=== PATIENT | female | born 1965 | race Hispanic/Latino ===

== ENCOUNTER 2018-08-31 12:08 | Emergency (ER) | payer SELFPAY ==
[2018-08-31] MEDS ORDERED: FAMOTIDINE 20 MG/2 ML VIAL IV ONE (15:16)
[2018-08-31] MEDS ORDERED: MORPHINE 4 MG/ML SYR ONE (15:16)
[2018-08-31] MEDS ORDERED: NA CHLORIDE 0.9% 1,000 ML ONE (15:16)
[2018-08-31] MEDS ORDERED: ONDANSETRON 4 MG/2 ML VIAL ONE (15:16)
--- NOTE | 2018-08-31 15:37 | RAD REPORT ---
EXAM DESCRIPTION: US - Abdomen Exam Limited - 08/31/2018 3:15 pm CLINICAL HISTORY: ABD PAIN COMPARISON: <Comparisons> FINDINGS: The gallbladder demonstrates no gallstones. No pericholecystic fluid or gallbladder wall t hickening. The common bile duct is normal measuring 4 mm. The liver demonstrates no findings of intrahepatic biliary dilatation. IMPRESSION: Unremarkable examination.
[2018-08-31 15:47] LABS: Protime INR 0.99
[2018-08-31 15:48] LABS: Absolute Lymphocytes (CBC) 2.6 K/uL (0.7-4.9); Basophils % 0.4 % (0-1.3); Eosinophils % 0.1 % (0-4.4); Hematocrit 48.5 % (36.0-45.0); Lymphocytes % 16.2 % (15.3-44.8); MPV 8.8 fL (7.6-11.3); Monocytes % 7.5 % (3.3-12.3); RBC Red Blood Cell Count 5.39 M/uL (3.86-4.86)
[2018-08-31 16:05] LABS: ALT/SGPT 127 U/L (12-78); AST/SGOT 31 U/L (15-37); Albumin 3.8 g/dL (3.4-5.0); Alkaline Phosphatase 134 U/L (45-117); BUN Blood Urea Nitrogen 25 mg/dL (7-18); Bicarbonate 25 mmol/L (21-32); Bilirubin Direct 0.1 mg/dL (0-0.2); Bilirubin Total 0.4 mg/dL (0.2-1.0); Glucose Level 93 mg/dL (74-106); Lipase 92 U/L (73-393); Magnesium 2.6 mg/dL (1.8-2.4); NT PRO-BNP 11 pg/mL (<125); Potassium 4.4 mmol/L (3.5-5.1); Protein, Total 7.7 g/dL (6.4-8.2); Sodium Level 136 mmol/L (136-145); Troponin (Emerg Dept Use Only) < 0.02 ng/mL (0.0-0.045)
--- NOTE | 2018-08-31 16:07 | RAD REPORT ---
EXAM DESCRIPTION: RAD - Chest Single View - 08/31/2018 4:02 pm CLINICAL HISTORY: ABDOMINAL DISTENTION Chest pain. COMPARISON: No comparisons FINDINGS: Portable technique limits examination quality. The lungs are grossly clear. The heart is normal in size. No displaced fractures. IMPRESSION: No acute intrathoracic process suspected.
--- NOTE | 2018-08-31 16:54 | RAD REPORT ---
EXAM DESCRIPTION: CTAbdomen Pelvis W Contrast - 08/31/2018 4:46 pm CLINICAL HISTORY: Abdominal pain. ABD PAIN COMPARISON: Chest Single View dated 08/31/2018; Abdomen Exam Limited dated 08/31/2018 TECHNIQUE: Biphasic CT imaging of the abdomen and pelvis was performed with 100 ml non-ionic IV cont rast. All CT scans are performed using dose optimization technique as appropriate and may include automated exposure control or mA/KV adjustment according to patient size. FINDINGS: The lung bases are clear.Small hiatal hernia. Mild fatty liver is present. The spleen, pancreas, adrenal glands are normal. Multiple parapelvic cys ts are present on the right. Mild left hydronephrosis is suspected with normal size left ureter this may be related to chronic UPJ obstruction related to a crossing vessel. No bowel obstruction, free air, free fluid or abscess. Sigmoid diverticulosis is present without dive rticulitis. The appendix is normal. No evidence of significant lymphadenopathy. No suspicious bony findings. 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 Fatty liver.
[2018-08-31 17:06] LABS: Urine Blood TRACE (NEG); Urine Glucose NEGATIVE (NEG); Urine Protein TRACE (NEG); Urine Specific Gravity 1.025 (1.005-1.030)
--- NOTE | 2018-08-31 17:42 | ER ---
Nurse's Notes [facility] Name: Mamie Carranza Age: 53 yrs Sex: Female : 1965 Arrival Date: 08/31/2018 Time: 12:12 Bed 23 Private MD: None, None Diagnosis: Abdominal tenderness;Essential (primary) hypertension;Elevated white blood cell count;Hydronephrosis with ureteral stricture, not elsewhere classified-rust Presentation: 08/31 12:18 Presenting complaint: states: she feels weak since and been hj complaining of heartburn and stomach pain; reports chest pain; reports fever and chills; reports nausea;. Transition of care: patient was not received from another setting of care. Onset of symptoms was August 31, 2018. Risk Assessment: Do you want to hurt yourself or someone else? Patient reports no desire to harm self or others. Initial Sepsis Screen: Does the patient meet any 2 criteria? No. Patient's initial sepsis screen is negative. Does the patient have a suspected source of infection? No. Patient's initial sepsis screen is negative. Care prior to arrival: None. 12:18 Method Of Arrival: Ambulatory 12:18 Acuity: FÁTIMA 3 hj Historical: - Allergies: 12:20 No Known Allergies; hj - PMHx: 12:20 Hypertension; hj - PSHx: 12:20 None; hj - Immunization history:: Adult Immunizations up to date. - Family history:: not pertinent. - Ebola Screening: : Patient denies travel to an Ebola-affected area in the 21 days before illness onset. Screenin:46 Abuse screen: Denies threats or abuse. Denies injuries from another. Nutritional aj1 screening: No deficits noted. Tuberculosis screening: No symptoms or risk factors identified. 18:24 Fall Risk None identified. aj1 Assessment: 13:46 General: Appears in no apparent distress. uncomfortable, Behavior is calm, cooperative, aj1 appropriate for age. Pain: Complains of pain in epigastric area Pain does not radiate. Quality of pain is described as burning, Pain began 2-3 days ago. Neuro: Level of Consciousness is awake, alert, obeys commands, Oriented to person, place, time, situation. Cardiovascular: Patient's skin is warm and dry. Respiratory: Airway is patent Respiratory effort is even, unlabored, Respiratory pattern is regular, symmetrical. GI: Abdomen is non-distended, Bowel sounds present X 4 quads. Abd is soft X 4 quads Abdomen is tender to palpation in epigastric area Reports nausea, Patient currently denies diarrhea, vomiting. : No signs and/or symptoms were reported regarding the genitourinary system. EENT: No signs and/or symptoms were reported regarding the EENT system. Derm: No signs and/or symptoms reported regarding the dermatologic system. Skin is pink, warm \T\ dry. normal. Musculoskeletal: No signs and/or symptoms reported regarding the musculoskeletal system. Circulation, motion, and sensation intact. 14:48 Reassessment: Patient appears in no apparent distress at this time. No changes from aj1 previously documented assessment. Patient and/or family updated on plan of care and expected duration. Pain level reassessed. Patient is alert, oriented x 3, equal unlabored respirations, skin warm/dry/pink. 15:45 Reassessment: Patient and/or family updated on plan of care and expected duration. Pain aj1 level reassessed. General: Appears in no apparent distress. comfortable, Behavior is calm, cooperative, appropriate for age. Neuro: Level of Consciousness is awake, alert, obeys commands. Cardiovascular: Patient's skin is warm and dry. Respiratory: Airway is patent Respiratory effort is even, unlabored, Respiratory pattern is regular, symmetrical. GI: Abdomen is non-distended. Derm: No signs and/or symptoms reported regarding the dermatologic system. Skin is pink, warm \T\ dry. normal. 16:45 Reassessment: Patient appears in no apparent distress at this time. No changes from aj1 previously documented assessment. Patient and/or family updated on plan of care and expected duration. Pain level reassessed. Patient is alert, oriented x 3, equal unlabored respirations, skin warm/dry/pink. 17:45 Reassessment: Patient appears in no apparent distress at this time. No changes from aj1 previously documented assessment. Patient and/or family updated on plan of care and expected duration. Pain level reassessed. Patient is alert, oriented x 3, equal unlabored respirations, skin warm/dry/pink. Vital Signs: 12:20 BP 116 / 82; Pulse 86; Resp 18; Temp 97.6(TE); Pulse Ox 98% on R/A; Weight 83.01 kg; hj Height 5 ft. 5 in. (165.10 cm); Pain 6/10; 13:30 BP 140 / 97 LA (auto/reg); Pulse 81; Temp 98.5(O); Pulse Ox 99% on R/A; Pain 8/10; jp3 14:48 BP 124 / 83; Pulse 80; Resp 18; Pulse Ox 100% on R/A; aj1 15:45 BP 120 / 91; Pulse 73; Resp 18; Pulse Ox 98% on R/A; aj1 16:45 BP 125 / 85; Pulse 79; Resp 18; Pulse Ox 99% ; aj1 17:45 BP 132 / 95; Pulse 76; Resp 18; Pulse Ox 99% on R/A; aj1 12:20 Body Mass Index 30.45 (83.01 kg, 165.10 cm) ED Course: 12:12 Patient arrived in ED. dp 12:13 None, None is Private Physician. dp 12:20 Triage completed. hj 12:20 Arm band placed on left wrist. hj 13:34 Bed in low position. Call light in reach. Side rails up X 1. Verbal reassurance given. jp3 Pulse ox on. NIBP on. 13:34 Patient maintains SpO2 saturation greater than 95% on room air. jp3 13:42 Renetta Roman, RN is Primary Nurse. aj1 13:46 No provider procedures requiring assistance completed. aj1 13:52 Dustin Cleveland MD is Attending Physician. [facility] 14:56 Radiology exam delayed due to lab results not completed at this time. (BUN/Creatinine) jg6 IV insertion attempt and/or patient not having appropriate IV at this time. 15:17 US Abdomen Limited In Process Unspecified. EDMS 15:31 Radiology exam delayed due to lab results not completed at this time. (BUN/Creatinine). jg6 15:48 Radiology exam delayed due to lab results not completed at this time. (BUN/Creatinine). jg6 15:49 Inserted saline lock: 20 gauge in right antecubital area, using aseptic technique. mg2 Blood collected. 15:56 Radiology exam delayed due to lab results not completed at this time. (BUN/Creatinine). vm2 16:03 XRAY Chest (1 view) In Process Unspecified. EDMS 16:47 CT Abd/Pelvis - IV Contrast Only In Process Unspecified. EDMS 17:41 Rajan Deluna MD is Referral Physician. [facility] 17:42 Chava Cararnza MD is Referral Physician. [facility] 18:23 IV discontinued, intact, bleeding controlled, No redness/swelling at site. Pressure aj1 dressing applied. Administered Medications: 15:33 Drug: NS 0.9% 1000 ml Route: IV; Rate: 1 bolus; Site: right antecubital; mg2 17:30 Follow up: IV Status: Completed infusion; IV Intake: 1000ml aj1 15:33 Drug: Pepcid 20 mg Route: IVP; Site: right antecubital; mg2 16:30 Follow up: Response: No adverse reaction aj1 15:33 Not Given (Patient Refused): morphine 4 mg IVP once mg2 15:33 Drug: Zofran 4 mg Route: IVP; Site: right antecubital; mg2 16:30 Follow up: Response: No adverse reaction; Nausea is decreased aj1 Intake: 17:30 IV: 1000ml; Total: 1000ml. aj1 Outcome: 17:42 Discharge ordered by . [facility] 18:24 Discharged to home ambulatory. aj1 18:24 Condition: good 18:24 Discharge instructions given to patient, Instructed on discharge instructions, follow up and referral plans. medication usage, Demonstrated understanding of instructions, follow-up care, medications, Prescriptions given X 4. 18:24 Patient left the ED. aj1 Signatures: Dispatcher [employer] EDMS Renetta Roman RN RN aj1 Dustin Cleveland MD MD cha Joaquin, Henry, RN RN hj McGuire, Victoria 2 Alin Zimmerman RN RN [facility] Ortiz jp3 Sandi Moura6 Cliff Bond Corrections: (The following items were deleted from the chart) 12:23 12:20 Pulse 86bpm; Resp 18bpm; Pulse Ox 98% RA; Temp 97.6F Temporal; 83.01 kg; Height 5 hj ft. 5 in.; BMI: 30.4; Pain 6/10; hj 12:32 12:18 Presenting complaint: states: she feels weak since and been hj complaining of of heartburn and stomach pain; reports chest pain; reports fever and chills; reports nausea; hj
--- NOTE | 2018-08-31 17:42 | EDPHYS ---
Physician Documentation [facility] Name: Mamie Carranza Age: 53 yrs Sex: Female : 1965 Arrival Date: 08/31/2018 Time: 12:12 Bed 23 Private MD: None, None ED Physician Dustin Cleveland HPI: 08/31 14:52 This 53 yrs old Female presents to ER via Ambulatory with complaints of augusto Abdominal Pain, General Weakness. 14:52 The patient presents with abdominal pain in the epigastric area, in the upper abdomen, augusto abdominal distention in the upper abdomen, in the lower abdomen. Onset: The symptoms/episode began/occurred 3 day(s) ago. The patient presents to the emergency department with nausea, abdominal pain, of the epigastric area, right upper quadrant and left upper quadrant. Onset: The symptoms/episode began/occurred 3 day(s) ago. Possible causes: unknown. The symptoms are aggravated by nothing. The symptoms are alleviated by nothing. Associated signs and symptoms: The patient has no apparent associated signs or symptoms. Historical: - Allergies: 12:20 No Known Allergies; hj - PMHx: 12:20 Hypertension; hj - PSHx: 12:20 None; hj - Immunization history:: Adult Immunizations up to date. - Family history:: not pertinent. - Ebola Screening: : Patient denies travel to an Ebola-affected area in the 21 days before illness onset. ROS: 14:52 Constitutional: Negative for fever, chills, and weight loss, Eyes: Negative for injury, augusto pain, redness, and discharge, ENT: Negative for injury, pain, and discharge, Neck: Negative for injury, pain, and swelling, Cardiovascular: Negative for chest pain, palpitations, and edema, Respiratory: Negative for shortness of breath, cough, wheezing, and pleuritic chest pain, Back: Negative for injury and pain, : Negative for injury, bleeding, discharge, and swelling, MS/Extremity: Negative for injury and deformity, Skin: Negative for injury, rash, and discoloration, Neuro: Negative for headache, weakness, numbness, tingling, and seizure. 14:52 Abdomen/GI: Positive for abdominal pain, nausea and vomiting, of the epigastric area, right upper quadrant and left upper quadrant. Exam: 14:52 Constitutional: This is a well developed, well nourished patient who is awake, alert, augusto and in no acute distress. Head/Face: Normocephalic, atraumatic. Eyes: Pupils equal round and reactive to light, extra-ocular motions intact. Lids and lashes normal. Conjunctiva and sclera are non-icteric and not injected. Cornea within normal limits. Periorbital areas with no swelling, redness, or edema. ENT: Nares patent. No nasal discharge, no septal abnormalities noted. Tympanic membranes are normal and external auditory canals are clear. Oropharynx with no redness, swelling, or masses, exudates, or evidence of obstruction, uvula midline. Mucous membranes moist. Neck: Trachea midline, no thyromegaly or masses palpated, and no cervical lymphadenopathy. Supple, full range of motion without nuchal rigidity, or vertebral point tenderness. No Meningismus. Chest/axilla: Normal chest wall appearance and motion. Nontender with no deformity. No lesions are appreciated. Cardiovascular: Regular rate and rhythm with a normal S1 and S2. No gallops, murmurs, or rubs. Normal PMI, no JVD. No pulse deficits. Respiratory: Lungs have equal breath sounds bilaterally, clear to auscultation and percussion. No rales, rhonchi or wheezes noted. No increased work of breathing, no retractions or nasal flaring. Back: No spinal tenderness. No costovertebral tenderness. Full range of motion. Skin: Warm, dry with normal turgor. Normal color with no rashes, no lesions, and no evidence of cellulitis. MS/ Extremity: Pulses equal, no cyanosis. Neurovascular intact. Full, normal range of motion. Neuro: Awake and alert, GCS 15, oriented to person, place, time, and situation. Cranial nerves II-XII grossly intact. Motor strength 5/5 in all extremities. Sensory grossly intact. Cerebellar exam normal. Normal gait. Psych: Awake, alert, with orientation to person, place and time. Behavior, mood, and affect are within normal limits. 14:52 Abdomen/GI: Inspection: distension, Bowel sounds: normal, Palpation: mild abdominal tenderness, in the epigastric area, right upper quadrant and left upper quadrant, Liver: no appreciated palpable abnormalities, Hernia: not appreciated. Vital Signs: 12:20 BP 116 / 82; Pulse 86; Resp 18; Temp 97.6(TE); Pulse Ox 98% on R/A; Weight 83.01 kg; hj Height 5 ft. 5 in. (165.10 cm); Pain 6/10; 13:30 BP 140 / 97 LA (auto/reg); Pulse 81; Temp 98.5(O); Pulse Ox 99% on R/A; Pain 8/10; jp3 14:48 BP 124 / 83; Pulse 80; Resp 18; Pulse Ox 100% on R/A; aj1 15:45 BP 120 / 91; Pulse 73; Resp 18; Pulse Ox 98% on R/A; aj1 16:45 BP 125 / 85; Pulse 79; Resp 18; Pulse Ox 99% ; aj1 17:45 BP 132 / 95; Pulse 76; Resp 18; Pulse Ox 99% on R/A; aj1 12:20 Body Mass Index 30.45 (83.01 kg, 165.10 cm) hj MDM: 13:52 Patient medically screened. [facility] 14:55 Data reviewed: vital signs, nurses notes, lab test result(s), EKG, radiologic studies, [facility] CT scan, plain films. 08/31 14:52 Order name: Basic Metabolic Panel [facility] 08/31 14:52 Order name: CBC with Diff [facility] 08/31 14:52 Order name: LFT's [facility] 08/31 14:52 Order name: Magnesium [facility] 08/31 14:52 Order name: NT PRO-BNP; Complete Time: 16:26 [facility] 08/31 14:52 Order name: PT-INR; Complete Time: 15:54 [facility] 08/31 14:52 Order name: Troponin (emerg Dept Use Only); Complete Time: 16:26 [facility] 08/31 14:52 Order name: Lipase; Complete Time: 16:26 [facility] 08/31 14:52 Order name: Urine Culture [facility] 08/31 14:53 Order name: Basic Metabolic Panel; Complete Time: 16:26 [facility] 08/31 14:53 Order name: CBC with Automated Diff; Complete Time: 15:54 [facility] 08/31 14:53 Order name: Liver (Hepatic) Function; Complete Time: 16:26 [facility] 08/31 14:53 Order name: Magnesium; Complete Time: 16:26 [facility] 08/31 15:57 Order name: Urine Dipstick--Ancillary (enter results); Complete Time: 17:28 bd 08/31 14:52 Order name: XRAY Chest (1 view); Complete Time: 16:26 [facility] 08/31 14:52 Order name: EKG; Complete Time: 14:54 [facility] 08/31 14:52 Order name: Cardiac monitoring; Complete Time: 15:44 [facility] 08/31 14:52 Order name: EKG - Nurse/Tech; Complete Time: 15:44 [facility] 08/31 14:52 Order name: IV Saline Lock; Complete Time: 15:44 [facility] 08/31 14:52 Order name: Labs collected and sent; Complete Time: 15:44 [facility] 08/31 14:52 Order name: O2 Per Protocol; Complete Time: 15:44 [facility] 08/31 14:52 Order name: O2 Sat Monitoring; Complete Time: 15:44 [facility] 08/31 14:52 Order name: US Abdomen Limited; Complete Time: 15:54 [facility] 08/31 14:52 Order name: CT Abd/Pelvis - IV Contrast Only; Complete Time: 17:28 [facility] 08/31 14:52 Order name: Urine Dipstick-Ancillary (obtain specimen); Complete Time: 16:43 [facility] Administered Medications: 15:33 Drug: NS 0.9% 1000 ml Route: IV; Rate: 1 bolus; Site: right antecubital; mg2 17:30 Follow up: IV Status: Completed infusion; IV Intake: 1000ml aj1 15:33 Drug: Pepcid 20 mg Route: IVP; Site: right antecubital; mg2 16:30 Follow up: Response: No adverse reaction aj1 15:33 Not Given (Patient Refused): morphine 4 mg IVP once mg2 15:33 Drug: Zofran 4 mg Route: IVP; Site: right antecubital; mg2 16:30 Follow up: Response: No adverse reaction; Nausea is decreased aj1 Disposition: 08/31/18 17:42 Discharged to Home. Impression: Abdominal tenderness, Essential (primary) hypertension, Elevated white blood cell count, Hydronephrosis with ureteral stricture, not elsewhere classified - upj. - Condition is Fair. - Discharge Instructions: Abdominal Pain, Adult, Hypertension, Abdominal Pain, Adult, [id number], Hydronephrosis, Hypertension, [id number], Managing Your Hypertension. - Prescriptions for Bentyl 20 mg Oral Tablet - take 1 tablet by ORAL route every 6 hours As needed; 20 tablet. Pepcid 20 mg Oral Tablet - take 1 tablet by ORAL route every 12 hours for 10 days; 20 tablet. Zofran 4 mg Oral Tablet - take 1 tablet by ORAL route every 12 hours As needed; 20 tablet. Lisinopril 10 mg Oral Tablet - take 1 tablet by ORAL route once daily; 20 tablet. - Medication Reconciliation Form, Thank You Letter, Antibiotic Education, Prescription Opioid Use form. - Follow up: Private Physician; When: 2 - 3 days; Reason: Recheck today's complaints, Continuance of care, Re-evaluation by your physician. Follow up: Rajan Deluna MD; When: 2 - 3 days; Reason: Recheck today's complaints, Continuance of care, Re-evaluation by your physician. Follow up: Chava Carranza MD; When: 2 - 3 days; Reason: Recheck today's complaints, Re-evaluation by your physician. - Problem is new. - Symptoms have improved. Signatures: Dispatcher [employer] EDRenetta Katz RN RN aj1 Dustin Cleveland MD MD cha Joaquin, Henry, RN RN Alin Zimmerman RN RN mg2 Corrections: (The following items were deleted from the chart) 18:24 17:42 08/31/2018 17:42 Discharged to Home. Impression: Abdominal tenderness; Essential aj1 (primary) hypertension; Elevated white blood cell count; Hydronephrosis with ureteral stricture, not elsewhere classified - upj. Condition is Fair. Forms are Medication Reconciliation Form, Thank You Letter, Antibiotic Education, Prescription Opioid Use. Follow up: Private Physician; When: 2 - 3 days; Reason: Recheck today's complaints, Continuance of care, Re-evaluation by your physician. Follow up: Rajan Deluna; When: 2 - 3 days; Reason: Recheck today's complaints, Continuance of care, Re-evaluation by your physician. Follow up: Chava Carranza; When: 2 - 3 days; Reason: Recheck today's complaints, Re-evaluation by your physician. Problem is new. Symptoms have improved. augusto
[2018-08-31 18:38] VITALS: TEMP 98.5
[2018-08-31 18:52] VITALS: O2SAT 99
[2018-08-31 18:53] VITALS: BP 132/95
--- NOTE | 2018-09-01 15:08 | EKG ---
Test Date: 2018-08-31 Test Time: 15:41:32 Manager Clinical: ELIU MEASUREMENT RESULTS: Intervals: Rate: 64 IN: 182 QRSD: 74 QT: 392 QTc: 404 [place]: P: 33 IN: 182 QRS: 16 T: 32 INTERPRETIVE STATEMENTS: Normal sinus rhythm Normal ECG Compared to ECG 04/25/2015 00:07:53 No significant changes Electronically Signed On 09-01-18 15:07:52 CDT by Srinivas Owens
== END 2018-08-31 18:24 | disposition home or self-care (01) ==
LOC: ER 12:08
DX: N13.1 Hydronephrosis with ureteral stricture, not elsewhere classified (principal); D72.829 Elevated white blood cell count, unspecified; I10 Essential (primary) hypertension
CPT/HCPCS: 36415; 71045; 74177; 76705; 80048; 80076; 81003; 83690; 83735; 83880; 84484; 85025; 85610; 87086; 87088; 93005; 96361; 96374; 96375; 99284; J2405; J7030; Q9967

== ENCOUNTER 2019-09-27 20:04 | Emergency (ER) | payer OTHER, SELFPAY ==
--- OUTSIDE RECORDS SUMMARY | 2019-09-27 20:06 | XMS REPORT | Continuity of Care Document ---
:1965 Author Organization [facility] t Address [address] [place] [address] Care Team Providers Name Role Phone Unavailable Unavailable Unavailable Problems This patient has no known problems. Allergies, Adverse Reactions, Alerts This patient has no known allergies or adverse reactions. Medications This patient has no known medications. Procedures This patient has no known procedures. Results This patient has no known results.
[2019-09-27 21:01] LABS: Basophils % 0.9 % (0-1.3); Hematocrit 37.1 % (36.0-45.0); Lymphocytes % 33.5 % (15.3-44.8); MPV 8.8 fL (7.6-11.3); RBC Red Blood Cell Count 4.21 M/uL (3.86-4.86)
[2019-09-27 21:04] LABS: Protime INR 0.92
[2019-09-27 21:31] LABS: ALT/SGPT 73 U/L (12-78); AST/SGOT 30 U/L (15-37); Albumin 3.5 g/dL (3.4-5.0); Alkaline Phosphatase 144 U/L (45-117); BUN Blood Urea Nitrogen 10 mg/dL (7-18); Bicarbonate 24 mmol/L (21-32); Bilirubin Direct < 0.1 mg/dL (0-0.2); Bilirubin Total 0.2 mg/dL (0.2-1.0); Ferritin 138.4 ng/mL (8-388); Glucose Level 98 mg/dL (74-106); Lipase 104 U/L (73-393); Potassium 3.8 mmol/L (3.5-5.1); Protein, Total 7.7 g/dL (6.4-8.2); Sodium Level 142 mmol/L (136-145); Troponin (Emerg Dept Use Only) < 0.02 ng/mL (0.0-0.045)
[2019-09-27 21:40] LABS: C-Reactive Protein < 2.90 mg/L (<3.00)
--- NOTE | 2019-09-27 21:42 | RAD REPORT ---
EXAM DESCRIPTION: RAD - Chest Single View - 09/27/2019 9:32 pm CLINICAL HISTORY: COUGH Chest pain. COMPARISON: Chest Single View dated 08/31/2018 FINDINGS: Portable technique limits examination quality. Mild interstitial prominence is seen bilaterally. The heart is mildly prominent in size. No displaced fractures. IMPRESSION: Mild CHF versus interstitial pneumonia pattern.
[2019-09-27 21:50] LABS: Urine Blood TRACE (NEG); Urine Glucose NEGATIVE (NEG); Urine Protein NEGATIVE (NEG); Urine Specific Gravity >1.030 (1.005-1.030); Urine pH 5.5 (5.0-7.0)
--- NOTE | 2019-09-27 21:58 | ER ---
Nurse's Notes [facility] Name: Mamie Carranza Age: 54 yrs Sex: Female : 1965 Arrival Date: 09/27/2019 Time: 20:05 Bed 8 Private MD: Diagnosis: Dyspnea, unspecified Presentation: 09/26 20:27 Chief complaint: Patient states: she was COVID positive but now is negative however she bb is SOB x 5 days and has mild chest, back and abdominal pain with a fever. Coronavirus screen: fever, shortness of breath, Client reports previous positive COVID test result. Ebola Screen: No symptoms or risks identified at this time. Initial Sepsis Screen: Does the patient meet any 2 criteria? RR > 20 per min. HR > 90 bpm. Yes Does the patient have a suspected source of infection? Yes: Productive cough/pneumonia If YES to both, name of provider notified: Cody Sheth MD. Risk Assessment: Do you want to hurt yourself or someone else? Patient reports no desire to harm self or others. Onset of symptoms was September 22, 2019. 20:27 Method Of Arrival: Ambulatory bb 20:27 Acuity: FÁTIMA 3 bb Triage Assessment: 20:30 General: Appears in no apparent distress. Behavior is calm, cooperative, appropriate rr5 for age. Respiratory: the patient has mild shortness of breath. 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 - Social history:: Smoking status: Patient denies any tobacco usage or history of. Patient/guardian denies using alcohol, street drugs. Screenin:40 Abuse screen: Denies threats or abuse. Denies injuries from another. Nutritional rr5 screening: No deficits noted. Tuberculosis screening: No symptoms or risk factors identified. Fall Risk IV access (20 points). Total Cao Fall Scale indicates No Risk (0-24 pts). Assessment: 20:35 General: Appears in no apparent distress. uncomfortable, Behavior is calm, cooperative, rr5 appropriate for age, Reports fever for. Pain: Complains of pain in chest Pain radiates to back and abdomen Pain currently is 3 out of 10 on a pain scale. Quality of pain is described as aching, Pain began gradually, Is intermittent. Neuro: Level of Consciousness is awake, alert, obeys commands, Oriented to person, place, time, situation. Cardiovascular: Reports chest pain, Capillary refill < 3 seconds Patient's skin is warm and dry. Rhythm is regular. Respiratory: Reports shortness of breath Airway is patent Respiratory effort is even, unlabored, Respiratory pattern is regular, symmetrical, GI: Reports upper abdominal pain. : No signs and/or symptoms were reported regarding the genitourinary system. EENT: No signs and/or symptoms were reported regarding the EENT system. Derm: Skin is intact, is healthy with good turgor, Skin temperature is warm. Musculoskeletal: Capillary refill < 3 seconds. 20:55 Reassessment: ED provider with verbal order to cancel covid test. rr5 21:21 Reassessment: D dimer 766 ada from laboratory called. ED provider aware. rr5 21:34 Reassessment: Patient appears in no apparent distress at this time. Patient is alert, rr5 oriented x 3, equal unlabored respirations, skin warm/dry/pink. 22:52 Reassessment: Patient appears in no apparent distress at this time. Patient is alert, rr5 oriented x 3, equal unlabored respirations, skin warm/dry/pink. discharge instruction given and explained without complaints made. Patient states symptoms have improved. Vital Signs: 20:27 BP 161 / 102; Pulse 104; Resp 22 S; Temp 99(O); Pulse Ox 97% on R/A; Weight 81.65 kg bb (R); Height 5 ft. 5 in. (165.10 cm) (R); Pain 3/10; 21:13 BP 126 / 104; Pulse 84; Resp 19; Pulse Ox 100% ; rr5 22:50 BP 141 / 89; Pulse 80; Resp 17; Temp 97.8; Pulse Ox 100% ; rr5 20:27 Body Mass Index 29.95 (81.65 kg, 165.10 cm) ED Course: 20:05 Patient arrived in ED. am2 20:08 Cody Sheth MD is Attending Physician. tw4 20:09 Loyda Bond, RN is Primary Nurse. lp1 20:30 Triage completed. bb 20:30 Patient has correct armband on for positive identification. Placed in gown. Bed in low rr5 position. Call light in reach. Side rails up X2. panel monitor on. Pulse ox on. NIBP on. 20:30 EKG done, by ED staff, reviewed by Cody Sheth MD. rr5 20:31 Arm band placed on Patient placed in an exam room, on a stretcher, on pulse oximetry. bb EKG completed in triage. Results shown to MD. 20:40 Primary Nurse role handed off by Loyda Bond RN rr5 20:40 Reuben Saunders, MARY JANE is Primary Nurse. rr5 20:40 Inserted saline lock: 20 gauge in right antecubital area, using aseptic technique. rr5 ,using aseptic technique. inserted by sachin. 20:40 First set of blood cultures drawn by ED staff. rr5 20:45 Flu and/or RSV swab sent to lab. Strep swab sent to lab. rr5 21:10 Second set of blood cultures drawn by ED staff. rr5 21:32 CXR XRAY In Process Unspecified. EDMS 22:53 No provider procedures requiring assistance completed. IV discontinued, intact, rr5 bleeding controlled, No redness/swelling at site. Pressure dressing applied. Administered Medications: 22:29 Drug: Albuterol - atroVENT (3:1) (2.5 mg - 0.5 mg) 3 ml Route: Nebulizer; rr5 22:53 Follow up: Response: No adverse reaction rr5 Outcome: 21:57 Discharge ordered by . tw4 22:53 Discharged to home ambulatory. rr5 22:53 Condition: stable 22:53 Discharge instructions given to patient, Instructed on discharge instructions, follow up and referral plans. medication usage, Demonstrated understanding of instructions, follow-up care, medications, Prescriptions given X 2. 22:54 Patient left the ED. rr5 Signatures: Dispatcher [employer] EDMS iD Jones RN RN bb Loyda Bond, RN RN lp1 Debora Limon am2 Cody Sheth MD MD tw4 Reuben Saunders RN RN rr5
--- NOTE | 2019-09-27 21:58 | EDPHYS ---
Physician Documentation [facility] Name: Mamie Carranza Age: 54 yrs Sex: Female : 1965 Arrival Date: 09/27/2019 Time: 20:05 Bed 8 Private MD: ED Physician Cody Sheth HPI: 09/26 20:24 This 54 yrs old Female presents to ER via Unassigned with complaints of tw4 Breathing Difficulty, Cough. 20:24 The patient has shortness of breath at rest. Onset: The symptoms/episode began/occurred tw4 today. Duration: The symptoms are continuous, and are unchanged since they started. The patient's shortness of breath has no apparent modifying factors. Associated signs and symptoms: The patient has no apparent associated signs or symptoms. Severity of symptoms: At their worst the symptoms were mild in the emergency department the symptoms are unchanged. The patient has not experienced similar symptoms in the past. 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 - Social history:: Smoking status: Patient denies any tobacco usage or history of. Patient/guardian denies using alcohol, street drugs. ROS: 20:24 Constitutional: Negative for fever, chills, and weight loss, Eyes: Negative for injury, tw4 pain, redness, and discharge, Cardiovascular: Negative for chest pain, palpitations, and edema, Abdomen/GI: Negative for abdominal pain, nausea, vomiting, diarrhea, and constipation, Back: Negative for injury and pain, MS/Extremity: Negative for injury and deformity, Skin: Negative for injury, rash, and discoloration, Neuro: Negative for headache, weakness, numbness, tingling, and seizure. 20:24 Respiratory: Positive for cough, dyspnea on exertion, shortness of breath. Exam: 20:24 Constitutional: This is a well developed, well nourished patient who is awake, alert, tw4 and in no acute distress. Head/Face: Normocephalic, atraumatic. Chest/axilla: Normal chest wall appearance and motion. Nontender with no deformity. No lesions are appreciated. Cardiovascular: Regular rate and rhythm with a normal S1 and S2. No gallops, murmurs, or rubs. Normal PMI, no JVD. No pulse deficits. Respiratory: Lungs have equal breath sounds bilaterally, clear to auscultation and percussion. No rales, rhonchi or wheezes noted. No increased work of breathing, no retractions or nasal flaring. Skin: Warm, dry with normal turgor. Normal color with no rashes, no lesions, and no evidence of cellulitis. MS/ Extremity: Pulses equal, no cyanosis. Neurovascular intact. Full, normal range of motion. Neuro: Awake and alert, GCS 15, oriented to person, place, time, and situation. Cranial nerves II-XII grossly intact. Motor strength 5/5 in all extremities. Sensory grossly intact. Cerebellar exam normal. Normal gait. Vital Signs: 20:27 BP 161 / 102; Pulse 104; Resp 22 S; Temp 99(O); Pulse Ox 97% on R/A; Weight 81.65 kg bb (R); Height 5 ft. 5 in. (165.10 cm) (R); Pain 3/10; 21:13 BP 126 / 104; Pulse 84; Resp 19; Pulse Ox 100% ; rr5 22:50 BP 141 / 89; Pulse 80; Resp 17; Temp 97.8; Pulse Ox 100% ; rr5 20:27 Body Mass Index 29.95 (81.65 kg, 165.10 cm) bb MDM: 21:38 Patient medically screened. tw4 23:51 Differential diagnosis: reactive airway disease, Unstable Angina. Antibiotic tw4 administration: Not indicated. Data reviewed: vital signs, nurses notes. Data interpreted: Pulse oximetry: Interpretation: normal. Counseling: I had a detailed discussion with the patient and/or guardian regarding: the historical points, exam findings, and any diagnostic results supporting the discharge/admit diagnosis. Special discussion: I discussed with the patient/guardian in detail that at this point there is no indication for admission to the hospital. It is understood, however, that if the symptoms persist or worsen the patient needs to return immediately for re-evaluation. 09/26 20:09 Order name: Blood Culture Adult (2) 09/26 20:09 Order name: BMP; Complete Time: 21:43 09/26 21:44 Interpretation: Normal except: CL 109. 09/26 20:09 Order name: C-Reactive Protein; Complete Time: 21:43 09/26 21:44 Interpretation: Within normal limits: C-REACTIVE PROT < 2.90. 09/26 20:09 Order name: CBC with Diff; Complete Time: 21:43 09/26 21:44 Interpretation: Within normal limits. 09/26 20:09 Order name: COVID-19 09/26 20:09 Order name: D-Dimer; Complete Time: 21:43 09/26 21:44 Interpretation: Abnormal: D-DIMER 766. 09/26 20:09 Order name: Ferritin; Complete Time: 21:43 09/26 21:44 Interpretation: Within normal limits: GARRISON 138.4. 09/26 20:09 Order name: Flu; Complete Time: 21:43 09/26 21:44 Interpretation: Within normal limits. 09/26 20:09 Order name: Lactate; Complete Time: 21:43 09/26 21:45 Interpretation: Within normal limits: LAC 1.8. 09/26 20:09 Order name: LFT's; Complete Time: 21:43 09/26 21:44 Interpretation: Abnormal: ALK 144; GLOB 4.2; A/G 0.8. 09/26 20:09 Order name: Lipase; Complete Time: 21:44 09/26 21:45 Interpretation: Within normal limits: LIP 104. 09/26 20:09 Order name: Procalcitonin 09/26 20:09 Order name: PT-INR; Complete Time: 21:44 09/26 21:45 Interpretation: Within normal limits: PT 10.9. 09/26 20:09 Order name: Ptt, Activated; Complete Time: 21:43 09/26 21:44 Interpretation: Abnormal: PTT 37.2. 09/26 20:09 Order name: Strep; Complete Time: 21:44 09/26 21:45 Interpretation: Within normal limits. 09/26 20:09 Order name: Troponin (emerg Dept Use Only); Complete Time: 21:44 tw4 09/26 21:45 Interpretation: Within normal limits: TROPED < 0.02. tw4 09/26 20:09 Order name: CXR XRAY; Complete Time: 21:44 tw4 09/26 21:45 Interpretation: Abnormal. tw4 09/26 20:09 Order name: EKG; Complete Time: 20:10 tw4 09/26 20:09 Order name: Cardiac monitoring; Complete Time: 20:53 tw4 09/26 20:09 Order name: Droplet/Contact Precautions; Complete Time: 20:54 4 09/26 20:09 Order name: EKG - Nurse/Tech; Complete Time: 20:54 tw4 09/26 20:09 Order name: IV Start; Complete Time: 20:58 tw4 09/26 20:09 Order name: Labs collected and sent; Complete Time: 20:58 4 09/26 20:09 Order name: O2 Per Protocol; Complete Time: 20:58 4 09/26 21:17 Order name: Urine Dipstick--Ancillary (enter results) tt3 09/26 21:28 Order name: Throat Culture EDNV 09/26 20:09 Order name: O2 Sat Monitoring; Complete Time: 20:58 tw4 09/26 20:09 Order name: Urine Dipstick-Ancillary (obtain specimen); Complete Time: 21:13 tw4 EC:43 Rate is 94 beats/min. Rhythm is regular. QRS [place] is Normal. IA interval is normal. QRS tw4 interval is normal. QT interval is normal. No Q waves. T waves are Normal. No ST changes noted. Clinical impression: Normal ECG. Interpreted by me. Reviewed by me. Administered Medications: 22:29 Drug: Albuterol - atroVENT (3:1) (2.5 mg - 0.5 mg) 3 ml Route: Nebulizer; rr5 22:53 Follow up: Response: No adverse reaction rr5 Disposition: 09/27/19 21:57 Discharged to Home. Impression: Dyspnea, unspecified. - Condition is Stable. - Discharge Instructions: Shortness of Breath. - Prescriptions for Medrol (Dada) 4 mg Oral Tablets, Dose Pack - take 1 tablet by ORAL route as directed - follow package instructions; 1 packet. Albuterol Sulfate 90 mcg/actuation - inhale 1-2 puff by INHALATION route every 4-6 hours; 1 Inhaler. - Medication Reconciliation Form, Thank You Letter, Antibiotic Education, Prescription Opioid Use form. - Follow up: Private Physician; When: Upon discharge from the Emergency Department; Reason: Recheck today's complaints, Continuance of care, Re-evaluation by your physician. - Problem is new. - Symptoms have improved. Signatures: Dispatcher [employer] Di Alvarez, RN RN Cody Potter MD MD tw4 Reuben Saunders RN RN rr5 Corrections: (The following items were deleted from the chart) 20:54 20:09 Document PUI# ordered. 4 rr5 20:58 20:09 [facility] ordered. [facility] rr5 22:54 21:57 09/27/2019 21:57 Discharged to Home. Impression: Dyspnea, unspecified. Condition rr5 is Stable. Forms are Medication Reconciliation Form, Thank You Letter, Antibiotic Education, Prescription Opioid Use. Follow up: Private Physician; When: Upon discharge from the Emergency Department; Reason: Recheck today's complaints, Continuance of care, Re-evaluation by your physician. Problem is new. Symptoms have improved. tw4
[2019-09-27] MEDS ORDERED: ALBUTEROL INHALER 60 PUFF/8 GM IH ONE (22:33)
[2019-09-27] MEDS ORDERED: ALBUTEROL 2.5 MG/3 ML NEB SOL ONE (22:34)
[2019-09-27] MEDS ORDERED: IPRATROPIUM BROM 0.5MG/2.5ML ONE (22:34)
[2019-09-27 23:14] VITALS: O2SAT 100
[2019-09-27 23:15] VITALS: BP 141/89; TEMP 97.8
--- NOTE | 2019-09-28 12:36 | EKG ---
Test Date: 2019-09-27 Test Time: 20:27:40 Key Account Coordinator: WAI MEASUREMENT RESULTS: Intervals: Rate: 94 VA: 190 QRSD: 70 QT: 338 QTc: 422 [place]: P: 27 VA: 190 QRS: 23 T: 34 INTERPRETIVE STATEMENTS: Normal sinus rhythm Normal ECG Compared to ECG 08/31/2018 15:41:32 No significant changes Electronically Signed On 09-28-19 12:35:27 CDT by Joaquín Rangel
== END 2019-09-27 22:54 | disposition home or self-care (01) ==
LOC: ER 20:04
DX: R06.00 Dyspnea, unspecified (principal); Z86.19 Personal history of other infectious and parasitic diseases; I10 Essential (primary) hypertension
CPT/HCPCS: 36415; 71045; 80048; 80076; 81003; 82728; 83605; 83690; 84145; 84484; 85025; 85379; 85610; 85730; 86140; 87040; 87070; 87081; 87804; 93005; 99285

== ENCOUNTER 2020-03-24 14:10 | Emergency (ER) | payer SELFPAY ==
--- OUTSIDE RECORDS SUMMARY | 2020-03-24 14:13 | XMS REPORT | Continuity of Care Document ---
:1965 Author Organization [facility] t Address [address] [place] [address] [address] [place] [address] Care Team Providers Name Role Phone Unavailable Unavailable Unavailable Problems This patient has no known problems. Allergies, Adverse Reactions, Alerts This patient has no known allergies or adverse reactions. Medications This patient has no known medications. Procedures This patient has no known procedures. Results This patient has no known results.
[2020-03-24 14:52] LABS: Absolute Lymphocytes (CBC) 1.6 K/uL (0.7-4.9); Basophils % 0.6 % (0-1.3); Lymphocytes % 24.6 % (15.3-44.8); MPV 9.2 fL (7.6-11.3); RBC Red Blood Cell Count 4.54 M/uL (3.86-4.86)
--- NOTE | 2020-03-24 14:57 | RAD REPORT ---
EXAM DESCRIPTION: CT - Head Brain Wo Cont - 03/24/2020 2:50 pm CLINICAL HISTORY: DIZZINESS COMPARISON: HEAD BRAIN W O CONTRAST dated 04/25/2015 TECHNIQUE: Axial 5 mm thick images of the head were obtained without IV contrast. All CT scans are performed using dose optimization technique as appropriate and may include automated exposure control or mA/KV adjustment according to patient size. FINDINGS: No intracranial hemorrhage, mass, edema or shift of mid-line structures. No acute infarcti on changes seen. No abnormal extra-axial fluid collections. Ventricles are normal. Intracranial findi ngs are similar the 2016 study. Mastoid air cells and visualized portions of the paranasal sinuses are clear. No acute bony findings. IMPRESSION: Negative non-contrast CT head examination.
[2020-03-24 15:16] LABS: Sodium Level 142 mmol/L (136-145)
[2020-03-24 15:17] LABS: ALT/SGPT 45 U/L (12-78); Albumin 3.9 g/dL (3.4-5.0); Alkaline Phosphatase 152 U/L (45-117); BUN Blood Urea Nitrogen 18 mg/dL (7-18); Bicarbonate 25 mmol/L (21-32); Bilirubin Direct < 0.1 mg/dL (0-0.2); Bilirubin Total 0.2 mg/dL (0.2-1.0); Glucose Level 110 mg/dL (74-106); Lipase 98 U/L (73-393); Protein, Total 7.2 g/dL (6.4-8.2); Troponin (Emerg Dept Use Only) < 0.02 ng/mL (0.0-0.045)
[2020-03-24 15:18] LABS: AST/SGOT 24 U/L (15-37); Potassium 4.1 mmol/L (3.5-5.1)
[2020-03-24] MEDS ORDERED: NA CHLORIDE 0.9% 500 ML ONE (15:23)
[2020-03-24] MEDS ORDERED: ONDANSETRON 4 MG/2 ML VIAL ONE (15:23)
[2020-03-24] MEDS ORDERED: MECLIZINE HCL 12.5 MG TAB ONE (15:23)
--- NOTE | 2020-03-24 15:44 | EDPHYS ---
Physician Documentation [facility] Name: Mamie Carranza Age: 55 yrs Sex: Female : 1965 Arrival Date: 03/24/2020 Time: 14:11 Bed 19 Private MD: ED Physician Madhu Hedrick HPI: 03/24 14:27 This 55 yrs old Female presents to ER via Unassigned with complaints of rn Dizziness, Nausea. 14:27 The patient presents with dizziness, lightheadedness, feeling off balance. Onset: The rn symptoms/episode began/occurred 2 day(s) ago. Context:. Modifying factors: The symptoms are alleviated by holding head still, the symptoms are aggravated by movement of head, standing up. Associated signs and symptoms: Pertinent positives: headache, nausea, vomiting, Pertinent negatives: abdominal pain, confusion, diaphoresis, focal weakness, head injury. Severity of symptoms: At their worst the symptoms were moderate in the emergency department the symptoms have improved. The patient has not experienced similar symptoms in the past. The patient has not recently seen a physician. Reports headache since COVID diagnosis in August, now reports 2 days of dizziness, feels like moving or going to fall, assoc nausea, worse with change in position or turning head, improves with holding still. Also reports babysat kid who also experienced vomiting. No chest pain or sob. . 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 - Family history:: not pertinent. - Social history:: Smoking status: unknown. - Hospitalizations: : No recent hospitalization is reported. ROS: 14:27 Constitutional: Negative for fever, chills, and weight loss, Eyes: Negative for injury, rn pain, redness, and discharge, Neck: Negative for injury, pain, and swelling, Cardiovascular: Negative for chest pain, palpitations, and edema, Respiratory: Negative for shortness of breath, cough, wheezing, and pleuritic chest pain, Abdomen/GI: Negative for abdominal pain, and constipation, Back: Negative for injury and pain, MS/Extremity: Negative for injury and deformity, Skin: Negative for injury, rash, and discoloration, Neuro: Negative for numbness, tingling, and seizure. Exam: 14:27 Constitutional: This is a well developed, well nourished patient who is awake, alert, rn and in no acute distress. Ambulatory to room without difficulty or assistance Head/Face: Normocephalic, atraumatic. Eyes: Pupils equal round and reactive to light, extra-ocular motions intact. Lids and lashes normal. Conjunctiva and sclera are non-icteric and not injected. Cornea within normal limits. Periorbital areas with no swelling, redness, or edema. ENT: MMM Cardiovascular: Regular rate and rhythm. No pulse deficits. Respiratory: No increased work of breathing, no retractions or nasal flaring. Abdomen/GI: soft, non-tender Skin: Warm, dry MS/ Extremity: Pulses equal, no cyanosis. Neurovascular intact. Full, normal range of motion. Equal circumference. Neuro: Awake and alert, GCS 15 Vital Signs: 14:46 BP 160 / 101; Pulse 97; Resp 17 S; Temp 98.7(TE); Pulse Ox 99% on R/A; Weight 83.01 kg jd3 (R); Height 5 ft. 1 in. (154.94 cm) (R); Pain 5/10; 15:15 BP 106 / 71; rn 15:17 BP 106 / 71; Pulse 80; Resp 14 S; Pulse Ox 99% on R/A; jd3 14:46 Body Mass Index 34.58 (83.01 kg, 154.94 cm) jd3 MDM: 14:16 Patient medically screened. rn 15:42 Differential diagnosis: cardiac arrhythmia, generalized weakness, hypovolemia, rn idiopathic dizziness, TIA, vertigo. Data reviewed: vital signs, nurses notes, lab test result(s), EKG, radiologic studies, CT scan, and as a result, I will discharge patient. Counseling: I had a detailed discussion with the patient and/or guardian regarding: the historical points, exam findings, and any diagnostic results supporting the discharge/admit diagnosis, lab results, radiology results, the need for outpatient follow up, to return to the emergency department if symptoms worsen or persist or if there are any questions or concerns that arise at home. Response to treatment: the patient's symptoms have markedly improved after treatment, the patient's condition has returned to base line, the patient is now symptom free, and as a result, I will discharge patient. Special discussion: I discussed with the patient/guardian in detail that at this point there is no indication for admission to the hospital. It is understood, however, that if the symptoms persist or worsen the patient needs to return immediately for re-evaluation. ED course: Pt feels much better, no acute findings on CT head, BP improved without medication, denies feeling dizzy. Will dc home with meclizine and steroids. . 03/24 14:24 Order name: Basic Metabolic Panel rn 03/24 14:24 Order name: CBC with Diff; Complete Time: 14:57 rn 03/24 14:24 Order name: Hepatic Function; Complete Time: 15:27 rn 03/24 14:24 Order name: Lipase; Complete Time: 15:27 rn 03/24 14:24 Order name: Troponin (emerg Dept Use Only); Complete Time: 15:27 rn 03/24 14:25 Order name: Basic Metabolic Panel; Complete Time: 15:27 EDMS 03/24 14:24 Order name: CT Head Brain wo Cont; Complete Time: 14:57 rn 03/24 14:24 Order name: EKG; Complete Time: 14:26 rn 03/24 14:24 Order name: Cardiac monitoring; Complete Time: 14:47 rn 03/24 14:24 Order name: EKG - Nurse/Tech; Complete Time: 14:47 rn 03/24 14:24 Order name: IV Saline Lock; Complete Time: 14:47 rn 03/24 14:24 Order name: Labs collected and sent; Complete Time: 14:47 rn 03/24 14:24 Order name: NPO; Complete Time: 14:25 rn 03/24 14:24 Order name: O2 Per Protocol; Complete Time: 14:25 rn 03/24 14:24 Order name: O2 Sat Monitoring; Complete Time: 14:25 rn Administered Medications: 15:15 Drug: NS 0.9% 500 ml Route: IV; Rate: bolus; Site: right forearm; jd3 15:57 Follow up: Response: No adverse reaction; IV Status: Completed infusion; IV Intake: jd3 500ml 15:15 Drug: Meclizine 50 mg Route: PO; jd3 15:58 Follow up: Response: No adverse reaction jd3 15:16 Drug: Zofran (Ondansetron) 4 mg Route: IVP; Site: right forearm; jd3 15:58 Follow up: Response: No adverse reaction jd3 Disposition: 03/24/20 15:43 Discharged to Home. Impression: Vertigo. - Condition is Stable. - Discharge Instructions: Vertigo. - Prescriptions for Meclizine 25 mg Oral Tablet - take 1 tablet by ORAL route every 8 hours As needed; 30 tablet. Medrol (Dada) 4 mg Oral Tablets, Dose Pack - take 1 tablet by ORAL route as directed - follow package instructions; 1 packet. - Medication Reconciliation Form, Thank You Letter, Antibiotic Education, Prescription Opioid Use form. - Follow up: Private Physician; When: As needed; Reason: Recheck today's complaints, Re-evaluation by your physician. - Problem is new. - Symptoms have improved. Signatures: Dispatcher [employer] EDMS Madhu Hedrick MD MD rn Davies, Jonathon, RN RN jd3 Corrections: (The following items were deleted from the chart) 15:58 15:43 03/24/2020 15:43 Discharged to Home. Impression: Vertigo. Condition is Stable. jd3 Forms are Medication Reconciliation Form, Thank You Letter, Antibiotic Education, Prescription Opioid Use. Follow up: Private Physician; When: As needed; Reason: Recheck today's complaints, Re-evaluation by your physician. Problem is new. Symptoms have improved. rn
--- NOTE | 2020-03-24 15:44 | ER ---
Nurse's Notes [facility] Name: Mamie Carranza Age: 55 yrs Sex: Female : 1965 Arrival Date: 03/24/2020 Time: 14:11 Bed 19 [facility] MD: Diagnosis: Vertigo Presentation: 03/24 14:45 Chief complaint: Patient states: "Nausea and vomiting since yesterday.". Coronavirus jd3 screen: At this time, the client does not indicate any symptoms associated with coronavirus-19. Ebola Screen: Patient negative for fever greater than or equal to 101.5 degrees Fahrenheit, and additional compatible Ebola Virus Disease symptoms. Initial Sepsis Screen: Does the patient meet any 2 criteria? No. Patient's initial sepsis screen is negative. Does the patient have a suspected source of infection? No. Patient's initial sepsis screen is negative. Risk Assessment: Do you want to hurt yourself or someone else? Patient reports no desire to harm self or others. 14:45 Acuity: FÁTIMA 3 jd3 14:45 Method Of Arrival: Ambulatory jd3 14:46 Onset of symptoms was March 24, 2020. 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 - Family history:: not pertinent. - Social history:: Smoking status: unknown. - Hospitalizations: : No recent hospitalization is reported. Screenin:55 Abuse screen: Denies threats or abuse. Nutritional screening: No deficits noted. jd3 Tuberculosis screening: No symptoms or risk factors identified. Fall Risk Ambulatory Aid- None/Bed Rest/Nurse Assist (0 pts). Gait- Normal/Bed Rest/Wheelchair (0 pts) Mental Status- Oriented to own ability (0 pts). Total Cao Fall Scale indicates No Risk (0-24 pts). Assessment: 14:25 General: Appears in no apparent distress. comfortable, Behavior is calm, cooperative, jd3 appropriate for age. Pain: Complains of pain in abdomen Quality of pain is described as aching. Neuro: Level of Consciousness is awake, alert, obeys commands, Oriented to person, place, time, situation, Reports dizziness. Cardiovascular: Denies chest pain, Capillary refill < 3 seconds Patient's skin is warm and dry. Rhythm is regular. Respiratory: Airway is patent Respiratory effort is even, unlabored, Respiratory pattern is regular, symmetrical, Denies cough, shortness of breath. GI: Abdomen is round non-distended, Abd is soft and non tender X 4 quads. Reports nausea. : No signs and/or symptoms were reported regarding the genitourinary system. EENT: No signs and/or symptoms were reported regarding the EENT system. Derm: Skin is intact, Skin is dry, Skin is normal, Skin temperature is warm. Musculoskeletal: Circulation, motion, and sensation intact. Range of motion: intact in all extremities. 15:20 Reassessment: Patient appears in no apparent distress at this time. No changes from [facility] previously documented assessment. Patient and/or family updated on plan of care and expected duration. Pain level reassessed. Patient is alert, oriented x 3, equal unlabored respirations, skin warm/dry/pink. 15:55 Reassessment: Patient appears in no apparent distress at this time. Patient and/or jd3 family updated on plan of care and expected duration. Pain level reassessed. Patient is alert, oriented x 3, equal unlabored respirations, skin warm/dry/pink. Patient denies pain at this time. Patient states feeling better. Vital Signs: 14:46 BP 160 / 101; Pulse 97; Resp 17 S; Temp 98.7(TE); Pulse Ox 99% on R/A; Weight 83.01 kg jd3 (R); Height 5 ft. 1 in. (154.94 cm) (R); Pain 5/10; 15:15 BP 106 / 71; rn 15:17 BP 106 / 71; Pulse 80; Resp 14 S; Pulse Ox 99% on R/A; jd3 14:46 Body Mass Index 34.58 (83.01 kg, 154.94 cm) jd3 ED Course: 14:11 Patient arrived in ED. as 14:16 Madhu Hedrick MD is Attending Physician. rn 14:25 Tejas Waller, MARY JANE is Primary Nurse. jd3 14:46 Triage completed. jd3 14:46 Arm band placed on. jd3 14:50 CT Head Brain wo Cont In Process Unspecified. EDMS 15:00 Inserted saline lock: 20 gauge in right forearm, using aseptic technique. Blood jd3 collected. 15:18 Patient has correct armband on for positive identification. Placed in gown. Bed in low mh5 position. Call light in reach. Side rails up X 1. Warm blanket given. cafeteria monitor on. Pulse ox on. NIBP on. 15:20 EKG done, by ED staff, reviewed by Madhu Hedrick MD. 5 15:21 Initial lab(s) drawn, by ED staff, sent to lab. 5 15:56 No provider procedures requiring assistance completed. IV discontinued, intact, jd3 bleeding controlled, No redness/swelling at site. Pressure dressing applied. Administered Medications: 15:15 Drug: NS 0.9% 500 ml Route: IV; Rate: bolus; Site: right forearm; jd3 15:57 Follow up: Response: No adverse reaction; IV Status: Completed infusion; IV Intake: jd3 500ml 15:15 Drug: Meclizine 50 mg Route: PO; jd3 15:58 Follow up: Response: No adverse reaction jd3 15:16 Drug: Zofran (Ondansetron) 4 mg Route: IVP; Site: right forearm; jd3 15:58 Follow up: Response: No adverse reaction jd3 Intake: 15:57 IV: 500ml; Total: 500ml. jd3 Outcome: 15:43 Discharge ordered by . rn 15:56 Discharged to home ambulatory, with family. jd3 15:56 Condition: stable 15:56 Discharge instructions given to patient, Instructed on discharge instructions, follow up and referral plans. medication usage, Demonstrated understanding of instructions, follow-up care, medications, Prescriptions given X 2. 15:58 Patient left the ED. jd3 Signatures: Dispatcher [employer] Nelly Cross Roman, MD MD rn Martinez, Maria [facility] Tejas Waller RN RN devi
== END 2020-03-24 15:58 | disposition home or self-care (01) ==
LOC: ER 14:10
DX: R42 Dizziness and giddiness (principal); I10 Essential (primary) hypertension; Z86.16 Personal history of COVID-19
CPT/HCPCS: 36415; 70450; 80048; 80076; 83690; 84484; 85025; 93005; 96361; 96374; 99284; J2405; J7040

== ENCOUNTER 2020-09-16 10:59 | Emergency (ER) | payer SELFPAY ==
--- OUTSIDE RECORDS SUMMARY | 2020-09-16 11:02 | XMS REPORT | Continuity of Care Document ---
:1965 Author Organization [facility] t Address [address] [place] [address] [address] [place] [address] Care Team Providers Name Role Phone Unavailable Unavailable Unavailable Problems This patient has no known problems. Allergies, Adverse Reactions, Alerts This patient has no known allergies or adverse reactions. Medications This patient has no known medications. Procedures This patient has no known procedures. Results This patient has no known results.
[2020-09-16 12:26] LABS: Urine Blood Trace-intact (Negative); Urine Glucose Negative (Negative); Urine Protein Negative (Negative); Urine Specific Gravity >=1.030 (1.005-1.030); Urine pH 5.5 (5.0-7.0)
[2020-09-16 13:02] LABS: Basophils % 0.3 % (0-1.3); Hematocrit 39.7 % (36.0-45.0); Lymphocytes % 29.9 % (15.3-44.8); MPV 8.1 fL (7.6-11.3); RBC Red Blood Cell Count 4.48 M/uL (3.86-4.86)
[2020-09-16 13:05] LABS: Urine Bacteria <20 /HPF (<20); Urine RBC <5 /HPF (NONE SEEN)
[2020-09-16 13:16] LABS: ALT/SGPT 46 U/L (12-78); AST/SGOT 18 U/L (15-37); Alkaline Phosphatase 141 U/L (45-117); BUN Blood Urea Nitrogen 16 mg/dL (7-18); Bicarbonate 26 mmol/L (21-32); Bilirubin Direct 0.1 mg/dL (0-0.2); Bilirubin Total 0.4 mg/dL (0.2-1.0); Glucose Level 96 mg/dL (74-106); Lipase 64 U/L (73-393); Potassium 3.8 mmol/L (3.5-5.1); Protein, Total 7.5 g/dL (6.4-8.2); Sodium Level 143 mmol/L (136-145)
--- NOTE | 2020-09-16 13:20 | RAD REPORT ---
EXAM DESCRIPTION: CTAbdomen Pelvis W Contrast - 09/16/2020 12:53 pm CLINICAL HISTORY: Abdominal pain. ABD PAIN COMPARISON: Abdomen Pelvis W Contrast dated 08/31/2018 TECHNIQUE: Biphasic CT imaging of the abdomen and pelvis was performed with 100 ml non-ionic IV cont rast. All CT scans are performed using dose optimization technique as appropriate and may include automated exposure control or mA/KV adjustment according to patient size. FINDINGS: The lung bases are clear.Small hiatal hernia is present. The liver demonstrates diffuse fatty infiltration. Spleen, pancreas, adrenal glands and kidneys are w ithin normal limits. No bowel obstruction, free air, free fluid or abscess. Sigmoid diverticulosis coli without diverticul itis. The appendix is normal. No evidence of significant lymphadenopathy. No suspicious bony findings. Mild lower lumbar spondylosis. IMPRESSION: No acute intra-abdominal or pelvic finding. Mild sigmoid diverticulosis coli is seen.
--- NOTE | 2020-09-16 13:34 | ER ---
Nurse's Notes [facility] Name: Mamie Carranza Age: 55 yrs Sex: Female : 1965 Arrival Date: 09/16/2020 Time: 11:01 Bed 24 Private MD: Diagnosis: Low back pain;Weakness Presentation: 09/16 11:08 Chief complaint: Patient states: Bilateral flank pain for over a month. L sided CP ll1 off/on for over a month. Both legs heavy and weak. Fatigues easily. No fever or cough. Slight N/V. Slight dysuria. Coronavirus screen: Client denies travel out of the [place] in the last 14 days. nausea, vomiting. Client presents with at least one sign or symptom that may indicate coronavirus-19. Standard/surgical mask placed on the client. Ebola Screen: Patient denies travel to an Ebola-affected area in the 21 days before illness onset. Initial Sepsis Screen: Does the patient meet any 2 criteria? No. Patient's initial sepsis screen is negative. Does the patient have a suspected source of infection? Yes: Dysuria/Frequency/Urgency/UTI. Risk Assessment: Do you want to hurt yourself or someone else? Patient reports no desire to harm self or others. Onset of symptoms was August 16, 2020. 11:08 Method Of Arrival: Ambulatory 1 11:08 Acuity: FÁTIMA 3 ll1 VALIDATION ARCHITECT: 13:03 LMP N/A - control method zb Historical: - Allergies: 11:11 No Known Allergies; ll1 - PMHx: 11:11 Hypertension; Diabetes mellitus; ll1 - PSHx: 11:12 abd sx; ll1 - Immunization history:: Client reports receiving the 1st dose of the Covid vaccine, Flu vaccine is not up to date. - Social history:: Smoking status: Patient denies any tobacco usage or history of. - Family history:: not pertinent. - Hospitalizations: : No recent hospitalization is reported. Screenin:20 Abuse screen: Denies threats or abuse. Denies injuries from another. Nutritional zb screening: No deficits noted. Tuberculosis screening: No symptoms or risk factors identified. Fall Risk None identified. Assessment: 12:18 General: Appears in no apparent distress. Behavior is calm, cooperative, Reports zb feeling ill for. Pain: Complains of pain in low back area, left mid back, right mid back and pelvis, chest Pain currently is 8 out of 10 on a pain scale. Quality of pain is described as burning, sharp. Neuro: Level of Consciousness is awake, alert, obeys commands, Oriented to person, place, time, situation. Cardiovascular: Patient's skin is warm and dry. Respiratory: Airway is patent Respiratory effort is even, unlabored, Respiratory pattern is regular, symmetrical. : Urine is christiano color Reports burning with urination, urgency, urinary frequency. Derm: Skin is intact, is healthy with good turgor. Musculoskeletal: Circulation, motion, and sensation intact. Range of motion: intact in all extremities. 13:33 Reassessment: Patient appears in no apparent distress at this time. Patient and/or zb family updated on plan of care and expected duration. Pain level reassessed. Patient is alert, oriented x 3, equal unlabored respirations, skin warm/dry/pink. at bedside. Vital Signs: 11:08 BP 108 / 69; Pulse 98; Resp 17; Temp 98.2; Pulse Ox 97% ; Weight 88.45 kg; Height 5 ft. ll1 5 in. (165.10 cm); Pain 9/10; 13:03 BP 111 / 72; Pulse 83; Resp 16; Pulse Ox 100% on R/A; zb 13:33 BP 100 / 86; Pulse 81; Resp 16; Pulse Ox 99% on R/A; zb 11:08 Body Mass Index 32.45 (88.45 kg, 165.10 cm) ll1 ED Course: 11:01 Patient arrived in ED. ds1 11:08 Arm band placed on. ll1 11:11 Triage completed. ll1 12:09 Patient placed in an exam room, on a stretcher. ll1 12:10 Madhu Hedrick MD is Attending Physician. rn 12:11 Jossy Peraza RN is Primary Nurse. zb 12:20 Patient has correct armband on for positive identification. equipment monitor phototypesetting on. Pulse zb ox on. NIBP on. Door closed. Noise minimized. 12:30 Inserted saline lock: 20 gauge in right forearm, using aseptic technique. IV zb discontinued, intact, bleeding controlled, No redness/swelling at site. Pressure dressing applied. 12:53 CT Abd/Pelvis - IV Contrast Only In Process Unspecified. EDMS 13:47 No provider procedures requiring assistance completed. zb Administered Medications: No medications were administered Outcome: 13:33 Discharge ordered by . rn 13:48 Discharged to home ambulatory. zb 13:48 Condition: stable 13:48 Discharge instructions given to patient, family, Instructed on discharge instructions, follow up and referral plans. Demonstrated understanding of instructions, follow-up care. 13:48 Patient left the ED. zb Signatures: Dispatcher [employer] EDNC Shante Stringer ds1 Madhu Hedrick MD MD rn Lewis, Lynsay, RN RN [email or web address] Jossy Peraza RN RN zb Corrections: (The following items were deleted from the chart) 11:12 11:11 PSHx: None; ll1 ll1 11:12 11:12 PSHx: None; ll1 ll1
--- NOTE | 2020-09-16 13:35 | EDPHYS ---
Physician Documentation [facility] Name: Mamie Carranza Age: 55 yrs Sex: Female : 1965 Arrival Date: 09/16/2020 Time: 11: Bed 24 Private MD: ED Physician Madhu Hedrick HPI: 09/16 12:33 This 55 yrs old Female presents to ER via Ambulatory with complaints of Back rn Pain, abdominal pain. 12:33 The patient presents with pain that is acute, with no known mechanism of injury. The rn symptoms are located in the low back. Onset: The symptoms/episode began/occurred 2 week(s) ago. The pain radiates to the abdomen. Associated signs and symptoms: Pertinent positives: abdominal pain, dysuria, Pertinent negatives: fever, incontinence, nausea, numbness, tingling, urinary retention, vomiting. Modifying factors: The patient symptoms are alleviated by nothing, the patient symptoms are aggravated by nothing. Severity of symptoms: At their worst the symptoms were mild, in the emergency department the symptoms are unchanged. The patient has experienced a previous episode. The patient has not recently seen a physician. Patient reports approximately 1 month of kidney pain, low back pain, now reports for the last 2 weeks increase in pain in lower abdomen. No fever, no vomiting or diarrhea. No shortness of breath or cough. Reports generalized weakness. Also reports mild dysuria and increased urinary frequency.. 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 - Social history:: Smoking status: Patient denies any tobacco usage or history of. - Family history:: not pertinent. - Hospitalizations: : No recent hospitalization is reported. ROS: 12:33 Constitutional: Negative for fever, chills, and weight loss, Eyes: Negative for injury, rn pain, redness, and discharge, Neck: Negative for injury, pain, and swelling, Cardiovascular: Negative for palpitations, and edema, Respiratory: Negative for shortness of breath, cough, wheezing, and pleuritic chest pain, Abdomen/GI: Negative for abdominal pain, nausea, vomiting, diarrhea, and constipation, Back: Negative for injury : Positive for dysuria MS/Extremity: Negative for injury and deformity, Skin: Negative for injury, rash, and discoloration, Neuro: Negative for headache, numbness, tingling, and seizure. 12:44 All other systems are negative. rn Exam: 12:33 Constitutional: This is a well developed, well nourished patient who is awake, alert, rn and in no acute distress. Ambulatory to room without assistance or difficulty. Head/Face: Normocephalic, atraumatic. Eyes: Periorbital areas with no swelling, redness, or edema. Cardiovascular: Regular rate and rhythm. No pulse deficits. Respiratory: Speaking full sentences, unlabored. No increased work of breathing, no retractions or nasal flaring. Abdomen/GI: Soft, non-tender Back: No spinal tenderness. No costovertebral tenderness. Full range of motion. Skin: Warm, dry MS/ Extremity: Pulses equal, no cyanosis. Neurovascular intact. Full, normal range of motion. Equal circumference. Neuro: Awake and alert, GCS 15, oriented to person, place, time, and situation. Cranial nerves II-XII grossly intact. Motor strength 5/5 in all extremities. Sensory grossly intact. Cerebellar exam normal. Normal gait. Vital Signs: 11:08 BP 108 / 69; Pulse 98; Resp 17; Temp 98.2; Pulse Ox 97% ; Weight 88.45 kg; Height 5 ft. ll1 5 in. (165.10 cm); Pain 9/10; 13:03 BP 111 / 72; Pulse 83; Resp 16; Pulse Ox 100% on R/A; zb 13:33 BP 100 / 86; Pulse 81; Resp 16; Pulse Ox 99% on R/A; zb 11:08 Body Mass Index 32.45 (88.45 kg, 165.10 cm) ll1 MDM: 12:10 Patient medically screened. rn 13:32 Differential diagnosis: arthritis, chronic back pain, Fatigue Osteoarthritis sprain, rn Ureterolithiasis UTI. Data reviewed: vital signs, nurses notes, lab test result(s), radiologic studies, CT scan, and as a result, I will discharge patient. Counseling: I had a detailed discussion with the patient and/or guardian regarding: the historical points, exam findings, and any diagnostic results supporting the discharge/admit diagnosis, lab results, radiology results, the need for outpatient follow up, to return to the emergency department if symptoms worsen or persist or if there are any questions or concerns that arise at home. Special discussion: I discussed with the patient/guardian in detail that at this point there is no indication for admission to the hospital. It is understood, however, that if the symptoms persist or worsen the patient needs to return immediately for re-evaluation. ED course: No acute findings on CAT scan/blood work/urine. Nonfocal exam. Will DC home with PCP follow-up.. 09/16 12:17 Order name: Basic Metabolic Panel rn 09/16 12:17 Order name: CBC with Diff rn 09/16 12:17 Order name: Hepatic Function rn 09/16 12:17 Order name: Lipase rn 09/16 12:17 Order name: Urine Culture rn 09/16 12:17 Order name: Urine Microscopic Only; Complete Time: 13:28 rn 09/16 11:12 Order name: EKG; Complete Time: 11:13 [facility] 09/16 11:12 Order name: EKG - Nurse/Tech; Complete Time: 11:30 ll1 09/16 12:17 Order name: CT Abd/Pelvis - IV Contrast Only; Complete Time: 13:28 rn 09/16 12:17 Order name: Basic Metabolic Panel; Complete Time: 13:28 [facility] 09/16 12:17 Order name: CBC with Automated Diff; Complete Time: 13:28 [facility] 09/16 12:17 Order name: Liver (Hepatic) Function; Complete Time: 13:28 [facility] 09/16 12:17 Order name: Lipase; Complete Time: 13:28 [facility] 09/16 12:26 Order name: Urine Dipstick-Ancillary; Complete Time: 13:04 [facility] 09/16 12:17 Order name: IV Saline Lock; Complete Time: 12:35 rn 09/16 12:17 Order name: Labs collected and sent; Complete Time: 12:35 rn 09/16 12:17 Order name: Urine Dipstick-Ancillary (obtain specimen); Complete Time: 12:35 rn Administered Medications: No medications were administered Disposition Summary: 09/16/20 13:33 Discharge Ordered Location: Home rn Problem: new rn Symptoms: have improved rn Condition: Stable rn Diagnosis - Low back pain rn - Weakness rn Followup: rn - With: Private Physician - When: As needed - Reason: Recheck today's complaints, Re-evaluation by your physician Discharge Instructions: - Discharge Summary Sheet rn - Acute Back Pain, Adult rn - Weakness rn Forms: - Medication Reconciliation Form rn - Thank You Letter rn - Antibiotic internet marketing director - Prescription Opioid Use rn Signatures: Dispatcher [employer] EDMadhu Lofton MD MD rn Lewis, Lynsay, RN RN ll1 Corrections: (The following items were deleted from the chart) 11:12 11:11 PSHx: None; ll1 ll1 11:12 11:12 PSHx: None; ll1 ll1
[2020-09-16 14:06] VITALS: TEMP 98.2
[2020-09-16 14:09] VITALS: BP 100/86; O2SAT 99
--- NOTE | 2020-09-17 09:06 | EKG ---
Test Date: 2020-09-16 Test Time: 11:18:58 [employer]: LEORA MEASUREMENT RESULTS: Intervals: Rate: 94 UT: 160 QRSD: 64 QT: 354 QTc: 442 [place]: P: 23 UT: 160 QRS: 54 T: 67 INTERPRETIVE STATEMENTS: Normal sinus rhythm Normal ECG Compared to ECG 03/24/2020 14:35:14 Myocardial infarct finding no longer present Electronically Signed On 09-17-20 09:04:05 CDT by Joaquín Rangel
== END 2020-09-16 13:48 | disposition home or self-care (01) ==
LOC: ER 10:59
DX: M54.5 Low back pain (principal); R53.1 Weakness; I10 Essential (primary) hypertension; E11.9 Type 2 diabetes mellitus without complications; R10.30 Lower abdominal pain, unspecified
CPT/HCPCS: 36415; 74177; 80048; 80076; 81003; 81015; 82565; 83690; 85025; 87086; 87088; 93005; 99284; Q9967

== ENCOUNTER 2021-05-09 19:51 | Emergency (ER) | payer SELFPAY ==
--- OUTSIDE RECORDS SUMMARY | 2021-05-09 19:54 | XMS REPORT | Continuity of Care Document ---
:1965 Author Organization [facility] t Address [address] [place] [address] [address] [place] [address] Care Team Providers Name Role Phone Unavailable Unavailable Unavailable Problems This patient has no known problems. Allergies, Adverse Reactions, Alerts This patient has no known allergies or adverse reactions. Medications This patient has no known medications. Procedures This patient has no known procedures. Results This patient has no known results.
[2021-05-09 21:01] LABS: Absolute Lymphocytes (CBC) 1.5 K/uL (0.7-4.9); Hematocrit 40.6 % (36.0-45.0); Lymphocytes % 23.2 % (15.3-44.8); MPV 8.1 fL (7.6-11.3); RBC Red Blood Cell Count 4.59 M/uL (3.86-4.86)
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
[2021-05-09 21:48] LABS: ALT/SGPT 52 U/L (12-78); AST/SGOT 24 U/L (15-37); Albumin 4.1 g/dL (3.4-5.0); Alkaline Phosphatase 154 U/L (45-117); BUN Blood Urea Nitrogen 20 mg/dL (7-18); Bicarbonate 26 mmol/L (21-32); Bilirubin Total 0.3 mg/dL (0.2-1.0); Glucose Level 111 mg/dL (74-106); Lipase 87 U/L (73-393); Potassium 3.9 mmol/L (3.5-5.1); Protein, Total 7.9 g/dL (6.4-8.2); Sodium Level 139 mmol/L (136-145)
[2021-05-09 21:50] LABS: Bilirubin Direct < 0.1 mg/dL (0-0.2)
[2021-05-09 23:32] VITALS: TEMP 98.5
[2021-05-09 23:33] VITALS: BP 132/86; O2SAT 100
== END 2021-05-09 22:12 | disposition home or self-care (01) ==
LOC: ER 19:51
DX: S16.1XXA Strain of muscle, fascia and tendon at neck level, initial encounter (principal); V49.49XA Driver injured in collision with other motor vehicles in traffic accident, initial encounter; E11.9 Type 2 diabetes mellitus without complications; I10 Essential (primary) hypertension
CPT/HCPCS: 36415; 70450; 71045; 71260; 72125; 74177; 80048; 80076; 82565; 83690; 84484; 85025; 93005; 99284; Q9967

== ENCOUNTER 2021-09-16 12:11 | Observation (INO) | payer SELFPAY ==
[2021-09-16] MEDS ORDERED: NA CHLORIDE 0.9% 1,000 ML ONE (12:54)
--- NOTE | 2021-09-16 13:00 | RAD REPORT ---
EXAM DESCRIPTION: CT - Ct Stroke Brain Wo Cont - 09/16/2021 12:54 pm CLINICAL HISTORY: Neuro deficit, acute, stroke suspected CVA symptomology COMPARISON: Head angio dated 09/16/2021; Head Brain Wo Cont dated 03/24/2020 TECHNIQUE: All CT scans are performed using dose optimization technique as appropriate and may inclu de automated exposure control or mA/KV adjustment according to patient size. FINDINGS: No intracranial hemorrhage, hydrocephalus or extra-axial fluid collection.No areas of brai n edema or evidence of midline shift. The paranasal sinuses and mastoids are essentially clear. The calvarium is intact. IMPRESSION: No acute intracranial abnormality. The findings were discussed with Dr Hedrick in the ER on 09/16/2021 at 12:55 p.m. by telephone.
--- NOTE | 2021-09-16 13:03 | RAD REPORT ---
EXAM DESCRIPTION: CT - Head angio - 09/16/2021 12:55 pm CLINICAL HISTORY: stroke suspected Headache, drowsiness, CVA symptomology COMPARISON: Head Brain Wo Cont dated 03/24/2020; HEAD BRAIN W O CONTRAST dated 04/25/2015 TECHNIQUE: CT angiography of the head was performed with MIPs. All CT scans are performed using dose optimization technique as appropriate and may include automated exposure control or mA/KV adjustment according to patient size. FINDINGS: No evidence of aneurysm is detected. No flow-limiting stenosis or vascular malformation id entified. Antegrade flow is seen in the vertebral arteries. Left vertebral artery is dominant. The visualized dural venous sinuses are patent. IMPRESSION: No significant flow abnormality is detected.
[2021-09-16 13:06] LABS: Absolute Lymphocytes (CBC) 1.6 K/uL (0.7-4.9); Hematocrit 39.1 % (36.0-45.0); Lymphocytes % 23.4 % (15.3-44.8); MCV 87.3 fL (80-100); MPV 7.8 fL (7.6-11.3); RBC Red Blood Cell Count 4.48 M/uL (3.86-4.86)
--- NOTE | 2021-09-16 13:07 | RAD REPORT ---
EXAM DESCRIPTION: CT - Neck Angio - 09/16/2021 12:55 pm CLINICAL HISTORY: Neuro deficit, acute, stroke suspected CVA symptomology COMPARISON: No comparisons TECHNIQUE: CT angiography of the neck vessels was performed with MIPs. All CT scans are performed using dose optimization technique as appropriate and may include automated exposure control or mA/KV adjustment according to patient size. FINDINGS: A left aortic arch is identified with normal three vessel configuration of the great vesse ls. No significant flow abnormality is seen of the common carotid bilaterally. No significant stenosis is identified involving the cervical segments of both internal carotid arteri es. Normal flow is seen within both vertebral arteries. 2 cm left thyroid nodule is present. IMPRESSION: No significant flow abnormality of the neck vessels is identified.
[2021-09-16 13:09] LABS: Protime INR 1.03
[2021-09-16 13:20] LABS: BUN Blood Urea Nitrogen 14 mg/dL (7-18); Bicarbonate 27 mmol/L (21-32); Glomerular Filtration Rate 103 ml/min (=/>90); Glucose Level 161 mg/dL (74-106); Magnesium 2.2 mg/dL (1.8-2.4); Potassium 3.8 mmol/L (3.5-5.1); Sodium Level 138 mmol/L (136-145)
[2021-09-16 13:21] LABS: Troponin High Sensitivity < 3.0 pg/mL (<58.9)
--- NOTE | 2021-09-16 13:26 | RAD REPORT ---
EXAM DESCRIPTION: RAD - Chest Single View - 09/16/2021 1:18 pm CLINICAL HISTORY: slurred speech Chest pain. COMPARISON: Chest Single View dated 05/09/2021; Chest Single View dated 09/27/2019; Chest Single View dated 08/31/2018 FINDINGS: Portable technique limits examination quality. The lungs are grossly clear. The heart is normal in size. No displaced fractures. IMPRESSION: No acute intrathoracic process suspected.
[2021-09-16 14:50] LABS: Urine Blood Trace-intact (Negative); Urine Glucose Negative (Negative); Urine Protein Negative (Negative); Urine pH 8.5 (5.0-7.0)
[2021-09-16] MEDS ORDERED: ASPIRIN 81 MG CHEWABLE TABLET ONE (14:54)
[2021-09-16] MEDS ORDERED: FOLIC ACID 5 MG/ML VIAL ONE (14:55)
[2021-09-16 15:24] LABS: Urine Bacteria None Seen /HPF (<20); Urine RBC <5 /HPF (None Seen)
--- NOTE | 2021-09-16 15:33 | P.HP ---
Certification for Inpatient Patient admitted to: Observation With expected LOS: <2 Midnights Patient will require the following post-hospital care: None Practitioner: I am a practitioner with admitting privileges, knowledge of patient current condition, hospital course, and medical plan of care. Services: Services provided to patient in accordance with Admission requirements found in Title 42 Section 412.3 of the Code of Federal Regulations Patient History Date of Service: 09/16/21 Reason for admission: Transient Ischemic Attack History of Present Illness: Ms. Jessica Donovan is Croatian-speaking only. The following history was obtained with the assistance of a certified Croatian-Vietnamese per diem interpreter. Ms. Mamie Donovan is a pleasant 56-year-old female who has a past medical history of type 2 diabetes mellitus, hypertension, and dyslipidemia who presents to the [facility] Emergency Department for an episode of dizziness and generalized weakness. She reports that, around 10:30 AM this morning after waking up from sleep, she developed an episode where she began to feel generalized weakness with associated dizziness. She describes this episode as "feeling drunk." She states that the episode lasted for about 10 minutes and was associated with perioral numbness/tingling. She denies any obvious inciting or alleviating factors. She has not had any episodes like this in the past. She has not tried taking any medications for her symptoms. Currently, she is symptom-free. On review of systems, she denies any fevers, chills, headaches, syncope, weakness, chest pain, palpitations, shortness of breath, wheezing, cough, abdominal pain, nausea/vomiting, diarrhea, constipation, hematochezia, melena, dysuria, hem aturia, myalgia, or any other symptoms. She presented to the Emergency Department for further evaluation. Upon presentation, her vital signs were stable. Her laboratory studies were notable for a glucose of 161. EKG revealed normal sinus rhythm without STEMI criteria. Chest x-ray revealed, "no acute intrathoracic process suspected." CT head revealed, "no acute intracranial abnormality." CT head angiogram revealed, "no significant flow abnormality is detected." CT neck angiogram revealed, "no significant flow abnormality of the neck vessels is identified." Neurology was consulted in the Emergency Department, and recommendations are pending. She was admitted to the General Internal Medicine service for further evaluation. Allergies No Known Allergies Allergy (Unverified 04/24/11 05:42) Home medications list reviewed: Yes (1. Metformin 500 mg BID, 2. Lisinopril 10 mg daily, 3. Statin (unknown dos) - Past Medical/Surgical History Diabetic: Yes -: Type II Diabetes Mellitus -: Hypertension -: Dyslipidemia -: - Family History Family History: Reviewed- Non-Contributory - Social History Smoking Status: Never smoker Alcohol use: No CD- Drugs: No Caffeine use: No Review of Systems General: Unremarkable Eyes: Unremarkable ENT: Unremarkable Respiratory: Unremarkable Cardiovascular: Unremarkable Gastrointestinal: Unremarkable Genitourinary: Unremarkable Musculoskeletal: Unremarkable Integumentary: Unremarkable Neurological: Weakness, Other, As per HPI (dizziness) Physical Examination - Vital Signs Temperature: 97.7 F Blood Pressure: 108/73 Pulse: 84 Respirations: 18 Pulse Ox (%): 100 (room air) - Physical Exam General: Alert, In no apparent distress, Oriented x3 HEENT: Normocephalic, PERRLA, Mucous membr. moist/pink, EOMI, Sclerae nonicteric Neck: Supple, JVD not distended Respiratory: Clear to auscultation bilaterally, Normal air movement Cardiovascular: No edema, Regular rate/rhythm, Normal S1 S2, No gallops, No rubs, No murmurs Gastrointestinal: Normal bowel sounds, Soft and benign, Non-distended, No tenderness, No rebound, No guarding Musculoskeletal: No clubbing Integumentary: No rashes Neurological: Normal speech, Normal strength at 5/5 x4 extr, Normal tone, Sensation intact, Cranial nerves 3-12 intact, Normal affect - Studies Laboratory Data (last 24 hrs) 09/16/21 12:54: PT 11.3, INR 1.03, APTT 37.3 H 09/16/21 12:54: WBC 7.0, Hgb 13.1, Hct 39.1, Plt Count 220 09/16/21 12:54: Sodium 138, Potassium 3.8, BUN 14, Creatinine 0.65, Glucose 161 H, Magnesium 2.2 Assessment and Plan - Plan NIH Stroke Scale 1a. Level of consciousness: 0 - Alert; keenly responsive 1b. LOC questions: 0 - Both questions right 1c. LOC commands: 0 - Performs both tasks 2. Best Gaze: 0 - Normal 3. Visual: 0 - No visual loss 4. Facial Palsy: 0 - Normal symmetry 5a. Motor left arm: 0 - No drift for 10 seconds 5b. Motor right arm: 0 - No drift for 10 seconds 6a. Motor left le - No drift for 5 seconds 6b. Motor right le - No drift for 5 seconds 7. Limb ataxia: 0 - No ataxia 8. Sensory: 0 - Normal; no sensory loss 9. Best Language: 0 - Normal; no aphasia 10. Dysarthria: 0 - Normal 11. Extinction and Inattention: 0 - No abnormality 12. Distal motor function: 0 - No abnormality Total Score: 0 # Dizziness with Perioral Numbness/Tingling, concern for Possible Transient Ischemic Attack # Hypertension # Dyslipidemia - Admit under observation status - Consulted Neurology - recommendations appreciated - No neurologic deficits on my exam - NIHSS = 0 - Allow permissive hypertension for tonight - Hold home lisinopril for tonight - q4hr neurochecks - CT head revealed, "no acute intracranial abnormality." - CT head angiogram revealed, "no significant flow abnormality is detected." - CT neck angiogram revealed, "no significant flow abnormality of the neck vessels is identified." - Ordered MR brain + MRA head/neck - Ordered TTE - PT/OT evaluation requested - Ordered risk profile: Hgb A1c, lipid panel, TSH - Started aspirin, atorvastatin, folic acid # Hyperglycemia in Type II Diabetes Mellitus - Ordered Hgb A1c - Correction scale insulin ordered - Hold home metformin while hospitalized Lj Moya M.D. Discharge Plan: Home Plan to discharge in: 24 Hours - Advance Directives Does patient have a Living Will: No Does patient have a Durable POA for Healthcare: No
--- NOTE | 2021-09-16 17:17 | RAD REPORT ---
EXAM DESCRIPTION: MRI - MRA Head Wo Cont - 09/16/2021 5:06 pm CLINICAL HISTORY: TIA CVA COMPARISON: Head angio dated 09/16/2021 FINDINGS: 3D noncontrast [id number] MR angiography of the [place] was performed. No aneurysm, flow-limiting stenosis or vascular malformation is seen. Right vertebral artery appears to terminate in PICA, normal variant. The visualized dural venous sinuses appear patent. IMPRESSION: No significant flow abnormality of the [place] is identified.
--- NOTE | 2021-09-16 17:57 | RAD REPORT ---
EXAM DESCRIPTION: MRI - Brain W/Wo Cont - 09/16/2021 5:39 pm CLINICAL HISTORY: TIA Headache, drowsiness, CVA symptomology COMPARISON: MRA Head Wo Cont dated 09/16/2021 TECHNIQUE: Multi-sequence, multiplanar MR imaging of the brain was performed with contrast. FINDINGS: No intracranial hemorrhage, hydrocephalus, or extra-axial fluid collection. No edema or sh ift of midline structures. No intracranial mass. DWI is negative for acute CVA. The midline structures are normally formed. 1 cm polyp versus mucous retention cyst left maxillary an trum. The paranasal sinuses and mastoids are otherwise clear. Post-contrast images show no abnormal enhancement to suggest tumor or infection. IMPRESSION: Negative for acute CVA or other acute intracranial process. No pathologic post-contrast enhancement suspected.
--- NOTE | 2021-09-16 17:58 | RAD REPORT ---
EXAM DESCRIPTION: MRI - MRA Neck W/Wo Cont - 09/16/2021 5:39 pm CLINICAL HISTORY: TIA Headache, drowsiness, CVA symptomology COMPARISON: No comparisons FINDINGS: Contrast enhance 2D [id number] MR angiography of the neck vessels was performed. A left aortic arch is noted. Both subclavian arteries and common carotid arteries are patent. No significant carotid stenosis identified bilaterally. Antegrade flow is seen in the vertebral arter ies. IMPRESSION: No significant carotid stenosis identified.
[2021-09-16 20:16] VITALS: BMI 27.7
[2021-09-16 22:54] VITALS: O2SAT 97
[2021-09-17 05:36] LABS: Absolute Lymphocytes (CBC) 2.1 K/uL (0.7-4.9); Hematocrit 35.9 % (36.0-45.0); Lymphocytes % 33.1 % (15.3-44.8); MCV 87.5 fL (80-100); MPV 7.9 fL (7.6-11.3)
[2021-09-17 06:05] LABS: Albumin 3.2 g/dL (3.4-5.0); Bilirubin Total 0.2 mg/dL (0.2-1.0); Potassium 4.1 mmol/L (3.5-5.1); Protein, Total 6.4 g/dL (6.4-8.2); Thyroid Stimulating Hormone 1.23 uIU/mL (0.360-3.740)
--- NOTE | 2021-09-17 08:15 | P.DS ---
Admission Date: 09/16/21 Discharge Date: 09/17/21 Disposition: ROUTINE DISCHARGE Discharge Condition: GOOD Reason for Admission: Dizziness, concern for TIA Consultations: 1. Neurology Hospital Course: DIAGNOSES: # Dizziness with Perioral Numbness/Tingling, concern for Possible Transient Ischemic Attack # Hypertension # Dyslipidemia # Hyperglycemia in Type II Diabetes Mellitus # Thyroid Nodule (2 cm) HOSPITAL COURSE: Ms. Jessica Donovan is [place]-speaking only. The following communication was achieved with the assistance of a certified [place] asl interpreter. Ms. Mamie Donovan is a pleasant 56-year-old female who has a past medical history of type 2 diabetes mellitus, hypertension, and dyslipidemia who was admitted to the [facility] on 09/16/2021 for an episode of dizziness and generalized weakness. She was admitted to the Medicine service for further evaluation for a possible transient ischemic attack. Upon evaluation, her vital signs were stable. EKG revealed normal sinus rhythm without STEMI criteria. Chest x-ray revealed, "no acute intrathoracic process suspected." CT head revealed, "no acute intracranial abnormality." CT head angiogram revealed, "no significant flow abnormality is detected." CT neck angiogram revealed, "no significant flow abnormality of the neck vessels is identified." MRI brain revealed, "negative for acute CVA or other acute intracranial process." MRA head revealed, "no significant flow abnormality of the [place] is identified." MR neck revealed, "no significant carotid stenosis identified." A transthoracic echocardiogram revealed, "mild mitral regurgitation. no wall motion abnormality. normal left ventricular size and function. no vegetation." Of note, she was incidentally noted to have a 2 cm thyroid nodule. Her TSH was 1.23. She was advised to follow-up with her PCP, and she verbalized understanding. On 09/17/2021, she was seen on morning rounds and deemed medically stable for discharge. She was discharged with instructions to schedule follow-up appointments with her PCP in 3-5 days and with Neurology (Dr. Velez) in 5-7 days. She given the opportunity to ask questions and reported no further questions. Furthermore, all questions were answered to the best of my ability. Today, I personally spent 20 minutes with her, of which greater than 50% of the time was spent in patient education, counseling, and coordination of care as described above. PHYSICAL EXAMINATION: NIH Stroke Scale 1a. Level of consciousness: 0 - Alert; keenly responsive 1b. LOC questions: 0 - Both questions right 1c. LOC commands: 0 - Performs both tasks 2. Best Gaze: 0 - Normal 3. Visual: 0 - No visual loss 4. Facial Palsy: 0 - Normal symmetry 5a. Motor left arm: 0 - No drift for 10 seconds 5b. Motor right arm: 0 - No drift for 10 seconds 6a. Motor left le - No drift for 5 seconds 6b. Motor right le - No drift for 5 seconds 7. Limb ataxia: 0 - No ataxia 8. Sensory: 0 - Normal; no sensory loss 9. Best Language: 0 - Normal; no aphasia 10. Dysarthria: 0 - Normal 11. Extinction and Inattention: 0 - No abnormality 12. Distal motor function: 0 - No abnormality Total Score: 0 - Physical Exam General: Alert, In no apparent distress, Oriented x3 HEENT: Normocephalic, PERRLA, Mucous membr. moist/pink, EOMI, Sclerae nonicteric Neck: Supple, JVD not distended Respiratory: Clear to auscultation bilaterally, Normal air movement Cardiovascular: No edema, Regular rate/rhythm, Normal S1 S2, No gallops, No rubs, No murmurs Gastrointestinal: Normal bowel sounds, Soft and benign, Non-distended, No tenderness, No rebound, No guarding Musculoskeletal: No clubbing Integumentary: No rashes Neurological: Normal speech, Normal strength at 5/5 x4 extr, Normal tone, Sensation intact, Cranial nerves 3-12 intact, Normal affect Vital Signs/Physical Exam: Temp Pulse Resp BP Pulse Ox 97.7 F 74 17 107/64 99 09/17/21 04:00 09/17/21 04:00 09/17/21 04:00 09/17/21 04:00 09/17/21 04:00 Laboratory Data at Discharge: WBC 6.5 K/uL (4.3-10.9) 09/17/21 05:09 Hgb 12.4 g/dL (12.0-15.0) 09/17/21 05:09 Hct 35.9 % (36.0-45.0) L 09/17/21 05:09 Plt Count 218 K/uL (152-406) 09/17/21 05:09 PT 11.3 SECONDS (9.5-12.5) 09/16/21 12:54 INR 1.03 09/16/21 12:54 APTT 37.3 SECONDS (24.3-36.9) H 09/16/21 12:54 Sodium 142 mmol/L (136-145) 09/17/21 05:09 Potassium 4.1 mmol/L (3.5-5.1) 09/17/21 05:09 BUN 15 mg/dL (7-18) 09/17/21 05:09 Creatinine 0.57 mg/dL (0.55-1.3) 09/17/21 05:09 Glucose 107 mg/dL (74-106) H 09/17/21 05:09 Magnesium 2.2 mg/dL (1.8-2.4) 09/16/21 12:54 Total Bilirubin 0.2 mg/dL (0.2-1.0) 09/17/21 05:09 AST 12 U/L (15-37) L 09/17/21 05:09 ALT 25 U/L (12-78) 09/17/21 05:09 Alkaline Phosphatase 112 U/L (45-117) 09/17/21 05:09 Triglycerides 98 mg/dL (<150) 09/17/21 05:09 Cholesterol 135 mg/dL (<200) 09/17/21 05:09 HDL Cholesterol 66 mg/dL (40-60) H 09/17/21 05:09 Cholesterol/HDL Ratio 2.05 09/17/21 05:09 Physician Discharge Instructions: 1. Please schedule follow-up appointment with your PCP in 3-5 days 2. Please schedule follow-up appointment with Neurology (Dr. Velez) in 5-7 days Diet: AHA Activity: Ad hope Followup: [facility] [Primary Care Provider] - Greg Velez MD [ASSOCIATE-ACTIVE - CAN ADMIT] - Time spent managing pt's care (in minutes): 20
--- NOTE | 2021-09-17 08:52 | EKG ---
Test Date: 2021-09-16 Test Time: 13:00:31 Airplane Cabin Attendant: KATIA MEASUREMENT RESULTS: Intervals: Rate: 78 [place]: 202 QRSD: 74 QT: 370 QTc: 421 [place]: P: 51 [place]: 202 QRS: 61 T: 71 INTERPRETIVE STATEMENTS: Normal sinus rhythm Normal ECG No previous ECG available for comparison Electronically Signed On 09-17-21 08:47:17 CDT by Joaquín Rangel
--- NOTE | 2021-09-17 09:07 | ECHO ---
HEIGHT: 5 ft 5 in WEIGHT: 167 lb 0 oz DATE OF STUDY: 09/17/[address]: Lj Moya MD 2-DIMENSIONAL: YES M.MODE: YES DOPPLER: YES COLOR FLOW: YES TDS: PORTABLE: YES DEFINITY: BUBBLE STUDY: DIAGNOSIS: TRANSIENT ISCHEMIC ATTACK EVALUATION CARDIAC HISTORY: CATHERIZATION: NO SURGERY: NO PROSTHETIC VALVE: NO PACEMAKER: NO MEASUREMENTS (cm) DIASTOLIC (NORMALS) SYSTOLIC (NORMALS) IVSd 1.0 (0.6-1.2) LA Diam 2.6 (1.9-4.0) LVEF 50% LVIDd 3.7 (3.5-5.7) LVIDs 2.8 (2.0-3.5) %FS 25% LVPWd 1.1 (0.6-1.2) Ao Diam 2.1 (2.0-3.7) 2 DIMENSIONAL ASSESSMENT: RIGHT ATRIUM: NORMAL LEFT ATRIUM: NORMAL RIGHT VENTRICLE: NORMAL LEFT VENTRICLE: NORMAL TRICUSPID VALVE: NORMAL MITRAL VALVE: NORMAL PULMONIC VALVE: NORMAL AORTIC VALVE: NORMAL PERICARDIAL EFFUSION: NONE AORTIC ROOT: NORMAL LEFT VENTRICULAR WALL MOTION: NORMAL DOPPLER/COLOR FLOW: MILD MITRAL REGURGITATION COMMENTS: MILD MITRAL REGURGITATION. NO WALL MOTION ABNORMALITY. NORMAL LEFT VENTRICULAR SIZE AND FUNCTION. NO VEGETATION. TECHNOLOGIST: DIOR MARR
[2021-09-17 09:47] VITALS: BP 114/73; TEMP 97.5
--- NOTE | 2021-09-18 09:31 | ER ---
Nurse's Notes [facility] Name: Mamie Donovan Age: 56 yrs Sex: Female : 1965 Arrival Date: 09/16/2021 Time: 12:17 Bed 2 Private MD: Diagnosis: Transient cerebral ischemic attack, unspecified;Slurred speech Presentation: 09/16 12:33 Chief complaint: Patient states: pt presented to ed reporting numbness to face, slurred babin speech, syncopal episode around 1130. Coronavirus screen: Vaccine status: Patient reports receiving the 2nd dose of the covid vaccine. Ebola Screen: Patient denies travel to an Ebola-affected area in the 21 days before illness onset. Initial Sepsis Screen: Does the patient meet any 2 criteria? No. Patient's initial sepsis screen is negative. Does the patient have a suspected source of infection? No. Patient's initial sepsis screen is negative. Risk Assessment: Do you want to hurt yourself or someone else? Patient reports no desire to harm self or others. Onset of symptoms was September 16, 2021 at 11:30. 12:33 Method Of Arrival: Ambulatory babin 12:33 Acuity: FÁTIMA 2 babin Historical: - Allergies: 14:02 No Known Allergies; vg1 - PMHx: 13:04 diabetes mellitus; Hypertension; vg1 - Immunization history:: Client reports receiving the 2nd dose of the Covid vaccine. - Family history:: not pertinent. - Social history:: Smoking status: Patient denies any tobacco usage or history of. - Hospitalizations: : No recent hospitalization is reported. Screenin:04 Abuse screen: Denies threats or abuse. Nutritional screening: No deficits noted. vg1 Tuberculosis screening: No symptoms or risk factors identified. Fall Risk No fall in past 12 months (0 pts). No secondary diagnosis (0 pts). IV access (20 points). Ambulatory Aid- None/Bed Rest/Nurse Assist (0 pts). Gait- Normal/Bed Rest/Wheelchair (0 pts) Mental Status- Oriented to own ability (0 pts). Total Cao Fall Scale indicates No Risk (0-24 pts). 13:35 The patient has not been NPO before screening. The patient is alert, able to follow vg1 commands. The patient does not exhibit slurred or garbled speech The patient is not exhibiting difficulty speaking. The patient does not exhibit difficulty understanding words. The patient is able to swallow own secretions with no drooling or need for suction. Patient tolerated one teaspoon of water. No drooling, immediate coughing, gurgling, or clearing of the throat was noted. The patient tolerated 90mL of water. No drooling, immediate coughing, gurgling, or clearing of the throat was noted. The patient passed the bedside swallow screening. Oral medications may be given as ordered. Contact Physician for further diet orders. Assessment: 12:35 General: Appears in no apparent distress. uncomfortable, Behavior is calm, cooperative. vg1 Pain: Complains of pain in head Pain currently is 3 out of 10 on a pain scale. Pain began 2 hours ago. Neuro: Level of Consciousness is awake, alert, obeys commands, Oriented to person, place, time, situation, Hog Stomach Preparer are equal bilaterally Moves all extremities. Speech is normal, Facial symmetry appears normal, Reports dizziness, headache. Cardiovascular: Patient's skin is warm and dry. Respiratory: Airway is patent Respiratory effort is even, unlabored. GI: Patient currently denies nausea, vomiting. : No signs and/or symptoms were reported regarding the genitourinary system. EENT: No signs and/or symptoms were reported regarding the EENT system. Derm: Skin is intact, is healthy with good turgor. Musculoskeletal: Circulation, motion, and sensation intact. 13:06 Cardiovascular: Rhythm is sinus rhythm. vg1 14:00 Reassessment: Patient appears in no apparent distress at this time. No changes from vg1 previously documented assessment. Patient and/or family updated on plan of care and expected duration. Pain level reassessed. Patient is alert, oriented x 3, equal unlabored respirations, skin warm/dry/pink. 15:00 Reassessment: Patient appears in no apparent distress at this time. No changes from vg1 previously documented assessment. Patient and/or family updated on plan of care and expected duration. Pain level reassessed. Patient is alert, oriented x 3, equal unlabored respirations, skin warm/dry/pink. 16:06 Reassessment: No changes from previously documented assessment. Patient and/or family vg1 updated on plan of care and expected duration. Pain level reassessed. Patient is alert, oriented x 3, equal unlabored respirations, skin warm/dry/pink. Patient denies pain at this time. Patient states feeling better. 17:34 Reassessment: pt transported back from [facility]. vg1 17:35 Reassessment: Patient appears in no apparent distress at this time. No changes from vg1 previously documented assessment. Patient and/or family updated on plan of care and expected duration. Pain level reassessed. Patient is alert, oriented x 3, equal unlabored respirations, skin warm/dry/pink. Patient denies pain at this time. 18:49 Reassessment: No changes from previously documented assessment. Patient and/or family ap3 updated on plan of care and expected duration. Pain level reassessed. Patient is alert, oriented x 3, equal unlabored respirations, skin warm/dry/pink. 19:34 Reassessment: Patient appears in no apparent distress at this time. Patient denies pain kl at this time. Patient states feeling better. pt to be admitted pt aware and agreeable to admission. Vital Signs: 12:33 BP 91 / 73; Pulse 98; Resp 19; Temp 97.7(T); Pulse Ox 99% on R/A; Weight 75.75 kg; babin Height 5 ft. 5 in. (165.10 cm); 13:01 BP 121 / 76; Pulse 83; Resp 12; Pulse Ox 99% on R/A; vg1 14:00 BP 121 / 64; Pulse 84; Resp 17; Pulse Ox 99% ; vg1 15:00 BP 126 / 88; Pulse 68; Resp 12; Pulse Ox 100% on R/A; vg1 16:00 BP 117 / 67; Pulse 74; Resp 15; Pulse Ox 100% on R/A; vg1 17:54 BP 120 / 87; Pulse 92; Resp 15; Pulse Ox 99% on R/A; vg1 18:48 BP 113 / 87; Pulse 69; Pulse Ox 100% on R/A; ap3 19:35 BP 105 / 72; Pulse 83; Resp 16; Pulse Ox 100% on R/A; Pain 0/10; kl 12:33 Body Mass Index 27.79 (75.75 kg, 165.10 cm) Vitals: 19:35 Cardiac Rhythm Assessment Regular. NIH Stroke Scale Scores: 12:35 NIHSS Score: 0 vg1 12:40 NIHSS Score: 0 pr internship Course: 12:17 Patient arrived in ED. am2 12:21 Madhu Hedrick MD is Attending Physician. rn 12:35 Triage completed. babin 12:55 Jaci Moura RN is Primary Nurse. vg1 12:56 CT Stroke Brain w/o Contrast In Process Unspecified. EDMS 12:56 Initial lab(s) drawn, by az, sent to lab. Inserted saline lock: 20 gauge in right vg1 wrist, using aseptic technique. Blood collected. 12:57 CT Head Angio In Process Unspecified. EDMS 12:[address] In Process Unspecified. EDMS 13:04 Patient has correct armband on for positive identification. Bed in low position. Call vg1 light in reach. Side rails up X 1. Client placed on continuous cardiac and pulse oximetry monitoring. NIBP monitoring applied. 13:06 SARS-COV-2 RT PCR (Document "Date of Onset" if Symptomatic) Sent. kc6 13:06 Arm band placed on. vg1 13:20 Stroke CXR 1 View In Process Unspecified. EDMS 14:42 Lj Moya MD is Hospitalizing Provider. rn 19:16 Primary Nurse role handed off by Jaci Moura, RN mw2 19:17 role handed off by Debora Salazar RN mw2 20:14 No provider procedures requiring assistance completed. Patient admitted, IV remains in kl place. Administered Medications: 13:01 Drug: NS 0.9% 1000 ml Route: IV; Rate: 1000 ml; Site: right wrist; vg1 16:09 Follow up: IV Status: Completed infusion; IV Intake: 1000ml vg1 14:50 Drug: Aspirin Chewable Tablet 324 mg Route: PO; ap3 16:09 Follow up: Response: No adverse reaction vg1 14:50 Drug: foLIC Acid 1 mg Route: IVPB; Site: right forearm; ap3 16:09 Follow up: IV Status: Completed infusion vg1 Medication: 13:06 VIS not applicable for this client. vg1 Point of Care Testing: Blood Glucose: 13:06 Blood Glucose: 169 mg/dL; vg1 Ranges: Intake: 16:09 IV: 1000ml; Total: 1000ml. vg1 Outcome: 14:42 Decision to Hospitalize by Provider. rn 20:14 Admitted to Med/surg accompanied by nurse, via wheelchair, room 203. kl 20:14 Condition: improved 20:14 Instructed on the need for admit, Demonstrated understanding of instructions. 20:14 Patient left the ED. kl NIH Stroke Scale - NIH Stroke Score Date: 09/16/2021 Time: 12:35 Total Score = 0 1a. Level of Consciousness (LOC) - 0(Alert) 1b. Level of Consciousness (LOC) (Month \\T\\ Age) - 0(Both) 1c. LOC Commands (Open \\T\\ Closes Eyes/Soaker Hides) - 0(Both) 2. Best Gaze (Lateral Gaze Paresis) - 0(Normal) 3. Visual Field Loss - 0(No visual loss) 4. Facial Palsy - 0(Normal) 5a. Left Arm: Motor (10-second hold) - 0(No drift) 5b. Right Arm: Motor (10-second hold) - 0(No drift) 6a. Left Leg: Motor (5-second hold - always test supine) - 0(No drift) 6b. Right Leg: Motor (5-second hold - always test supine) - 0(No drift) 7. Limb Ataxia (finger/nose \\T\\ heel/bender - test with eyes open) - 0(Absent) 8. Sensory Loss (pinprick arms/legs/face) - 0(Normal) 9. Best Language: Aphasia (description/naming/reading) - 0(No aphasia) 10. Dysarthria (speech clarity - read or repeat words) - 0(Normal) 11. Extinction and Inattention (visual/tactile/auditory/spatial/personal) - 0(No abnormality) Initials: vg1 NIH Stroke Scale - NIH Stroke Score Date: 09/16/2021 Time: 12:40 Total Score = 0 1a. Level of Consciousness (LOC) - 0(Alert) 1b. Level of Consciousness (LOC) (Month \\T\\ Age) - 0(Both) 1c. LOC Commands (Open \\T\\ Closes Eyes/Soaker Hides) - 0(Both) 2. Best Gaze (Lateral Gaze Paresis) - 0(Normal) 3. Visual Field Loss - 0(No visual loss) 4. Facial Palsy - 0(Normal) 5a. Left Arm: Motor (10-second hold) - 0(No drift) 5b. Right Arm: Motor (10-second hold) - 0(No drift) 6a. Left Leg: Motor (5-second hold - always test supine) - 0(No drift) 6b. Right Leg: Motor (5-second hold - always test supine) - 0(No drift) 7. Limb Ataxia (finger/nose \\T\\ heel/bender - test with eyes open) - 0(Absent) 8. Sensory Loss (pinprick arms/legs/face) - 0(Normal) 9. Best Language: Aphasia (description/naming/reading) - 0(No aphasia) 10. Dysarthria (speech clarity - read or repeat words) - 0(Normal) 11. Extinction and Inattention (visual/tactile/auditory/spatial/personal) - 0(No abnormality) Initials: rn Signatures: Dispatcher [employer] EDKizzy Osullivan RN RN kl Nieto, Roman, MD MD rn Moreno, Amanda am2 Prokisch, Amanda, RN RN ap3 Marvel Clark2 Jaci Moura RN RN vg1 Au-StagerFatmata RN RN ha Campbell, Kaitlyn kc6 Corrections: (The following items were deleted from the chart) 19:39 19:38 PSHx: abd sx; jade hansen
--- NOTE | 2021-09-18 09:31 | EDPHYS ---
Physician Documentation [facility] Name: Mamie Donovan Age: 56 yrs Sex: Female : 1965 Arrival Date: 09/16/2021 Time: 12:17 Bed 2 Private MD: ED Physician Madhu Hedrick HPI: 09/16 12:40 This 56 yrs old Female presents to ER via Ambulatory with complaints of rn slurred speech, weakness, near syncope. 12:40 The patient presents to the emergency department with weakness of the entire body, rn generalized weakness, a speech or higher order brain function problem. Onset: The symptoms/episode began/occurred 1 hour(s) ago. Associated signs and symptoms: Pertinent positives: headache, near-syncope, Pertinent negatives: altered mental status, chills, fever, neck stiffness, seizure, syncope. Severity of symptoms: At their worst the symptoms were moderate in the emergency department the symptoms have resolved. Current symptoms: Currently, the patient is not experiencing any symptoms. The patient has not experienced similar symptoms in the past. The patient has not recently seen a physician. Pt reports 1 hour ago developed headache, slurred speech, generalized weakness. Now resolved and feels back to normal. Reports speaking to a friend like she "was drunk". + intermittent chest "tingling". Neg for head injury. Does not feel like completely passed out, states friend caught her because she was "too weak". . Historical: - Allergies: 14:02 No Known Allergies; vg1 - PMHx: 13:04 diabetes mellitus; Hypertension; vg1 - Immunization history:: Client reports receiving the 2nd dose of the Covid vaccine. - Family history:: not pertinent. - Social history:: Smoking status: Patient denies any tobacco usage or history of. - Hospitalizations: : No recent hospitalization is reported. ROS: 12:40 Constitutional: Negative for fever, chills, and weight loss, Eyes: Negative for injury, rn pain, redness, and discharge, Neck: Negative for injury, pain, and swelling, Cardiovascular: Negative for palpitations, and edema, Respiratory: Negative for shortness of breath, cough, wheezing, and pleuritic chest pain, Abdomen/GI: Negative for abdominal pain, nausea, vomiting, diarrhea, and constipation, Back: Negative for injury and pain, MS/Extremity: Negative for injury and deformity, Skin: Negative for injury, rash, and discoloration, Neuro: Negative for numbness, tingling, and seizure Exam: 12:40 Constitutional: This is a well developed, well nourished patient who is awake, alert, rn and in no acute distress. Head/Face: Normocephalic, atraumatic. Eyes: Periorbital areas with no swelling, redness, or edema. Cardiovascular: Regular rate and rhythm. No pulse deficits. Respiratory: No increased work of breathing, no retractions or nasal flaring. Abdomen/GI: Soft, non-tender Skin: Warm, dry with normal turgor. Normal color with no rashes, no lesions, and no evidence of cellulitis. MS/ Extremity: Pulses equal, no cyanosis. Neurovascular intact. Full, normal range of motion. Equal circumference. Neuro: Awake and alert, GCS 15, oriented to person, place, time, and situation. Cranial nerves II-XII grossly intact. Normal speech. Motor strength 5/5 in all extremities. Sensory grossly intact. Cerebellar exam normal. 14:43 ECG was reviewed by the Attending Physician. rn Vital Signs: 12:33 BP 91 / 73; Pulse 98; Resp 19; Temp 97.7(T); Pulse Ox 99% on R/A; Weight 75.75 kg; babin Height 5 ft. 5 in. (165.10 cm); 13:01 BP 121 / 76; Pulse 83; Resp 12; Pulse Ox 99% on R/A; vg1 14:00 BP 121 / 64; Pulse 84; Resp 17; Pulse Ox 99% ; vg1 15:00 BP 126 / 88; Pulse 68; Resp 12; Pulse Ox 100% on R/A; vg1 16:00 BP 117 / 67; Pulse 74; Resp 15; Pulse Ox 100% on R/A; vg1 17:54 BP 120 / 87; Pulse 92; Resp 15; Pulse Ox 99% on R/A; vg1 18:48 BP 113 / 87; Pulse 69; Pulse Ox 100% on R/A; ap3 19:35 BP 105 / 72; Pulse 83; Resp 16; Pulse Ox 100% on R/A; Pain 0/10; kl 12:33 Body Mass Index 27.79 (75.75 kg, 165.10 cm) babin NIH Stroke Scale Scores: 12:35 NIHSS Score: 0 vg1 12:40 NIHSS Score: 0 rn MDM: 12:21 Patient medically screened. rn 12:56 ED course: No acute findings on CT stroke per radiologist. NIH currently 0. Not rn candidate for TNK given symptoms resolved and still unclear if CVA vs near syncope. . 14:32 Data reviewed: vital signs, nurses notes, lab test result(s), EKG, radiologic studies, rn CT scan, and as a result, I will admit patient. Counseling: I had a detailed discussion with the patient and/or guardian regarding: the historical points, exam findings, and any diagnostic results supporting the discharge/admit diagnosis, lab results, radiology results, the need for further work-up and treatment in the hospital. Response to treatment: the patient's condition has returned to base line, the patient is now symptom free, and as a result, I will admit patient. Admission orders: after a detailed discussion of the patient's condition and case, the admit orders are written by me. ED course: NO acute findings on CTA. Will admit to Dr. Moya for further care. . 09/16 12:38 Order name: Basic Metabolic Panel; Complete Time: 13:32 rn 09/16 12:38 Order name: CBC with Diff; Complete Time: 13:32 rn 09/16 12:38 Order name: Magnesium; Complete Time: 13:32 rn 09/16 12:38 Order name: Protime (+inr); Complete Time: 13:32 rn 09/16 12:38 Order name: Ptt, Activated; Complete Time: 13:32 rn 09/16 12:39 Order name: SARS-COV-2 RT PCR (Document "Date of Onset" if Symptomatic); Complete Time: rn 14:29 09/16 12:38 Order name: CT Stroke Brain w/o Contrast; Complete Time: 13:32 rn 09/16 12:38 Order name: Stroke CXR 1 View; Complete Time: 13:32 rn 09/16 12:38 Order name: CT Head Angio; Complete Time: 13:32 rn 09/16 12:39 Order name: Neck Angio CT; Complete Time: 13:32 rn 09/16 12:39 Order name: Urine Microscopic Only; Complete Time: 15:30 rn 09/16 12:40 Order name: Troponin High Sensitivity; Complete Time: 13:32 rn 08/01 12:47 Order name: Glucose, Ancillary Testing; Complete Time: 13:32 EDMS 09/16 14:51 Order name: Urine Dipstick-Ancillary; Complete Time: 15:30 EDMS 09/16 12:38 Order name: EKG; Complete Time: 12:40 rn 09/16 12:38 Order name: Accucheck; Complete Time: 12:42 rn 09/16 12:38 Order name: Cardiac monitoring; Complete Time: 13:01 rn 09/16 12:38 Order name: EKG - Nurse/Tech; Complete Time: 13:01 rn 09/16 12:38 Order name: IV Saline Lock; Complete Time: 13:01 rn 09/16 12:38 Order name: Labs collected and sent; Complete Time: 13:01 rn 09/16 12:38 Order name: NPO; Complete Time: 12:43 rn 09/16 12:38 Order name: O2 Per Protocol; Complete Time: 12:43 rn 09/16 12:38 Order name: O2 Sat Monitoring; Complete Time: 12:43 rn 09/16 12:38 Order name: Stroke Swallow Screen; Complete Time: 13:34 rn 09/16 17:18 Order name: MRI; Complete Time: 17:19 EDMS 09/16 17:57 Order name: MRI; Complete Time: 18:11 EDMS 09/16 17:59 Order name: MRI; Complete Time: 18:11 EDMS 09/16 12:39 Order name: Urine Dipstick-Ancillary (obtain specimen); Complete Time: 14:50 rn EC:43 Rate is 78 beats/min. Rhythm is regular. QRS [place] is Normal. [place] interval is normal. QRS rn interval is normal. QT interval is normal. No Q waves. T waves are Normal. No ST changes noted. Clinical impression: Normal ECG. Interpreted by me. Reviewed by me. Administered Medications: 13:01 Drug: NS 0.9% 1000 ml Route: IV; Rate: 1000 ml; Site: right wrist; vg1 16:09 Follow up: IV Status: Completed infusion; IV Intake: 1000ml vg1 14:50 Drug: Aspirin Chewable Tablet 324 mg Route: PO; ap3 16:09 Follow up: Response: No adverse reaction vg1 14:50 Drug: foLIC Acid 1 mg Route: IVPB; Site: right forearm; ap3 16:09 Follow up: IV Status: Completed infusion vg1 Point of Care Testing: Blood Glucose: 13:06 Blood Glucose: 169 mg/dL; vg1 Ranges: Critical Glucose Levels:Adult <50 mg/dl or >400 mg/dl <40 mg/dl or >180 mg/dl Disposition Summary: 09/16/21 14:42 Hospitalization Ordered Hospitalization Status: Observation rn Provider: Lj Moya rn Location: Telemetry/MedSurg (observation) rn Condition: Stable rn Problem: new rn Symptoms: are resolved rn Bed/Room Type: Standard rn Room Assignment: 203(09/16/21 18:37) bd Diagnosis - Transient cerebral ischemic attack, unspecified rn - Slurred speech rn Forms: - Medication Reconciliation Form rn - SBAR form rn NIH Stroke Scale - NIH Stroke Score Date: 09/16/2021 Time: 12:35 Total Score = 0 1a. Level of Consciousness (LOC) - 0(Alert) 1b. Level of Consciousness (LOC) (Month \\T\\ Age) - 0(Both) 1c. LOC Commands (Open \\T\\ Closes Eyes/Tongue Binder) - 0(Both) 2. Best Gaze (Lateral Gaze Paresis) - 0(Normal) 3. Visual Field Loss - 0(No visual loss) 4. Facial Palsy - 0(Normal) 5a. Left Arm: Motor (10-second hold) - 0(No drift) 5b. Right Arm: Motor (10-second hold) - 0(No drift) 6a. Left Leg: Motor (5-second hold - always test supine) - 0(No drift) 6b. Right Leg: Motor (5-second hold - always test supine) - 0(No drift) 7. Limb Ataxia (finger/nose \\T\\ heel/bender - test with eyes open) - 0(Absent) 8. Sensory Loss (pinprick arms/legs/face) - 0(Normal) 9. Best Language: Aphasia (description/naming/reading) - 0(No aphasia) 10. Dysarthria (speech clarity - read or repeat words) - 0(Normal) 11. Extinction and Inattention (visual/tactile/auditory/spatial/personal) - 0(No abnormality) Initials: vg1 NIH Stroke Scale - NIH Stroke Score Date: 09/16/2021 Time: 12:40 Total Score = 0 1a. Level of Consciousness (LOC) - 0(Alert) 1b. Level of Consciousness (LOC) (Month \\T\\ Age) - 0(Both) 1c. LOC Commands (Open \\T\\ Closes Eyes/Tongue Binder) - 0(Both) 2. Best Gaze (Lateral Gaze Paresis) - 0(Normal) 3. Visual Field Loss - 0(No visual loss) 4. Facial Palsy - 0(Normal) 5a. Left Arm: Motor (10-second hold) - 0(No drift) 5b. Right Arm: Motor (10-second hold) - 0(No drift) 6a. Left Leg: Motor (5-second hold - always test supine) - 0(No drift) 6b. Right Leg: Motor (5-second hold - always test supine) - 0(No drift) 7. Limb Ataxia (finger/nose \\T\\ heel/bender - test with eyes open) - 0(Absent) 8. Sensory Loss (pinprick arms/legs/face) - 0(Normal) 9. Best Language: Aphasia (description/naming/reading) - 0(No aphasia) 10. Dysarthria (speech clarity - read or repeat words) - 0(Normal) 11. Extinction and Inattention (visual/tactile/auditory/spatial/personal) - 0(No abnormality) Initials: rn Signatures: Dispatcher [employer] Karol Rose Kimberly RN aMdhu Quintanilla MD MD rn Prokisch, Amanda RN MARY JANE [email or web address] Martell, Jaci, RN RN vg1 Corrections: (The following items were deleted from the chart) 18:37 14:42 mary jane garnett 19:39 19:38 PSHx: abd sx; jade hansen
== END 2021-09-17 11:29 | disposition home or self-care (01) ==
LOC: ER 12:11 → ERHOLD 15:33 → 2ND 19:53
PROVIDERS: ADMIT Internal Medicine; ATTEND Internal Medicine
DX: R42 Dizziness and giddiness (principal); R53.1 Weakness; R47.81 Slurred speech; R20.0 Anesthesia of skin; R20.2 Paresthesia of skin; E11.65 Type 2 diabetes mellitus with hyperglycemia; I10 Essential (primary) hypertension; E78.5 Hyperlipidemia, unspecified; E04.1 Nontoxic single thyroid nodule; I34.0 Nonrheumatic mitral (valve) insufficiency; Z79.84 Long term (current) use of oral hypoglycemic drugs; Z79.899 Other long term (current) drug therapy; Z20.822 Contact with and (suspected) exposure to COVID-19
CPT/HCPCS: 36415; 70450; 70496; 70498; 70544; 70549; 70553; 71045; 80048; 80053; 80061; 81003; 81015; 82947; 83036; 83735; 84443; 84484; 85025; 85610; 85730; 93005; 93306; 96361; 96365; 99285; A9577; G0378; J7030; Q9967; U0003

== ENCOUNTER 2021-12-01 18:49 | Emergency (ER) | payer SELFPAY ==
--- OUTSIDE RECORDS SUMMARY | 2021-12-01 18:52 | XMS REPORT | Continuity of Care Document ---
:1965 Author Organization [facility] t Address [address] [place] [address] Care Team Providers Name Role Phone PCP, PATIENT DOES NOT HAVE A Primary Care Physician Unavaila IRVING Garrett Attending Clinician Unavailable Irving Ingram Attending Clinician IRVING BOWLES Admitting Clinician Unavailable Payers Payer Name Policy Type Policy Number Effective Date Expiration Date Saima polanco MEDICAID MARLENEN PENDING 2021 PENDING 00:00:00 Problems Condition Condition Condition Status Onset Resolution Last Treating Co mments Source Name Details Category Date Date Treatment Clinician Date No known No known Disease Unive rs active active ity of problems problems [facility] Allergies, Adverse Reactions, Alerts Allergy Allergy Status Severity Reaction(s) Onset Inactive Treating Comm ents Source Name Type Date Date Clinician NO KNOWN Drug Active Univers ALLERGIE Class ity of S [facility] Social History Social Habit Start Date Stop Date Quantity Comments Source Exposure to 2021-09-09 2021-09-19 Not sure [facility] SARS-CoV-2 (event) 00:00:00 11:56:00 Medica l Branch [facility] [address] 1965 [facility] [place] [facility] Medical Branch Smoking Status Start Date Stop Date Source Tobacco smoking consumption [facility] [place] [facility] unknown Branch Medications Ordered Filled Start Stop Current Ordering Indication Dosage Frequency Signature Comments Components Source Medication Medication Date Date Medication? Clinician (SIG) Name Name NaCl 0.9% 1000mL at 999 Uni vers (NS) bolus 09-19 mL/hr, ity of infusion 20:15: 20:47 1,000 mL, Russel as 1,000 mL 00 :00 IV Medical Infusion, Branch ONCE, 1 dose, On Elizabeth 09/19/21 at 1515, STAT traMADOL Yes [id number] 50mg Take 1 Univers (ULTRAM) 50 07-18 9104 tablet by ity of mg tablet 00:00: mouth [place] 00 every 6 Medical (six) Branch hours as needed for Pain (scale 7-10). lisinopril Yes 10mg Take 10 mg U nivers (PRINIVIL,Z 10-22 by mouth ity of ESTRIL) 10 14:39: daily. [place] mg tablet 59 Medical Branch Immunizations Ordered Filled Immunization Date Status Comments [facility] Immunization Name Name SARS-COV-2 COVID-19 2020-05-12 Completed Unive rsity of LINA/J&J VACCINE 00:00:00 [facility] Td 2014-10-22 Completed University 00:00:00 [facility] Vital Signs Vital Name Observation Time Observation Value Comments Source Heart rate 2021-09-19 19:30:00 78 /min [facility] Respiratory rate 2021-09-19 19:30:00 13 /min [facility] Oxygen saturation in 2021-09-19 19:30:00 97 /min [facility] Arterial blood by [facility] Pulse oximetry Branch Systolic blood 2021-09-19 19:14:00 128 mm[Hg] Univer sity of pressure [facility] Diastolic blood 2021-09-19 19:14:00 81 mm[Hg] Unive rsity of pressure [facility] Body temperature 2021-09-19 16:36:00 36.72 Rachel [facility] Body height 2021-09-19 16:36:00 165.1 cm [facility] Body weight 2021-09-19 16:36:00 76.204 kg [facility] BMI 2021-09-19 16:36:00 27.96 kg/m2 [facility] Procedures Procedure Date / Time Performed Performing Clinician Sourc e XR CHEST 1 VW 2021-09-19 17:49:51 Irving Bowles [facility] TROPONIN I 2021-09-19 17:15:00 Irving Bowles [facility] COMP. METABOLIC PANEL 2021-09-19 17:15:00 Irving Bowles [facility] ([id number]) [facility] CBC WITH DIFF 2021-09-19 17:15:00 Irving Bwoles [facility] N-TERMINAL PRO-BNP 2021-09-19 17:15:00 Irving Bowles [facility] CONSENT/REFUSAL FOR 2021-09-19 16:29:09 Doctor Unassigned, No Un [facility] DIAGNOSIS AND Name Medical Branch TREATMENT Encounters Start End Encounter Admission Attending Care Care Encounter Source Date/Time Date/Time Type Type Clinicians Facility Department ID 2021-09-19 2021-09-19 [id number] Univers 11:38:00 15:52:00 [facility] 2021-09-19 2021-09-19 [facility] [id number] Univers 11:38:00 15:52:00 Irving ANDERSON [id number] i [facility] [id number] [facility] [id number] [address] Results Test Description Test Time Test Comments Results Result Comments Source TROPONIN I 2021-09-19 17:48:41 Test Item Value Reference Range Interpretation Comme nts TROPONIN I (test code = 0.000 ng/mL See_Comment [Au tomated message] The [id number]) system which ge nerated this result tra nsmitted reference range : <=0.034. The reference r agnieszka was not used to int erpret this result as normal/abnormal . JARET (test code = JARET) Reference (Normal) Range (defined by the 99th percentile reference limit): <= 0.034 ng/mL Note: Cardiac troponin begins to rise 3-4 hours after the onset of ischemia. Repeat in 4-6 hours if the sample was drawn within 3-4 hours of the onset of the symptom and found normal. Diagnosis of myocardial injury is made with acute changes in cTn concentrations with at least one serial sample above the 99th percentile upper reference limit (URL), taken together with the patient's clinical presentation. Biotin has been reported to cause a negative bias, interpret results relative to patient's use of biotin. Lab Interpretation Normal (test code = 68998-5) [id number] 17:46:24 Test Item Value Reference Range Interpretation Comments NT-proBNP (test code 38 pg/mL See_Comment [Autom ated = [id number]) message] The system which generated this result transmitted reference range : <=125. The reference range was not used to interpret this result as normal/abnormal . JARET (test code = JARET) Biotin has been reported to cause a negative bias, interpret results relative to patient's use of biotin. Lab Interpretation Normal (test code = 81846-0) [facility]OLIC PAN[facility] ([id number])2021-09-19 17:37:01 Test Item Value Reference Range Interpretation Comments NA (test code = 138 mmol/L 135-145 7278575771) K (test code = 4.0 mmol/L 3.5-5 7495927009) CL (test code = 104 mmol/L 98-108 7852320600) CO2 TOTAL (test code = 24 mmol/L 23-31 3219950202) AGAP (test code = 2-16 2596779289) BUN (test code = 12 mg/dL 7-23 6805282130) GLUCOSE (test code = 113 mg/dL 70-110 H 1750802800) CREATININE (test code = 0.42 mg/dL 0.5-1.04 L 5137273895) TOTAL BILI (test code = 0.5 mg/dL 0.1-1.8 4932029099) CALCIUM (test code = 9.7 mg/dL 8.6-10.6 9365475501) T PROTEIN (test code = 6.9 g/dL 6.3-8.2 5253670471) ALBUMIN (test code = 4.4 g/dL 3.5-5 7580638361) ALK PHOS (test code = 112 U/L 34-122 5872384681) ALTv (test code = 37 U/L 5-35 H 1742-6) AST(SGOT) (test code = 34 U/L 13-40 9347863360) eGFR (test code = mL/min/1.73m2 1548157950) JARET (test code = JARET) Association of Glomerular Filtration Rate (GFR) and Staging of Kidney Disease* + --+ --+ ------+| GFR (mL/min/1.73 m2) ?| With Kidney Damage ?| ?Without Kidney Damage+ --------+ --------+ +| ?>90 ?| ?Stage one ?| ? Normal ?+ ---+ ---+ -------+| ?60-89 ?| ?Stage two ?| ? Decreased GFR ? + --+ --+ ------+| ?30-59 ?| ?Stage three ?| ? Stage three ? + --+ --+ ------+| ?15-29 ?| ?Stage four ? | ? Stage four ?+ ---+ ---+ -------+| ?<15 (or dialysis) ? ?| ?Stage five ? | ? Stage five ?+ ---+ ---+ -------+ *Each stage assumes the associated GFR level has been in effect for at least three months. ?Stages 1 to 5, with or without kidney disease, indicate chronic kidney disease. Notes: Determination of stages one and two (with eGFR >59mL/min/1.73 m2) requires estimation of kidney damage for at least three months as defined by structural or functional abnormalities of the kidney, manifested by either:Pathological abnormalities or Markers of kidney damage (including abnormalities in the composition of the blood or urine or abnormalities in imaging tests). Lab Interpretation Abnormal (test code = 63028-7) [facility] WITH [id number] 17:26:52 Test Item Value Reference Range Interpretation Comments WBC (test code = See_Comment [Automated message] 6690-2) The system [employer] generated this result transmitted ref erence range: 4.30 - 1 1.10 10*3/?L. The re ference range was not u sed to interpret this result as normal/abnor mal. RBC (test code = See_Comment [Automated message] 789-8) The system [employer] generated this result transmitted ref erence range: 3.93 - 5 .25 10*6/?L. The re ference range was not u sed to interpret this result as normal/abnor mal. HGB (test code = 12.8 g/dL 11.6-15 718-7) HCT (test code = 38.1 % 35.7-45.2 4544-3) MCV (test code = 88.0 fL 80.6-95.5 787-2) MCH (test code = 29.6 pg 25.9-32.8 785-6) MCHC (test code = 33.6 g/dL 31.6-35.1 786-4) RDW-SD (test code 41.9 fL 39-49.9 = 46218-9) RDW-CV (test code 12.9 % 12-15.5 = 788-0) PLT (test code = See_Comment [Automated message] 777-3) The system [employer] generated this result transmitted ref erence range: 166 - 35 8 10*3/?L. The re ference range was not u sed to interpret this result as normal/abnor mal. MPV (test code = 10.3 fL 9.5-12.9 43646-5) NRBC/100 WBC (test See_Comment [Automat ed message] code = 1556973011) The syste m which generated this result transmitted ref erence range: 0.0 - 10 .0 /100 WBCs. The refer ence range was not u sed to interpret this result as normal/abnor mal. NRBC x10^3 (test See_Comment [Automated message] code = 6241826486) The syste m which generated this result transmitted ref erence range: 10*3/?L. The reference range was not used to interpr et this result as normal/abnormal . GRAN MAT (NEUT) % 61.8 % (test code = 770-8) IMM GRAN % (test 0.30 % code = 9390611977) LYMPH % (test code 29.2 % = 736-9) MONO % (test code 7.4 % = 5905-5) EOS % (test code = 1.0 % 713-8) BASO % (test code 0.3 % = 706-2) GRAN MAT 3.85 10*3/uL 1.88-7.09 x10^3(ANC) (test code = 6449514206) IMM GRAN x10^3 0-0.06 (test code = 9746212745) LYMPH x10^3 (test 1.82 10*3/uL 1.32-3.29 code = 731-0) MONO x10^3 (test 0.46 10*3/uL 0.33-0.92 code = 742-7) EOS x10^3 (test 0.06 10*3/uL 0.03-0.39 code = 711-2) BASO x10^3 (test 0.01-0.07 code = 704-7) [facility] [id number] 23:41:38 Test Item Value Reference Range Interpretation Comments GLUCOSE (test code = 99 MG/DL 70-99 2216) BUN (test code = 13 MG/DL 6-20 2207) CREATININE (test 0.58 MG/DL 0.60-1.30 L code = 2214) eGFR (2020 CKD-EPI) 106 >60 (test code = 77494) ML/MIN/1.73 CALC BUN/CREAT (test 22 RATIO 6-28 code = 2235) SODIUM (test code = 143 MEQ/L 481-124 4825) POTASSIUM (test code 4.8 MEQ/L 3.5-5.4 = 2227) CHLORIDE (test code 105 MEQ/L 95-107 = 2214) CARBON DIOXIDE (test 27 MEQ/L 19-31 code = 2206) CALCIUM (test code = 9.8 MG/DL 8.5-10.5 2208) PROTEIN, TOTAL (test 7.1 G/DL 6.1-8.3 code = 2229) ALBUMIN (test code = 4.5 G/DL 3.5-5.2 2200) CALC GLOBULIN (test 2.6 G/DL 1.9-3.7 code = 2240) CALC A/G RATIO (test 1.7 RATIO 1.0-2.6 code = 2234) BILIRUBIN, TOTAL 0.4 MG/DL See_Comment [Automated message] (test code = 2207) The syste m which generated this result transmit loulou reference range : <=1.2. The refe rence range was not u sed to interpret th is result as normal/abnormal . ALKALINE PHOSPHATASE 128 U/L 40-136 (test code = 220) AST (test code = 17 U/L 9-40 2217) ALT (test code = 24 U/L -40 2218) HEMOGLOBIN [id number] 04:01:43 Test Item Value Reference Range Interpretation Comments HEMOGLOBIN A1c (test 5.8 % 4.2-5.6 H UNLESS OTHERWISE code = 44300) INDICATED, ALL TESTING PERFORMED ATCLI NICAL PATHOLOGY [employer] [address] [place], [place] [id number] [place] [address] DIRECTOR: DARSHANA PASTOR M.D. IA NUMBER [id number] CAP ACCREDITATION N O. [id number] LIPID [id number] 01:25:50 Test Item Value Reference Range Interpretation Comments CHOLESTEROL (test 149 MG/DL <200 code = 2210) TRIGLYCERIDES (test 92 MG/DL <150 code = 2232) HDL CHOLESTEROL (test 54 MG/DL >39 code = 2220) CALC LDL CHOL (test 77 MG/DL <100 NOTE: C ALCULATED LDL code = 2237) IS BASED ON CLEO-STONE METHOD WHICHINCLUDES ADJUSTABLE TRIGLYCERIDE:VL DL CHOLESTEROL RAT IO.THIS FACTOR VARIES B Y MEASURED TRIGLY CERIDE AND NON-HDLCHOL ESTEROL CONCENTRATIONS WITH INCREASED CALCU LATED LDL SEENIN HIGH ER TRIGLYCERIDE OR LOWER NON-HDL SPECIME NS. FOR MOREINFORMATION , SEE CLIENT ANNOUNCE MENT AT [email or web address] [email or web address] RATIO LDL/HDL 1.43 RATIO <3.22 (test code = 2238) COMPREHENSIVE METABOLIC [id number] 01:25:50 Test Item Value Reference Range Interpretation Comments GLUCOSE (test code = 97 MG/DL 70-99 2216) BUN (test code = 11 MG/DL -2207) CREATININE (test 0.50 MG/DL 0.60-1.30 L code = 2214) eGFR (2020 CKD-EPI) 110 >60 (test code = 99607) ML/MIN/1.73 CALC BUN/CREAT (test 22 RATIO 6-28 code = 2235) SODIUM (test code = 143 MEQ/L 718-013 2520) POTASSIUM (test code 3.9 MEQ/L 3.5-5.4 = 2228) CHLORIDE (test code 105 MEQ/L 95-107 = 2215) CARBON DIOXIDE (test 24 MEQ/L 19-31 code = 2206) CALCIUM (test code = 9.9 MG/DL 8.5-10.5 2208) PROTEIN, TOTAL (test 6.7 G/DL 6.1-8.3 code = 2229) ALBUMIN (test code = 4.5 G/DL 3.5-5.2 2200) CALC GLOBULIN (test 2.2 G/DL 1.9-3.7 code = 2240) CALC A/G RATIO (test 2.0 RATIO 1.0-2.6 code = 2234) BILIRUBIN, TOTAL 0.3 MG/DL See_Comment [Automated message] (test code = 220) The [employer] which generated this result transmitted ref erence range: <=1.2. T he reference range was not used to int erpret this result as normal/abnormal . ALKALINE PHOSPHATASE 154 U/L 40-136 H (test code = 2203) AST (test code = 39 U/L 9-40 2217) ALT (test code = 61 U/L 5-40 H UNLESS OTH ERWISE 2218) INDICATED, ALL TESTING PERFORM ED ATCLINICAL PATH [facility]LOGY LAB[facility]IES, [facility]. [address] [place] [address] [facility] DIRECTOR: DARSHANA PASTOR M.D. CLIA NUMBER [id number] CAP ACCREDITATION N O. [id number] HEMOGLOBIN [id number] 06:05:10 Test Item Value Reference Range Interpretation Comments HEMOGLOBIN A1c (test code = 92038) 5.8 % 4.2-5.6 H"
[2021-12-01 19:58] LABS: Urine Blood Trace-intact (Negative); Urine Glucose Negative (Negative); Urine Protein 2+ (Negative); Urine Specific Gravity 1.025 (1.005-1.030)
[2021-12-01 20:09] LABS: Urine Crystals Unidentified Few /HPF (None Seen); Urine Mucus 2+ /HPF (None Seen); Urine RBC 21-50 /HPF (None Seen)
[2021-12-01 20:21] LABS: Absolute Lymphocytes (CBC) 2.4 K/uL (0.7-4.9); Hematocrit 41.9 % (36.0-45.0); Lymphocytes % 31.3 % (15.3-44.8); MPV 8.1 fL (7.6-11.3); RBC Red Blood Cell Count 4.71 M/uL (3.86-4.86)
[2021-12-01] MEDS ORDERED: NA CHLORIDE 0.9% 1,000 ML ONE (20:32)
[2021-12-01 20:33] LABS: Albumin 4.1 g/dL (3.4-5.0); Bilirubin Total 0.3 mg/dL (0.2-1.0); Potassium 3.7 mmol/L (3.5-5.1); Protein, Total 8.1 g/dL (6.4-8.2)
--- NOTE | 2021-12-01 20:59 | RAD REPORT ---
EXAM DESCRIPTION: RAD - Chest Single View - 12/01/2021 8:49 pm CLINICAL HISTORY: CHEST PAIN COMPARISON: Chest Single View dated 09/16/2021; Chest Single View dated 05/09/2021; Chest Single View d ated 09/27/2019; Chest Single View dated 08/31/2018 FINDINGS: Lines: None. Lungs: No evidence of edema or pneumonia. Pleural: No significant pleural effusions or pneumothorax. Cardiac: The heart size is within normal limits. Mediastinum: Within normal limits. Bones: No acute fractures. Other: None IMPRESSION: No acute cardiopulmonary disease.
[2021-12-01] MEDS ORDERED: CEFTRIAXONE 1000 MG/VIAL ONE (22:16)
[2021-12-01] MEDS ORDERED: NA CHLORIDE 0.9% 50 ML IV ONE (22:17)
[2021-12-01] MEDS ORDERED: MORPHINE 4 MG/ML SYR ONE (22:32)
--- NOTE | 2021-12-01 22:41 | RAD REPORT ---
EXAM DESCRIPTION: CTAbdomen Pelvis Wo Contrast - 12/01/2021 10:27 pm CLINICAL HISTORY: bilateral flank pain COMPARISON: <Comparisons> TECHNIQUE: CT of the abdomen and pelvis was performed. All CT scans are performed using dose optimization technique as appropriate and may include automated exposure control or mA/KV adjustment according to patient size. FINDINGS: Lower chest: No acute abnormality. Small hiatal hernia. Liver: No acute abnormality or suspicious lesions. Biliary: No biliary ductal dilatation. Stomach: No significant focal abnormality. Duodenum: No significant focal abnormality. Pancreas: No significant abnormality. Spleen: No significant abnormality. Adrenal: No suspicious lesions. Kidney/ureter: No hydronephrosis. No renal calculi. Bilateral renal sinus cysts. Retroperitoneum: No retroperitoneal adenopathy. Vascular: No aneurysm. Bowel: No significant focal abnormality. Normal appendix. Peritoneum: No ascites or free air. Bladder: Grossly unremarkable. Reproductive: No adnexal masses. Bones: No acute fracture. Other: n/a IMPRESSION: No acute intra-abdominal or pelvic finding. Normal appendix. No renal or ureteral calcul i.
--- NOTE | 2021-12-01 22:51 | EDPHYS ---
Physician Documentation [facility] Name: Mamie Donovan Age: 56 yrs Sex: Female : 1965 Arrival Date: 12/01/2021 Time: 18:53 Bed 27 Private MD: ED Physician Romeo Becerra HPI: 12/01 22:40 This 56 yrs old Female presents to ER via Ambulatory with complaints of Low ms3 Back Pain, Headache, Chest Pain. 22:40 56-year-old female with past medical history of diabetes, hypertension, hyperlipidemia ms3 presents for bilateral flank pain, headache, chest pain that has been ongoing for 1 week. Patient describes her discomfort as a 7/10. Patient denies alleviating or inciting factors. Patient denies fevers or chills. Patient endorses nausea, dysuria, urinary frequency.. Historical: - Allergies: 19:00 No Known Allergies; tw2 - PMHx: 19:00 diabetes mellitus; Hypertension; tw2 19:00 Hypercholesterolemia; tw2 - Immunization history:: Adult Immunizations. - Social history:: Smoking status: . ROS: 22:40 Constitutional: Negative for fever, and chills. Neck: Negative for injury, pain, and ms3 swelling. 22:40 Respiratory: Negative for shortness of breath, cough, wheezing, and pleuritic chest pain, Abdomen/GI: Negative for abdominal pain, nausea, vomiting, diarrhea, and constipation. 22:40 Skin: Negative for injury, rash, and discoloration, Neuro: Negative for headache, weakness, numbness, tingling. 22:40 Cardiovascular: Positive for chest pain. 22:40 Back: Positive for flank pain, bilaterally. 22:40 All other systems are negative. Exam: 20:26 ECG was reviewed by the Attending Physician. ms3 22:40 Constitutional: This is a well developed, well nourished patient who is awake, alert, ms3 and in no acute distress. Head/Face: Normocephalic, atraumatic. ENT: Nares patent. No nasal discharge, no septal abnormalities noted. Tympanic membranes are normal and external auditory canals are clear. Oropharynx with no redness, swelling, or masses, exudates, or evidence of obstruction, uvula midline. Mucous membranes moist. Neck: Trachea midline, no cervical lymphadenopathy. Supple, full range of motion without nuchal rigidity, or vertebral point tenderness. No Meningismus. Chest/axilla: Normal chest wall appearance and motion. Nontender with no deformity. Cardiovascular: Regular rate and rhythm with a normal S1 and S2. No gallops, murmurs, or rubs. Normal PMI, no JVD. No pulse deficits. Respiratory: Lungs have equal breath sounds bilaterally, clear to auscultation and percussion. No rales, rhonchi or wheezes noted. No increased work of breathing, no retractions or nasal flaring. Abdomen/GI: Soft, non-tender, with normal bowel sounds. No distension or tympany. No guarding or rebound. No evidence of tenderness throughout. 22:40 MS/ Extremity: Pulses equal, no cyanosis. Neurovascular intact. Full, normal range of motion. Psych: Awake, alert, with orientation to person, place and time. Behavior, mood, and affect are within normal limits. 22:40 Back: pain, is absent, ROM is normal, CVA tenderness, that is moderate, is noted bilaterally. Vital Signs: 18:58 BP 123 / 80; Pulse 101; Resp 17; Temp 98.2(TE); Pulse Ox 97% on R/A; Weight 79.38 kg tw2 (R); Height 5 ft. 5 in. (165.10 cm); Pain 8/10; 20:26 BP 101 / 82; Pulse 86; Resp 17; Temp 98.6(O); Pulse Ox 100% on R/A; mm9 22:52 BP 106 / 82; Pulse 76; Resp 17 S; Pulse Ox 100% on R/A; as6 18:58 Body Mass Index 29.12 (79.38 kg, 165.10 cm) tw2 MDM: 19:17 Patient medically screened. ms3 22:40 Differential diagnosis: strain, Herniated disc UTI, abnormal EKG vs ACS. ms3 22:46 Data reviewed: vital signs, nurses notes, lab test result(s), radiologic studies. ms3 Counseling: I had a detailed discussion with the patient and/or guardian regarding: the historical points, exam findings, and any diagnostic results supporting the discharge/admit diagnosis, lab results, radiology results, the need for outpatient follow up, to return to the emergency department if symptoms worsen or persist or if there are any questions or concerns that arise at home. ED course: Discussed labs, chest x-ray, CT scan with patient and her . Patient to follow-up with her primary care physician in 2 to 3 days. Patient understands and agrees with plan. All questions were answered. Return precautions discussed include worsening symptoms, or any other concerns. On reevaluation patient is improved, in no apparent distress, nontoxic-appearing, ambulatory in emergency department, speaking full sentences. 12/01 19:18 Order name: CBC with Diff; Complete Time: 21:54 ms3 12/01 19:18 Order name: CMP; Complete Time: 21:54 ms3 12/01 19:18 Order name: Urine Microscopic Only; Complete Time: 21:54 ms3 12/01 19:31 Order name: Troponin High Sensitivity; Complete Time: 21:54 ms3 12/01 19:58 Order name: Urine Dipstick-Ancillary; Complete Time: 21:54 EDMS 12/01 20:12 Order name: Urine Culture EDMS 12/01 19:18 Order name: IV Saline Lock; Complete Time: 20:13 ms3 12/01 19:31 Order name: EKG; Complete Time: 19:35 ms3 12/01 19:31 Order name: CXR XRAY; Complete Time: 21:54 ms3 12/01 21:57 Order name: CT Abd/Pelvis - Without Contrast; Complete Time: 22:43 ms3 12/01 19:18 Order name: Labs collected and sent; Complete Time: 20:13 ms3 12/01 19:18 Order name: Urine Dipstick-Ancillary (obtain specimen); Complete Time: 20:13 ms3 12/01 19:31 Order name: EKG - Nurse/Tech; Complete Time: 20:24 ms3 EC:26 Rate is 82 beats/min. Rhythm is regular. QRS [place] is Normal. AR interval is normal. QRS ms3 interval is normal. Clinical impression: Normal ECG. Interpreted by me. Reviewed by me. Administered Medications: 20:35 Drug: NS 0.9% 1000 ml Route: IV; Rate: 1 bolus; Site: right antecubital; as6 23:09 Follow up: Response: No adverse reaction; IV Status: Completed infusion; IV Intake: as6 1000ml 21:57 CANCELLED (Physician Discretion): cefPODOXime 200 mg PO once ms3 22:19 Drug: Rocephin (cefTRIAXone) 1 grams Route: IV; Rate: calculated rate; Site: right as6 antecubital; 23:09 Follow up: Response: No adverse reaction; IV Status: Completed infusion; IV Intake: 99alyv8 22:35 Drug: morphine 4 mg Route: IVP; Infused Over: 4 mins; Site: right antecubital; as6 23:10 Follow up: Response: No adverse reaction as6 Disposition Summary: 12/01/21 22:50 Discharge Ordered Location: Home ms3 Condition: Stable ms3 Diagnosis - Flank pain ms3 - Chest pain, unspecified ms3 - Headache ms3 Followup: ms3 - With: Cesar Ruelas DO - When: 2 - 3 days - Reason: Recheck today's complaints Discharge Instructions: - Discharge Summary Sheet ms3 - Nonspecific Chest Pain, Adult ms3 - General Headache Without Cause ms3 - Nonspecific Chest Pain, Adult, Jyui-hc-Vvia ms3 Forms: - Medication Reconciliation Form ms3 - Thank You Letter ms3 - Antibiotic Education ms3 - Prescription Opioid Use ms3 Prescriptions: - cefpodoxime 200 mg Oral Tablet - take 1 tablet by ORAL route every 12 hours with food; 20 tablet; Refills: 0, ms3 Product Selection Permitted Signatures: Dispatcher [employer] EDMS Luanne Vincent RN RN tw2 Romeo Becerra DO DO ms3 Jair Jean Baptiste RN RN as6 Corrections: (The following items were deleted from the chart) 21:57 21:56 cefPODOXime 200 mg PO once ordered. ms3 ms3
--- NOTE | 2021-12-01 22:51 | ER ---
Nurse's Notes [facility] Name: Mamie Donovan Age: 56 yrs Sex: Female : 1965 Arrival Date: 12/01/2021 Time: 18:53 Bed 27 Private MD: Diagnosis: Flank pain;Chest pain, unspecified;Headache Presentation: 12/01 18:58 Chief complaint: Spouse and/or significant other states: she speaks only little spanish tw2 but she is having kidney pain and pain on the top of her head and sometimes she feels chest pain and pressure. this has been going on for 1 week and today is the worse pain she has felt. Coronavirus screen: At this time, the client does not indicate any symptoms associated with coronavirus-19. Ebola Screen: Patient denies travel to an Ebola-affected area in the 21 days before illness onset. Initial Sepsis Screen: Does the patient meet any 2 criteria? HR > 90 bpm. No. Patient's initial sepsis screen is negative. Does the patient have a suspected source of infection? No. Patient's initial sepsis screen is negative. Risk Assessment: Do you want to hurt yourself or someone else? Patient reports no desire to harm self or others. Onset of symptoms was December 01, 2021. 18:58 Method Of Arrival: Ambulatory tw 18:58 Acuity: FÁTIMA 3 tw2 Historical: - Allergies: 19:00 No Known Allergies; tw2 - PMHx: 19:00 diabetes mellitus; Hypertension; tw2 19:00 Hypercholesterolemia; tw2 - Immunization history:: Adult Immunizations. - Social history:: Smoking status: . Screenin:36 Abuse screen: Denies threats or abuse. Denies injuries from another. Nutritional as6 screening: No deficits noted. Tuberculosis screening: No symptoms or risk factors identified. Fall Risk None identified. Assessment: 20:35 General: Appears uncomfortable, Behavior is calm, cooperative. Pain: Complains of pain as6 in head. Pain: Complains of pain in left flank and right flank. Neuro: Level of Consciousness is awake, alert, Reports headache. Cardiovascular: Reports chest pain. Respiratory: Respiratory effort is even, unlabored. : Reports burning with urination, pain in right in left flank(s). Vital Signs: 18:58 BP 123 / 80; Pulse 101; Resp 17; Temp 98.2(TE); Pulse Ox 97% on R/A; Weight 79.38 kg tw2 (R); Height 5 ft. 5 in. (165.10 cm); Pain 8/10; 20:26 BP 101 / 82; Pulse 86; Resp 17; Temp 98.6(O); Pulse Ox 100% on R/A; mm9 22:52 BP 106 / 82; Pulse 76; Resp 17 S; Pulse Ox 100% on R/A; as6 18:58 Body Mass Index 29.12 (79.38 kg, 165.10 cm) tw2 ED Course: 18:53 Patient arrived in ED. ja2 19:00 Triage completed. tw2 19:00 Arm band placed on. tw2 19:04 Romeo Becerra DO is Attending Physician. ms3 19:56 Jair Jean Baptiste, MARY JANE is Primary Nurse. as6 20:13 Patient has correct armband on for positive identification. Placed in gown. Bed in low mm9 position. Call light in reach. Side rails up X 1. Adult w/ patient. Warm blanket given. monitor technician on. Pulse ox on. NIBP on. 20:13 Urine Culture Sent. mm9 20:13 Troponin High Sensitivity Sent. mm9 20:13 CBC with Diff Sent. mm9 20:13 CMP Sent. mm9 20:25 Initial lab(s) drawn, by me, sent to lab. Urine collected: clean catch specimen, mm9 cloudy, EKG done, by ED staff, reviewed by Romeo Becerra DO. Inserted saline lock: 20 gauge in right antecubital area, using aseptic technique. Blood collected. 20:51 CXR XRAY In Process Unspecified. EDMS 22:28 CT Abd/Pelvis - Without Contrast In Process Unspecified. EDMS 22:49 Cesar Ruelas DO is Referral Physician. ms3 23:10 No provider procedures requiring assistance completed. IV discontinued, intact, as6 bleeding controlled, No redness/swelling at site. Pressure dressing applied. Administered Medications: 20:35 Drug: NS 0.9% 1000 ml Route: IV; Rate: 1 bolus; Site: right antecubital; as6 23:09 Follow up: Response: No adverse reaction; IV Status: Completed infusion; IV Intake: as6 1000ml 21:57 CANCELLED (Physician Discretion): cefPODOXime 200 mg PO once ms3 22:19 Drug: Rocephin (cefTRIAXone) 1 grams Route: IV; Rate: calculated rate; Site: right as6 antecubital; 23:09 Follow up: Response: No adverse reaction; IV Status: Completed infusion; IV Intake: [id number] 22:35 Drug: morphine 4 mg Route: IVP; Infused Over: 4 mins; Site: right antecubital; as6 23:10 Follow up: Response: No adverse reaction as6 Medication: 23:10 VIS not applicable for this client. as6 Intake: 23:09 IV: 1000ml; Total: 1000ml. as6 23:09 IV: 50ml; Total: 1050ml. as6 Outcome: 22:50 Discharge ordered by . ms3 23:10 Discharged to home ambulatory, with family. as6 23:10 Condition: stable 23:10 Discharge instructions given to patient, family, Instructed on discharge instructions, follow up and referral plans. medication usage, Demonstrated understanding of instructions, follow-up care, medications, Prescriptions given X 1. 23:10 Patient left the ED. as6 Signatures: Dispatcher [employer] EDMS Luanne Vincent RN RN tw2 Romeo Becerra DO DO ms3 Sandi Fox Ashby, RN RN as6 Lety Allen mm9
[2021-12-01 23:50] VITALS: TEMP 98.6; O2SAT 100
[2021-12-01 23:51] VITALS: BP 106/82
--- NOTE | 2021-12-02 16:08 | EKG ---
Test Date: 2021-12-01 Test Time: 20:26:27 Application Development Team Lead: TAVO MEASUREMENT RESULTS: Intervals: Rate: 82 SC: 180 QRSD: 72 QT: 358 QTc: 418 [place]: P: 31 SC: 180 QRS: 41 T: 55 INTERPRETIVE STATEMENTS: Normal sinus rhythm Normal ECG Compared to ECG 09/16/2021 13:00:31 No significant changes Electronically Signed On 12-02-21 16:07:02 CDT by Tima Amaya
== END 2021-12-01 23:10 | disposition home or self-care (01) ==
LOC: ER 18:49
DX: R10.9 Unspecified abdominal pain (principal); R07.9 Chest pain, unspecified; R51.9 Headache, unspecified; I10 Essential (primary) hypertension
CPT/HCPCS: 36415; 71045; 74176; 80053; 81003; 81015; 84484; 85025; 87086; 87088; 93005; 96361; 96365; 96375; 99284; J7030

== ENCOUNTER → 2023-04-27 | Emergency (ER) | payer SELFPAY ==
[~2023-04-27] MED LIST: KETOROLAC 30 MG/ML INJ ONE; NA CHLORIDE 0.9% 1,000 ML ONE; ONDANSETRON 4 MG/2 ML VIAL ONE
--- OUTSIDE RECORDS SUMMARY | 2023-04-27 17:23 | XMS REPORT | Continuity of Care Document ---
Author Name Unknown Address [address] [facility] [address] [place] [address] [facility] Address [address] [facility] 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 Name Role Phone PCP, PATIENT DOES NOT HAVE A Primary Care Physic lily Unavailable IRVING BOWLES Attending Clinician Unavailable Irving Ingram Attending Clinician IRVING BOWLES Admitting Clinician Unavailable Payers Payer Name Policy Type Policy Number Effective Date Expirati on Date Source MEDICAID ALIEN PENDING PENDING 2021 00:00:00 Problems Condition Name Condition Details Condition Category Status Onset Date Resolution Date Last Treatment Date Treating Clinician Comments Source No known active problems No known active problems Disease [facility] Allergies, Adverse Reactions, Alerts Allergy Name Allergy Type Status Severity Reaction(s) Onset Date Inactive Date Treating Clinician Comments Source NO KNOWN ALLERGIE S Drug Class Active [facility] Social History Social Habit Start Date Stop Date Quantity Comments Source Exposure to SARS-CoV-2 (event) 2021-09-09 00:00:00 2021-09-19 11:56:00 Not sure [facility]ly [facility] Sex Assigned At 1965 00:00:00 1965 00:00:00 [facility] Smoking Status Start Date Stop Date Source Tobacco smoking consumption unknown [facility] Medications Ordered Medication Name Filled Medication Name Start Date Stop Date Current Medication? Ordering Clinician Indication Dosage Frequency Signature (SIG) Comments Components Source NaCl 0.9% (NS) bolus infusion 1,000 mL 2021-0 - 20:15: 00 09-19 20:47 :00 No 1000mL at 999 mL/hr, 1,000 mL, IV Infusion, ONCE, 1 dose, [facility] Thu09/19/21 at 1515[facility] 2-0 8- 00:00: 00 No Dose Unknown 2-0 8- 00:00: 00 No Dose Unknown 2-0 8- 00:00: 00 No Dose Unknown 2-0 8- 00:00: 00 No Dose Unknown 2-0 7-20 00:00: 00 No Dose Unknown 2022-0 720 00:00: 00 No Dose Unknown 2022-0 7-20 00:00: 00 No Dose Unknown 2-0 720 00:00: 00 No Dose Unknown 2-0 718 00:00: 00 No Dose Unknown 2022-0 718 00:00: 00 No Dose Unknown 2022-0 7-18 00:00: 00 No Dose Unknown 2022-0 7-18 00:00: 00 No Dose Unknown 2022-0 7-16 00:00: 00 No metformin 500 mg tablet 2-0 7-16 00:00: 00 No 1mg pravastatin 40 mg tablet 2-0 7-16 00:00: 00 No 1mg Dose Unknown 2022-0 7-16 00:00: 00 No Dose Unknown 2022-0 7-16 00:00: 00 No Dose Unknown 2022-0 7-16 00:00: 00 No metformin 500 mg tablet 2-0 7-16 00:00: 00 No 1mg pravastatin 40 mg tablet 2-0 7-16 00:00: 00 No 1mg Dose Unknown 2022-0 7-16 00:00: 00 No Dose Unknown 2022-0 7-16 00:00: 00 No Dose Unknown 2022-0 7-16 00:00: 00 No metformin 500 mg tablet 2-0 7-16 00:00: 00 No 1mg pravastatin 40 mg tablet 2022-0 7-16 00:00: 00 No 1mg Dose Unknown 2022-0 7-16 00:00: 00 No Dose Unknown 2022-0 7-16 00:00: 00 No lisinopril 10 mg tablet 2022-0 7-16 00:00: 00 No 1mg metformin 500 mg tablet 2022-0 7-16 00:00: 00 No 1mg pravastatin 40 mg tablet 2022-0 7-16 00:00: 00 No 1mg Dose Unknown 2022-0 7-16 00:00: 00 No metformin 500 mg tablet 2022-0 7-16 00:00: 00 No 1mg pravastatin 40 mg tablet 2022-0 7-16 00:00: 00 No 1mg Dose Unknown 2022-0 7-16 00:00: 00 No Dose Unknown 2022-0 7-16 00:00: 00 No Dose Unknown 2022-0 7-16 00:00: 00 No Dose Unknown 2022-0 7-16 00:00: 00 No Dose Unknown 2022-0 5-17 00:00: 00 No Dose Unknown 2022-0 5-17 00:00: 00 No Dose Unknown 2022-0 5-17 00:00: 00 No trazodone 50 mg tablet 2022-0 5-17 00:00: 00 No 12mg Dose Unknown 2022-0 5-17 00:00: 00 No Dose Unknown 2022-0 4-26 00:00: 00 No Dose Unknown 2022-0 4-26 00:00: 00 No Dose Unknown 2022-0 4-26 00:00: 00 No Dose Unknown 2022-0 4-26 00:00: 00 No Dose Unknown 2022-0 4-26 00:00: 00 No Dose Unknown 2022-0 4-26 00:00: 00 No Dose Unknown 2022-0 4-26 00:00: 00 No Dose Unknown 2022-0 4-26 00:00: 00 No Dose Unknown 2022-0 4-26 00:00: 00 No Dose Unknown 2022-0 4-26 00:00: 00 No Dose Unknown 2022-0 4-26 00:00: 00 No Dose Unknown 2022-0 4-26 00:00: 00 No Dose Unknown 2022-0 4-26 00:00: 00 No Dose Unknown 2022-0 06-11 00:00: 00 No Dose Unknown 0 4 00:00: 00 No Dose Unknown 0 06-11 00:00: 00 No Dose Unknown 0 06-11 00:00: 00 No Dose Unknown 0 06-11 00:00: 00 No Dose Unknown 0 06-11 00:00: 00 No Dose Unknown 0 06-11 00:00: 00 No Dose Unknown 0 06-08 00:00: 00 No metformin 500 mg tablet 0 06-08 00:00: 00 No 1mg trazodone 50 mg tablet 0 06-08 00:00: 00 No 1mg pravastatin 40 mg tablet 0 06-08 00:00: 00 No 1mg Dose Unknown 0 06-08 00:00: 00 No Dose Unknown 0 06-08 00:00: 00 No metformin 500 mg tablet 2021-0 06-08 00:00: 00 No 1mg trazodone 50 mg tablet 0 06-08 00:00: 00 No 1mg pravastatin 40 mg tablet 0 06-08 00:00: 00 No 1mg Dose Unknown 0 06-08 00:00: 00 No Dose Unknown 0 06-08 00:00: 00 No metformin 500 mg tablet 0 06-08 00:00: 00 No 1mg trazodone 50 mg tablet 2021-0 06-08 00:00: 00 No 1mg pravastatin 40 mg tablet 2021-0 06-08 00:00: 00 No 1mg Dose Unknown 0 06-08 00:00: 00 No lisinopril 10 mg tablet 0 06-08 00:00: 00 No 1mg metformin 500 mg tablet 0 06-08 00:00: 00 No 1mg trazodone 50 mg tablet 0 06-08 00:00: 00 No 1mg pravastatin 40 mg tablet 0 4 00:00: 00 No 1mg Dose Unknown 0 4 00:00: 00 No Dose Unknown 0 4 00:00: 00 No metformin 500 mg tablet 2021-0 4-23 00:00: 00 No 1mg trazodone 50 mg tablet 2021-0 4-23 00:00: 00 No 1mg pravastatin 40 mg tablet 2021-0 4- 00:00: 00 No 1mg Dose Unknown 0 4- 00:00: 00 No lisinopril 10 mg tablet 2021-0 3-31 00:00: 00 No 1mg metformin 500 mg tablet 2021-0 3-31 00:00: 00 No 1mg Dose Unknown 0 3-31 00:00: 00 No lisinopril 10 mg tablet 2021-0 3-31 00:00: 00 No 1mg metformin 500 mg tablet 2021-0 3- 00:00: 00 No 1mg Dose Unknown 0 3- 00:00: 00 No lisinopril 10 mg tablet 2021-0 3-31 00:00: 00 No 1mg metformin 500 mg tablet 2021-0 3- 00:00: 00 No 1mg Dose Unknown 0 3-31 00:00: 00 No lisinopril 10 mg tablet 2021-0 3- 00:00: 00 No 1mg metformin 500 mg tablet 2021-0 3-31 00:00: 00 No 1mg Dose Unknown 2021-0 3-31 00:00: 00 No lisinopril 10 mg tablet 2021-0 3-31 00:00: 00 No 1mg metformin 500 mg tablet 2021-0 3-31 00:00: 00 No 1mg Dose Unknown 2021-0 3-31 00:00: 00 No nitrofurant oin monohydrate /macrocryst als 100 mg capsule 2021-0 3-14 00:00: 00 No 1mg nitrofurant oin monohydrate /macrocryst als 100 mg capsule 2021-0 3-14 00:00: 00 No 1mg nitrofurant oin monohydrate /macrocryst als 100 mg capsule 2021-0 3-14 00:00: 00 No 1mg nitrofurant oin monohydrate /macrocryst als 100 mg capsule 2021-0 3-14 00:00: 00 No 1mg nitrofurant oin monohydrate /macrocryst als 100 mg capsule 2021-0 3-14 00:00: 00 No 1mg Dose Unknown 2022-0 3-09 00:00: 00 No Dose Unknown 2022-0 3-09 00:00: 00 No Dose Unknown 2022-0 3-09 00:00: 00 No Dose Unknown 2022-0 3-09 00:00: 00 No Dose Unknown 2022-0 3-09 00:00: 00 No Dose Unknown 2022-0 3-09 00:00: 00 No Dose Unknown 2022-0 3-09 00:00: 00 No Dose Unknown 2022-0 3-09 00:00: 00 No Dose Unknown 2022-0 3-09 00:00: 00 No Dose Unknown 2022-0 3-09 00:00: 00 No Dose Unknown 2022-0 3-09 00:00: 00 No Dose Unknown 2022-0 3-09 00:00: 00 No Dose Unknown 2022-0 3-09 00:00: 00 No Dose Unknown 2022-0 3-09 00:00: 00 No Dose Unknown 2022-0 3-09 00:00: 00 No Dose Unknown 2022-0 3-09 00:00: 00 No Dose Unknown 2022-0 3-09 00:00: 00 No Dose Unknown 2022-0 3-09 00:00: 00 No Dose Unknown 2022-0 3-09 00:00: 00 No Dose Unknown 2022-0 3-09 00:00: 00 No Dose Unknown 2022-0 3-09 00:00: 00 No Dose Unknown 2022-0 3-09 00:00: 00 No Dose Unknown 2022-0 3-09 00:00: 00 No Dose Unknown 2022-0 3-09 00:00: 00 No Dose Unknown 2022-0 3-09 00:00: 00 No Dose Unknown 2022-0 3-09 00:00: 00 No Dose Unknown 2022-0 3-09 00:00: 00 No Dose Unknown 2022-0 3-09 00:00: 00 No Dose Unknown 2022-0 3-09 00:00: 00 No Dose Unknown 2022-0 3-09 00:00: 00 No Dose Unknown 2022-0 3-08 00:00: 00 No Dose Unknown 2022-0 3-08 00:00: 00 No Dose Unknown 2022-0 3-08 00:00: 00 No Dose Unknown 2022-0 3-08 00:00: 00 No Dose Unknown 2022-0 3-08 00:00: 00 No Dose Unknown 2022-0 3-08 00:00: 00 No Dose Unknown 2022-0 3-08 00:00: 00 No Dose Unknown 2022-0 3-08 00:00: 00 No Dose Unknown 2022-0 3-08 00:00: 00 No Dose Unknown 2022-0 3-08 00:00: 00 No Dose Unknown 2022-0 3-08 00:00: 00 No Dose Unknown 2022-0 3-08 00:00: 00 No Dose Unknown 2022-0 3-08 00:00: 00 No Dose Unknown 2022-0 3-08 00:00: 00 No Dose Unknown 2022-0 3-08 00:00: 00 No Dose Unknown 2022-0 3-01 00:00: 00 No Dose Unknown 2022-0 3-01 00:00: 00 No Dose Unknown 2022-0 3-01 00:00: 00 No Dose Unknown 2022-0 3-01 00:00: 00 No Dose Unknown 2022-0 3-01 00:00: 00 No Dose Unknown 2022-0 3-01 00:00: 00 No Dose Unknown 2022-0 3-01 00:00: 00 No Dose Unknown 2022-0 3-01 00:00: 00 No Dose Unknown 2022-0 3-01 00:00: 00 No Dose Unknown 2022-0 3-01 00:00: 00 No Dose Unknown 2022-0 3-01 00:00: 00 No Dose Unknown 2022-0 3-01 00:00: 00 No Dose Unknown 2022-0 3-01 00:00: 00 No Dose Unknown 2022-0 3-01 00:00: 00 No Dose Unknown 2022-0 3-01 00:00: 00 No Dose Unknown 2022-0 3-01 00:00: 00 No Dose Unknown 2022-0 3-01 00:00: 00 No Dose Unknown 2022-0 3-01 00:00: 00 No Dose Unknown 2022-0 3-01 00:00: 00 No Dose Unknown 2022-0 3-01 00:00: 00 No Dose Unknown 2022-0 3-01 00:00: 00 No Dose Unknown 2022-0 3- 00:00: 00 No Dose Unknown 2022-0 3- 00:00: 00 No Dose Unknown 2022-0 3- 00:00: 00 No Dose Unknown 2022-0 3- 00:00: 00 No nitrofurant oin monohydrate /macrocryst als 100 mg capsule 2022-0 2- 00:00: 00 No 1mg Dose Unknown 2022-0 2- 00:00: 00 No Dose Unknown 2-0 2- 00:00: 00 No Dose Unknown 2-0 2- 00:00: 00 No nitrofurant oin monohydrate /macrocryst als 100 mg capsule 2021-0 2- 00:00: 00 No 1mg Dose Unknown 2-0 2- 00:00: 00 No Dose Unknown 2021-0 2- 00:00: 00 No Dose Unknown 2022-0 2- 00:00: 00 No nitrofurant oin monohydrate /macrocryst als 100 mg capsule 2021-0 2- 00:00: 00 No 1mg Dose Unknown 2021-0 2- 00:00: 00 No Dose Unknown 2-0 2- 00:00: 00 No Dose Unknown 2-0 2- 00:00: 00 No nitrofurant oin monohydrate /macrocryst als 100 mg capsule 2-0 2- 00:00: 00 No 1mg Dose Unknown 2022-0 2- 00:00: 00 No Dose Unknown 2-0 2- 00:00: 00 No Dose Unknown 2-0 2- 00:00: 00 No nitrofurant oin monohydrate /macrocryst als 100 mg capsule 2-0 2- 00:00: 00 No 1mg Dose Unknown 2-0 2- 00:00: 00 No Dose Unknown 2-0 2- 00:00: 00 No Dose Unknown 2022-0 2- 00:00: 00 No Dose Unknown 2020-1 1- 00:00: 00 No metformin 500 mg tablet 2020-1 1- 00:00: 00 No 1mg Dose Unknown 2020-1 1- 00:00: 00 No Dose Unknown 2020-1 1- 00:00: 00 No metformin 500 mg tablet 2020-02 00:00: 00 No 1mg Dose Unknown 2020-02 00:00: 00 No lisinopril 10 mg tablet 2020-02 00:00: 00 No 1mg metformin 500 mg tablet 2020-02 00:00: 00 No 1mg trazodone 50 mg tablet 2020-02 00:00: 00 No 1mg Dose Unknown 2020-02 00:00: 00 No metformin 500 mg tablet 2020-02 00:00: 00 No 1mg Dose Unknown 2020-02 00:00: 00 No Dose Unknown 2020-02 00:00: 00 No metformin 500 mg tablet 2020-02 00:00: 00 No 1mg Dose Unknown 2020-02 00:00: 00 No metformin 500 mg tablet 06-17 00:00: 00 No 1mg trazodone 50 mg tablet 06-17 00:00: 00 No 1mg metformin 500 mg tablet 06-17 00:00: 00 No 1mg trazodone 50 mg tablet 06-17 00:00: 00 No 1mg metformin 500 mg tablet 06-17 00:00: 00 No 1mg trazodone 50 mg tablet 06-17 00:00: 00 No 1mg metformin 500 mg tablet 06-17 00:00: 00 No 1mg trazodone 50 mg tablet 06-17 00:00: 00 No 1mg metformin 500 mg tablet 06-17 00:00: 00 No 1mg trazodone 50 mg tablet 06-17 00:00: 00 No 1mg Dose Unknown 06-15 00:00: 00 No metformin 500 mg tablet 06-15 00:00: 00 No 1mg trazodone 50 mg tablet 06-15 00:00: 00 No 1mg Macrobid 100 mg capsule 06-15 00:00: 00 No 1mg amoxicillin 500 mg capsule 06-15 00:00: 00 No 1mg Dose Unknown 06-15 00:00: 00 No metformin 500 mg tablet 06-15 00:00: 00 No 1mg Dose Unknown 06-15 00:00: 00 No trazodone 50 mg tablet 06-15 00:00: 00 No 1mg Macrobid 100 mg capsule 06-15 00:00: 00 No 1mg amoxicillin 500 mg capsule 06-15 00:00: 00 No 1mg metformin 500 mg tablet 06-15 00:00: 00 No 1mg trazodone 50 mg tablet 06-15 00:00: 00 No 1mg Macrobid 100 mg capsule 06-15 00:00: 00 No 1mg amoxicillin 500 mg capsule 06-15 00:00: 00 No 1mg Dose Unknown 06-15 00:00: 00 No metformin 500 mg tablet 06-15 00:00: 00 No 1mg trazodone 50 mg tablet 06-15 00:00: 00 No 1mg Macrobid 100 mg capsule 06-15 00:00: 00 No 1mg amoxicillin 500 mg capsule 06-15 00:00: 00 No 1mg Dose Unknown 06-15 00:00: 00 No metformin 500 mg tablet 06-15 00:00: 00 No 1mg trazodone 50 mg tablet 06-15 00:00: 00 No 1mg Macrobid 100 mg capsule 06-15 00:00: 00 No 1mg amoxicillin 500 mg capsule 06-15 00:00: 00 No 1mg Augmentin 875 mg-125 mg tablet 04-16 00:00: 00 No 1mg Augmentin 875 mg-125 mg tablet 04-16 00:00: 00 No 1mg Augmentin 875 mg-125 mg tablet 04-16 00:00: 00 No 1mg Augmentin 875 mg-125 mg tablet 04-16 00:00: 00 No 1mg Augmentin 875 mg-125 mg tablet 3 00:00: 00 No 1mg lisinopril 10 mg tablet 2 00:00: 00 No 1mg metformin 500 mg tablet 2 00:00: 00 No 1mg Dose Unknown 04-14 00:00: 00 No trazodone 50 mg tablet 04-14 00:00: 00 No 1mg lisinopril 10 mg tablet 04-14 00:00: 00 No 1mg metformin 500 mg tablet 04-14 00:00: 00 No 1mg Dose Unknown 04-14 00:00: 00 No trazodone 50 mg tablet 04-14 00:00: 00 No 1mg lisinopril 10 mg tablet 04-14 00:00: 00 No 1mg metformin 500 mg tablet 04-14 00:00: 00 No 1mg Dose Unknown 04-14 00:00: 00 No trazodone 50 mg tablet 04-14 00:00: 00 No 1mg lisinopril 10 mg tablet 04-14 00:00: 00 No 1mg metformin 500 mg tablet 04-14 00:00: 00 No 1mg Dose Unknown 04-14 00:00: 00 No trazodone 50 mg tablet 04-14 00:00: 00 No 1mg lisinopril 10 mg tablet 04-14 00:00: 00 No 1mg metformin 500 mg tablet 04-14 00:00: 00 No 1mg Dose Unknown 04-14 00:00: 00 No trazodone 50 mg tablet 04-14 00:00: 00 No 1mg metformin 500 mg tablet 1- 00:00: 00 No 1mg metformin 500 mg tablet 1- 00:00: 00 No 1mg metformin 500 mg tablet 1- 00:00: 00 No 1mg metformin 500 mg tablet 1- 00:00: 00 No 1mg metformin 500 mg tablet 1- 00:00: 00 No 1mg lisinopril 10 mg tablet 2019-02 2- 00:00: 00 No 1mg trazodone 50 mg tablet 2019-02 00:00: 00 No 1mg lisinopril 10 mg tablet 2019-02 00:00: 00 No 1mg trazodone 50 mg tablet 2019-02 00:00: 00 No 1mg lisinopril 10 mg tablet 2019-02 00:00: 00 No 1mg trazodone 50 mg tablet 2019-02 00:00: 00 No 1mg lisinopril 10 mg tablet 2019-02 00:00: 00 No 1mg trazodone 50 mg tablet 2019-02 00:00: 00 No 1mg lisinopril 10 mg tablet 2019-02 00:00: 00 No 1mg trazodone 50 mg tablet 2019-02 00:00: 00 No 1mg omeprazole 20 mg capsule,del ayed release 2019-02 00:00: 00 No 1mg omeprazole 20 mg capsule,del ayed release 2019-02 00:00: 00 No 1mg omeprazole 20 mg capsule,del ayed release 2019-02 00:00: 00 No 1mg omeprazole 20 mg capsule,del ayed release 2019-02 00:00: 00 No 1mg omeprazole 20 mg capsule,del ayed release 2019-02 00:00: 00 No 1mg triamcinolo ne acetonide 0.025 % topical cream 2019-02 00:00: 00 No 1% prednisone 20 mg tablet 2019-02 00:00: 00 No 2mg triamcinolo ne acetonide 0.025 % topical cream 2019-02 00:00: 00 No 1% prednisone 20 mg tablet 2019-02 00:00: 00 No 2mg triamcinolo ne acetonide 0.025 % topical cream 2019-02 00:00: 00 No 1% prednisone 20 mg tablet 2019-02 00:00: 00 No 2mg triamcinolo ne acetonide 0.025 % topical cream 2019-02 00:00: 00 No 1% prednisone 20 mg tablet 2019-02 00:00: 00 No 2mg triamcinolo ne acetonide 0.025 % topical cream 2019-02 00:00: 00 No 1% prednisone 20 mg tablet 2019-02 00:00: 00 No 2mg lisinopril 10 mg tablet 10-18 00:00: 00 No 1mg trazodone 50 mg tablet 10-18 00:00: 00 No 1mg lisinopril 10 mg tablet 10-18 00:00: 00 No 1mg trazodone 50 mg tablet 10-18 00:00: 00 No 1mg lisinopril 10 mg tablet 10-18 00:00: 00 No 1mg trazodone 50 mg tablet 10-18 00:00: 00 No 1mg lisinopril 10 mg tablet 10-18 00:00: 00 No 1mg trazodone 50 mg tablet 10-18 00:00: 00 No 1mg lisinopril 10 mg tablet 10-18 00:00: 00 No 1mg trazodone 50 mg tablet 10-18 00:00: 00 No 1mg lisinopril 10 mg tablet 10-17 00:00: 00 No 1mg trazodone 50 mg tablet 10-17 00:00: 00 No 1mg lisinopril 10 mg tablet 10-17 00:00: 00 No 1mg trazodone 50 mg tablet 10-17 00:00: 00 No 1mg lisinopril 10 mg tablet 10-17 00:00: 00 No 1mg trazodone 50 mg tablet 10-17 00:00: 00 No 1mg lisinopril 10 mg tablet 10-17 00:00: 00 No 1mg trazodone 50 mg tablet 10-17 00:00: 00 No 1mg lisinopril 10 mg tablet 10-17 00:00: 00 No 1mg trazodone 50 mg tablet 10-17 00:00: 00 No 1mg ProAir HFA 90 mcg/actuati on aerosol inhaler -12 00:00: 00 No 2mcg/ac tuation ProAir HFA 90 mcg/actuati on aerosol inhaler 0 812 00:00: 00 No 2mcg/ac tuation ProAir HFA 90 mcg/actuati on aerosol inhaler 0 8-12 00:00: 00 No 2mcg/ac tuation ProAir HFA 90 mcg/actuati on aerosol inhaler 8 00:00: 00 No 2mcg/ac tuation ProAir HFA 90 mcg/actuati on aerosol inhaler 8 00:00: 00 No 2mcg/ac tuation amoxicillin 875 mg-potassiu m clavulanate 125 mg tablet 0 8-05 00:00: 00 No 1mg omeprazole 40 mg capsule,del ayed release 0 8-05 00:00: 00 No 1mg benzonatate 200 mg capsule 8-05 00:00: 00 No 1mg amoxicillin 875 mg-potassiu m clavulanate 125 mg tablet 8-05 00:00: 00 No 1mg omeprazole 40 mg capsule,del ayed release 0 8-05 00:00: 00 No 1mg benzonatate 200 mg capsule 8-05 00:00: 00 No 1mg amoxicillin 875 mg-potassiu m clavulanate 125 mg tablet 0 8-05 00:00: 00 No 1mg omeprazole 40 mg capsule,del ayed release 0 8-05 00:00: 00 No 1mg benzonatate 200 mg capsule 0 8-05 00:00: 00 No 1mg amoxicillin 875 mg-potassiu m clavulanate 125 mg tablet 8-05 00:00: 00 No 1mg omeprazole 40 mg capsule,del ayed release 0 8-05 00:00: 00 No 1mg benzonatate 200 mg capsule 8-05 00:00: 00 No 1mg amoxicillin 875 mg-potassiu m clavulanate 125 mg tablet 8-05 00:00: 00 No 1mg omeprazole 40 mg capsule,del ayed release 0 8-05 00:00: 00 No 1mg benzonatate 200 mg capsule 0 8-05 00:00: 00 No 1mg lisinopril 10 mg tablet 0 6-08 00:00: 00 No 1mg lisinopril 10 mg tablet 0 6-08 00:00: 00 No 1mg trazodone 50 mg tablet 0 6- 00:00: 00 No 1mg diclofenac sodium 25 mg tablet,afsaneh yed release 0 6 00:00: 00 No 1mg trazodone 50 mg tablet 6- 00:00: 00 No 1mg diclofenac sodium 25 mg tablet,afsaneh yed release 0 07-24 00:00: 00 No 1mg lisinopril 10 mg tablet 6 00:00: 00 No 1mg trazodone 50 mg tablet 07-24 00:00: 00 No 1mg diclofenac sodium 25 mg tablet,afsaneh yed release 07-24 00:00: 00 No 1mg lisinopril 10 mg tablet 6 00:00: 00 No 1mg trazodone 50 mg tablet 6 00:00: 00 No 1mg diclofenac sodium 25 mg tablet,afsaneh yed release 07-24 00:00: 00 No 1mg lisinopril 10 mg tablet 6 00:00: 00 No 1mg trazodone 50 mg tablet 07-24 00:00: 00 No 1mg diclofenac sodium 25 mg tablet,afsaneh yed release 07-24 00:00: 00 No 1mg lisinopril 10 mg tablet 0 -09 00:00: 00 No 1mg naproxen 250 mg tablet 0 - 00:00: 00 No 1mg trazodone 50 mg tablet 0 - 00:00: 00 No 1mg lisinopril 10 mg tablet 0 - 00:00: 00 No 1mg naproxen 250 mg tablet 0 - 00:00: 00 No 1mg trazodone 50 mg tablet 0 - 00:00: 00 No 1mg lisinopril 10 mg tablet 0 - 00:00: 00 No 1mg naproxen 250 mg tablet 0 4-09 00:00: 00 No 1mg trazodone 50 mg tablet 0 00:00: 00 No 1mg lisinopril 10 mg tablet 0 - 00:00: 00 No 1mg naproxen 250 mg tablet 0 - 00:00: 00 No 1mg trazodone 50 mg tablet 0 - 00:00: 00 No 1mg lisinopril 10 mg tablet 0 - 00:00: 00 No 1mg naproxen 250 mg tablet 0 - 00:00: 00 No 1mg trazodone 50 mg tablet 0 - 00:00: 00 No 1mg lisinopril 10 mg tablet 0 4- 00:00: 00 No 1mg naproxen 250 mg tablet 0 - 00:00: 00 No 1mg trazodone 50 mg tablet 0 - 00:00: 00 No 1mg lisinopril 10 mg tablet 0 4- 00:00: 00 No 1mg naproxen 250 mg tablet 0 - 00:00: 00 No 1mg trazodone 50 mg tablet 0 - 00:00: 00 No 1mg lisinopril 10 mg tablet 0 4- 00:00: 00 No 1mg naproxen 250 mg tablet 0 - 00:00: 00 No 1mg trazodone 50 mg tablet 0 4- 00:00: 00 No 1mg lisinopril 10 mg tablet 0 4- 00:00: 00 No 1mg naproxen 250 mg tablet 0 4- 00:00: 00 No 1mg trazodone 50 mg tablet 0 4- 00:00: 00 No 1mg lisinopril 10 mg tablet 0 4- 00:00: 00 No 1mg naproxen 250 mg tablet 0 4- 00:00: 00 No 1mg trazodone 50 mg tablet 0 4- 00:00: 00 No 1mg lisinopril 10 mg tablet 0 3-05 00:00: 00 No 1mg lisinopril 10 mg tablet 0 3-05 00:00: 00 No 1mg lisinopril 10 mg tablet 0 3-05 00:00: 00 No 1mg lisinopril 10 mg tablet 0 305 00:00: 00 No 1mg lisinopril 10 mg tablet 0 305 00:00: 00 No 1mg trazodone 50 mg tablet 0 1 00:00: 00 No 1mg trazodone 50 mg tablet 0 02-18 00:00: 00 No 1mg trazodone 50 mg tablet 0 02-18 00:00: 00 No 1mg trazodone 50 mg tablet 0 02-18 00:00: 00 No 1mg trazodone 50 mg tablet 02-18 00:00: 00 No 1mg dexamethaso ne 4 mg tablet 10-14 00:00: 00 No mg orphenadrin e citrate ER 100 mg tablet,exte nded release 10-14 00:00: 00 No 1mg orphenadrin e citrate ER 100 mg tablet,exte nded release 10-14 00:00: 00 No 1mg diclofenac sodium 50 mg tablet,afsaneh yed release 10-14 00:00: 00 No 1mg diclofenac sodium 25 mg tablet,afsaneh yed release 10-14 00:00: 00 No 1mg dexamethaso ne 4 mg tablet 10-14 00:00: 00 No mg orphenadrin e citrate ER 100 mg tablet,exte nded release 10-14 00:00: 00 No 1mg orphenadrin e citrate ER 100 mg tablet,exte nded release 10-14 00:00: 00 No 1mg diclofenac sodium 50 mg tablet,afsaneh yed release 10-14 00:00: 00 No 1mg diclofenac sodium 25 mg tablet,afsaneh yed release 10-14 00:00: 00 No 1mg dexamethaso ne 4 mg tablet 10-14 00:00: 00 No mg orphenadrin e citrate ER 100 mg tablet,exte nded release 10-14 00:00: 00 No 1mg orphenadrin e citrate ER 100 mg tablet,exte nded release 10-14 00:00: 00 No 1mg diclofenac sodium 50 mg tablet,afsaneh yed release 10-14 00:00: 00 No 1mg diclofenac sodium 25 mg tablet,afsaneh yed release 10-14 00:00: 00 No 1mg dexamethaso ne 4 mg tablet 10-14 00:00: 00 No mg orphenadrin e citrate ER 100 mg tablet,exte nded release 10-14 00:00: 00 No 1mg orphenadrin e citrate ER 100 mg tablet,exte nded release 10-14 00:00: 00 No 1mg diclofenac sodium 50 mg tablet,afsaneh yed release 10-14 00:00: 00 No 1mg diclofenac sodium 25 mg tablet,afsaneh yed release 10-14 00:00: 00 No 1mg dexamethaso ne 4 mg tablet 10-14 00:00: 00 No mg orphenadrin e citrate ER 100 mg tablet,exte nded release 10-14 00:00: 00 No 1mg orphenadrin e citrate ER 100 mg tablet,exte nded release 10-14 00:00: 00 No 1mg diclofenac sodium 50 mg tablet,afsaneh yed release 10-14 00:00: 00 No 1mg diclofenac sodium 25 mg tablet,afsaneh yed release 10-14 00:00: 00 No 1mg trazodone 50 mg tablet 09-23 00:00: 00 No 1mg lisinopril 10 mg tablet 09-23 00:00: 00 No 1mg naproxen 250 mg tablet 09-23 00:00: 00 No 1mg trazodone 50 mg tablet 09-23 00:00: 00 No 1mg lisinopril 10 mg tablet 09-23 00:00: 00 No 1mg naproxen 250 mg tablet 09-23 00:00: 00 No 1mg trazodone 50 mg tablet 09-23 00:00: 00 No 1mg lisinopril 10 mg tablet 09-23 00:00: 00 No 1mg naproxen 250 mg tablet 09-23 00:00: 00 No 1mg trazodone 50 mg tablet 09-23 00:00: 00 No 1mg lisinopril 10 mg tablet 09-23 00:00: 00 No 1mg lisinopril 10 mg tablet 09-23 00:00: 00 No 1mg naproxen 250 mg tablet 09-23 00:00: 00 No 1mg trazodone 50 mg tablet 09-23 00:00: 00 No 1mg naproxen 250 mg tablet 09-23 00:00: 00 No 1mg trazodone 50 mg tablet 09-08 00:00: 00 No 1mg lisinopril 10 mg tablet 09-08 00:00: 00 No 1mg naproxen 250 mg tablet 09-08 00:00: 00 No 1mg Pepcid 20 mg tablet 09-08 00:00: 00 No 1mg Zofran 4 mg tablet 09-08 00:00: 00 No 1mg trazodone 50 mg tablet 09-08 00:00: 00 No 1mg lisinopril 10 mg tablet 09-08 00:00: 00 No 1mg naproxen 250 mg tablet 09-08 00:00: 00 No 1mg Pepcid 20 mg tablet 09-08 00:00: 00 No 1mg Zofran 4 mg tablet 09-08 00:00: 00 No 1mg trazodone 50 mg tablet 09-08 00:00: 00 No 1mg lisinopril 10 mg tablet 09-08 00:00: 00 No 1mg naproxen 250 mg tablet 09-08 00:00: 00 No 1mg lisinopril 10 mg tablet 09-08 00:00: 00 No 1mg naproxen 250 mg tablet 09-08 00:00: 00 No 1mg Pepcid 20 mg tablet 09-08 00:00: 00 No 1mg Zofran 4 mg tablet 09-08 00:00: 00 No 1mg trazodone 50 mg tablet 09-08 00:00: 00 No 1mg Pepcid 20 mg tablet 09-08 00:00: 00 No 1mg Zofran 4 mg tablet 09-08 00:00: 00 No 1mg lisinopril 10 mg tablet 09-08 00:00: 00 No 1mg naproxen 250 mg tablet 09-08 00:00: 00 No 1mg Pepcid 20 mg tablet 09-08 00:00: 00 No 1mg Zofran 4 mg tablet 09-08 00:00: 00 No 1mg trazodone 50 mg tablet 09-08 00:00: 00 No 1mg traMADOL (ULTRAM) 50 mg tablet 07-18 00:00: 00 Yes [id number] 50mg Take 1 tablet by mouth every 6 (six) hours as needed for Pain (scale 7-10). [facility] lisinopril (PRINIVIL,Z ESTRIL) 10 mg tablet 10-22 14:39: 59 Yes 10mg Take 10 mg by mouth daily. [facility] Vital Signs Vital Name Observation Time Observation Value Comments S ource Heart rate 2021-09-19 19:30:00 78 /min [facility] Respiratory rate 2021-09-19 19:30:00 13 /min [facility] Oxygen saturation in Arterial blood by Pulse oximetry 2021-09-19 19:30:00 97 /min [facility] Systolic blood pressure 2021-09-19 19:14:00 128 mm[Hg] [facility] Diastolic blood pressure 2021-09-19 19:14:00 81 mm[Hg] [facility] Body temperature 2021-09-19 16:36:00 36.72 Rachel [facility] Body height 2021-09-19 16:36:00 165.1 cm [facility] Body weight 2021-09-19 16:36:00 76.204 kg [facility] BMI 2021-09-19 16:36:00 27.96 kg/m2 [facility] BP Systolic 2021-12-23 15:12:00 129 mm[Hg] BP Diastolic 2021-12-23 15:12:00 87 mm[Hg] Weight Measured 2021-12-23 15:12:00 171.20 pounds Height Measured 2021-12-23 15:12:00 64.00 inches Body Temperature 2021-12-23 15:12:00 97.40 degrees Heart Rate 2021-12-23 15:12:00 88.00 /min Respiratory Rate 2021-12-23 15:12:00 16.00 /min BP Systolic 2021-09-17 15:50:00 127 mm[Hg] BP Diastolic 2021-09-17 15:50:00 73 mm[Hg] Weight Measured 2021-09-17 15:50:00 169.00 pounds Height Measured 2021-09-17 15:50:00 64.00 inches Body Temperature 2021-09-17 15:50:00 98.10 degrees Heart Rate 2021-09-17 15:50:00 104.00 /min Respiratory Rate 2021-09-17 15:50:00 16.00 /min BP Systolic 2021-08-31 08:12:00 107 mm[Hg] BP Diastolic 2021-08-31 08:12:00 73 mm[Hg] Weight Measured 2021-08-31 08:12:00 168.80 pounds Height Measured 2021-08-31 08:12:00 64.00 inches Body Temperature 2021-08-31 08:12:00 98.00 degrees Heart Rate 2021-08-31 08:12:00 87.00 /min Respiratory Rate 2021-08-31 08:12:00 BP Systolic 2021-06-08 09:29:00 124 mm[Hg] BP Diastolic 2021-06-08 09:29:00 75 mm[Hg] Weight Measured 2021-06-08 09:29:00 173.00 pounds Height Measured 2021-06-08 09:29:00 64.00 inches Body Temperature 2021-06-08 09:29:00 98.00 degrees Heart Rate 2021-06-08 09:29:00 86.00 /min Respiratory Rate 2021-06-08 09:29:00 21.00 /min BP Systolic 2021-04-13 09:20:00 120 mm[Hg] BP Diastolic 2021-04-13 09:20:00 82 mm[Hg] Weight Measured 2021-04-13 09:20:00 176.40 pounds Height Measured 2021-04-13 09:20:00 64.00 inches Body Temperature 2021-04-13 09:20:00 98.10 degrees Heart Rate 2021-04-13 09:20:00 82.00 /min Respiratory Rate 2021-04-13 09:20:00 BP Systolic 2020-10-23 08:46:00 134 mm[Hg] BP Diastolic 2020-10-23 08:46:00 94 mm[Hg] Weight Measured 2020-10-23 08:46:00 175.20 pounds Height Measured 2020-10-23 08:46:00 64.00 inches Body Temperature 2020-10-23 08:46:00 98.00 degrees Heart Rate 2020-10-23 08:46:00 90.00 /min Respiratory Rate 2020-10-23 08:46:00 16.00 /min BP Systolic 2020-06-15 11:32:00 101 mm[Hg] BP Diastolic 2020-06-15 11:32:00 65 mm[Hg] Weight Measured 2020-06-15 11:32:00 175.00 pounds Height Measured 2020-06-15 11:32:00 64.00 inches Body Temperature 2020-06-15 11:32:00 97.70 degrees Heart Rate 2020-06-15 11:32:00 86.00 /min Respiratory Rate 2020-06-15 11:32:00 20.00 /min BP Systolic 2020-04-14 10:17:00 106 mm[Hg] BP Diastolic 2020-04-14 10:17:00 68 mm[Hg] Weight Measured 2020-04-14 10:17:00 179.00 pounds Height Measured 2020-04-14 10:17:00 64.00 inches Body Temperature 2020-04-14 10:17:00 96.90 degrees Heart Rate 2020-04-14 10:17:00 96.00 /min Respiratory Rate 2020-04-14 10:17:00 17.00 /min BP Systolic 2020-01-21 09:48:00 114 mm[Hg] BP Diastolic 2020-01-21 09:48:00 77 mm[Hg] Weight Measured 2020-01-21 09:48:00 182.60 pounds Height Measured 2020-01-21 09:48:00 64.00 inches Body Temperature 2020-01-21 09:48:00 98.60 degrees Heart Rate 2020-01-21 09:48:00 82.00 /min Respiratory Rate 2020-01-21 09:48:00 BP Systolic 2019-12-15 10:10:00 109 mm[Hg] BP Diastolic 2019-12-15 10:10:00 69 mm[Hg] Weight Measured 2019-12-15 10:10:00 184.00 pounds Height Measured 2019-12-15 10:10:00 64.00 inches Body Temperature 2019-12-15 10:10:00 98.50 degrees Heart Rate 2019-12-15 10:10:00 89.00 /min Respiratory Rate 2019-12-15 10:10:00 18.00 /min BP Systolic 2019-10-18 16:00:00 134 mm[Hg] BP Diastolic 2019-10-18 16:00:00 84 mm[Hg] Weight Measured 2019-10-18 16:00:00 183.80 pounds Height Measured 2019-10-18 16:00:00 64.00 inches Body Temperature 2019-10-18 16:00:00 97.90 degrees Heart Rate 2019-10-18 16:00:00 105.00 /min Respiratory Rate 2019-10-18 16:00:00 17.00 /min BP Systolic 2019-07-25 13:07:00 125 mm[Hg] BP Diastolic 2019-07-25 13:07:00 84 mm[Hg] Weight Measured 2019-07-25 13:07:00 189.00 pounds Height Measured 2019-07-25 13:07:00 64.00 inches Body Temperature 2019-07-25 13:07:00 98.70 degrees Heart Rate 2019-07-25 13:07:00 87.00 /min Respiratory Rate 2019-07-25 13:07:00 Procedures Procedure Date / Time Performed Performing Clinicia n Source XR CHEST 1 VW 2021-09-19 17:49:51 Irving Bowles [facility] TROPONIN I 2021-09-19 17:15:00 [facility] COMP. METABOLIC PANEL (92017) 2021-09-19 17:15:00 Irving Bowles [facility] CBC WITH DIFF 2021-09-19 17:15:00 Irving Bowles [facility] N-TERMINAL PRO-BNP 2021-09-19 17:15:00 Irving Bowles [facility] CONSENT/REFUSAL FOR DIAGNOSIS AND TREATMENT 2021-09-19 16:29:09 Doctor Unassigned, [place] [facility] Plan of Care Planned Activity Planned Date Details Comments Source Goal Plan of Care Note [code = 37049-0] Goal Plan of Care Note [code = 74957-0] Goal Plan of Care Note [code = 22077-1] Goal Plan of Care Note [code = 90723-1] Goal Plan of Care Note [code = 54504-3] Goal Plan of Care Note [code = 59672-6] Goal Plan of Care Note [code = 54138-5] Goal Plan of Care Note [code = 26506-9] Goal Plan of Care Note [code = 41921-8] Goal Plan of Care Note [code = 78707-9] Goal Plan of Care Note [code = 43876-9] Goal Plan of Care Note [code = 22970-6] Goal Plan of Care Note [code = 59707-7] Goal Plan of Care Note [code = 86664-4] Goal Plan of Care Note [code = 39250-6] Goal Plan of Care Note [code = 82483-9] Goal Plan of Care Note [code = 01620-0] Goal Plan of Care Note [code = 18417-5] Goal Plan of Care Note [code = 53035-9] Goal Plan of Care Note [code = 79790-6] Goal Plan of Care Note [code = 81372-0] Goal Plan of Care Note [code = 82409-5] Goal Plan of Care Note [code = 47103-1] Goal Plan of Care Note [code = 62148-2] Goal Plan of Care Note [code = 35089-4] Goal Plan of Care Note [code = 93897-0] Goal Plan of Care Note [code = 99765-7] Goal Plan of Care Note [code = 83849-9] Goal Plan of Care Note [code = 11902-1] Goal Plan of Care Note [code = 54172-6] Goal Plan of Care Note [code = 96663-1] Goal Plan of Care Note [code = 91332-4] Goal Plan of Care Note [code = 89263-0] Goal Plan of Care Note [code = 18750-1] Goal Plan of Care Note [code = 71763-6] Goal Plan of Care Note [code = 29106-7] Goal Plan of Care Note [code = 69235-9] Goal Plan of Care Note [code = 36595-4] Goal Plan of Care Note [code = 95260-3] Goal Plan of Care Note [code = 68002-3] Goal Plan of Care Note [code = 07903-9] Goal Plan of Care Note [code = 26004-6] Goal Plan of Care Note [code = 34765-7] Goal Plan of Care Note [code = 48532-2] Goal Plan of Care Note [code = 62916-8] Goal Plan of Care Note [code = 78709-8] Goal Plan of Care Note [code = 75683-9] Goal Plan of Care Note [code = 78598-7] Goal Plan of Care Note [code = 05832-5] Goal Plan of Care Note [code = 79004-4] Goal Plan of Care Note [code = 31867-0] Goal Plan of Care Note [code = 35777-2] Goal Plan of Care Note [code = 39449-1] Goal Plan of Care Note [code = 84617-5] Goal Plan of Care Note [code = 06889-7] Goal Plan of Care Note [code = 86909-3] Goal Plan of Care Note [code = 56360-8] Goal Plan of Care Note [code = 78529-4] Goal Plan of Care Note [code = 89249-6] Goal Plan of Care Note [code = 55126-8] Goal Plan of Care Note [code = 86721-1] Goal Plan of Care Note [code = 03052-7] Goal Plan of Care Note [code = 57653-6] Goal Plan of Care Note [code = 70031-6] Goal Plan of Care Note [code = 00903-2] Goal Plan of Care Note [code = 65456-1] Goal Plan of Care Note [code = 01693-3] Goal Plan of Care Note [code = 50165-2] Goal Plan of Care Note [code = 76657-2] Goal Plan of Care Note [code = 19833-1] Goal Plan of Care Note [code = 21432-9] Goal Plan of Care Note [code = 45840-4] Goal Plan of Care Note [code = 31862-8] Goal Plan of Care Note [code = 06806-3] Goal Plan of Care Note [code = 81489-1] Goal Plan of Care Note [code = 29546-9] Goal Plan of Care Note [code = 35968-9] Goal Plan of Care Note [code = 62319-1] Goal Plan of Care Note [code = 87661-4] Goal Plan of Care Note [code = 69697-3] Goal Plan of Care Note [code = 79760-2] Goal Plan of Care Note [code = 14177-0] Goal Plan of Care Note [code = 39267-0] Goal Plan of Care Note [code = 69420-8] Goal Plan of Care Note [code = 87676-1] Goal Plan of Care Note [code = 77864-3] Goal Plan of Care Note [code = 69411-5] Goal Plan of Care Note [code = 42913-2] Goal Plan of Care Note [code = 21291-6] Goal Plan of Care Note [code = 67495-5] Goal Plan of Care Note [code = 33057-5] Goal Plan of Care Note [code = 52036-4] Goal Plan of Care Note [code = 61926-2] Goal Plan of Care Note [code = 05570-9] Goal Plan of Care Note [code = 73416-0] Goal Plan of Care Note [code = 45377-2] Goal Plan of Care Note [code = 80155-2] Goal Plan of Care Note [code = 22260-0] Goal Plan of Care Note [code = 17114-6] Goal Plan of Care Note [code = 89553-7] Goal Plan of Care Note [code = 73340-5] Goal Plan of Care Note [code = 23864-5] Goal Plan of Care Note [code = 02163-1] Goal Plan of Care Note [code = 94990-5] Goal Plan of Care Note [code = 43014-9] Goal Plan of Care Note [code = 32978-8] Goal Plan of Care Note [code = 80981-5] Goal Plan of Care Note [code = 93773-2] Goal Plan of Care Note [code = 40460-2] Goal Plan of Care Note [code = 70345-6] Goal Plan of Care Note [code = 57601-5] Goal Plan of Care Note [code = 10433-3] Goal Plan of Care Note [code = 09131-5] Goal Plan of Care Note [code = 88230-2] Goal Plan of Care Note [code = 93771-5] Goal Plan of Care Note [code = 71670-1] Goal Plan of Care Note [code = 97472-2] Goal Plan of Care Note [code = 71847-0] Goal Plan of Care Note [code = 50002-3] Goal Plan of Care Note [code = 29462-2] Goal Plan of Care Note [code = 60086-1] Goal Plan of Care Note [code = 86831-4] Goal Plan of Care Note [code = 77376-5] Goal Plan of Care Note [code = 74724-7] Goal Plan of Care Note [code = 57362-8] Goal Plan of Care Note [code = 70303-4] Goal Plan of Care Note [code = 47735-1] Goal Plan of Care Note [code = 73821-4] Goal Plan of Care Note [code = 91721-9] Goal Plan of Care Note [code = 51592-0] Goal Plan of Care Note [code = 13343-8] Goal Plan of Care Note [code = 46273-3] Goal Plan of Care Note [code = 41551-0] Goal Plan of Care Note [code = 99744-8] Goal Plan of Care Note [code = 21805-1] Goal Plan of Care Note [code = 26721-4] Goal Plan of Care Note [code = 02264-1] Goal Plan of Care Note [code = 49364-2] Goal Plan of Care Note [code = 04445-1] Goal Plan of Care Note [code = 96484-2] Goal Plan of Care Note [code = 54229-8] Goal Plan of Care Note [code = 19434-0] Goal Plan of Care Note [code = 51540-0] Goal Plan of Care Note [code = 96417-4] Goal Plan of Care Note [code = 44457-8] Goal Plan of Care Note [code = 74606-5] Goal Plan of Care Note [code = 33859-5] Goal Plan of Care Note [code = 02072-2] Goal Plan of Care Note [code = 55657-7] Goal Plan of Care Note [code = 41677-3] Goal Plan of Care Note [code = 28101-1] Goal Plan of Care Note [code = 39942-6] Encounters Start Date/Time End Date/Time Encounter Type Admission Type Attending [facility] Care Department Encounter ID Source 2023-04-17 14:21:25 2023-04-17 14:21:25 Outpatient SFA S[facility] [id number] Russell Montgomery 2023-01-20 13:11:17 2023-01-20 13:11:17 Outpatient SFA SFA [id number] Russell Caceres Ulises 2022-10-30 10:52:11 2022-10-30 10:52:11 Outpatient SFA [facility] [id number] Russell Caceres Ulises 2022-10-18 09:48:17 2022-10-18 09:48:17 Outpatient SFA SFA [id number] Russell Caceres Ulises 2022-05-16 10:28:29 2022-05-16 10:28:29 Outpatient SFA SFA [id number] Russell Caceres Ulises 2022-05-05 08:13:11 2022-05-05 08:13:11 Outpatient SFA SFA [id number] Russell Caceres Ulises 2022-05-03 12:14:32 2022-05-03 12:14:32 Outpatient SFA SFA [id number] Russell Caceres Ulises 2022-03-24 07:56:49 2022-03-24 07:56:49 Outpatient SFA SFA [id number] Russell Caceres Ulises 2022-03-10 09:28:46 2022-03-10 09:28:46 Outpatient SFA SFA [id number] Russell Caceres Ulises 2022-01-07 09:40:07 2022-01-07 09:40:07 Outpatient SFA SFA [id number] Russell Caceres Ulises 2022-01-03 16:16:27 2022-01-03 16:16:27 Outpatient SFA [facility] [id number] Russell Montgomery 2022-01-03 00:00:00 2022-01-03 00:00:00 Outpatient Visit [id number] [id number] -[id number] [id number]-2 959-2afcfd 20a30e 2021-12-27 08:24:17 2021-12-27 08:24:17 Outpatient SFA [facility] [id number] Russell Montgomery 2021-12-23 15:10:28 2021-12-23 15:10:28 Outpatient SFA [facility] [id number] Russell Montgomery 2021-12-23 00:00:00 2021-12-23 00:00:00 Outpatient Visit [id number] [id number] -[id number] cc6-4a84-9 ad1-4cd2eb a545f7 2021-10-31 00:00:00 2021-10-31 00:00:00 Outpatient Visit [id number] -e11b-[id number] cd8-4342-a [id number]-[id number] [id number] 2021-09-19 11:38:00 2021-09-19 15:52:00 Emergency X IRVING BOWLES [facility] ERT [id number] [facility] 2021-09-19 11:38:00 2021-09-19 15:52:00 Emergency Irving Bowles [facility] [id number] [facility] 2021-09-17 00:00:00 2021-09-17 00:00:00 Outpatient Visit [id number] -[id number] 9kn50vy4-y 533-4114-[id number] 737-8c52ce [id number] 2021-08-31 00:00:00 2021-08-31 00:00:00 Outpatient Visit [id number]- [id number] -bffa-4f5 [id number] 25a-4797-b ffa-[id number] Results Test Description Test Time Test Comments Results Result Co mments Source CULTURE, URINE 2022-10-20 08:30:26 SPECIMEN NUMBER: [id number] CULTURE, URINE SPECIMEN NUMBER: [id number] SPECIMEN COMMENT: URINE SOURCE: URINE REPORT STATUS: FINAL FINAL REPORT: 10/20/2022 10-50,000 CFU/ML UROGENITAL VENECIA PRESENT NO COMMON PATHOGENS UNLESS OTHERWISE INDICATED, ALL TESTING PERFORMED AT [facility] [address] [place] [address] FLIGHT STEWARD: CANYD STEWARD M.D. CLIA NUMBER [id number] [facility] [place]. [id number] LACTIC ACID, [id number] 00:00:00* Test Item Value Reference Range Interpretation Comme nts LACTIC ACID, PLASMA (test co de = 2056) 10.3 MG/DL LACTIC ACID, [id number] 00:00:00* Test Item Value Reference Range Interpretation Comme nts LACTIC ACID, PLASMA (test co de = 2056) 10.3 MG/DL LACTIC ACID, [id number] 00:00:00* Test Item Value Reference Range Interpretation Comme nts LACTIC ACID, PLASMA (test co de = 2056) 10.3 MG/DL LACTIC ACID, [id number] 00:00:00* Test Item Value Reference Range Interpretation Comme nts LACTIC ACID, PLASMA (test co de = 2056) 10.3 MG/DL LACTIC ACID, [id number] 00:00:00* Test Item Value Reference Range Interpretation Comme nts LACTIC ACID, PLASMA (test co de = 2056) 10.3 MG/DL LACTIC ACID, [id number] 00:00:00* Test Item Value Reference Range Interpretation Comme nts LACTIC ACID, PLASMA (test co de = 2056) 10.3 MG/DL CULTURE, [id number] 11:41:32SPECIMEN NUMBER: [id number] CULTURE, URINE SPECIMEN NUMBER: [id number] SPECIMEN COMMENT: URINE SOURCE: URINE REPORT STATUS: FINAL FINAL REPORT: 11/03/2021 >100,000 CFU/ML MIXED UROGENITAL FLORACULTURE, [id number] 00:00:00* Test Item Value Reference Range Interpretation Comme nts CULTURE, URINE (test code = 95632) SPECIMEN NUMBER: [id number] CULTURE, [id number] 00:00:00* Test Item Value Reference Range Interpretation Comme nts CULTURE, URINE (test code = 93717) SPECIMEN NUMBER: [id number] CULTURE, [id number] 00:00:00* Test Item Value Reference Range Interpretation Comme nts CULTURE, URINE (test code = 70997) SPECIMEN NUMBER: [id number] CULTURE, [id number] 00:00:00* Test Item Value Reference Range Interpretation Comme nts CULTURE, URINE (test code = 71961) SPECIMEN NUMBER: [id number] CULTURE, [id number] 00:00:00* Test Item Value Reference Range Interpretation Comme nts CULTURE, URINE (test code = 72532) SPECIMEN NUMBER: [id number] CULTURE, [id number] 00:00:00* Test Item Value Reference Range Interpretation Comme nts CULTURE, URINE (test code = 95764) SPECIMEN NUMBER: [id number] HEMOGLOBIN [id number] 09:05:08* Test Item Value Reference Range Interpretation Comme nts HEMOGLOBIN A1c (test code = 58325) 5.8 % 4.2-5.6 H COMPREHENSIVE METABOLIC [id number] 03:50:21* Test Item Value Reference Range Interpretation Comme nts GLUCOSE (test code = 2217) 103 MG/DL 70-99 H BUN (test code = 2208) 12 MG/DL 6-20 CREATININE (test code = 2214) 0.46 MG/DL 0.60-1.30 L eGFR (2020 CKD-EPI) (test code = 99919) 112 ML/MIN/1.73 >60 CALC BUN/CREAT (test code = 2235) 26 RATIO 6-28 SODIUM (test code = 2231) 141 MEQ/L 133-146 POTASSIUM (test code = 2228) 4.4 MEQ/L 3.5-5.4 CHLORIDE (test code = 2215) 106 MEQ/L 95-107 CARBON DIOXIDE (test code = 2206) 22 MEQ/L 19-31 CALCIUM (test code = 220) 9.7 MG/DL 8.5-10.5 PROTEIN, TOTAL (test code = 222) 7.1 G/DL 6.1-8.3 ALBUMIN (test code = 2201) 4.7 G/DL 3.5-5.2 CALC GLOBULIN (test code = 2240) 2.4 G/DL 1.9-3.7 CALC A/G RATIO (test code = 2234) 2.0 RATIO 1.0-2.6 BILIRUBIN, TOTAL (test code = 220) 0.3 MG/DL See_Comment [Automated me ssage] The system which generated this result transmitted reference range: <=1.2. The reference range was not used to interpret this result as normal/abnormal. ALKALINE PHOSPHATASE (test code = 2203) 133 U/L 40-136 AST (test code = 221) 24 U/L 9-40 ALT (test code = 221) 24 U/L 5-40 LIPID [id number] 03:50:21* Test Item Value Reference Range Interpretation Comme nts CHOLESTEROL (test code = 2210) 177 MG/DL <200 TRIGLYCERIDES (test code = 2232) 95 MG/DL <150 HDL CHOLESTEROL (test code = 222) 70 MG/DL >39 CALC LDL CHOL (test code = 2237) 88 MG/DL <100 NOTE: CALCULATED LDL IS BASED ON CLEO-STONE METHOD WHICHINCLUDES ADJUSTABLE TRIGLYCERIDE:VLDL CHOLESTEROL RATIO.THIS FACTOR VARIES BY MEASURED TRIGLYCERIDE AND NON-HDLCHOLESTEROL CONCENTRATIONS WITH INCREASED CALCULATED LDL SEENIN HIGHER TRIGLYCERIDE OR LOWER NON-HDL SPECIMENS. FOR MOREINFORMATION, SEE CLIENT ANNOUNCEMENT AT [email or web address] RATIO LDL/HDL (test code = 2238) 1.26 RATIO <3.22 URINALYSIS W/REFLEX [id number] 03:07:13* Test Item Value Reference Range Interpretation Comme nts COLOR (test code = 1501) YELLOW YELLOW-STRAW APPEARANCE (test code = 1502) CLEAR CLEAR SPECIFIC GRAVITY (test code = 1503) 1.018 1.005-1.035 LEUKOCYTE ESTERASE (test code = 1504) NEGATIVE NEGATIVE NITRITE (test code = 1505) NEGATIVE NEGATIVE pH (test code = 1506) 5.0 5.0-9.0 PROTEIN (test code = 1507) NEGATIVE NEGATIVE GLUCOSE (test code = 1508) NEGATIVE NEGATIVE KETONES (test code = 1509) NEGATIVE NEGATIVE UROBILINOGEN (test code = 1510) 0.2 MG/DL See_Comment [Automated [place] ge] The system which generated this result transmitted reference range: <=2.0. The reference range was not used to interpret this result as normal/abnormal. BILIRUBIN (test code = 1511) NEGATIVE NEGATIVE OCCULT BLOOD (test code = 1512) TRACE NEGATIVE A WHITE BLOOD CELLS (test code = 1513) 0-5 /HPF 0-5 RED BLOOD CELLS (test code = 1514) 0-2 /HPF 0-5 EPITHELIAL CELLS (test code = 15022) 0-5 /HPF 0-10 BACTERIA (test code = 1515) NONE SEEN NONE SEEN CASTS, HYALINE (test code = 1517) TRACE NONE-TRACE UNLESS OTHERWISE INDICATED, [facility] [address] [place] [address] FLIGHT STEWARD: DARSHANA PASTOR M.D. CLIA NUMBER [id number] [facility] [place]. [id number] COMPREHENSIVE METABOLIC [id number] 00:00:00* Test Item Value Reference Range Interpretation Comme nts GLUCOSE (test code = 2217) 103 MG/DL BUN (test code = 2208) 12 MG/DL CREATININE (test code = 2214) 0.46 MG/DL eGFR (2020 CKD-EPI) (test code = 78490) 112 ML/MIN/1.73 CALC BUN/CREAT (test code = 2235) 26 RATIO SODIUM (test code = 2231) 141 MEQ/L POTASSIUM (test code = 2228) 4.4 MEQ/L CHLORIDE (test code = 2215) 106 MEQ/L CARBON DIOXIDE (test code = 2206) 22 MEQ/L CALCIUM (test code = 2209) 9.7 MG/DL PROTEIN, TOTAL (test code = 2229) 7.1 G/DL ALBUMIN (test code = 2201) 4.7 G/DL CALC GLOBULIN (test code = 2240) 2.4 G/DL CALC A/G RATIO (test code = 2234) 2.0 RATIO BILIRUBIN, TOTAL (test code = 2207) 0.3 MG/DL ALKALINE PHOSPHATASE (test code = 2204) 133 U/L AST (test code = 2218) 24 U/L ALT (test code = 2219) 24 U/L COMPREHENSIVE METABOLIC [id number] 00:00:00* Test Item Value Reference Range Interpretation Comme nts GLUCOSE (test code = 2217) 103 MG/DL BUN (test code = 2208) 12 MG/DL CREATININE (test code = 2214) 0.46 MG/DL eGFR (2020 CKD-EPI) (test code = 96814) 112 ML/MIN/1.73 CALC BUN/CREAT (test code = 2235) 26 RATIO SODIUM (test code = 223) 141 MEQ/L POTASSIUM (test code = 2228) 4.4 MEQ/L CHLORIDE (test code = 2215) 106 MEQ/L CARBON DIOXIDE (test code = 2206) 22 MEQ/L CALCIUM (test code = 2209) 9.7 MG/DL PROTEIN, TOTAL (test code = 2229) 7.1 G/DL ALBUMIN (test code = 2201) 4.7 G/DL CALC GLOBULIN (test code = 2240) 2.4 G/DL CALC A/G RATIO (test code = 2234) 2.0 RATIO BILIRUBIN, TOTAL (test code = 2207) 0.3 MG/DL ALKALINE PHOSPHATASE (test code = 2204) 133 U/L AST (test code = 2218) 24 U/L ALT (test code = 2219) 24 U/L HEMOGLOBIN [id number] 00:00:00* Test Item Value Reference Range Interpretation Comme nts HEMOGLOBIN A1c (test code = 69596) 5.8 % HEMOGLOBIN [id number] 00:00:00* Test Item Value Reference Range Interpretation Comme nts HEMOGLOBIN A1c (test code = 85718) 5.8 % HEMOGLOBIN [id number] 00:00:00* Test Item Value Reference Range Interpretation Comme nts HEMOGLOBIN A1c (test code = 52000) 5.8 % LIPID [id number] 00:00:00* Test Item Value Reference Range Interpretation Comme nts CHOLESTEROL (test code = 2210) 177 MG/DL TRIGLYCERIDES (test code = 2232) 95 MG/DL HDL CHOLESTEROL (test code = 2220) 70 MG/DL CALC LDL CHOL (test code = 2237) 88 MG/DL RISK RATIO LDL/HDL (test cod e = 2238) 1.26 RATIO LIPID [id number] 00:00:00* Test Item Value Reference Range Interpretation Comme nts CHOLESTEROL (test code = 2210) 177 MG/DL TRIGLYCERIDES (test code = 2232) 95 MG/DL HDL CHOLESTEROL (test code = 2220) 70 MG/DL CALC LDL CHOL (test code = 2237) 88 MG/DL RISK RATIO LDL/HDL (test cod e = 2238) 1.26 RATIO URINALYSIS W/REFLEX [id number] 00:00:00* Test Item Value Reference Range Interpretation Comme nts COLOR (test code = 1501) YELLOW APPEARANCE (test code = 1502) CLEAR SPECIFIC GRAVITY (test code = 1503) 1.018 LEUKOCYTE ESTERASE (test cod e = 1504) NEGATIVE NITRITE (test code = 1505) NEGATIVE pH (test code = 1506) 5.0 PROTEIN (test code = 1507) NEGATIVE GLUCOSE (test code = 1508) NEGATIVE KETONES (test code = 1509) NEGATIVE UROBILINOGEN (test code = 1510) 0.2 MG/DL BILIRUBIN (test code = 1511) NEGATIVE OCCULT BLOOD (test code = 1512) TRACE WHITE BLOOD CELLS (test code = 1513) 0-5 /HPF RED BLOOD CELLS (test code = 1514) 0-2 /HPF EPITHELIAL CELLS (test code = 09884) 0-5 /HPF BACTERIA (test code = 1515) NONE SEEN CASTS, HYALINE (test code = 1517) TRACE URINALYSIS W/REFLEX [id number] 00:00:00* Test Item Value Reference Range Interpretation Comme nts COLOR (test code = 1501) YELLOW APPEARANCE (test code = 1502) CLEAR SPECIFIC GRAVITY (test code = 1503) 1.018 LEUKOCYTE ESTERASE (test cod e = 1504) NEGATIVE NITRITE (test code = 1505) NEGATIVE pH (test code = 1506) 5.0 PROTEIN (test code = 1507) NEGATIVE GLUCOSE (test code = 1508) NEGATIVE KETONES (test code = 1509) NEGATIVE UROBILINOGEN (test code = 1510) 0.2 MG/DL BILIRUBIN (test code = 1511) NEGATIVE OCCULT BLOOD (test code = 1512) TRACE WHITE BLOOD CELLS (test code = 1513) 0-5 /HPF RED BLOOD CELLS (test code = 1514) 0-2 /HPF EPITHELIAL CELLS (test code = 59879) 0-5 /HPF BACTERIA (test code = 1515) NONE SEEN CASTS, HYALINE (test code = 1517) TRACE COMPREHENSIVE METABOLIC [id number] 00:00:00* Test Item Value Reference Range Interpretation Comme nts GLUCOSE (test code = 2217) 103 MG/DL BUN (test code = 2208) 12 MG/DL CREATININE (test code = 2214) 0.46 MG/DL eGFR (2020 CKD-EPI) (test code = 60340) 112 ML/MIN/1.73 CALC BUN/CREAT (test code = 2235) 26 RATIO SODIUM (test code = 2231) 141 MEQ/L POTASSIUM (test code = 2228) 4.4 MEQ/L CHLORIDE (test code = 2215) 106 MEQ/L CARBON DIOXIDE (test code = 2206) 22 MEQ/L CALCIUM (test code = 2209) 9.7 MG/DL PROTEIN, TOTAL (test code = 2229) 7.1 G/DL ALBUMIN (test code = 2201) 4.7 G/DL CALC GLOBULIN (test code = 2240) 2.4 G/DL CALC A/G RATIO (test code = 2234) 2.0 RATIO BILIRUBIN, TOTAL (test code = 2207) 0.3 MG/DL ALKALINE PHOSPHATASE (test code = 2204) 133 U/L AST (test code = 2218) 24 U/L ALT (test code = 2219) 24 U/L COMPREHENSIVE METABOLIC [id number] 00:00:00* Test Item Value Reference Range Interpretation Comme nts GLUCOSE (test code = 2217) 103 MG/DL BUN (test code = 2208) 12 MG/DL CREATININE (test code = 2214) 0.46 MG/DL eGFR (2020 CKD-EPI) (test code = 35014) 112 ML/MIN/1.73 CALC BUN/CREAT (test code = 2235) 26 RATIO SODIUM (test code = 2231) 141 MEQ/L POTASSIUM (test code = 2228) 4.4 MEQ/L CHLORIDE (test code = 2215) 106 MEQ/L CARBON DIOXIDE (test code = 2206) 22 MEQ/L CALCIUM (test code = 2209) 9.7 MG/DL PROTEIN, TOTAL (test code = 2229) 7.1 G/DL ALBUMIN (test code = 2201) 4.7 G/DL CALC GLOBULIN (test code = 2240) 2.4 G/DL CALC A/G RATIO (test code = 2234) 2.0 RATIO BILIRUBIN, TOTAL (test code = 2207) 0.3 MG/DL ALKALINE PHOSPHATASE (test code = 2204) 133 U/L AST (test code = 2218) 24 U/L ALT (test code = 2219) 24 U/L HEMOGLOBIN [id number] 00:00:00* Test Item Value Reference Range Interpretation Comme nts HEMOGLOBIN A1c (test code = 56122) 5.8 % HEMOGLOBIN [id number] 00:00:00* Test Item Value Reference Range Interpretation Comme nts HEMOGLOBIN A1c (test code = 63711) 5.8 % HEMOGLOBIN [id number] 00:00:00* Test Item Value Reference Range Interpretation Comme nts HEMOGLOBIN A1c (test code = 66442) 5.8 % LIPID [id number] 00:00:00* Test Item Value Reference Range Interpretation Comme nts CHOLESTEROL (test code = 2210) 177 MG/DL TRIGLYCERIDES (test code = 2232) 95 MG/DL HDL CHOLESTEROL (test code = 2220) 70 MG/DL CALC LDL CHOL (test code = 2237) 88 MG/DL RISK RATIO LDL/HDL (test cod e = 2238) 1.26 RATIO LIPID [id number] 00:00:00* Test Item Value Reference Range Interpretation Comme nts CHOLESTEROL (test code = 2210) 177 MG/DL TRIGLYCERIDES (test code = 2232) 95 MG/DL HDL CHOLESTEROL (test code = 2220) 70 MG/DL CALC LDL CHOL (test code = 2237) 88 MG/DL RISK RATIO LDL/HDL (test cod e = 2238) 1.26 RATIO URINALYSIS W/REFLEX [id number] 00:00:00* Test Item Value Reference Range Interpretation Comme nts COLOR (test code = 1501) YELLOW APPEARANCE (test code = 1502) CLEAR SPECIFIC GRAVITY (test code = 1503) 1.018 LEUKOCYTE ESTERASE (test cod e = 1504) NEGATIVE NITRITE (test code = 1505) NEGATIVE pH (test code = 1506) 5.0 PROTEIN (test code = 1507) NEGATIVE GLUCOSE (test code = 1508) NEGATIVE KETONES (test code = 1509) NEGATIVE UROBILINOGEN (test code = 1510) 0.2 MG/DL BILIRUBIN (test code = 1511) NEGATIVE OCCULT BLOOD (test code = 1512) TRACE WHITE BLOOD CELLS (test code = 1513) 0-5 /HPF RED BLOOD CELLS (test code = 1514) 0-2 /HPF EPITHELIAL CELLS (test code = 26554) 0-5 /HPF BACTERIA (test code = 1515) NONE SEEN CASTS, HYALINE (test code = 1517) TRACE URINALYSIS W/REFLEX [id number] 00:00:00* Test Item Value Reference Range Interpretation Comme nts COLOR (test code = 1501) YELLOW APPEARANCE (test code = 1502) CLEAR SPECIFIC GRAVITY (test code = 1503) 1.018 LEUKOCYTE ESTERASE (test cod e = 1504) NEGATIVE NITRITE (test code = 1505) NEGATIVE pH (test code = 1506) 5.0 PROTEIN (test code = 1507) NEGATIVE GLUCOSE (test code = 1508) NEGATIVE KETONES (test code = 1509) NEGATIVE UROBILINOGEN (test code = 1510) 0.2 MG/DL BILIRUBIN (test code = 1511) NEGATIVE OCCULT BLOOD (test code = 1512) TRACE WHITE BLOOD CELLS (test code = 1513) 0-5 /HPF RED BLOOD CELLS (test code = 1514) 0-2 /HPF EPITHELIAL CELLS (test code = 82044) 0-5 /HPF BACTERIA (test code = 1515) NONE SEEN CASTS, HYALINE (test code = 1517) TRACE COMPREHENSIVE METABOLIC [id number] 00:00:00* Test Item Value Reference Range Interpretation Comme nts GLUCOSE (test code = 2217) 103 MG/DL BUN (test code = 2208) 12 MG/DL CREATININE (test code = 2214) 0.46 MG/DL eGFR (2020 CKD-EPI) (test code = 03479) 112 ML/MIN/1.73 CALC BUN/CREAT (test code = 2235) 26 RATIO SODIUM (test code = 2231) 141 MEQ/L POTASSIUM (test code = 2228) 4.4 MEQ/L CHLORIDE (test code = 2215) 106 MEQ/L CARBON DIOXIDE (test code = 2206) 22 MEQ/L CALCIUM (test code = 2209) 9.7 MG/DL PROTEIN, TOTAL (test code = 2229) 7.1 G/DL ALBUMIN (test code = 2201) 4.7 G/DL CALC GLOBULIN (test code = 2240) 2.4 G/DL CALC A/G RATIO (test code = 2234) 2.0 RATIO BILIRUBIN, TOTAL (test code = 2207) 0.3 MG/DL ALKALINE PHOSPHATASE (test code = 2204) 133 U/L AST (test code = 2218) 24 U/L ALT (test code = 2219) 24 U/L COMPREHENSIVE METABOLIC [id number] 00:00:00* Test Item Value Reference Range Interpretation Comme nts GLUCOSE (test code = 2217) 103 MG/DL BUN (test code = 2208) 12 MG/DL CREATININE (test code = 2214) 0.46 MG/DL eGFR (2020 CKD-EPI) (test code = 63625) 112 ML/MIN/1.73 CALC BUN/CREAT (test code = 2235) 26 RATIO SODIUM (test code = 2231) 141 MEQ/L POTASSIUM (test code = 2228) 4.4 MEQ/L CHLORIDE (test code = 2215) 106 MEQ/L CARBON DIOXIDE (test code = 2206) 22 MEQ/L CALCIUM (test code = 2209) 9.7 MG/DL PROTEIN, TOTAL (test code = 2229) 7.1 G/DL ALBUMIN (test code = 2201) 4.7 G/DL CALC GLOBULIN (test code = 2240) 2.4 G/DL CALC A/G RATIO (test code = 2234) 2.0 RATIO BILIRUBIN, TOTAL (test code = 2207) 0.3 MG/DL ALKALINE PHOSPHATASE (test code = 2204) 133 U/L AST (test code = 2218) 24 U/L ALT (test code = 2219) 24 U/L HEMOGLOBIN [id number] 00:00:00* Test Item Value Reference Range Interpretation Comme nts HEMOGLOBIN A1c (test code = 05338) 5.8 % HEMOGLOBIN [id number] 00:00:00* Test Item Value Reference Range Interpretation Comme nts HEMOGLOBIN A1c (test code = 08394) 5.8 % HEMOGLOBIN [id number] 00:00:00* Test Item Value Reference Range Interpretation Comme nts HEMOGLOBIN A1c (test code = 90845) 5.8 % LIPID [id number] 00:00:00* Test Item Value Reference Range Interpretation Comme nts CHOLESTEROL (test code = 2210) 177 MG/DL TRIGLYCERIDES (test code = 2232) 95 MG/DL HDL CHOLESTEROL (test code = 2220) 70 MG/DL CALC LDL CHOL (test code = 2237) 88 MG/DL RISK RATIO LDL/HDL (test cod e = 2238) 1.26 RATIO LIPID [id number] 00:00:00* Test Item Value Reference Range Interpretation Comme nts CHOLESTEROL (test code = 2210) 177 MG/DL TRIGLYCERIDES (test code = 2232) 95 MG/DL HDL CHOLESTEROL (test code = 2220) 70 MG/DL CALC LDL CHOL (test code = 2237) 88 MG/DL RISK RATIO LDL/HDL (test cod e = 2238) 1.26 RATIO URINALYSIS W/REFLEX [id number] 00:00:00* Test Item Value Reference Range Interpretation Comme nts COLOR (test code = 1501) YELLOW APPEARANCE (test code = 1502) CLEAR SPECIFIC GRAVITY (test code = 1503) 1.018 LEUKOCYTE ESTERASE (test cod e = 1504) NEGATIVE NITRITE (test code = 1505) NEGATIVE pH (test code = 1506) 5.0 PROTEIN (test code = 1507) NEGATIVE GLUCOSE (test code = 1508) NEGATIVE KETONES (test code = 1509) NEGATIVE UROBILINOGEN (test code = 1510) 0.2 MG/DL BILIRUBIN (test code = 1511) NEGATIVE OCCULT BLOOD (test code = 1512) TRACE WHITE BLOOD CELLS (test code = 1513) 0-5 /HPF RED BLOOD CELLS (test code = 1514) 0-2 /HPF EPITHELIAL CELLS (test code = 02928) 0-5 /HPF BACTERIA (test code = 1515) NONE SEEN CASTS, HYALINE (test code = 1517) TRACE URINALYSIS W/REFLEX [id number] 00:00:00* Test Item Value Reference Range Interpretation Comme nts COLOR (test code = 1501) YELLOW APPEARANCE (test code = 1502) CLEAR SPECIFIC GRAVITY (test code = 1503) 1.018 LEUKOCYTE ESTERASE (test cod e = 1504) NEGATIVE NITRITE (test code = 1505) NEGATIVE pH (test code = 1506) 5.0 PROTEIN (test code = 1507) NEGATIVE GLUCOSE (test code = 1508) NEGATIVE KETONES (test code = 1509) NEGATIVE UROBILINOGEN (test code = 1510) 0.2 MG/DL BILIRUBIN (test code = 1511) NEGATIVE OCCULT BLOOD (test code = 1512) TRACE WHITE BLOOD CELLS (test code = 1513) 0-5 /HPF RED BLOOD CELLS (test code = 1514) 0-2 /HPF EPITHELIAL CELLS (test code = 65302) 0-5 /HPF BACTERIA (test code = 1515) NONE SEEN CASTS, HYALINE (test code = 1517) TRACE TROPONIN [id number] 17:48:41* Test Item Value Reference Range Interpretation Comments TROPONIN I (test code = 0166459365) 0.000 ng/mL See_Comment [Automated message] The system which generated this result transmitted reference range: <=0.034. The reference range was not used to interpret this result as normal/abnormal. JARET (test code = JARET) Reference (Normal) [...] to patient's use of biotin. Lab Interpretation (test code = 89490-7) [id number] 17:46:24* Test Item Value Reference Range Interpretation Comme nts NT-proBNP (test code = 8712584864) 38 pg/mL See_Comment [Automated message] The system which generated this result transmitted reference range: <=125. The reference range was not used to interpret this result as normal/abnormal. JARET (test code = JARET) Biotin has been reported to cause a negative bias, interpret results relative to patient's use of biotin. Lab Interpretation (test code = 70835-3) Normal [facility] ([id number])[id number] 17:37:01* Test Item Value Reference Range Interpretation Comme nts NA (test code = 9394823405) 138 mmol/L 135-145 K (test code = 0851252995) 4.0 mmol/L 3.5-5 CL (test code = 2544247734) 104 mmol/L 98-108 CO2 TOTAL (test code = 0910214275) 24 mmol/L 23-31 AGAP (test code = 0396865599) 2-16 BUN (test code = 3703034368) 12 mg/dL 7-23 GLUCOSE (test code = 2498086101) 113 mg/dL 70-110 H CREATININE (test code = 7241340967) 0.42 mg/dL 0.5-1.04 L TOTAL BILI (test code = 4356828071) 0.5 mg/dL 0.1-1.1 CALCIUM (test code = 3666299582) 9.7 mg/dL 8.6-10.6 T PROTEIN (test code = 3352761685) 6.9 g/dL 6.3-8.2 ALBUMIN (test code = 2439097982) 4.4 g/dL 3.5-5 ALK PHOS (test code = 5294962691) 112 U/L 34-122 ALTv (test code = 1742-6) 37 U/L 5-35 H AST(SGOT) (test code = 1249174860) 34 U/L 13-40 eGFR (test code = 6945257326) mL/min/1.73m2 JARET (test code = JARET) Association of [...] or abnormalities in imaging tests). Lab Interpretation (test code = 43802-2) Abnormal [facility] WITH [id number] 17:26:52* Test Item Value Reference Range Interpretation Comme nts WBC (test code = 6690-2) See_Comment [Automated [employer]] The system which generated this result transmitted reference range: 4.30 - 11.10 10*3/?L. The reference range was not used to interpret this result as normal/abnormal. RBC (test code = 789-8) See_Comment [Automated [employer]] The system which generated this result transmitted reference range: 3.93 - 5.25 10*6/?L. The reference range was not used to interpret this result as normal/abnormal. HGB (test code = 718-7) 12.8 g/dL 11.6-15 HCT (test code = 4544-3) 38.1 % 35.7-45.2 MCV (test code = 787-2) 88.0 fL 80.6-95.5 MCH (test code = 785-6) 29.6 pg 25.9-32.8 MCHC (test code = 786-4) 33.6 g/dL 31.6-35.1 RDW-SD (test code = 05200-7) 41.9 fL 39-49.9 RDW-CV (test code = 788-0) 12.9 % 12-15.5 PLT (test code = 777-3) See_Comment [Automated [employer]] The system which generated this result transmitted reference range: 166 - 358 10*3/?L. The reference range was not used to interpret this result as normal/abnormal. MPV (test code = 02802-5) 10.3 fL 9.5-12.9 NRBC/100 WBC (test code = 9115843332) See_Comment [Automated me ssage] The system which generated this result transmitted reference range: 0.0 - 10.0 /100 WBCs. The reference range was not used to interpret this result as normal/abnormal. NRBC x10^3 (test code = 8798807644) See_Comment [Automated me ssage] The system which generated this result transmitted reference range: 10*3/?L. The reference range was not used to interpret this result as normal/abnormal. GRAN MAT (NEUT) % (test code = 770-8) 61.8 % IMM GRAN % (test code = 4797577211) 0.30 % LYMPH % (test code = 736-9) 29.2 % MONO % (test code = 5905-5) 7.4 % EOS % (test code = 713-8) 1.0 % BASO % (test code = 706-2) 0.3 % GRAN MAT x10^3(ANC) (test code = 6131806757) 3.85 10*3/uL 1.88-7.09 IMM GRAN x10^3 (test code = 3364943003) 0-0.06 LYMPH x10^3 (test code = 731-0) 1.82 10*3/uL 1.32-3.29 MONO x10^3 (test code = 742-7) 0.46 10*3/uL 0.33-0.92 EOS x10^3 (test code = 711-2) 0.06 10*3/uL 0.03-0.39 BASO x10^3 (test code = 704-7) 0.01-0.07 [facility] [id number] 23:41:38* Test Item Value Reference Range Interpretation Comme nts GLUCOSE (test code = 2217) 99 MG/DL 70-99 BUN (test code = 2208) 13 MG/DL 6-20 CREATININE (test code = 2214) 0.58 MG/DL 0.60-1.30 L eGFR (2020 CKD-EPI) (test code = 53375) 106 ML/MIN/1.73 >60 CALC BUN/CREAT (test code = 2234) 22 RATIO 6-28 SODIUM (test code = 223) 143 MEQ/L 133-146 POTASSIUM (test code = 2228) 4.8 MEQ/L 3.5-5.4 CHLORIDE (test code = 2215) 105 MEQ/L 95-107 CARBON DIOXIDE (test code = 2206) 27 MEQ/L 19-31 CALCIUM (test code = 220) 9.8 MG/DL 8.5-10.5 PROTEIN, TOTAL (test code = 2228) 7.1 G/DL 6.1-8.3 ALBUMIN (test code = 220) 4.5 G/DL 3.5-5.2 CALC GLOBULIN (test code = 2240) 2.6 G/DL 1.9-3.7 CALC A/G RATIO (test code = 2234) 1.7 RATIO 1.0-2.6 BILIRUBIN, TOTAL (test code = 2206) 0.4 MG/DL See_Comment [Automated me ssage] The system which generated this result transmitted reference range: <=1.2. The reference range was not used to interpret this result as normal/abnormal. ALKALINE PHOSPHATASE (test code = 2203) 128 U/L 40-136 AST (test code = 2218) 17 U/L 9-40 ALT (test code = 2219) 24 U/L 5-40 HEMOGLOBIN [id number] 04:01:43* Test Item Value Reference Range Interpretation Comme nts HEMOGLOBIN A1c (test code = 64038) 5.8 % 4.2-5.6 H UNLESS OTHERWISE INDICATED, ALL TESTING PERFORMED [facility] [address] [place] [id number] FLIGHT STEWARD: DARSHANA PASTOR M.D. CLIA NUMBER [id number] [facility] [place] [id number] COMPREHENSIVE METABOLIC [id number] 00:00:00* Test Item Value Reference Range Interpretation Comme nts GLUCOSE (test code = 7) 99 MG/DL BUN (test code = 2207) 13 MG/DL CREATININE (test code = 2214) 0.58 MG/DL eGFR (2020 CKD-EPI) (test code = 89151) 106 ML/MIN/1.73 CALC BUN/CREAT (test code = 2234) 22 RATIO SODIUM (test code = 2231) 143 MEQ/L POTASSIUM (test code = 2228) 4.8 MEQ/L CHLORIDE (test code = 2215) 105 MEQ/L CARBON DIOXIDE (test code = 2206) 27 MEQ/L CALCIUM (test code = 2209) 9.8 MG/DL PROTEIN, TOTAL (test code = 2229) 7.1 G/DL ALBUMIN (test code = 2201) 4.5 G/DL CALC GLOBULIN (test code = 2240) 2.6 G/DL CALC A/G RATIO (test code = 2234) 1.7 RATIO BILIRUBIN, TOTAL (test code = 2207) 0.4 MG/DL ALKALINE PHOSPHATASE (test code = 2204) 128 U/L AST (test code = 2218) 17 U/L ALT (test code = 2219) 24 U/L COMPREHENSIVE METABOLIC [id number] 00:00:00* Test Item Value Reference Range Interpretation Comme nts GLUCOSE (test code = 2217) 99 MG/DL BUN (test code = 2208) 13 MG/DL CREATININE (test code = 2214) 0.58 MG/DL eGFR (2020 CKD-EPI) (test code = 30008) 106 ML/MIN/1.73 CALC BUN/CREAT (test code = 2235) 22 RATIO SODIUM (test code = 2231) 143 MEQ/L POTASSIUM (test code = 2228) 4.8 MEQ/L CHLORIDE (test code = 2215) 105 MEQ/L CARBON DIOXIDE (test code = 2206) 27 MEQ/L CALCIUM (test code = 2209) 9.8 MG/DL PROTEIN, TOTAL (test code = 2229) 7.1 G/DL ALBUMIN (test code = 2201) 4.5 G/DL CALC GLOBULIN (test code = 2240) 2.6 G/DL CALC A/G RATIO (test code = 2234) 1.7 RATIO BILIRUBIN, TOTAL (test code = 2207) 0.4 MG/DL ALKALINE PHOSPHATASE (test code = 2204) 128 U/L AST (test code = 2218) 17 U/L ALT (test code = 2219) 24 U/L HEMOGLOBIN [id number] 00:00:00* Test Item Value Reference Range Interpretation Comme nts HEMOGLOBIN A1c (test code = 37064) 5.8 % HEMOGLOBIN [id number] 00:00:00* Test Item Value Reference Range Interpretation Comme nts HEMOGLOBIN A1c (test code = 69964) 5.8 % HEMOGLOBIN [id number] 00:00:00* Test Item Value Reference Range Interpretation Comme nts HEMOGLOBIN A1c (test code = 73723) 5.8 % COMPREHENSIVE METABOLIC [id number] 00:00:00* Test Item Value Reference Range Interpretation Comme nts GLUCOSE (test code = 2217) 99 MG/DL BUN (test code = 2208) 13 MG/DL CREATININE (test code = 2214) 0.58 MG/DL eGFR (2020 CKD-EPI) (test code = 65518) 106 ML/MIN/1.73 CALC BUN/CREAT (test code = 2235) 22 RATIO SODIUM (test code = 2231) 143 MEQ/L POTASSIUM (test code = 2228) 4.8 MEQ/L CHLORIDE (test code = 2215) 105 MEQ/L CARBON DIOXIDE (test code = 2206) 27 MEQ/L CALCIUM (test code = 2209) 9.8 MG/DL PROTEIN, TOTAL (test code = 2229) 7.1 G/DL ALBUMIN (test code = 2201) 4.5 G/DL CALC GLOBULIN (test code = 2240) 2.6 G/DL CALC A/G RATIO (test code = 2234) 1.7 RATIO BILIRUBIN, TOTAL (test code = 2207) 0.4 MG/DL ALKALINE PHOSPHATASE (test code = 2204) 128 U/L AST (test code = 2218) 17 U/L ALT (test code = 2219) 24 U/L COMPREHENSIVE METABOLIC [id number] 00:00:00* Test Item Value Reference Range Interpretation Comme nts GLUCOSE (test code = 2217) 99 MG/DL BUN (test code = 2208) 13 MG/DL CREATININE (test code = 2214) 0.58 MG/DL eGFR (2020 CKD-EPI) (test code = 22452) 106 ML/MIN/1.73 CALC BUN/CREAT (test code = 2235) 22 RATIO SODIUM (test code = 2231) 143 MEQ/L POTASSIUM (test code = 2228) 4.8 MEQ/L CHLORIDE (test code = 2215) 105 MEQ/L CARBON DIOXIDE (test code = 2206) 27 MEQ/L CALCIUM (test code = 2209) 9.8 MG/DL PROTEIN, TOTAL (test code = 2229) 7.1 G/DL ALBUMIN (test code = 2201) 4.5 G/DL CALC GLOBULIN (test code = 2240) 2.6 G/DL CALC A/G RATIO (test code = 2234) 1.7 RATIO BILIRUBIN, TOTAL (test code = 2207) 0.4 MG/DL ALKALINE PHOSPHATASE (test code = 2204) 128 U/L AST (test code = 2218) 17 U/L ALT (test code = 2219) 24 U/L HEMOGLOBIN [id number] 00:00:00* Test Item Value Reference Range Interpretation Comme nts HEMOGLOBIN A1c (test code = 29969) 5.8 % HEMOGLOBIN [id number] 00:00:00* Test Item Value Reference Range Interpretation Comme nts HEMOGLOBIN A1c (test code = 26574) 5.8 % HEMOGLOBIN [id number] 00:00:00* Test Item Value Reference Range Interpretation Comme nts HEMOGLOBIN A1c (test code = 42105) 5.8 % COMPREHENSIVE METABOLIC [id number] 00:00:00* Test Item Value Reference Range Interpretation Comme nts GLUCOSE (test code = 2217) 99 MG/DL BUN (test code = 2208) 13 MG/DL CREATININE (test code = 2214) 0.58 MG/DL eGFR (2020 CKD-EPI) (test code = 12435) 106 ML/MIN/1.73 CALC BUN/CREAT (test code = 2235) 22 RATIO SODIUM (test code = 2231) 143 MEQ/L POTASSIUM (test code = 2228) 4.8 MEQ/L CHLORIDE (test code = 2215) 105 MEQ/L CARBON DIOXIDE (test code = 2206) 27 MEQ/L CALCIUM (test code = 2209) 9.8 MG/DL PROTEIN, TOTAL (test code = 2229) 7.1 G/DL ALBUMIN (test code = 2201) 4.5 G/DL CALC GLOBULIN (test code = 2240) 2.6 G/DL CALC A/G RATIO (test code = 2234) 1.7 RATIO BILIRUBIN, TOTAL (test code = 2207) 0.4 MG/DL ALKALINE PHOSPHATASE (test code = 2204) 128 U/L AST (test code = 2218) 17 U/L ALT (test code = 2219) 24 U/L COMPREHENSIVE METABOLIC [id number] 00:00:00* Test Item Value Reference Range Interpretation Comme nts GLUCOSE (test code = 2217) 99 MG/DL BUN (test code = 2208) 13 MG/DL CREATININE (test code = 2214) 0.58 MG/DL eGFR (2020 CKD-EPI) (test code = 76894) 106 ML/MIN/1.73 CALC BUN/CREAT (test code = 2235) 22 RATIO SODIUM (test code = 2231) 143 MEQ/L POTASSIUM (test code = 2228) 4.8 MEQ/L CHLORIDE (test code = 2215) 105 MEQ/L CARBON DIOXIDE (test code = 2206) 27 MEQ/L CALCIUM (test code = 2209) 9.8 MG/DL PROTEIN, TOTAL (test code = 2229) 7.1 G/DL ALBUMIN (test code = 2201) 4.5 G/DL CALC GLOBULIN (test code = 2240) 2.6 G/DL CALC A/G RATIO (test code = 2234) 1.7 RATIO BILIRUBIN, TOTAL (test code = 2207) 0.4 MG/DL ALKALINE PHOSPHATASE (test code = 2204) 128 U/L AST (test code = 2218) 17 U/L ALT (test code = 2219) 24 U/L HEMOGLOBIN [id number] 00:00:00* Test Item Value Reference Range Interpretation Comme nts HEMOGLOBIN A1c (test code = 76505) 5.8 % HEMOGLOBIN [id number] 00:00:00* Test Item Value Reference Range Interpretation Comme nts HEMOGLOBIN A1c (test code = 24051) 5.8 % HEMOGLOBIN [id number] 00:00:00* Test Item Value Reference Range Interpretation Comme nts HEMOGLOBIN A1c (test code = 30290) 5.8 % COMPREHENSIVE METABOLIC [id number] 00:00:00* Test Item Value Reference Range Interpretation Comme nts GLUCOSE (test code = 2217) 99 MG/DL BUN (test code = 2208) 13 MG/DL CREATININE (test code = 2214) 0.58 MG/DL eGFR (2020 CKD-EPI) (test code = 74297) 106 ML/MIN/1.73 CALC BUN/CREAT (test code = 2235) 22 RATIO SODIUM (test code = 2231) 143 MEQ/L POTASSIUM (test code = 2228) 4.8 MEQ/L CHLORIDE (test code = 2215) 105 MEQ/L CARBON DIOXIDE (test code = 2206) 27 MEQ/L CALCIUM (test code = 2209) 9.8 MG/DL PROTEIN, TOTAL (test code = 2229) 7.1 G/DL ALBUMIN (test code = 2201) 4.5 G/DL CALC GLOBULIN (test code = 2240) 2.6 G/DL CALC A/G RATIO (test code = 2234) 1.7 RATIO BILIRUBIN, TOTAL (test code = 2207) 0.4 MG/DL ALKALINE PHOSPHATASE (test code = 2204) 128 U/L AST (test code = 2218) 17 U/L ALT (test code = 2219) 24 U/L COMPREHENSIVE METABOLIC [id number] 00:00:00* Test Item Value Reference Range Interpretation Comme nts GLUCOSE (test code = 2217) 99 MG/DL BUN (test code = 2208) 13 MG/DL CREATININE (test code = 2214) 0.58 MG/DL eGFR (2020 CKD-EPI) (test code = 88120) 106 ML/MIN/1.73 CALC BUN/CREAT (test code = 2235) 22 RATIO SODIUM (test code = 2231) 143 MEQ/L POTASSIUM (test code = 2228) 4.8 MEQ/L CHLORIDE (test code = 2215) 105 MEQ/L CARBON DIOXIDE (test code = 2206) 27 MEQ/L CALCIUM (test code = 2209) 9.8 MG/DL PROTEIN, TOTAL (test code = 2229) 7.1 G/DL ALBUMIN (test code = 2201) 4.5 G/DL CALC GLOBULIN (test code = 2240) 2.6 G/DL CALC A/G RATIO (test code = 2234) 1.7 RATIO BILIRUBIN, TOTAL (test code = 2207) 0.4 MG/DL ALKALINE PHOSPHATASE (test code = 2204) 128 U/L AST (test code = 2218) 17 U/L ALT (test code = 2219) 24 U/L HEMOGLOBIN [id number] 00:00:00* Test Item Value Reference Range Interpretation Comme [facility] HEMOGLOBIN A1c (test code = 34595) 5.8 % HEMOGLOBIN [id number] 00:00:00* Test Item Value Reference Range Interpretation Comme [facility] HEMOGLOBIN A1c (test code = 52395) 5.8 % HEMOGLOBIN [id number] 00:00:00* Test Item Value Reference Range Interpretation Comme nts HEMOGLOBIN A1c (test code = 52428) 5.8 % LIPID [id number] 01:25:50* Test Item Value Reference Range Interpretation Comme nts CHOLESTEROL (test code = 2210) 149 MG/DL <200 TRIGLYCERIDES (test code = 2232) 92 MG/DL <150 HDL CHOLESTEROL (test code = 2220) 54 MG/DL >39 CALC LDL CHOL (test code = 7) 77 MG/DL <100 NOTE: CALCULATED LDL IS BASED ON CLEO-STONE METHOD WHICHINCLUDES ADJUSTABLE TRIGLYCERIDE:VLDL CHOLESTEROL RATIO.THIS FACTOR VARIES BY MEASURED TRIGLYCERIDE AND NON-HDLCHOLESTEROL CONCENTRATIONS WITH INCREASED CALCULATED LDL SEENIN HIGHER TRIGLYCERIDE OR LOWER NON-HDL SPECIMENS. FOR MOREINFORMATION, SEE CLIENT ANNOUNCEMENT AT [email or web address] /[email or web address] RISK RATIO LDL/HDL (test code = 223) 1.43 RATIO <3.22 COMPREHENSIVE METABOLIC [id number] 01:25:50* Test Item Value Reference Range Interpretation Comme nts GLUCOSE (test code = 2217) 97 MG/DL 70-99 BUN (test code = 2207) 11 MG/DL 6-20 CREATININE (test code = 2214) 0.50 MG/DL 0.60-1.30 L eGFR (2020 CKD-EPI) (test code = 36569) 110 ML/MIN/1.73 >60 CALC BUN/CREAT (test code = 2235) 22 RATIO 6-28 SODIUM (test code = 223) 143 MEQ/L 133-146 POTASSIUM (test code = 2228) 3.9 MEQ/L 3.5-5.4 CHLORIDE (test code = 2215) 105 MEQ/L 95-107 CARBON DIOXIDE (test code = 2206) 24 MEQ/L 19-31 CALCIUM (test code = 2209) 9.9 MG/DL 8.5-10.5 PROTEIN, TOTAL (test code = 2228) 6.7 G/DL 6.1-8.3 ALBUMIN (test code = 2200) 4.5 G/DL 3.5-5.2 CALC GLOBULIN (test code = 224) 2.2 G/DL 1.9-3.7 CALC A/G RATIO (test code = 2234) 2.0 RATIO 1.0-2.6 BILIRUBIN, TOTAL (test code = 2207) 0.3 MG/DL See_Comment [Automated me ssage] The system which generated this result transmitted reference range: <=1.2. The reference range was not used to interpret this result as normal/abnormal. ALKALINE PHOSPHATASE (test code = 2204) 154 U/L 40-136 H AST (test code = 2218) 39 U/L 9-40 ALT (test code = 2219) 61 U/L 5-40 H UNLESS OTHERWISE INDICATED, ALL TEST[facility] [employer] [address] [place] [id number] FLIGHT STEWARD: DARSHANA PASTOR M.D. CLIA NUMBER [id number] [facility] [place]. [id number] LIPID [id number] 00:00:00* Test Item Value Reference Range Interpretation Comme nts CHOLESTEROL (test code = 2210) 149 MG/DL TRIGLYCERIDES (test code = 2232) 92 MG/DL HDL CHOLESTEROL (test code = 2220) 54 MG/DL CALC LDL CHOL (test code = 2237) 77 MG/DL RISK RATIO LDL/HDL (test cod e = 2238) 1.43 RATIO COMPREHENSIVE METABOLIC [id number] 00:00:00* Test Item Value Reference Range Interpretation Comme nts GLUCOSE (test code = 2217) 97 MG/DL BUN (test code = 2208) 11 MG/DL CREATININE (test code = 2214) 0.50 MG/DL eGFR (2020 CKD-EPI) (test code = 13871) 110 ML/MIN/1.73 CALC BUN/CREAT (test code = 2235) 22 RATIO SODIUM (test code = 2231) 143 MEQ/L POTASSIUM (test code = 2228) 3.9 MEQ/L CHLORIDE (test code = 2215) 105 MEQ/L CARBON DIOXIDE (test code = 2206) 24 MEQ/L CALCIUM (test code = 2209) 9.9 MG/DL PROTEIN, TOTAL (test code = 2229) 6.7 G/DL ALBUMIN (test code = 2201) 4.5 G/DL CALC GLOBULIN (test code = 2240) 2.2 G/DL CALC A/G RATIO (test code = 2234) 2.0 RATIO BILIRUBIN, TOTAL (test code = 2207) 0.3 MG/DL ALKALINE PHOSPHATASE (test code = 2204) 154 U/L AST (test code = 2218) 39 U/L ALT (test code = 2219) 61 U/L LIPID [id number] 00:00:00* Test Item Value Reference Range Interpretation Comme nts CHOLESTEROL (test code = 2210) 149 MG/DL TRIGLYCERIDES (test code = 2232) 92 MG/DL HDL CHOLESTEROL (test code = 2220) 54 MG/DL CALC LDL CHOL (test code = 2237) 77 MG/DL RISK RATIO LDL/HDL (test cod e = 2238) 1.43 RATIO LIPID [id number] 00:00:00* Test Item Value Reference Range Interpretation Comme nts CHOLESTEROL (test code = 2210) 149 MG/DL TRIGLYCERIDES (test code = 2232) 92 MG/DL HDL CHOLESTEROL (test code = 2220) 54 MG/DL CALC LDL CHOL (test code = 2237) 77 MG/DL RISK RATIO LDL/HDL (test cod e = 2238) 1.43 RATIO COMPREHENSIVE METABOLIC [id number] 00:00:00* Test Item Value Reference Range Interpretation Comme nts GLUCOSE (test code = 2217) 97 MG/DL BUN (test code = 2208) 11 MG/DL CREATININE (test code = 2214) 0.50 MG/DL eGFR (2020 CKD-EPI) (test code = 52733) 110 ML/MIN/1.73 CALC BUN/CREAT (test code = 2235) 22 RATIO SODIUM (test code = 2231) 143 MEQ/L POTASSIUM (test code = 2228) 3.9 MEQ/L CHLORIDE (test code = 2215) 105 MEQ/L CARBON DIOXIDE (test code = 2206) 24 MEQ/L CALCIUM (test code = 2209) 9.9 MG/DL PROTEIN, TOTAL (test code = 2229) 6.7 G/DL ALBUMIN (test code = 2201) 4.5 G/DL CALC GLOBULIN (test code = 2240) 2.2 G/DL CALC A/G RATIO (test code = 2234) 2.0 RATIO BILIRUBIN, TOTAL (test code = 2207) 0.3 MG/DL ALKALINE PHOSPHATASE (test code = 2204) 154 U/L AST (test code = 2218) 39 U/L ALT (test code = 2219) 61 U/L COMPREHENSIVE METABOLIC [id number] 00:00:00* Test Item Value Reference Range Interpretation Comme nts GLUCOSE (test code = 2217) 97 MG/DL BUN (test code = 2208) 11 MG/DL CREATININE (test code = 2214) 0.50 MG/DL eGFR (2020 CKD-EPI) (test code = 17184) 110 ML/MIN/1.73 CALC BUN/CREAT (test code = 2235) 22 RATIO SODIUM (test code = 2231) 143 MEQ/L POTASSIUM (test code = 2228) 3.9 MEQ/L CHLORIDE (test code = 2215) 105 MEQ/L CARBON DIOXIDE (test code = 2206) 24 MEQ/L CALCIUM (test code = 2209) 9.9 MG/DL PROTEIN, TOTAL (test code = 2229) 6.7 G/DL ALBUMIN (test code = 2201) 4.5 G/DL CALC GLOBULIN (test code = 2240) 2.2 G/DL CALC A/G RATIO (test code = 2234) 2.0 RATIO BILIRUBIN, TOTAL (test code = 2207) 0.3 MG/DL ALKALINE PHOSPHATASE (test code = 2204) 154 U/L AST (test code = 2218) 39 U/L ALT (test code = 2219) 61 U/L LIPID [id number] 00:00:00* Test Item Value Reference Range Interpretation Comme nts CHOLESTEROL (test code = 2210) 149 MG/DL TRIGLYCERIDES (test code = 2232) 92 MG/DL HDL CHOLESTEROL (test code = 2220) 54 MG/DL CALC LDL CHOL (test code = 2237) 77 MG/DL RISK RATIO LDL/HDL (test cod e = 2238) 1.43 RATIO LIPID [id number] 00:00:00* Test Item Value Reference Range Interpretation Comme nts CHOLESTEROL (test code = 2210) 149 MG/DL TRIGLYCERIDES (test code = 2232) 92 MG/DL HDL CHOLESTEROL (test code = 2220) 54 MG/DL CALC LDL CHOL (test code = 2237) 77 MG/DL RISK RATIO LDL/HDL (test cod e = 2238) 1.43 RATIO COMPREHENSIVE METABOLIC [id number] 00:00:00* Test Item Value Reference Range Interpretation Comme nts GLUCOSE (test code = 2217) 97 MG/DL BUN (test code = 2208) 11 MG/DL CREATININE (test code = 2214) 0.50 MG/DL eGFR (2020 CKD-EPI) (test code = 67458) 110 ML/MIN/1.73 CALC BUN/CREAT (test code = 2235) 22 RATIO SODIUM (test code = 2231) 143 MEQ/L POTASSIUM (test code = 2228) 3.9 MEQ/L CHLORIDE (test code = 2215) 105 MEQ/L CARBON DIOXIDE (test code = 2206) 24 MEQ/L CALCIUM (test code = 2209) 9.9 MG/DL PROTEIN, TOTAL (test code = 2229) 6.7 G/DL ALBUMIN (test code = 2201) 4.5 G/DL CALC GLOBULIN (test code = 2240) 2.2 G/DL CALC A/G RATIO (test code = 2234) 2.0 RATIO BILIRUBIN, TOTAL (test code = 2207) 0.3 MG/DL ALKALINE PHOSPHATASE (test code = 2204) 154 U/L AST (test code = 2218) 39 U/L ALT (test code = 2219) 61 U/L COMPREHENSIVE METABOLIC [id number] 00:00:00* Test Item Value Reference Range Interpretation Comme nts GLUCOSE (test code = 2217) 97 MG/DL BUN (test code = 2208) 11 MG/DL CREATININE (test code = 2214) 0.50 MG/DL eGFR (2020 CKD-EPI) (test code = 86710) 110 ML/MIN/1.73 CALC BUN/CREAT (test code = 2235) 22 RATIO SODIUM (test code = 2231) 143 MEQ/L POTASSIUM (test code = 2228) 3.9 MEQ/L CHLORIDE (test code = 2215) 105 MEQ/L CARBON DIOXIDE (test code = 2206) 24 MEQ/L CALCIUM (test code = 2209) 9.9 MG/DL PROTEIN, TOTAL (test code = 2229) 6.7 G/DL ALBUMIN (test code = 2201) 4.5 G/DL CALC GLOBULIN (test code = 2240) 2.2 G/DL CALC A/G RATIO (test code = 2234) 2.0 RATIO BILIRUBIN, TOTAL (test code = 2207) 0.3 MG/DL ALKALINE PHOSPHATASE (test code = 2204) 154 U/L AST (test code = 2218) 39 U/L ALT (test code = 2219) 61 U/L LIPID [id number] 00:00:00* Test Item Value Reference Range Interpretation Comme nts CHOLESTEROL (test code = 2210) 149 MG/DL TRIGLYCERIDES (test code = 2232) 92 MG/DL HDL CHOLESTEROL (test code = 2220) 54 MG/DL CALC LDL CHOL (test code = 2237) 77 MG/DL RISK RATIO LDL/HDL (test cod e = 2238) 1.43 RATIO LIPID [id number] 00:00:00* Test Item Value Reference Range Interpretation Comme nts CHOLESTEROL (test code = 2210) 149 MG/DL TRIGLYCERIDES (test code = 2232) 92 MG/DL HDL CHOLESTEROL (test code = 2220) 54 MG/DL CALC LDL CHOL (test code = 2237) 77 MG/DL RISK RATIO LDL/HDL (test cod e = 2238) 1.43 RATIO COMPREHENSIVE METABOLIC [id number] 00:00:00* Test Item Value Reference Range Interpretation Comme nts GLUCOSE (test code = 2217) 97 MG/DL BUN (test code = 2208) 11 MG/DL CREATININE (test code = 2214) 0.50 MG/DL eGFR (2020 CKD-EPI) (test code = 37870) 110 ML/MIN/1.73 CALC BUN/CREAT (test code = 2235) 22 RATIO SODIUM (test code = 2231) 143 MEQ/L POTASSIUM (test code = 2228) 3.9 MEQ/L CHLORIDE (test code = 2215) 105 MEQ/L CARBON DIOXIDE (test code = 2206) 24 MEQ/L CALCIUM (test code = 2209) 9.9 MG/DL PROTEIN, TOTAL (test code = 2229) 6.7 G/DL ALBUMIN (test code = 2201) 4.5 G/DL CALC GLOBULIN (test code = 2240) 2.2 G/DL CALC A/G RATIO (test code = 2234) 2.0 RATIO BILIRUBIN, TOTAL (test code = 2207) 0.3 MG/DL ALKALINE PHOSPHATASE (test code = 2204) 154 U/L AST (test code = 2218) 39 U/L ALT (test code = 2219) 61 U/L COMPREHENSIVE METABOLIC [id number] 00:00:00* Test Item Value Reference Range Interpretation Comme nts GLUCOSE (test code = 2217) 97 MG/DL BUN (test code = 2208) 11 MG/DL CREATININE (test code = 2214) 0.50 MG/DL eGFR (2020 CKD-EPI) (test code = 38684) 110 ML/MIN/1.73 CALC BUN/CREAT (test code = 2235) 22 RATIO SODIUM (test code = 2231) 143 MEQ/L POTASSIUM (test code = 2228) 3.9 MEQ/L CHLORIDE (test code = 2215) 105 MEQ/L CARBON DIOXIDE (test code = 2206) 24 MEQ/L CALCIUM (test code = 2209) 9.9 MG/DL PROTEIN, TOTAL (test code = 2229) 6.7 G/DL ALBUMIN (test code = 2201) 4.5 G/DL CALC GLOBULIN (test code = 2240) 2.2 G/DL CALC A/G RATIO (test code = 2234) 2.0 RATIO BILIRUBIN, TOTAL (test code = 2207) 0.3 MG/DL ALKALINE PHOSPHATASE (test code = 2204) 154 U/L AST (test code = 2218) 39 U/L ALT (test code = 2219) 61 U/L LIPID [id number] 00:00:00* Test Item Value Reference Range Interpretation Comme nts CHOLESTEROL (test code = 2210) 149 MG/DL TRIGLYCERIDES (test code = 2232) 92 MG/DL HDL CHOLESTEROL (test code = 2220) 54 MG/DL CALC LDL CHOL (test code = 2237) 77 MG/DL RISK RATIO LDL/HDL (test cod e = 2238) 1.43 RATIO LIPID [id number] 00:00:00* Test Item Value Reference Range Interpretation Comme nts CHOLESTEROL (test code = 2210) 149 MG/DL TRIGLYCERIDES (test code = 2232) 92 MG/DL HDL CHOLESTEROL (test code = 2220) 54 MG/DL CALC LDL CHOL (test code = 2237) 77 MG/DL RISK RATIO LDL/HDL (test cod e = 2238) 1.43 RATIO COMPREHENSIVE METABOLIC [id number] 00:00:00* Test Item Value Reference Range Interpretation Comme nts GLUCOSE (test code = 2217) 97 MG/DL BUN (test code = 2208) 11 MG/DL CREATININE (test code = 2214) 0.50 MG/DL eGFR (2020 CKD-EPI) (test code = 59935) 110 ML/MIN/1.73 CALC BUN/CREAT (test code = 2235) 22 RATIO SODIUM (test code = 2231) 143 MEQ/L POTASSIUM (test code = 2228) 3.9 MEQ/L CHLORIDE (test code = 2215) 105 MEQ/L CARBON DIOXIDE (test code = 2206) 24 MEQ/L CALCIUM (test code = 2209) 9.9 MG/DL PROTEIN, TOTAL (test code = 2229) 6.7 G/DL ALBUMIN (test code = 2201) 4.5 G/DL CALC GLOBULIN (test code = 2240) 2.2 G/DL CALC A/G RATIO (test code = 2234) 2.0 RATIO BILIRUBIN, TOTAL (test code = 2207) 0.3 MG/DL ALKALINE PHOSPHATASE (test code = 2204) 154 U/L AST (test code = 2218) 39 U/L ALT (test code = 2219) 61 U/L COMPREHENSIVE METABOLIC [id number] 00:00:00* Test Item Value Reference Range Interpretation Comme nts GLUCOSE (test code = 2217) 97 MG/DL BUN (test code = 2208) 11 MG/DL CREATININE (test code = 2214) 0.50 MG/DL eGFR (2020 CKD-EPI) (test code = 71215) 110 ML/MIN/1.73 CALC BUN/CREAT (test code = 2235) 22 RATIO SODIUM (test code = 2231) 143 MEQ/L POTASSIUM (test code = 2228) 3.9 MEQ/L CHLORIDE (test code = 2215) 105 MEQ/L CARBON DIOXIDE (test code = 2206) 24 MEQ/L CALCIUM (test code = 2209) 9.9 MG/DL PROTEIN, TOTAL (test code = 2229) 6.7 G/DL ALBUMIN (test code = 2201) 4.5 G/DL CALC GLOBULIN (test code = 2240) 2.2 G/DL CALC A/G RATIO (test code = 2234) 2.0 RATIO BILIRUBIN, TOTAL (test code = 2207) 0.3 MG/DL ALKALINE PHOSPHATASE (test code = 2204) 154 U/L AST (test code = 2218) 39 U/L ALT (test code = 2219) 61 U/L HEMOGLOBIN [id number] 06:05:10* Test Item Value Reference Range Interpretation Comme nts HEMOGLOBIN A1c (test code = 84323) 5.8 % 4.2-5.6 H HEMOGLOBIN [id number] 00:00:00* Test Item Value Reference Range Interpretation Comme nts HEMOGLOBIN A1c (test code = 25665) 5.8 % HEMOGLOBIN [id number] 00:00:00* Test Item Value Reference Range Interpretation Comme nts HEMOGLOBIN A1c (test code = 33377) 5.8 % HEMOGLOBIN [id number] 00:00:00* Test Item Value Reference Range Interpretation Comme nts HEMOGLOBIN A1c (test code = 50912) 5.8 % HEMOGLOBIN [id number] 00:00:00* Test Item Value Reference Range Interpretation Comme nts HEMOGLOBIN A1c (test code = 43450) 5.8 % HEMOGLOBIN [id number] 00:00:00* Test Item Value Reference Range Interpretation Comme nts HEMOGLOBIN A1c (test code = 63820) 5.8 % HEMOGLOBIN [id number] 00:00:00* Test Item Value Reference Range Interpretation Comme nts HEMOGLOBIN A1c (test code = 01824) 5.8 % HEMOGLOBIN [id number] 00:00:00* Test Item Value Reference Range Interpretation Comme nts HEMOGLOBIN A1c (test code = 42151) 5.8 % HEMOGLOBIN [id number] 00:00:00* Test Item Value Reference Range Interpretation Comme nts HEMOGLOBIN A1c (test code = 64458) 5.8 % HEMOGLOBIN [id number] 00:00:00* Test Item Value Reference Range Interpretation Comme nts HEMOGLOBIN A1c (test code = 44749) 5.8 % HEMOGLOBIN [id number] 00:00:00* Test Item Value Reference Range Interpretation Comme nts HEMOGLOBIN A1c (test code = 68846) 5.8 % HEMOGLOBIN [id number] 00:00:00* Test Item Value Reference Range Interpretation Comme nts HEMOGLOBIN A1c (test code = 71788) 5.8 % HEMOGLOBIN [id number] 00:00:00* Test Item Value Reference Range Interpretation Comme nts HEMOGLOBIN A1c (test code = 33461) 5.8 % HEMOGLOBIN [id number] 00:00:00* Test Item Value Reference Range Interpretation Comme nts HEMOGLOBIN A1c (test code = 23285) 5.8 % HEMOGLOBIN [id number] 00:00:00* Test Item Value Reference Range Interpretation Comme nts HEMOGLOBIN A1c (test code = 09446) 5.8 % COMPREHENSIVE METABOLIC [id number] 00:00:00* Test Item Value Reference Range Interpretation Comme nts GLUCOSE (test code = 2217) 101 MG/DL BUN (test code = 2208) 13 MG/DL CREATININE (test code = 2214) 0.50 MG/DL eGFR AMER. (test cod e = 94587) 126 ML/MIN/1.73 eGFR NON- AMER. (test code = 25770) 109 ML/MIN/1.73 CALC BUN/CREAT (test code = 2235) 26 RATIO SODIUM (test code = 2231) 141 MEQ/L POTASSIUM (test code = 2228) 4.1 MEQ/L CHLORIDE (test code = 2215) 102 MEQ/L CARBON DIOXIDE (test code = 2206) 24 MEQ/L CALCIUM (test code = 2209) 9.9 MG/DL PROTEIN, TOTAL (test code = 2229) 7.2 G/DL ALBUMIN (test code = 2201) 4.9 G/DL CALC GLOBULIN (test code = 2240) 2.3 G/DL CALC A/G RATIO (test code = 2234) 2.1 RATIO BILIRUBIN, TOTAL (test code = 2207) 0.4 MG/DL ALKALINE PHOSPHATASE (test code = 2204) 139 U/L AST (test code = 2218) 23 U/L ALT (test code = 2219) 33 U/L LIPID [id number] 00:00:00* Test Item Value Reference Range Interpretation Comme nts CHOLESTEROL (test code = 2210) 194 MG/DL TRIGLYCERIDES (test code = 2232) 229 MG/DL HDL CHOLESTEROL (test code = 2220) 64 MG/DL CALC LDL CHOL (test code = 2237) 95 MG/DL RISK RATIO LDL/HDL (test cod e = 2238) 1.48 RATIO HEMOGLOBIN [id number] 00:00:00* Test Item Value Reference Range Interpretation Comme nts HEMOGLOBIN A1c (test code = 91635) 5.8 % HEMOGLOBIN [id number] 00:00:00* Test Item Value Reference Range Interpretation Comme nts HEMOGLOBIN A1c (test code = 18791) 5.8 % HEMOGLOBIN [id number] 00:00:00* Test Item Value Reference Range Interpretation Comme nts HEMOGLOBIN A1c (test code = 70010) 5.8 % COMPREHENSIVE METABOLIC [id number] 00:00:00* Test Item Value Reference Range Interpretation Comme nts GLUCOSE (test code = 2217) 101 MG/DL BUN (test code = 2208) 13 MG/DL CREATININE (test code = 2214) 0.50 MG/DL eGFR AMER. (test cod e = 22469) 126 ML/MIN/1.73 eGFR NON- AMER. (test code = 28493) 109 ML/MIN/1.73 CALC BUN/CREAT (test code = 2235) 26 RATIO SODIUM (test code = 2231) 141 MEQ/L POTASSIUM (test code = 2228) 4.1 MEQ/L CHLORIDE (test code = 2215) 102 MEQ/L CARBON DIOXIDE (test code = 2206) 24 MEQ/L CALCIUM (test code = 2209) 9.9 MG/DL PROTEIN, TOTAL (test code = 2229) 7.2 G/DL ALBUMIN (test code = 2201) 4.9 G/DL CALC GLOBULIN (test code = 2240) 2.3 G/DL CALC A/G RATIO (test code = 2234) 2.1 RATIO BILIRUBIN, TOTAL (test code = 2207) 0.4 MG/DL ALKALINE PHOSPHATASE (test code = 2204) 139 U/L AST (test code = 2218) 23 U/L ALT (test code = 2219) 33 U/L COMPREHENSIVE METABOLIC [id number] 00:00:00* Test Item Value Reference Range Interpretation Comme nts GLUCOSE (test code = 2217) 101 MG/DL BUN (test code = 2208) 13 MG/DL CREATININE (test code = 2214) 0.50 MG/DL eGFR AMER. (test cod e = 02548) 126 ML/MIN/1.73 eGFR NON- AMER. (test code = 59727) 109 ML/MIN/1.73 CALC BUN/CREAT (test code = 2235) 26 RATIO SODIUM (test code = 2231) 141 MEQ/L POTASSIUM (test code = 2228) 4.1 MEQ/L CHLORIDE (test code = 2215) 102 MEQ/L CARBON DIOXIDE (test code = 2206) 24 MEQ/L CALCIUM (test code = 2209) 9.9 MG/DL PROTEIN, TOTAL (test code = 2229) 7.2 G/DL ALBUMIN (test code = 2201) 4.9 G/DL CALC GLOBULIN (test code = 2240) 2.3 G/DL CALC A/G RATIO (test code = 2234) 2.1 RATIO BILIRUBIN, TOTAL (test code = 2207) 0.4 MG/DL ALKALINE PHOSPHATASE (test code = 2204) 139 U/L AST (test code = 2218) 23 U/L ALT (test code = 2219) 33 U/L LIPID [id number] 00:00:00* Test Item Value Reference Range Interpretation Comme nts CHOLESTEROL (test code = 2210) 194 MG/DL TRIGLYCERIDES (test code = 2232) 229 MG/DL HDL CHOLESTEROL (test code = 2220) 64 MG/DL CALC LDL CHOL (test code = 2237) 95 MG/DL RISK RATIO LDL/HDL (test cod e = 2238) 1.48 RATIO LIPID [id number] 00:00:00* Test Item Value Reference Range Interpretation Comme nts CHOLESTEROL (test code = 2210) 194 MG/DL TRIGLYCERIDES (test code = 2232) 229 MG/DL HDL CHOLESTEROL (test code = 2220) 64 MG/DL CALC LDL CHOL (test code = 2237) 95 MG/DL RISK RATIO LDL/HDL (test cod e = 2238) 1.48 RATIO HEMOGLOBIN [id number] 00:00:00* Test Item Value Reference Range Interpretation Comme nts HEMOGLOBIN A1c (test code = 57567) 5.8 % HEMOGLOBIN [id number] 00:00:00* Test Item Value Reference Range Interpretation Comme nts HEMOGLOBIN A1c (test code = 49366) 5.8 % HEMOGLOBIN [id number] 00:00:00* Test Item Value Reference Range Interpretation Comme nts HEMOGLOBIN A1c (test code = 94570) 5.8 % COMPREHENSIVE METABOLIC [id number] 00:00:00* Test Item Value Reference Range Interpretation Comme nts GLUCOSE (test code = 2217) 101 MG/DL BUN (test code = 2208) 13 MG/DL CREATININE (test code = 2214) 0.50 MG/DL eGFR AMER. (test cod e = 94035) 126 ML/MIN/1.73 eGFR NON- AMER. (test code = 09125) 109 ML/MIN/1.73 CALC BUN/CREAT (test code = 2235) 26 RATIO SODIUM (test code = 2231) 141 MEQ/L POTASSIUM (test code = 2228) 4.1 MEQ/L CHLORIDE (test code = 2215) 102 MEQ/L CARBON DIOXIDE (test code = 2206) 24 MEQ/L CALCIUM (test code = 2209) 9.9 MG/DL PROTEIN, TOTAL (test code = 2229) 7.2 G/DL ALBUMIN (test code = 2201) 4.9 G/DL CALC GLOBULIN (test code = 2240) 2.3 G/DL CALC A/G RATIO (test code = 2234) 2.1 RATIO BILIRUBIN, TOTAL (test code = 2207) 0.4 MG/DL ALKALINE PHOSPHATASE (test code = 2204) 139 U/L AST (test code = 2218) 23 U/L ALT (test code = 2219) 33 U/L COMPREHENSIVE METABOLIC [id number] 00:00:00* Test Item Value Reference Range Interpretation Comme nts GLUCOSE (test code = 2217) 101 MG/DL BUN (test code = 2208) 13 MG/DL CREATININE (test code = 2214) 0.50 MG/DL eGFR AMER. (test cod e = 47686) 126 ML/MIN/1.73 eGFR NON- AMER. (test code = 85468) 109 ML/MIN/1.73 CALC BUN/CREAT (test code = 2235) 26 RATIO SODIUM (test code = 2231) 141 MEQ/L POTASSIUM (test code = 2228) 4.1 MEQ/L CHLORIDE (test code = 2215) 102 MEQ/L CARBON DIOXIDE (test code = 2206) 24 MEQ/L CALCIUM (test code = 2209) 9.9 MG/DL PROTEIN, TOTAL (test code = 2229) 7.2 G/DL ALBUMIN (test code = 2201) 4.9 G/DL CALC GLOBULIN (test code = 2240) 2.3 G/DL CALC A/G RATIO (test code = 2234) 2.1 RATIO BILIRUBIN, TOTAL (test code = 2207) 0.4 MG/DL ALKALINE PHOSPHATASE (test code = 2204) 139 U/L AST (test code = 2218) 23 U/L ALT (test code = 2219) 33 U/L LIPID [id number] 00:00:00* Test Item Value Reference Range Interpretation Comme nts CHOLESTEROL (test code = 2210) 194 MG/DL TRIGLYCERIDES (test code = 2232) 229 MG/DL HDL CHOLESTEROL (test code = 2220) 64 MG/DL CALC LDL CHOL (test code = 2237) 95 MG/DL RISK RATIO LDL/HDL (test cod e = 2238) 1.48 RATIO LIPID [id number] 00:00:00* Test Item Value Reference Range Interpretation Comme nts CHOLESTEROL (test code = 2210) 194 MG/DL TRIGLYCERIDES (test code = 2232) 229 MG/DL HDL CHOLESTEROL (test code = 2220) 64 MG/DL CALC LDL CHOL (test code = 2237) 95 MG/DL RISK RATIO LDL/HDL (test cod e = 2238) 1.48 RATIO HEMOGLOBIN [id number] 00:00:00* Test Item Value Reference Range Interpretation Comme nts HEMOGLOBIN A1c (test code = 82265) 5.8 % HEMOGLOBIN [id number] 00:00:00* Test Item Value Reference Range Interpretation Comme nts HEMOGLOBIN A1c (test code = 58670) 5.8 % HEMOGLOBIN [id number] 00:00:00* Test Item Value Reference Range Interpretation Comme nts HEMOGLOBIN A1c (test code = 19954) 5.8 % COMPREHENSIVE METABOLIC [id number] 00:00:00* Test Item Value Reference Range Interpretation Comme nts GLUCOSE (test code = 2217) 101 MG/DL BUN (test code = 2208) 13 MG/DL CREATININE (test code = 2214) 0.50 MG/DL eGFR AMER. (test cod e = 11744) 126 ML/MIN/1.73 eGFR NON- AMER. (test code = 00624) 109 ML/MIN/1.73 CALC BUN/CREAT (test code = 2235) 26 RATIO SODIUM (test code = 2231) 141 MEQ/L POTASSIUM (test code = 2228) 4.1 MEQ/L CHLORIDE (test code = 2215) 102 MEQ/L CARBON DIOXIDE (test code = 2206) 24 MEQ/L CALCIUM (test code = 2209) 9.9 MG/DL PROTEIN, TOTAL (test code = 2229) 7.2 G/DL ALBUMIN (test code = 2201) 4.9 G/DL CALC GLOBULIN (test code = 2240) 2.3 G/DL CALC A/G RATIO (test code = 2234) 2.1 RATIO BILIRUBIN, TOTAL (test code = 2207) 0.4 MG/DL ALKALINE PHOSPHATASE (test code = 2204) 139 U/L AST (test code = 2218) 23 U/L ALT (test code = 2219) 33 U/L COMPREHENSIVE METABOLIC [id number] 00:00:00* Test Item Value Reference Range Interpretation Comme nts GLUCOSE (test code = 2217) 101 MG/DL BUN (test code = 2208) 13 MG/DL CREATININE (test code = 2214) 0.50 MG/DL eGFR AMER. (test cod e = 84640) 126 ML/MIN/1.73 eGFR NON- AMER. (test code = 74968) 109 ML/MIN/1.73 CALC BUN/CREAT (test code = 2235) 26 RATIO SODIUM (test code = 2231) 141 MEQ/L POTASSIUM (test code = 2228) 4.1 MEQ/L CHLORIDE (test code = 2215) 102 MEQ/L CARBON DIOXIDE (test code = 2206) 24 MEQ/L CALCIUM (test code = 2209) 9.9 MG/DL PROTEIN, TOTAL (test code = 2229) 7.2 G/DL ALBUMIN (test code = 2201) 4.9 G/DL CALC GLOBULIN (test code = 2240) 2.3 G/DL CALC A/G RATIO (test code = 2234) 2.1 RATIO BILIRUBIN, TOTAL (test code = 2207) 0.4 MG/DL ALKALINE PHOSPHATASE (test code = 2204) 139 U/L AST (test code = 2218) 23 U/L ALT (test code = 2219) 33 U/L LIPID [id number] 00:00:00* Test Item Value Reference Range Interpretation Comme nts CHOLESTEROL (test code = 2210) 194 MG/DL TRIGLYCERIDES (test code = 2232) 229 MG/DL HDL CHOLESTEROL (test code = 2220) 64 MG/DL CALC LDL CHOL (test code = 2237) 95 MG/DL RISK RATIO LDL/HDL (test cod e = 2238) 1.48 RATIO LIPID [id number] 00:00:00* Test Item Value Reference Range Interpretation Comme nts CHOLESTEROL (test code = 2210) 194 MG/DL TRIGLYCERIDES (test code = 2232) 229 MG/DL HDL CHOLESTEROL (test code = 2220) 64 MG/DL CALC LDL CHOL (test code = 2237) 95 MG/DL RISK RATIO LDL/HDL (test cod e = 2238) 1.48 RATIO HEMOGLOBIN [id number] 00:00:00* Test Item Value Reference Range Interpretation Comme nts HEMOGLOBIN A1c (test code = 33354) 5.8 % HEMOGLOBIN [id number] 00:00:00* Test Item Value Reference Range Interpretation Comme nts HEMOGLOBIN A1c (test code = 31021) 5.8 % HEMOGLOBIN [id number] 00:00:00* Test Item Value Reference Range Interpretation Comme nts HEMOGLOBIN A1c (test code = 96569) 5.8 % COMPREHENSIVE METABOLIC [id number] 00:00:00* Test Item Value Reference Range Interpretation Comme nts GLUCOSE (test code = 7) 101 MG/DL BUN (test code = 8) 13 MG/DL CREATININE (test code = 2214) 0.50 MG/DL eGFR AMER. (test cod e = 77090) 126 ML/MIN/1.73 eGFR NON- AMER. (test code = 65549) 109 ML/MIN/1.73 CALC BUN/CREAT (test code = 2235) 26 RATIO SODIUM (test code = 2231) 141 MEQ/L POTASSIUM (test code = 2228) 4.1 MEQ/L CHLORIDE (test code = 2215) 102 MEQ/L CARBON DIOXIDE (test code = 2206) 24 MEQ/L CALCIUM (test code = 2209) 9.9 MG/DL PROTEIN, TOTAL (test code = 2229) 7.2 G/DL ALBUMIN (test code = 2201) 4.9 G/DL CALC GLOBULIN (test code = 2240) 2.3 G/DL CALC A/G RATIO (test code = 2234) 2.1 RATIO BILIRUBIN, TOTAL (test code = 2207) 0.4 MG/DL ALKALINE PHOSPHATASE (test code = 2204) 139 U/L AST (test code = 2218) 23 U/L ALT (test code = 2219) 33 U/L HEMOGLOBIN [id number] 00:00:00* Test Item Value Reference Range Interpretation Comme nts HEMOGLOBIN A1c (test code = 31046) 5.8 % COMPREHENSIVE METABOLIC [id number] 00:00:00* Test Item Value Reference Range Interpretation Comme nts GLUCOSE (test code = 2217) 101 MG/DL BUN (test code = 2208) 13 MG/DL CREATININE (test code = 2214) 0.50 MG/DL eGFR AMER. (test cod e = 16776) 126 ML/MIN/1.73 eGFR NON- AMER. (test code = 60419) 109 ML/MIN/1.73 CALC BUN/CREAT (test code = 2235) 26 RATIO SODIUM (test code = 2231) 141 MEQ/L POTASSIUM (test code = 2228) 4.1 MEQ/L CHLORIDE (test code = 2215) 102 MEQ/L CARBON DIOXIDE (test code = 2206) 24 MEQ/L CALCIUM (test code = 2209) 9.9 MG/DL PROTEIN, TOTAL (test code = 2229) 7.2 G/DL ALBUMIN (test code = 2201) 4.9 G/DL CALC GLOBULIN (test code = 2240) 2.3 G/DL CALC A/G RATIO (test code = 2234) 2.1 RATIO BILIRUBIN, TOTAL (test code = 2207) 0.4 MG/DL ALKALINE PHOSPHATASE (test code = 2204) 139 U/L AST (test code = 2218) 23 U/L ALT (test code = 2219) 33 U/L LIPID [id number] 00:00:00* Test Item Value Reference Range Interpretation Comme nts CHOLESTEROL (test code = 2210) 194 MG/DL TRIGLYCERIDES (test code = 2232) 229 MG/DL HDL CHOLESTEROL (test code = 2220) 64 MG/DL CALC LDL CHOL (test code = 2237) 95 MG/DL RISK RATIO LDL/HDL (test cod e = 2238) 1.48 RATIO LIPID [id number] 00:00:00* Test Item Value Reference Range Interpretation Comme nts CHOLESTEROL (test code = 2210) 194 MG/DL TRIGLYCERIDES (test code = 2232) 229 MG/DL HDL CHOLESTEROL (test code = 2220) 64 MG/DL CALC LDL CHOL (test code = 2237) 95 MG/DL RISK RATIO LDL/HDL (test cod e = 2238) 1.48 RATIO HEMOGLOBIN [id number] 00:00:00* Test Item Value Reference Range Interpretation Comme nts HEMOGLOBIN A1c (test code = 76835) 5.8 % CULTURE, [id number] 00:00:00* Test Item Value Reference Range Interpretation Comme nts CULTURE, URINE (test code = 65449) SPECIMEN NUMBER: [id number] CULTURE, [id number] 00:00:00* Test Item Value Reference Range Interpretation Comme nts CULTURE, URINE (test code = 67259) SPECIMEN NUMBER: [id number] CULTURE, [id number] 00:00:00* Test Item Value Reference Range Interpretation Comme nts CULTURE, URINE (test code = 45293) SPECIMEN NUMBER: [id number] CULTURE, [id number] 00:00:00* Test Item Value Reference Range Interpretation Comme nts CULTURE, URINE (test code = 81059) SPECIMEN NUMBER: [id number] CULTURE, [id number] 00:00:00* Test Item Value Reference Range Interpretation Comme nts CULTURE, URINE (test code = 60296) SPECIMEN NUMBER: [id number] CULTURE, [id number] 00:00:00* Test Item Value Reference Range Interpretation Comme nts CULTURE, URINE (test code = 69178) SPECIMEN NUMBER: [id number] CULTURE, [id number] 00:00:00* Test Item Value Reference Range Interpretation Comme nts CULTURE, URINE (test code = 12058) SPECIMEN NUMBER: [id number] CULTURE, [id number] 00:00:00* Test Item Value Reference Range Interpretation Comme nts CULTURE, URINE (test code = 18795) SPECIMEN NUMBER: [id number] CULTURE, [id number] 00:00:00* Test Item Value Reference Range Interpretation Comme nts CULTURE, URINE (test code = 95437) SPECIMEN NUMBER: [id number] COMPREHENSIVE METABOLIC [id number] 00:00:00* Test Item Value Reference Range Interpretation Comme nts GLUCOSE (test code = 2217) 91 MG/DL BUN (test code = 2208) 14 MG/DL CREATININE (test code = 2214) 0.50 MG/DL eGFR AMER. (test cod e = 48645) 126 ML/MIN/1.73 eGFR NON- AMER. (test code = 91087) 109 ML/MIN/1.73 CALC BUN/CREAT (test code = 2235) 28 RATIO SODIUM (test code = 2231) 139 MEQ/L POTASSIUM (test code = 2228) 4.5 MEQ/L CHLORIDE (test code = 2215) 102 MEQ/L CARBON DIOXIDE (test code = 2206) 26 MEQ/L CALCIUM (test code = 2209) 10.3 MG/DL PROTEIN, TOTAL (test code = 2229) 7.1 G/DL ALBUMIN (test code = 2201) 4.8 G/DL CALC GLOBULIN (test code = 2240) 2.3 G/DL CALC A/G RATIO (test code = 2234) 2.1 RATIO BILIRUBIN, TOTAL (test code = 2207) 0.3 MG/DL ALKALINE PHOSPHATASE (test code = 2204) 141 U/L AST (test code = 2218) 19 U/L ALT (test code = 2219) 28 U/L HEMOGLOBIN [id number] 00:00:00* Test Item Value Reference Range Interpretation Comme nts HEMOGLOBIN A1c (test code = 81488) 5.7 % HEMOGLOBIN [id number] 00:00:00* Test Item Value Reference Range Interpretation Comme nts HEMOGLOBIN A1c (test code = 48186) 5.7 % COMPREHENSIVE METABOLIC [id number] 00:00:00* Test Item Value Reference Range Interpretation Comme nts GLUCOSE (test code = 2217) 91 MG/DL BUN (test code = 2208) 14 MG/DL CREATININE (test code = 2214) 0.50 MG/DL eGFR AMER. (test cod e = 67599) 126 ML/MIN/1.73 eGFR NON- AMER. (test code = 04240) 109 ML/MIN/1.73 CALC BUN/CREAT (test code = 2235) 28 RATIO SODIUM (test code = 2231) 139 MEQ/L POTASSIUM (test code = 2228) 4.5 MEQ/L CHLORIDE (test code = 2215) 102 MEQ/L CARBON DIOXIDE (test code = 2206) 26 MEQ/L CALCIUM (test code = 2209) 10.3 MG/DL PROTEIN, TOTAL (test code = 2229) 7.1 G/DL ALBUMIN (test code = 2201) 4.8 G/DL CALC GLOBULIN (test code = 2240) 2.3 G/DL CALC A/G RATIO (test code = 2234) 2.1 RATIO BILIRUBIN, TOTAL (test code = 2207) 0.3 MG/DL ALKALINE PHOSPHATASE (test code = 2204) 141 U/L AST (test code = 2218) 19 U/L ALT (test code = 2219) 28 U/L COMPREHENSIVE METABOLIC [id number] 00:00:00* Test Item Value Reference Range Interpretation Comme nts GLUCOSE (test code = 2217) 91 MG/DL BUN (test code = 2208) 14 MG/DL CREATININE (test code = 2214) 0.50 MG/DL eGFR AMER. (test cod e = 19470) 126 ML/MIN/1.73 eGFR NON- AMER. (test code = 96423) 109 ML/MIN/1.73 CALC BUN/CREAT (test code = 2235) 28 RATIO SODIUM (test code = 2231) 139 MEQ/L POTASSIUM (test code = 2228) 4.5 MEQ/L CHLORIDE (test code = 2215) 102 MEQ/L CARBON DIOXIDE (test code = 2206) 26 MEQ/L CALCIUM (test code = 2209) 10.3 MG/DL PROTEIN, TOTAL (test code = 2229) 7.1 G/DL ALBUMIN (test code = 2201) 4.8 G/DL CALC GLOBULIN (test code = 2240) 2.3 G/DL CALC A/G RATIO (test code = 2234) 2.1 RATIO BILIRUBIN, TOTAL (test code = 2207) 0.3 MG/DL ALKALINE PHOSPHATASE (test code = 2204) 141 U/L AST (test code = 2218) 19 U/L ALT (test code = 2219) 28 U/L HEMOGLOBIN [id number] 00:00:00* Test Item Value Reference Range Interpretation Comme nts HEMOGLOBIN A1c (test code = 42916) 5.7 % HEMOGLOBIN [id number] 00:00:00* Test Item Value Reference Range Interpretation Comme nts HEMOGLOBIN A1c (test code = 24526) 5.7 % HEMOGLOBIN [id number] 00:00:00* Test Item Value Reference Range Interpretation Comme nts HEMOGLOBIN A1c (test code = 67383) 5.7 % COMPREHENSIVE METABOLIC [id number] 00:00:00* Test Item Value Reference Range Interpretation Comme nts GLUCOSE (test code = 2217) 91 MG/DL BUN (test code = 2208) 14 MG/DL CREATININE (test code = 2214) 0.50 MG/DL eGFR AMER. (test cod e = 18247) 126 ML/MIN/1.73 eGFR NON- AMER. (test code = 67588) 109 ML/MIN/1.73 CALC BUN/CREAT (test code = 2235) 28 RATIO SODIUM (test code = 2231) 139 MEQ/L POTASSIUM (test code = 2228) 4.5 MEQ/L CHLORIDE (test code = 2215) 102 MEQ/L CARBON DIOXIDE (test code = 2206) 26 MEQ/L CALCIUM (test code = 2209) 10.3 MG/DL PROTEIN, TOTAL (test code = 2229) 7.1 G/DL ALBUMIN (test code = 2201) 4.8 G/DL CALC GLOBULIN (test code = 2240) 2.3 G/DL CALC A/G RATIO (test code = 2234) 2.1 RATIO BILIRUBIN, TOTAL (test code = 2207) 0.3 MG/DL ALKALINE PHOSPHATASE (test code = 2204) 141 U/L AST (test code = 2218) 19 U/L ALT (test code = 2219) 28 U/L COMPREHENSIVE METABOLIC [id number] 00:00:00* Test Item Value Reference Range Interpretation Comme nts GLUCOSE (test code = 2217) 91 MG/DL BUN (test code = 2208) 14 MG/DL CREATININE (test code = 2214) 0.50 MG/DL eGFR AMER. (test cod e = 63526) 126 ML/MIN/1.73 eGFR NON- AMER. (test code = 91280) 109 ML/MIN/1.73 CALC BUN/CREAT (test code = 2235) 28 RATIO SODIUM (test code = 2231) 139 MEQ/L POTASSIUM (test code = 2228) 4.5 MEQ/L CHLORIDE (test code = 2215) 102 MEQ/L CARBON DIOXIDE (test code = 2206) 26 MEQ/L CALCIUM (test code = 2209) 10.3 MG/DL PROTEIN, TOTAL (test code = 2229) 7.1 G/DL ALBUMIN (test code = 2201) 4.8 G/DL CALC GLOBULIN (test code = 2240) 2.3 G/DL CALC A/G RATIO (test code = 2234) 2.1 RATIO BILIRUBIN, TOTAL (test code = 2207) 0.3 MG/DL ALKALINE PHOSPHATASE (test code = 2204) 141 U/L AST (test code = 2218) 19 U/L ALT (test code = 2219) 28 U/L HEMOGLOBIN [id number] 00:00:00* Test Item Value Reference Range Interpretation Comme nts HEMOGLOBIN A1c (test code = 16533) 5.7 % HEMOGLOBIN [id number] 00:00:00* Test Item Value Reference Range Interpretation Comme nts HEMOGLOBIN A1c (test code = 51326) 5.7 % HEMOGLOBIN [id number] 00:00:00* Test Item Value Reference Range Interpretation Comme nts HEMOGLOBIN A1c (test code = 87180) 5.7 % COMPREHENSIVE METABOLIC [id number] 00:00:00* Test Item Value Reference Range Interpretation Comme nts GLUCOSE (test code = 2217) 91 MG/DL BUN (test code = 2208) 14 MG/DL CREATININE (test code = 2214) 0.50 MG/DL eGFR AMER. (test cod e = 12821) 126 ML/MIN/1.73 eGFR NON- AMER. (test code = 76083) 109 ML/MIN/1.73 CALC BUN/CREAT (test code = 2235) 28 RATIO SODIUM (test code = 2231) 139 MEQ/L POTASSIUM (test code = 2228) 4.5 MEQ/L CHLORIDE (test code = 2215) 102 MEQ/L CARBON DIOXIDE (test code = 2206) 26 MEQ/L CALCIUM (test code = 2209) 10.3 MG/DL PROTEIN, TOTAL (test code = 2229) 7.1 G/DL ALBUMIN (test code = 2201) 4.8 G/DL CALC GLOBULIN (test code = 2240) 2.3 G/DL CALC A/G RATIO (test code = 2234) 2.1 RATIO BILIRUBIN, TOTAL (test code = 2207) 0.3 MG/DL ALKALINE PHOSPHATASE (test code = 2204) 141 U/L AST (test code = 2218) 19 U/L ALT (test code = 2219) 28 U/L COMPREHENSIVE METABOLIC [id number] 00:00:00* Test Item Value Reference Range Interpretation Comme nts GLUCOSE (test code = 2217) 91 MG/DL BUN (test code = 2208) 14 MG/DL CREATININE (test code = 2214) 0.50 MG/DL eGFR AMER. (test cod e = 26278) 126 ML/MIN/1.73 eGFR NON- AMER. (test code = 35037) 109 ML/MIN/1.73 CALC BUN/CREAT (test code = 2235) 28 RATIO SODIUM (test code = 2231) 139 MEQ/L POTASSIUM (test code = 2228) 4.5 MEQ/L CHLORIDE (test code = 2215) 102 MEQ/L CARBON DIOXIDE (test code = 2206) 26 MEQ/L CALCIUM (test code = 2209) 10.3 MG/DL PROTEIN, TOTAL (test code = 2229) 7.1 G/DL ALBUMIN (test code = 2201) 4.8 G/DL CALC GLOBULIN (test code = 2240) 2.3 G/DL CALC A/G RATIO (test code = 2234) 2.1 RATIO BILIRUBIN, TOTAL (test code = 2207) 0.3 MG/DL ALKALINE PHOSPHATASE (test code = 2204) 141 U/L AST (test code = 2218) 19 U/L ALT (test code = 2219) 28 U/L HEMOGLOBIN [id number] 00:00:00* Test Item Value Reference Range Interpretation Comme nts HEMOGLOBIN A1c (test code = 15396) 5.7 % HEMOGLOBIN [id number] 00:00:00* Test Item Value Reference Range Interpretation Comme nts HEMOGLOBIN A1c (test code = 82205) 5.7 % HEMOGLOBIN [id number] 00:00:00* Test Item Value Reference Range Interpretation Comme nts HEMOGLOBIN A1c (test code = 99799) 5.7 % COMPREHENSIVE METABOLIC [id number] 00:00:00* Test Item Value Reference Range Interpretation Comme nts GLUCOSE (test code = 2217) 91 MG/DL BUN (test code = 2208) 14 MG/DL CREATININE (test code = 2214) 0.50 MG/DL eGFR AMER. (test cod e = 39271) 126 ML/MIN/1.73 eGFR NON- AMER. (test code = 56396) 109 ML/MIN/1.73 CALC BUN/CREAT (test code = 2235) 28 RATIO SODIUM (test code = 2231) 139 MEQ/L POTASSIUM (test code = 2228) 4.5 MEQ/L CHLORIDE (test code = 2215) 102 MEQ/L CARBON DIOXIDE (test code = 2206) 26 MEQ/L CALCIUM (test code = 2209) 10.3 MG/DL PROTEIN, TOTAL (test code = 2229) 7.1 G/DL ALBUMIN (test code = 2201) 4.8 G/DL CALC GLOBULIN (test code = 2240) 2.3 G/DL CALC A/G RATIO (test code = 2234) 2.1 RATIO BILIRUBIN, TOTAL (test code = 2207) 0.3 MG/DL ALKALINE PHOSPHATASE (test code = 2204) 141 U/L AST (test code = 2218) 19 U/L ALT (test code = 2219) 28 U/L COMPREHENSIVE METABOLIC [id number] 00:00:00* Test Item Value Reference Range Interpretation Comme nts GLUCOSE (test code = 2217) 91 MG/DL BUN (test code = 2208) 14 MG/DL CREATININE (test code = 2214) 0.50 MG/DL eGFR AMER. (test cod e = 01058) 126 ML/MIN/1.73 eGFR NON- AMER. (test code = 33745) 109 ML/MIN/1.73 CALC BUN/CREAT (test code = 2235) 28 RATIO SODIUM (test code = 2231) 139 MEQ/L POTASSIUM (test code = 2228) 4.5 MEQ/L CHLORIDE (test code = 2215) 102 MEQ/L CARBON DIOXIDE (test code = 2206) 26 MEQ/L CALCIUM (test code = 2209) 10.3 MG/DL PROTEIN, TOTAL (test code = 2229) 7.1 G/DL ALBUMIN (test code = 2201) 4.8 G/DL CALC GLOBULIN (test code = 2240) 2.3 G/DL CALC A/G RATIO (test code = 2234) 2.1 RATIO BILIRUBIN, TOTAL (test code = 2207) 0.3 MG/DL ALKALINE PHOSPHATASE (test code = 2204) 141 U/L AST (test code = 2218) 19 U/L ALT (test code = 2219) 28 U/L HEMOGLOBIN [id number] 00:00:00* Test Item Value Reference Range Interpretation Comme nts HEMOGLOBIN A1c (test code = 85095) 5.7 % HEMOGLOBIN [id number] 00:00:00* Test Item Value Reference Range Interpretation Comme nts HEMOGLOBIN A1c (test code = 35405) 5.7 % HEMOGLOBIN [id number] 00:00:00* Test Item Value Reference Range Interpretation Comme nts HEMOGLOBIN A1c (test code = 24920) 5.7 % CBC W/AUTO [id number] 00:00:00* Test Item Value Reference Range Interpretation Comme nts WBC (test code = 1001) 5.5 K/UL RBC (test code = 1002) 4.44 M/UL HEMOGLOBIN (test code = 1003) 13.3 G/DL HEMATOCRIT (test code = 1004) 39.3 % MCV (test code = 1005) 88.5 fL MCH (test code = 1006) 30.0 PG MCHC (test code = 1007) 33.8 G/DL RDW (test code = 1038) 13.0 % NEUTROPHILS (test code = 1008) 50.9 % LYMPHOCYTES (test code = 1010) 37.7 % MONOCYTES (test code = 1011) 7.4 % EOSINOPHILS (test code = 1012) 3.3 % BASOPHILS (test code = 1013) 0.7 % PLATELET COUNT (test code = 1015) 233 K/UL CBC W/AUTO [id number] 00:00:00* Test Item Value Reference Range Interpretation Comme nts WBC (test code = 1001) 5.5 K/UL RBC (test code = 1002) 4.44 M/UL HEMOGLOBIN (test code = 1003) 13.3 G/DL HEMATOCRIT (test code = 1004) 39.3 % MCV (test code = 1005) 88.5 fL MCH (test code = 1006) 30.0 PG MCHC (test code = 1007) 33.8 G/DL RDW (test code = 1038) 13.0 % NEUTROPHILS (test code = 1008) 50.9 % LYMPHOCYTES (test code = 1010) 37.7 % MONOCYTES (test code = 1011) 7.4 % EOSINOPHILS (test code = 1012) 3.3 % BASOPHILS (test code = 1013) 0.7 % PLATELET COUNT (test code = 1015) 233 K/UL CBC W/AUTO [id number] 00:00:00* Test Item Value Reference Range Interpretation Comme nts WBC (test code = 1001) 5.5 K/UL RBC (test code = 1002) 4.44 M/UL HEMOGLOBIN (test code = 1003) 13.3 G/DL HEMATOCRIT (test code = 1004) 39.3 % MCV (test code = 1005) 88.5 fL MCH (test code = 1006) 30.0 PG MCHC (test code = 1007) 33.8 G/DL RDW (test code = 1038) 13.0 % NEUTROPHILS (test code = 1008) 50.9 % LYMPHOCYTES (test code = 1010) 37.7 % MONOCYTES (test code = 1011) 7.4 % EOSINOPHILS (test code = 1012) 3.3 % BASOPHILS (test code = 1013) 0.7 % PLATELET COUNT (test code = 1015) 233 K/UL CBC W/AUTO [id number] 00:00:00* Test Item Value Reference Range Interpretation Comme nts WBC (test code = 1001) 5.5 K/UL RBC (test code = 1002) 4.44 M/UL HEMOGLOBIN (test code = 1003) 13.3 G/DL HEMATOCRIT (test code = 1004) 39.3 % MCV (test code = 1005) 88.5 fL MCH (test code = 1006) 30.0 PG MCHC (test code = 1007) 33.8 G/DL RDW (test code = 1038) 13.0 % NEUTROPHILS (test code = 1008) 50.9 % LYMPHOCYTES (test code = 1010) 37.7 % MONOCYTES (test code = 1011) 7.4 % EOSINOPHILS (test code = 1012) 3.3 % BASOPHILS (test code = 1013) 0.7 % PLATELET COUNT (test code = 1015) 233 K/UL CBC W/AUTO [id number] 00:00:00* Test Item Value Reference Range Interpretation Comme nts WBC (test code = 1001) 5.5 K/UL RBC (test code = 1002) 4.44 M/UL HEMOGLOBIN (test code = 1003) 13.3 G/DL HEMATOCRIT (test code = 1004) 39.3 % MCV (test code = 1005) 88.5 fL MCH (test code = 1006) 30.0 PG MCHC (test code = 1007) 33.8 G/DL RDW (test code = 1038) 13.0 % NEUTROPHILS (test code = 1008) 50.9 % LYMPHOCYTES (test code = 1010) 37.7 % MONOCYTES (test code = 1011) 7.4 % EOSINOPHILS (test code = 1012) 3.3 % BASOPHILS (test code = 1013) 0.7 % PLATELET COUNT (test code = 1015) 233 K/UL CBC W/AUTO [id number] 00:00:00* Test Item Value Reference Range Interpretation Comme nts WBC (test code = 1001) 5.5 K/UL RBC (test code = 1002) 4.44 M/UL HEMOGLOBIN (test code = 1003) 13.3 G/DL HEMATOCRIT (test code = 1004) 39.3 % MCV (test code = 1005) 88.5 fL MCH (test code = 1006) 30.0 PG MCHC (test code = 1007) 33.8 G/DL RDW (test code = 1038) 13.0 % NEUTROPHILS (test code = 1008) 50.9 % LYMPHOCYTES (test code = 1010) 37.7 % MONOCYTES (test code = 1011) 7.4 % EOSINOPHILS (test code = 1012) 3.3 % BASOPHILS (test code = 1013) 0.7 % PLATELET COUNT (test code = 1015) 233 K/UL CBC W/AUTO [id number] 00:00:00* Test Item Value Reference Range Interpretation Comme nts WBC (test code = 1001) 5.5 K/UL RBC (test code = 1002) 4.44 M/UL HEMOGLOBIN (test code = 1003) 13.3 G/DL HEMATOCRIT (test code = 1004) 39.3 % MCV (test code = 1005) 88.5 fL MCH (test code = 1006) 30.0 PG MCHC (test code = 1007) 33.8 G/DL RDW (test code = 1038) 13.0 % NEUTROPHILS (test code = 1008) 50.9 % LYMPHOCYTES (test code = 1010) 37.7 % MONOCYTES (test code = 1011) 7.4 % EOSINOPHILS (test code = 1012) 3.3 % BASOPHILS (test code = 1013) 0.7 % PLATELET COUNT (test code = 1015) 233 K/UL CBC W/AUTO [id number] 00:00:00* Test Item Value Reference Range Interpretation Comme nts WBC (test code = 1001) 5.5 K/UL RBC (test code = 1002) 4.44 M/UL HEMOGLOBIN (test code = 1003) 13.3 G/DL HEMATOCRIT (test code = 1004) 39.3 % MCV (test code = 1005) 88.5 fL MCH (test code = 1006) 30.0 PG MCHC (test code = 1007) 33.8 G/DL RDW (test code = 1038) 13.0 % NEUTROPHILS (test code = 1008) 50.9 % LYMPHOCYTES (test code = 1010) 37.7 % MONOCYTES (test code = 1011) 7.4 % EOSINOPHILS (test code = 1012) 3.3 % BASOPHILS (test code = 1013) 0.7 % PLATELET COUNT (test code = 1015) 233 K/UL CBC W/AUTO [id number] 00:00:00* Test Item Value Reference Range Interpretation Comme nts WBC (test code = 1001) 5.5 K/UL RBC (test code = 1002) 4.44 M/UL HEMOGLOBIN (test code = 1003) 13.3 G/DL HEMATOCRIT (test code = 1004) 39.3 % MCV (test code = 1005) 88.5 fL MCH (test code = 1006) 30.0 PG MCHC (test code = 1007) 33.8 G/DL RDW (test code = 1038) 13.0 % NEUTROPHILS (test code = 1008) 50.9 % LYMPHOCYTES (test code = 1010) 37.7 % MONOCYTES (test code = 1011) 7.4 % EOSINOPHILS (test code = 1012) 3.3 % BASOPHILS (test code = 1013) 0.7 % PLATELET COUNT (test code = 1015) 233 K/UL CBC W/AUTO [id number] 00:00:00* Test Item Value Reference Range Interpretation Comme nts WBC (test code = 1001) 5.5 K/UL RBC (test code = 1002) 4.44 M/UL HEMOGLOBIN (test code = 1003) 13.3 G/DL HEMATOCRIT (test code = 1004) 39.3 % MCV (test code = 1005) 88.5 fL MCH (test code = 1006) 30.0 PG MCHC (test code = 1007) 33.8 G/DL RDW (test code = 1038) 13.0 % NEUTROPHILS (test code = 1008) 50.9 % LYMPHOCYTES (test code = 1010) 37.7 % MONOCYTES (test code = 1011) 7.4 % EOSINOPHILS (test code = 1012) 3.3 % BASOPHILS (test code = 1013) 0.7 % PLATELET COUNT (test code = 1015) 233 K/UL CBC W/AUTO [id number] 00:00:00* Test Item Value Reference Range Interpretation Comme nts WBC (test code = 1001) 5.5 K/UL RBC (test code = 1002) 4.44 M/UL HEMOGLOBIN (test code = 1003) 13.3 G/DL HEMATOCRIT (test code = 1004) 39.3 % MCV (test code = 1005) 88.5 fL MCH (test code = 1006) 30.0 PG MCHC (test code = 1007) 33.8 G/DL RDW (test code = 1038) 13.0 % NEUTROPHILS (test code = 1008) 50.9 % LYMPHOCYTES (test code = 1010) 37.7 % MONOCYTES (test code = 1011) 7.4 % EOSINOPHILS (test code = 1012) 3.3 % BASOPHILS (test code = 1013) 0.7 % PLATELET COUNT (test code = 1015) 233 K/UL CBC W/AUTO [id number] 00:00:00* Test Item Value Reference Range Interpretation Comme nts WBC (test code = 1001) 5.5 K/UL RBC (test code = 1002) 4.44 M/UL HEMOGLOBIN (test code = 1003) 13.3 G/DL HEMATOCRIT (test code = 1004) 39.3 % MCV (test code = 1005) 88.5 fL MCH (test code = 1006) 30.0 PG MCHC (test code = 1007) 33.8 G/DL RDW (test code = 1038) 13.0 % NEUTROPHILS (test code = 1008) 50.9 % LYMPHOCYTES (test code = 1010) 37.7 % MONOCYTES (test code = 1011) 7.4 % EOSINOPHILS (test code = 1012) 3.3 % BASOPHILS (test code = 1013) 0.7 % PLATELET COUNT (test code = 1015) 233 K/UL CBC W/AUTO [id number] 00:00:00* Test Item Value Reference Range Interpretation Comme nts WBC (test code = 1001) 5.5 K/UL RBC (test code = 1002) 4.44 M/UL HEMOGLOBIN (test code = 1003) 13.3 G/DL HEMATOCRIT (test code = 1004) 39.3 % MCV (test code = 1005) 88.5 fL MCH (test code = 1006) 30.0 PG MCHC (test code = 1007) 33.8 G/DL RDW (test code = 1038) 13.0 % NEUTROPHILS (test code = 1008) 50.9 % LYMPHOCYTES (test code = 1010) 37.7 % MONOCYTES (test code = 1011) 7.4 % EOSINOPHILS (test code = 1012) 3.3 % BASOPHILS (test code = 1013) 0.7 % PLATELET COUNT (test code = 1015) 233 K/UL CBC W/AUTO [id number] 00:00:00* Test Item Value Reference Range Interpretation Comme nts WBC (test code = 1001) 5.5 K/UL RBC (test code = 1002) 4.44 M/UL HEMOGLOBIN (test code = 1003) 13.3 G/DL HEMATOCRIT (test code = 1004) 39.3 % MCV (test code = 1005) 88.5 fL MCH (test code = 1006) 30.0 PG MCHC (test code = 1007) 33.8 G/DL RDW (test code = 1038) 13.0 % NEUTROPHILS (test code = 1008) 50.9 % LYMPHOCYTES (test code = 1010) 37.7 % MONOCYTES (test code = 1011) 7.4 % EOSINOPHILS (test code = 1012) 3.3 % BASOPHILS (test code = 1013) 0.7 % PLATELET COUNT (test code = 1015) 233 K/UL SARS-CoV-2 (COVID-19) by RT-PCR (HIGH RISK)2020-03-22 00:00:00* Test Item Value Reference Range Interpretation Comme nts SARS-CoV-2 INTERPRETATION (t est code = 33386) NEGATIVE SOURCE (test code = 85687) NOT SPECIFIED SARS-CoV-2 (COVID-19) by RT-PCR (HIGH RISK)2020-03-22 00:00:00* Test Item Value Reference Range Interpretation Comme nts SARS-CoV-2 INTERPRETATION (t est code = 05758) NEGATIVE SOURCE (test code = 29734) NOT SPECIFIED SARS-CoV-2 (COVID-19) by RT-PCR (HIGH RISK)2020-03-22 00:00:00* Test Item Value Reference Range Interpretation Comme nts SARS-CoV-2 INTERPRETATION (t est code = 76759) NEGATIVE SOURCE (test code = 22566) NOT SPECIFIED SARS-CoV-2 (COVID-19) by RT-PCR (HIGH RISK)2020-03-22 00:00:00* Test Item Value Reference Range Interpretation Comme nts SARS-CoV-2 INTERPRETATION (t est code = 32828) NEGATIVE SOURCE (test code = 80471) NOT SPECIFIED SARS-CoV-2 (COVID-19) by RT-PCR (HIGH RISK)2020-03-22 00:00:00* Test Item Value Reference Range Interpretation Comme nts SARS-CoV-2 INTERPRETATION (t est code = 75640) NEGATIVE SOURCE (test code = 28931) NOT SPECIFIED SARS-CoV-2 (COVID-19) by RT-PCR (HIGH RISK)2020-03-22 00:00:00* Test Item Value Reference Range Interpretation Comme nts SARS-CoV-2 INTERPRETATION (t est code = 29005) NEGATIVE SOURCE (test code = 17479) NOT SPECIFIED SARS-CoV-2 (COVID-19) by RT-PCR (HIGH RISK)2020-03-22 00:00:00* Test Item Value Reference Range Interpretation Comme nts SARS-CoV-2 INTERPRETATION (t est code = 38103) NEGATIVE SOURCE (test code = 11964) NOT SPECIFIED SARS-CoV-2 (COVID-19) by RT-PCR (HIGH RISK)2020-03-22 00:00:00* Test Item Value Reference Range Interpretation Comme nts SARS-CoV-2 INTERPRETATION (t est code = 15067) NEGATIVE SOURCE (test code = 19747) NOT SPECIFIED SARS-CoV-2 (COVID-19) by RT-PCR (HIGH RISK)2020-03-22 00:00:00* Test Item Value Reference Range Interpretation Comme nts SARS-CoV-2 INTERPRETATION (t est code = 75340) NEGATIVE SOURCE (test code = 91089) NOT SPECIFIED HEMOGLOBIN [id number] 00:00:00* Test Item Value Reference Range Interpretation Comme nts HEMOGLOBIN A1c (test code = 27184) 6.0 % HEMOGLOBIN [id number] 00:00:00* Test Item Value Reference Range Interpretation Comme nts HEMOGLOBIN A1c (test code = 43990) 6.0 % H. PYLORI (BREATH)2020-02-07 00:00:00* Test Item Value Reference Range Interpretation Comme nts H. PYLORI (BREATH) (test cod e = 08775) NEGATIVE H. PYLORI (BREATH)2020-02-07 00:00:00* Test Item Value Reference Range Interpretation Comme nts H. PYLORI (BREATH) (test cod e = 02905) NEGATIVE HEMOGLOBIN [id number] 00:00:00* Test Item Value Reference Range Interpretation Comme nts HEMOGLOBIN A1c (test code = 94598) 6.0 % HEMOGLOBIN [id number] 00:00:00* Test Item Value Reference Range Interpretation Comme nts HEMOGLOBIN A1c (test code = 00024) 6.0 % HEMOGLOBIN [id number] 00:00:00* Test Item Value Reference Range Interpretation Comme nts HEMOGLOBIN A1c (test code = 58044) 6.0 % H. PYLORI (BREATH)2020-02-07 00:00:00* Test Item Value Reference Range Interpretation Comme nts H. PYLORI (BREATH) (test cod e = 88262) NEGATIVE H. PYLORI (BREATH)2020-02-07 00:00:00* Test Item Value Reference Range Interpretation Comme nts H. PYLORI (BREATH) (test cod e = 81353) NEGATIVE HEMOGLOBIN [id number] 00:00:00* Test Item Value Reference Range Interpretation Comme nts HEMOGLOBIN A1c (test code = 94379) 6.0 % HEMOGLOBIN [id number] 00:00:00* Test Item Value Reference Range Interpretation Comme nts HEMOGLOBIN A1c (test code = 31709) 6.0 % HEMOGLOBIN [id number] 00:00:00* Test Item Value Reference Range Interpretation Comme nts HEMOGLOBIN A1c (test code = 47027) 6.0 % H. PYLORI (BREATH)2020-02-07 00:00:00* Test Item Value Reference Range Interpretation Comme nts H. PYLORI (BREATH) (test cod e = 00881) NEGATIVE H. PYLORI (BREATH)2020-02-07 00:00:00* Test Item Value Reference Range Interpretation Comme nts H. PYLORI (BREATH) (test cod e = 18044) NEGATIVE HEMOGLOBIN [id number] 00:00:00* Test Item Value Reference Range Interpretation Comme nts HEMOGLOBIN A1c (test code = 05120) 6.0 % HEMOGLOBIN [id number] 00:00:00* Test Item Value Reference Range Interpretation Comme nts HEMOGLOBIN A1c (test code = 07941) 6.0 % HEMOGLOBIN [id number] 00:00:00* Test Item Value Reference Range Interpretation Comme nts HEMOGLOBIN A1c (test code = 93919) 6.0 % H. PYLORI (BREATH)2020-02-07 00:00:00* Test Item Value Reference Range Interpretation Comme nts H. PYLORI (BREATH) (test cod e = 79896) NEGATIVE H. PYLORI (BREATH)2020-02-07 00:00:00* Test Item Value Reference Range Interpretation Comme nts H. PYLORI (BREATH) (test cod e = 76487) NEGATIVE H. PYLORI (BREATH)2020-02-07 00:00:00* Test Item Value Reference Range Interpretation Comme nts H. PYLORI (BREATH) (test cod e = 90610) NEGATIVE HEMOGLOBIN [id number] 00:00:00* Test Item Value Reference Range Interpretation Comme nts HEMOGLOBIN A1c (test code = 87128) 6.0 % HEMOGLOBIN [id number] 00:00:00* Test Item Value Reference Range Interpretation Comme nts HEMOGLOBIN A1c (test code = 61560) 6.0 % HEMOGLOBIN [id number] 00:00:00* Test Item Value Reference Range Interpretation Comme nts HEMOGLOBIN A1c (test code = 99646) 6.0 % CBC W/AUTO [id number] 00:00:00* Test Item Value Reference Range Interpretation Comme nts WBC (test code = 1001) 6.3 K/UL RBC (test code = 1002) 4.71 M/UL HEMOGLOBIN (test code = 1003) 13.8 G/DL HEMATOCRIT (test code = 1004) 41.1 % MCV (test code = 1005) 87.3 fL MCH (test code = 1006) 29.3 PG MCHC (test code = 1007) 33.6 G/DL RDW (test code = 1038) 12.5 % NEUTROPHILS (test code = 1008) 58.9 % LYMPHOCYTES (test code = 1010) 32.8 % MONOCYTES (test code = 1011) 7.0 % EOSINOPHILS (test code = 1012) 0.8 % BASOPHILS (test code = 1013) 0.5 % PLATELET COUNT (test code = 1015) 242 K/UL COMPREHENSIVE METABOLIC [id number] 00:00:00* Test Item Value Reference Range Interpretation Comme nts GLUCOSE (test code = 2217) 113 MG/DL BUN (test code = 2208) 18 MG/DL CREATININE (test code = 2214) 0.50 MG/DL eGFR AMER. (test cod e = 28633) 126 ML/MIN/1.73 eGFR NON- AMER. (test code = 44792) 109 ML/MIN/1.73 CALC BUN/CREAT (test code = 2235) 36 RATIO SODIUM (test code = 2231) 143 MEQ/L POTASSIUM (test code = 2228) 4.1 MEQ/L CHLORIDE (test code = 2215) 105 MEQ/L CARBON DIOXIDE (test code = 2206) 25 MEQ/L CALCIUM (test code = 2209) 9.8 MG/DL PROTEIN, TOTAL (test code = 2229) 7.2 G/DL ALBUMIN (test code = 2201) 4.9 G/DL CALC GLOBULIN (test code = 2240) 2.3 G/DL CALC A/G RATIO (test code = 2234) 2.1 RATIO BILIRUBIN, TOTAL (test code = 2207) 0.3 MG/DL ALKALINE PHOSPHATASE (test code = 2204) 131 U/L AST (test code = 2218) 26 U/L ALT (test code = 2219) 38 U/L [id number] 00:00:00* Test Item Value Reference Range Interpretation Comme nts TSH, THIRD GENERATION (test code = 2821) 1.300 UIU/ML [id number] 00:00:00* Test Item Value Reference Range Interpretation Comme nts TSH, THIRD GENERATION (test code = 2821) 1.300 UIU/ML CBC W/AUTO [id number] 00:00:00* Test Item Value Reference Range Interpretation Comme nts WBC (test code = 1001) 6.3 K/UL RBC (test code = 1002) 4.71 M/UL HEMOGLOBIN (test code = 1003) 13.8 G/DL HEMATOCRIT (test code = 1004) 41.1 % MCV (test code = 1005) 87.3 fL MCH (test code = 1006) 29.3 PG MCHC (test code = 1007) 33.6 G/DL RDW (test code = 1038) 12.5 % NEUTROPHILS (test code = 1008) 58.9 % LYMPHOCYTES (test code = 1010) 32.8 % MONOCYTES (test code = 1011) 7.0 % EOSINOPHILS (test code = 1012) 0.8 % BASOPHILS (test code = 1013) 0.5 % PLATELET COUNT (test code = 1015) 242 K/UL CBC W/AUTO [id number] 00:00:00* Test Item Value Reference Range Interpretation Comme nts WBC (test code = 1001) 6.3 K/UL RBC (test code = 1002) 4.71 M/UL HEMOGLOBIN (test code = 1003) 13.8 G/DL HEMATOCRIT (test code = 1004) 41.1 % MCV (test code = 1005) 87.3 fL MCH (test code = 1006) 29.3 PG MCHC (test code = 1007) 33.6 G/DL RDW (test code = 1038) 12.5 % NEUTROPHILS (test code = 1008) 58.9 % LYMPHOCYTES (test code = 1010) 32.8 % MONOCYTES (test code = 1011) 7.0 % EOSINOPHILS (test code = 1012) 0.8 % BASOPHILS (test code = 1013) 0.5 % PLATELET COUNT (test code = 1015) 242 K/UL CBC W/AUTO [id number] 00:00:00* Test Item Value Reference Range Interpretation Comme nts WBC (test code = 1001) 6.3 K/UL RBC (test code = 1002) 4.71 M/UL HEMOGLOBIN (test code = 1003) 13.8 G/DL HEMATOCRIT (test code = 1004) 41.1 % MCV (test code = 1005) 87.3 fL MCH (test code = 1006) 29.3 PG MCHC (test code = 1007) 33.6 G/DL RDW (test code = 1038) 12.5 % NEUTROPHILS (test code = 1008) 58.9 % LYMPHOCYTES (test code = 1010) 32.8 % MONOCYTES (test code = 1011) 7.0 % EOSINOPHILS (test code = 1012) 0.8 % BASOPHILS (test code = 1013) 0.5 % PLATELET COUNT (test code = 1015) 242 K/UL COMPREHENSIVE METABOLIC [id number] 00:00:00* Test Item Value Reference Range Interpretation Comme nts GLUCOSE (test code = 2217) 113 MG/DL BUN (test code = 2208) 18 MG/DL CREATININE (test code = 2214) 0.50 MG/DL eGFR AMER. (test cod e = 80106) 126 ML/MIN/1.73 eGFR NON- AMER. (test code = 13127) 109 ML/MIN/1.73 CALC BUN/CREAT (test code = 2235) 36 RATIO SODIUM (test code = 2231) 143 MEQ/L POTASSIUM (test code = 2228) 4.1 MEQ/L CHLORIDE (test code = 2215) 105 MEQ/L CARBON DIOXIDE (test code = 2206) 25 MEQ/L CALCIUM (test code = 2209) 9.8 MG/DL PROTEIN, TOTAL (test code = 2229) 7.2 G/DL ALBUMIN (test code = 2201) 4.9 G/DL CALC GLOBULIN (test code = 2240) 2.3 G/DL CALC A/G RATIO (test code = 2234) 2.1 RATIO BILIRUBIN, TOTAL (test code = 2207) 0.3 MG/DL ALKALINE PHOSPHATASE (test code = 2204) 131 U/L AST (test code = 2218) 26 U/L ALT (test code = 2219) 38 U/L COMPREHENSIVE METABOLIC [id number] 00:00:00* Test Item Value Reference Range Interpretation Comme nts GLUCOSE (test code = 2217) 113 MG/DL BUN (test code = 2208) 18 MG/DL CREATININE (test code = 2214) 0.50 MG/DL eGFR AMER. (test cod e = 47866) 126 ML/MIN/1.73 eGFR NON- AMER. (test code = 90037) 109 ML/MIN/1.73 CALC BUN/CREAT (test code = 2235) 36 RATIO SODIUM (test code = 2231) 143 MEQ/L POTASSIUM (test code = 2228) 4.1 MEQ/L CHLORIDE (test code = 2215) 105 MEQ/L CARBON DIOXIDE (test code = 2206) 25 MEQ/L CALCIUM (test code = 2209) 9.8 MG/DL PROTEIN, TOTAL (test code = 2229) 7.2 G/DL ALBUMIN (test code = 2201) 4.9 G/DL CALC GLOBULIN (test code = 2240) 2.3 G/DL CALC A/G RATIO (test code = 2234) 2.1 RATIO BILIRUBIN, TOTAL (test code = 7) 0.3 MG/DL ALKALINE PHOSPHATASE (test code = 2203) 131 U/L AST (test code = 2217) 26 U/L ALT (test code = 2218) 38 U/L [id number] 00:00:00* Test Item Value Reference Range Interpretation Comme nts TSH, THIRD GENERATION (test code = 2821) 1.300 UIU/ML [id number] 00:00:00* Test Item Value Reference Range Interpretation Comme nts TSH, THIRD GENERATION (test code = 2821) 1.300 UIU/ML [id number] 00:00:00* Test Item Value Reference Range Interpretation Comme nts TSH, THIRD GENERATION (test code = 2821) 1.300 UIU/ML CBC W/AUTO [id number] 00:00:00* Test Item Value Reference Range Interpretation Comme nts WBC (test code = 1001) 6.3 K/UL RBC (test code = 1002) 4.71 M/UL HEMOGLOBIN (test code = 1003) 13.8 G/DL HEMATOCRIT (test code = 1004) 41.1 % MCV (test code = 1005) 87.3 fL MCH (test code = 1006) 29.3 PG MCHC (test code = 1007) 33.6 G/DL RDW (test code = 1038) 12.5 % NEUTROPHILS (test code = 1008) 58.9 % LYMPHOCYTES (test code = 1010) 32.8 % MONOCYTES (test code = 1011) 7.0 % EOSINOPHILS (test code = 1012) 0.8 % BASOPHILS (test code = 1013) 0.5 % PLATELET COUNT (test code = 1015) 242 K/UL CBC W/AUTO [id number] 00:00:00* Test Item Value Reference Range Interpretation Comme nts WBC (test code = 1001) 6.3 K/UL RBC (test code = 1002) 4.71 M/UL HEMOGLOBIN (test code = 1003) 13.8 G/DL HEMATOCRIT (test code = 1004) 41.1 % MCV (test code = 1005) 87.3 fL MCH (test code = 1006) 29.3 PG MCHC (test code = 1007) 33.6 G/DL RDW (test code = 1038) 12.5 % NEUTROPHILS (test code = 1008) 58.9 % LYMPHOCYTES (test code = 1010) 32.8 % MONOCYTES (test code = 1011) 7.0 % EOSINOPHILS (test code = 1012) 0.8 % BASOPHILS (test code = 1013) 0.5 % PLATELET COUNT (test code = 1015) 242 K/UL CBC W/AUTO [id number] 00:00:00* Test Item Value Reference Range Interpretation Comme nts WBC (test code = 1001) 6.3 K/UL RBC (test code = 1002) 4.71 M/UL HEMOGLOBIN (test code = 1003) 13.8 G/DL HEMATOCRIT (test code = 1004) 41.1 % MCV (test code = 1005) 87.3 fL MCH (test code = 1006) 29.3 PG MCHC (test code = 1007) 33.6 G/DL RDW (test code = 1038) 12.5 % NEUTROPHILS (test code = 1008) 58.9 % LYMPHOCYTES (test code = 1010) 32.8 % MONOCYTES (test code = 1011) 7.0 % EOSINOPHILS (test code = 1012) 0.8 % BASOPHILS (test code = 1013) 0.5 % PLATELET COUNT (test code = 1015) 242 K/UL COMPREHENSIVE METABOLIC [id number] 00:00:00* Test Item Value Reference Range Interpretation Comme nts GLUCOSE (test code = 2217) 113 MG/DL BUN (test code = 2208) 18 MG/DL CREATININE (test code = 2214) 0.50 MG/DL eGFR AMER. (test cod e = 57220) 126 ML/MIN/1.73 eGFR NON- AMER. (test code = 20818) 109 ML/MIN/1.73 CALC BUN/CREAT (test code = 2235) 36 RATIO SODIUM (test code = 2231) 143 MEQ/L POTASSIUM (test code = 2228) 4.1 MEQ/L CHLORIDE (test code = 2215) 105 MEQ/L CARBON DIOXIDE (test code = 2206) 25 MEQ/L CALCIUM (test code = 2209) 9.8 MG/DL PROTEIN, TOTAL (test code = 2229) 7.2 G/DL ALBUMIN (test code = 2201) 4.9 G/DL CALC GLOBULIN (test code = 2240) 2.3 G/DL CALC A/G RATIO (test code = 2234) 2.1 RATIO BILIRUBIN, TOTAL (test code = 2207) 0.3 MG/DL ALKALINE PHOSPHATASE (test code = 2204) 131 U/L AST (test code = 2218) 26 U/L ALT (test code = 2219) 38 U/L COMPREHENSIVE METABOLIC [id number] 00:00:00* Test Item Value Reference Range Interpretation Comme nts GLUCOSE (test code = 2217) 113 MG/DL BUN (test code = 2208) 18 MG/DL CREATININE (test code = 2214) 0.50 MG/DL eGFR AMER. (test cod e = 27406) 126 ML/MIN/1.73 eGFR NON- AMER. (test code = 43623) 109 ML/MIN/1.73 CALC BUN/CREAT (test code = 2235) 36 RATIO SODIUM (test code = 2231) 143 MEQ/L POTASSIUM (test code = 2228) 4.1 MEQ/L CHLORIDE (test code = 2215) 105 MEQ/L CARBON DIOXIDE (test code = 2206) 25 MEQ/L CALCIUM (test code = 2209) 9.8 MG/DL PROTEIN, TOTAL (test code = 2229) 7.2 G/DL ALBUMIN (test code = 2201) 4.9 G/DL CALC GLOBULIN (test code = 2240) 2.3 G/DL CALC A/G RATIO (test code = 2234) 2.1 RATIO BILIRUBIN, TOTAL (test code = 2207) 0.3 MG/DL ALKALINE PHOSPHATASE (test code = 2204) 131 U/L AST (test code = 2218) 26 U/L ALT (test code = 2219) 38 U/L [id number] 00:00:00* Test Item Value Reference Range Interpretation Comme nts TSH, THIRD GENERATION (test code = 2821) 1.300 UIU/ML [id number] 00:00:00* Test Item Value Reference Range Interpretation Comme nts TSH, THIRD GENERATION (test code = 2821) 1.300 UIU/ML [id number] 00:00:00* Test Item Value Reference Range Interpretation Comme nts TSH, THIRD GENERATION (test code = 2821) 1.300 UIU/ML CBC W/AUTO [id number] 00:00:00* Test Item Value Reference Range Interpretation Comme nts WBC (test code = 1001) 6.3 K/UL RBC (test code = 1002) 4.71 M/UL HEMOGLOBIN (test code = 1003) 13.8 G/DL HEMATOCRIT (test code = 1004) 41.1 % MCV (test code = 1005) 87.3 fL MCH (test code = 1006) 29.3 PG MCHC (test code = 1007) 33.6 G/DL RDW (test code = 1038) 12.5 % NEUTROPHILS (test code = 1008) 58.9 % LYMPHOCYTES (test code = 1010) 32.8 % MONOCYTES (test code = 1011) 7.0 % EOSINOPHILS (test code = 1012) 0.8 % BASOPHILS (test code = 1013) 0.5 % PLATELET COUNT (test code = 1015) 242 K/UL CBC W/AUTO [id number] 00:00:00* Test Item Value Reference Range Interpretation Comme nts WBC (test code = 1001) 6.3 K/UL RBC (test code = 1002) 4.71 M/UL HEMOGLOBIN (test code = 1003) 13.8 G/DL HEMATOCRIT (test code = 1004) 41.1 % MCV (test code = 1005) 87.3 fL MCH (test code = 1006) 29.3 PG MCHC (test code = 1007) 33.6 G/DL RDW (test code = 1038) 12.5 % NEUTROPHILS (test code = 1008) 58.9 % LYMPHOCYTES (test code = 1010) 32.8 % MONOCYTES (test code = 1011) 7.0 % EOSINOPHILS (test code = 1012) 0.8 % BASOPHILS (test code = 1013) 0.5 % PLATELET COUNT (test code = 1015) 242 K/UL CBC W/AUTO [id number] 00:00:00* Test Item Value Reference Range Interpretation Comme nts WBC (test code = 1001) 6.3 K/UL RBC (test code = 1002) 4.71 M/UL HEMOGLOBIN (test code = 1003) 13.8 G/DL HEMATOCRIT (test code = 1004) 41.1 % MCV (test code = 1005) 87.3 fL MCH (test code = 1006) 29.3 PG MCHC (test code = 1007) 33.6 G/DL RDW (test code = 1038) 12.5 % NEUTROPHILS (test code = 1008) 58.9 % LYMPHOCYTES (test code = 1010) 32.8 % MONOCYTES (test code = 1011) 7.0 % EOSINOPHILS (test code = 1012) 0.8 % BASOPHILS (test code = 1013) 0.5 % PLATELET COUNT (test code = 1015) 242 K/UL COMPREHENSIVE METABOLIC [id number] 00:00:00* Test Item Value Reference Range Interpretation Comme nts GLUCOSE (test code = 2217) 113 MG/DL BUN (test code = 2208) 18 MG/DL CREATININE (test code = 2214) 0.50 MG/DL eGFR AMER. (test cod e = 81374) 126 ML/MIN/1.73 eGFR NON- AMER. (test code = 25507) 109 ML/MIN/1.73 CALC BUN/CREAT (test code = 2235) 36 RATIO SODIUM (test code = 2231) 143 MEQ/L POTASSIUM (test code = 2228) 4.1 MEQ/L CHLORIDE (test code = 2215) 105 MEQ/L CARBON DIOXIDE (test code = 2206) 25 MEQ/L CALCIUM (test code = 2209) 9.8 MG/DL PROTEIN, TOTAL (test code = 2229) 7.2 G/DL ALBUMIN (test code = 2201) 4.9 G/DL CALC GLOBULIN (test code = 2240) 2.3 G/DL CALC A/G RATIO (test code = 2234) 2.1 RATIO BILIRUBIN, TOTAL (test code = 2207) 0.3 MG/DL ALKALINE PHOSPHATASE (test code = 2204) 131 U/L AST (test code = 2218) 26 U/L ALT (test code = 2219) 38 U/L COMPREHENSIVE METABOLIC [id number] 00:00:00* Test Item Value Reference Range Interpretation Comme nts GLUCOSE (test code = 2217) 113 MG/DL BUN (test code = 2208) 18 MG/DL CREATININE (test code = 2214) 0.50 MG/DL eGFR AMER. (test cod e = 81866) 126 ML/MIN/1.73 eGFR NON- AMER. (test code = 56199) 109 ML/MIN/1.73 CALC BUN/CREAT (test code = 2235) 36 RATIO SODIUM (test code = 2231) 143 MEQ/L POTASSIUM (test code = 2228) 4.1 MEQ/L CHLORIDE (test code = 2215) 105 MEQ/L CARBON DIOXIDE (test code = 2206) 25 MEQ/L CALCIUM (test code = 2209) 9.8 MG/DL PROTEIN, TOTAL (test code = 2229) 7.2 G/DL ALBUMIN (test code = 2201) 4.9 G/DL CALC GLOBULIN (test code = 2240) 2.3 G/DL CALC A/G RATIO (test code = 2234) 2.1 RATIO BILIRUBIN, TOTAL (test code = 2207) 0.3 MG/DL ALKALINE PHOSPHATASE (test code = 2204) 131 U/L AST (test code = 2218) 26 U/L ALT (test code = 2219) 38 U/L [id number] 00:00:00* Test Item Value Reference Range Interpretation Comme nts TSH, THIRD GENERATION (test code = 2821) 1.300 UIU/ML [id number] 00:00:00* Test Item Value Reference Range Interpretation Comme nts TSH, THIRD GENERATION (test code = 2821) 1.300 UIU/ML [id number] 00:00:00* Test Item Value Reference Range Interpretation Comme nts TSH, THIRD GENERATION (test code = 2821) 1.300 UIU/ML CBC W/AUTO [id number] 00:00:00* Test Item Value Reference Range Interpretation Comme nts WBC (test code = 1001) 6.3 K/UL RBC (test code = 1002) 4.71 M/UL HEMOGLOBIN (test code = 1003) 13.8 G/DL HEMATOCRIT (test code = 1004) 41.1 % MCV (test code = 1005) 87.3 fL MCH (test code = 1006) 29.3 PG MCHC (test code = 1007) 33.6 G/DL RDW (test code = 1038) 12.5 % NEUTROPHILS (test code = 1008) 58.9 % LYMPHOCYTES (test code = 1010) 32.8 % MONOCYTES (test code = 1011) 7.0 % EOSINOPHILS (test code = 1012) 0.8 % BASOPHILS (test code = 1013) 0.5 % PLATELET COUNT (test code = 1015) 242 K/UL CBC W/AUTO [id number] 00:00:00* Test Item Value Reference Range Interpretation Comme nts WBC (test code = 1001) 6.3 K/UL RBC (test code = 1002) 4.71 M/UL HEMOGLOBIN (test code = 1003) 13.8 G/DL HEMATOCRIT (test code = 1004) 41.1 % MCV (test code = 1005) 87.3 fL MCH (test code = 1006) 29.3 PG MCHC (test code = 1007) 33.6 G/DL RDW (test code = 1038) 12.5 % NEUTROPHILS (test code = 1008) 58.9 % LYMPHOCYTES (test code = 1010) 32.8 % MONOCYTES (test code = 1011) 7.0 % EOSINOPHILS (test code = 1012) 0.8 % BASOPHILS (test code = 1013) 0.5 % PLATELET COUNT (test code = 1015) 242 K/UL CBC W/AUTO [id number] 00:00:00* Test Item Value Reference Range Interpretation Comme nts WBC (test code = 1001) 6.3 K/UL RBC (test code = 1002) 4.71 M/UL HEMOGLOBIN (test code = 1003) 13.8 G/DL HEMATOCRIT (test code = 1004) 41.1 % MCV (test code = 1005) 87.3 fL MCH (test code = 1006) 29.3 PG MCHC (test code = 1007) 33.6 G/DL RDW (test code = 1038) 12.5 % NEUTROPHILS (test code = 1008) 58.9 % LYMPHOCYTES (test code = 1010) 32.8 % MONOCYTES (test code = 1011) 7.0 % EOSINOPHILS (test code = 1012) 0.8 % BASOPHILS (test code = 1013) 0.5 % PLATELET COUNT (test code = 1015) 242 K/UL COMPREHENSIVE METABOLIC [id number] 00:00:00* Test Item Value Reference Range Interpretation Comme nts GLUCOSE (test code = 2217) 113 MG/DL BUN (test code = 2208) 18 MG/DL CREATININE (test code = 2214) 0.50 MG/DL eGFR AMER. (test cod e = 58135) 126 ML/MIN/1.73 eGFR NON- AMER. (test code = 32927) 109 ML/MIN/1.73 CALC BUN/CREAT (test code = 2235) 36 RATIO SODIUM (test code = 2231) 143 MEQ/L POTASSIUM (test code = 2228) 4.1 MEQ/L CHLORIDE (test code = 2215) 105 MEQ/L CARBON DIOXIDE (test code = 2206) 25 MEQ/L CALCIUM (test code = 2209) 9.8 MG/DL PROTEIN, TOTAL (test code = 2229) 7.2 G/DL ALBUMIN (test code = 2201) 4.9 G/DL CALC GLOBULIN (test code = 2240) 2.3 G/DL CALC A/G RATIO (test code = 2234) 2.1 RATIO BILIRUBIN, TOTAL (test code = 2207) 0.3 MG/DL ALKALINE PHOSPHATASE (test code = 2204) 131 U/L AST (test code = 2218) 26 U/L ALT (test code = 2219) 38 U/L COMPREHENSIVE METABOLIC [id number] 00:00:00* Test Item Value Reference Range Interpretation Comme nts GLUCOSE (test code = 2217) 113 MG/DL BUN (test code = 2208) 18 MG/DL CREATININE (test code = 2214) 0.50 MG/DL eGFR AMER. (test cod e = 92921) 126 ML/MIN/1.73 eGFR NON- AMER. (test code = 00078) 109 ML/MIN/1.73 CALC BUN/CREAT (test code = 2235) 36 RATIO SODIUM (test code = 2231) 143 MEQ/L POTASSIUM (test code = 2228) 4.1 MEQ/L CHLORIDE (test code = 2215) 105 MEQ/L CARBON DIOXIDE (test code = 2206) 25 MEQ/L CALCIUM (test code = 2209) 9.8 MG/DL PROTEIN, TOTAL (test code = 2229) 7.2 G/DL ALBUMIN (test code = 2201) 4.9 G/DL CALC GLOBULIN (test code = 2240) 2.3 G/DL CALC A/G RATIO (test code = 2234) 2.1 RATIO BILIRUBIN, TOTAL (test code = 2207) 0.3 MG/DL ALKALINE PHOSPHATASE (test code = 2204) 131 U/L AST (test code = 2218) 26 U/L ALT (test code = 2219) 38 U/L [id number] 00:00:00* Test Item Value Reference Range Interpretation Comme nts TSH, THIRD GENERATION (test code = 2821) 1.300 UIU/ML [id number] 00:00:00* Test Item Value Reference Range Interpretation Comme nts TSH, THIRD GENERATION (test code = 2821) 1.300 UIU/ML CBC W/AUTO [id number] 00:00:00* Test Item Value Reference Range Interpretation Comme nts WBC (test code = 1001) 6.3 K/UL RBC (test code = 1002) 4.71 M/UL HEMOGLOBIN (test code = 1003) 13.8 G/DL HEMATOCRIT (test code = 1004) 41.1 % MCV (test code = 1005) 87.3 fL MCH (test code = 1006) 29.3 PG MCHC (test code = 1007) 33.6 G/DL RDW (test code = 1038) 12.5 % NEUTROPHILS (test code = 1008) 58.9 % LYMPHOCYTES (test code = 1010) 32.8 % MONOCYTES (test code = 1011) 7.0 % EOSINOPHILS (test code = 1012) 0.8 % BASOPHILS (test code = 1013) 0.5 % PLATELET COUNT (test code = 1015) 242 K/UL [id number] 00:00:00* Test Item Value Reference Range Interpretation Comme nts TSH, THIRD GENERATION (test code = 2821) 1.300 UIU/ML SARS-CoV-2 (COVID-19) by RT-PCR (HIGH RISK)2019-11-04 00:00:00* Test Item Value Reference Range Interpretation Comme nts SARS-CoV-2 INTERPRETATION (t est code = 79685) NEGATIVE SOURCE (test code = 23090) NOT SPECIFIED SARS-CoV-2 (COVID-19) by RT-PCR (HIGH RISK)2019-11-04 00:00:00* Test Item Value Reference Range Interpretation Comme nts SARS-CoV-2 INTERPRETATION (t est code = 17619) NEGATIVE SOURCE (test code = 82266) NOT SPECIFIED SARS-CoV-2 (COVID-19) by RT-PCR (HIGH RISK)2019-11-04 00:00:00* Test Item Value Reference Range Interpretation Comme nts SARS-CoV-2 INTERPRETATION (t est code = 70964) NEGATIVE SOURCE (test code = 02430) NOT SPECIFIED SARS-CoV-2 (COVID-19) by RT-PCR (HIGH RISK)2019-11-04 00:00:00* Test Item Value Reference Range Interpretation Comme nts SARS-CoV-2 INTERPRETATION (t est code = 37843) NEGATIVE SOURCE (test code = 55613) NOT SPECIFIED SARS-CoV-2 (COVID-19) by RT-PCR (HIGH RISK)2019-11-04 00:00:00* Test Item Value Reference Range Interpretation Comme nts SARS-CoV-2 INTERPRETATION (t est code = 28125) NEGATIVE SOURCE (test code = 24955) NOT SPECIFIED SARS-CoV-2 (COVID-19) by RT-PCR (HIGH RISK)2019-11-04 00:00:00* Test Item Value Reference Range Interpretation Comme nts SARS-CoV-2 INTERPRETATION (t est code = 16476) NEGATIVE SOURCE (test code = 14086) NOT SPECIFIED SARS-CoV-2 (COVID-19) by RT-PCR (HIGH RISK)2019-11-04 00:00:00* Test Item Value Reference Range Interpretation Comme nts SARS-CoV-2 INTERPRETATION (t est code = 66152) NEGATIVE SOURCE (test code = 51415) NOT SPECIFIED SARS-CoV-2 (COVID-19) by RT-PCR (HIGH RISK)2019-11-04 00:00:00* Test Item Value Reference Range Interpretation Comme nts SARS-CoV-2 INTERPRETATION (t est code = 42188) NEGATIVE SOURCE (test code = 71625) NOT SPECIFIED SARS-CoV-2 (COVID-19) by RT-PCR (HIGH RISK)2019-11-04 00:00:00* Test Item Value Reference Range Interpretation Comme nts SARS-CoV-2 INTERPRETATION (t est code = 56701) NEGATIVE SOURCE (test code = 78534) NOT SPECIFIED SARS-CoV-2 (COVID-19) by RT-PCR (HIGH RISK)2019-08-29 00:00:00* Test Item Value Reference Range Interpretation Comme nts SARS-CoV-2 INTERPRETATION (test code = 79722) POSITIVE SOURCE (test code = 79720) NASOPHARYNGEAL SARS-CoV-2 (COVID-19) by RT-PCR (HIGH RISK)2019-08-29 00:00:00* Test Item Value Reference Range Interpretation Comme nts SARS-CoV-2 INTERPRETATION (test code = 95754) POSITIVE SOURCE (test code = 86454) NASOPHARYNGEAL SARS-CoV-2 (COVID-19) by RT-PCR (HIGH RISK)2019-08-29 00:00:00* Test Item Value Reference Range Interpretation Comme nts SARS-CoV-2 INTERPRETATION (test code = 39041) POSITIVE SOURCE (test code = 73334) NASOPHARYNGEAL SARS-CoV-2 (COVID-19) by RT-PCR (HIGH RISK)2019-08-29 00:00:00* Test Item Value Reference Range Interpretation Comme nts SARS-CoV-2 INTERPRETATION (test code = 52331) POSITIVE SOURCE (test code = 91798) NASOPHARYNGEAL SARS-CoV-2 (COVID-19) by RT-PCR (HIGH RISK)2019-08-29 00:00:00* Test Item Value Reference Range Interpretation Comme nts SARS-CoV-2 INTERPRETATION (test code = 23796) POSITIVE SOURCE (test code = 40715) NASOPHARYNGEAL SARS-CoV-2 (COVID-19) by RT-PCR (HIGH RISK)2019-08-29 00:00:00* Test Item Value Reference Range Interpretation Comme nts SARS-CoV-2 INTERPRETATION (test code = 17818) POSITIVE SOURCE (test code = 15125) NASOPHARYNGEAL SARS-CoV-2 (COVID-19) by RT-PCR (HIGH RISK)2019-08-29 00:00:00* Test Item Value Reference Range Interpretation Comme nts SARS-CoV-2 INTERPRETATION (test code = 54735) POSITIVE SOURCE (test code = 22953) NASOPHARYNGEAL SARS-CoV-2 (COVID-19) by RT-PCR (HIGH RISK)2019-08-29 00:00:00* Test Item Value Reference Range Interpretation Comme nts SARS-CoV-2 INTERPRETATION (test code = 61967) POSITIVE SOURCE (test code = 53765) NASOPHARYNGEAL SARS-CoV-2 (COVID-19) by RT-PCR (HIGH RISK)2019-08-29 00:00:00* Test Item Value Reference Range Interpretation Comme nts SARS-CoV-2 INTERPRETATION (test code = 99947) POSITIVE SOURCE (test code = 21566) NASOPHARYNGEAL HEMOGLOBIN [id number] 00:00:00* Test Item Value Reference Range Interpretation Comme nts HEMOGLOBIN A1c (test code = 64984) 5.7 % CULTURE, [id number] 00:00:00* Test Item Value Reference Range Interpretation Comme nts CULTURE, URINE (test code = 55748) SPECIMEN NUMBER: [id number] HEMOGLOBIN [id number] 00:00:00* Test Item Value Reference Range Interpretation Comme nts HEMOGLOBIN A1c (test code = 06434) 5.7 % COMPREHENSIVE METABOLIC [id number] 00:00:00* Test Item Value Reference Range Interpretation Comme nts GLUCOSE (test code = 2217) 106 MG/DL BUN (test code = 2208) 14 MG/DL CREATININE (test code = 2214) 0.57 MG/DL eGFR AMER. (test cod e = 11601) 122 ML/MIN/1.73 eGFR NON- AMER. (test code = 54831) 105 ML/MIN/1.73 CALC BUN/CREAT (test code = 2235) 25 RATIO SODIUM (test code = 2231) 141 MEQ/L POTASSIUM (test code = 2228) 4.4 MEQ/L CHLORIDE (test code = 2215) 104 MEQ/L CARBON DIOXIDE (test code = 2206) 25 MEQ/L CALCIUM (test code = 2209) 9.8 MG/DL PROTEIN, TOTAL (test code = 2229) 6.9 G/DL ALBUMIN (test code = 2201) 4.7 G/DL CALC GLOBULIN (test code = 2240) 2.2 G/DL CALC A/G RATIO (test code = 2234) 2.1 RATIO BILIRUBIN, TOTAL (test code = 2207) 0.3 MG/DL ALKALINE PHOSPHATASE (test code = 2204) 130 U/L AST (test code = 2218) 18 U/L ALT (test code = 2219) 27 U/L LIPID [id number] 00:00:00* Test Item Value Reference Range Interpretation Comme nts CHOLESTEROL (test code = 2210) 201 MG/DL TRIGLYCERIDES (test code = 2232) 128 MG/DL HDL CHOLESTEROL (test code = 2220) 67 MG/DL CALC LDL CHOL (test code = 2237) 110 MG/DL RISK RATIO LDL/HDL (test cod e = 2238) 1.64 RATIO HEMOGLOBIN [id number] 00:00:00* Test Item Value Reference Range Interpretation Comme nts HEMOGLOBIN A1c (test code = 31709) 5.7 % HEMOGLOBIN [id number] 00:00:00* Test Item Value Reference Range Interpretation Comme nts HEMOGLOBIN A1c (test code = 38810) 5.7 % CULTURE, [id number] 00:00:00* Test Item Value Reference Range Interpretation Comme nts CULTURE, URINE (test code = 43697) SPECIMEN NUMBER: [id number] CULTURE, [id number] 00:00:00* Test Item Value Reference Range Interpretation Comme nts CULTURE, URINE (test code = 60768) SPECIMEN NUMBER: [id number] HEMOGLOBIN [id number] 00:00:00* Test Item Value Reference Range Interpretation Comme nts HEMOGLOBIN A1c (test code = 88470) 5.7 % COMPREHENSIVE METABOLIC [id number] 00:00:00* Test Item Value Reference Range Interpretation Comme nts GLUCOSE (test code = 2217) 106 MG/DL BUN (test code = 2208) 14 MG/DL CREATININE (test code = 2214) 0.57 MG/DL eGFR AMER. (test cod e = 38987) 122 ML/MIN/1.73 eGFR NON- AMER. (test code = 67424) 105 ML/MIN/1.73 CALC BUN/CREAT (test code = 2235) 25 RATIO SODIUM (test code = 2231) 141 MEQ/L POTASSIUM (test code = 2228) 4.4 MEQ/L CHLORIDE (test code = 2215) 104 MEQ/L CARBON DIOXIDE (test code = 2206) 25 MEQ/L CALCIUM (test code = 2209) 9.8 MG/DL PROTEIN, TOTAL (test code = 2229) 6.9 G/DL ALBUMIN (test code = 2201) 4.7 G/DL CALC GLOBULIN (test code = 2240) 2.2 G/DL CALC A/G RATIO (test code = 2234) 2.1 RATIO BILIRUBIN, TOTAL (test code = 2207) 0.3 MG/DL ALKALINE PHOSPHATASE (test code = 2204) 130 U/L AST (test code = 2218) 18 U/L ALT (test code = 2219) 27 U/L COMPREHENSIVE METABOLIC [id number] 00:00:00* Test Item Value Reference Range Interpretation Comme nts GLUCOSE (test code = 2217) 106 MG/DL BUN (test code = 2208) 14 MG/DL CREATININE (test code = 2214) 0.57 MG/DL eGFR AMER. (test cod e = 16509) 122 ML/MIN/1.73 eGFR NON- AMER. (test code = 42293) 105 ML/MIN/1.73 CALC BUN/CREAT (test code = 2235) 25 RATIO SODIUM (test code = 2231) 141 MEQ/L POTASSIUM (test code = 2228) 4.4 MEQ/L CHLORIDE (test code = 2215) 104 MEQ/L CARBON DIOXIDE (test code = 2206) 25 MEQ/L CALCIUM (test code = 2209) 9.8 MG/DL PROTEIN, TOTAL (test code = 2229) 6.9 G/DL ALBUMIN (test code = 2201) 4.7 G/DL CALC GLOBULIN (test code = 2240) 2.2 G/DL CALC A/G RATIO (test code = 2234) 2.1 RATIO BILIRUBIN, TOTAL (test code = 2207) 0.3 MG/DL ALKALINE PHOSPHATASE (test code = 2204) 130 U/L AST (test code = 2218) 18 U/L ALT (test code = 2219) 27 U/L LIPID [id number] 00:00:00* Test Item Value Reference Range Interpretation Comme nts CHOLESTEROL (test code = 2210) 201 MG/DL TRIGLYCERIDES (test code = 2232) 128 MG/DL HDL CHOLESTEROL (test code = 2220) 67 MG/DL CALC LDL CHOL (test code = 2237) 110 MG/DL RISK RATIO LDL/HDL (test cod e = 2238) 1.64 RATIO LIPID [id number] 00:00:00* Test Item Value Reference Range Interpretation Comme nts CHOLESTEROL (test code = 2210) 201 MG/DL TRIGLYCERIDES (test code = 2232) 128 MG/DL HDL CHOLESTEROL (test code = 2220) 67 MG/DL CALC LDL CHOL (test code = 2237) 110 MG/DL RISK RATIO LDL/HDL (test cod e = 2238) 1.64 RATIO HEMOGLOBIN [id number] 00:00:00* Test Item Value Reference Range Interpretation Comme nts HEMOGLOBIN A1c (test code = 00218) 5.7 % HEMOGLOBIN [id number] 00:00:00* Test Item Value Reference Range Interpretation Comme nts HEMOGLOBIN A1c (test code = 03819) 5.7 % CULTURE, [id number] 00:00:00* Test Item Value Reference Range Interpretation Comme nts CULTURE, URINE (test code = 13289) SPECIMEN NUMBER: [id number] HEMOGLOBIN [id number] 00:00:00* Test Item Value Reference Range Interpretation Comme nts HEMOGLOBIN A1c (test code = 72677) 5.7 % CULTURE, [id number] 00:00:00* Test Item Value Reference Range Interpretation Comme nts CULTURE, URINE (test code = 83314) SPECIMEN NUMBER: [id number] COMPREHENSIVE METABOLIC [id number] 00:00:00* Test Item Value Reference Range Interpretation Comme nts GLUCOSE (test code = 2217) 106 MG/DL BUN (test code = 2208) 14 MG/DL CREATININE (test code = 2214) 0.57 MG/DL eGFR AMER. (test cod e = 56178) 122 ML/MIN/1.73 eGFR NON- AMER. (test code = 35816) 105 ML/MIN/1.73 CALC BUN/CREAT (test code = 2235) 25 RATIO SODIUM (test code = 2231) 141 MEQ/L POTASSIUM (test code = 2228) 4.4 MEQ/L CHLORIDE (test code = 2215) 104 MEQ/L CARBON DIOXIDE (test code = 2206) 25 MEQ/L CALCIUM (test code = 2209) 9.8 MG/DL PROTEIN, TOTAL (test code = 2229) 6.9 G/DL ALBUMIN (test code = 2201) 4.7 G/DL CALC GLOBULIN (test code = 2240) 2.2 G/DL CALC A/G RATIO (test code = 2234) 2.1 RATIO BILIRUBIN, TOTAL (test code = 2207) 0.3 MG/DL ALKALINE PHOSPHATASE (test code = 2204) 130 U/L AST (test code = 2218) 18 U/L ALT (test code = 2219) 27 U/L COMPREHENSIVE METABOLIC [id number] 00:00:00* Test Item Value Reference Range Interpretation Comme nts GLUCOSE (test code = 2217) 106 MG/DL BUN (test code = 2208) 14 MG/DL CREATININE (test code = 2214) 0.57 MG/DL eGFR AMER. (test cod e = 28413) 122 ML/MIN/1.73 eGFR NON- AMER. (test code = 25741) 105 ML/MIN/1.73 CALC BUN/CREAT (test code = 2235) 25 RATIO SODIUM (test code = 2231) 141 MEQ/L POTASSIUM (test code = 2228) 4.4 MEQ/L CHLORIDE (test code = 2215) 104 MEQ/L CARBON DIOXIDE (test code = 2206) 25 MEQ/L CALCIUM (test code = 2209) 9.8 MG/DL PROTEIN, TOTAL (test code = 2229) 6.9 G/DL ALBUMIN (test code = 2201) 4.7 G/DL CALC GLOBULIN (test code = 2240) 2.2 G/DL CALC A/G RATIO (test code = 2234) 2.1 RATIO BILIRUBIN, TOTAL (test code = 2207) 0.3 MG/DL ALKALINE PHOSPHATASE (test code = 2204) 130 U/L AST (test code = 2218) 18 U/L ALT (test code = 2219) 27 U/L LIPID [id number] 00:00:00* Test Item Value Reference Range Interpretation Comme nts CHOLESTEROL (test code = 2210) 201 MG/DL TRIGLYCERIDES (test code = 2232) 128 MG/DL HDL CHOLESTEROL (test code = 2220) 67 MG/DL CALC LDL CHOL (test code = 2237) 110 MG/DL RISK RATIO LDL/HDL (test cod e = 2238) 1.64 RATIO LIPID [id number] 00:00:00* Test Item Value Reference Range Interpretation Comme nts CHOLESTEROL (test code = 2210) 201 MG/DL TRIGLYCERIDES (test code = 2232) 128 MG/DL HDL CHOLESTEROL (test code = 2220) 67 MG/DL CALC LDL CHOL (test code = 2237) 110 MG/DL RISK RATIO LDL/HDL (test cod e = 2238) 1.64 RATIO HEMOGLOBIN [id number] 00:00:00* Test Item Value Reference Range Interpretation Comme nts HEMOGLOBIN A1c (test code = 01117) 5.7 % HEMOGLOBIN [id number] 00:00:00* Test Item Value Reference Range Interpretation Comme nts HEMOGLOBIN A1c (test code = 28000) 5.7 % CULTURE, [id number] 00:00:00* Test Item Value Reference Range Interpretation Comme nts CULTURE, URINE (test code = 14770) SPECIMEN NUMBER: [id number] HEMOGLOBIN [id number] 00:00:00* Test Item Value Reference Range Interpretation Comme nts HEMOGLOBIN A1c (test code = 56566) 5.7 % CULTURE, [id number] 00:00:00* Test Item Value Reference Range Interpretation Comme nts CULTURE, URINE (test code = 53876) SPECIMEN NUMBER: [id number] COMPREHENSIVE METABOLIC [id number] 00:00:00* Test Item Value Reference Range Interpretation Comme nts GLUCOSE (test code = 2217) 106 MG/DL BUN (test code = 2208) 14 MG/DL CREATININE (test code = 2214) 0.57 MG/DL eGFR AMER. (test cod e = 71800) 122 ML/MIN/1.73 eGFR NON- AMER. (test code = 46601) 105 ML/MIN/1.73 CALC BUN/CREAT (test code = 2235) 25 RATIO SODIUM (test code = 2231) 141 MEQ/L POTASSIUM (test code = 2228) 4.4 MEQ/L CHLORIDE (test code = 2215) 104 MEQ/L CARBON DIOXIDE (test code = 2206) 25 MEQ/L CALCIUM (test code = 2209) 9.8 MG/DL PROTEIN, TOTAL (test code = 2229) 6.9 G/DL ALBUMIN (test code = 2201) 4.7 G/DL CALC GLOBULIN (test code = 2240) 2.2 G/DL CALC A/G RATIO (test code = 2234) 2.1 RATIO BILIRUBIN, TOTAL (test code = 2207) 0.3 MG/DL ALKALINE PHOSPHATASE (test code = 2204) 130 U/L AST (test code = 2218) 18 U/L ALT (test code = 2219) 27 U/L COMPREHENSIVE METABOLIC [id number] 00:00:00* Test Item Value Reference Range Interpretation Comme nts GLUCOSE (test code = 2217) 106 MG/DL BUN (test code = 2208) 14 MG/DL CREATININE (test code = 2214) 0.57 MG/DL eGFR AMER. (test cod e = 96188) 122 ML/MIN/1.73 eGFR NON- AMER. (test code = 32109) 105 ML/MIN/1.73 CALC BUN/CREAT (test code = 2235) 25 RATIO SODIUM (test code = 2231) 141 MEQ/L POTASSIUM (test code = 2228) 4.4 MEQ/L CHLORIDE (test code = 2215) 104 MEQ/L CARBON DIOXIDE (test code = 2206) 25 MEQ/L CALCIUM (test code = 2209) 9.8 MG/DL PROTEIN, TOTAL (test code = 2229) 6.9 G/DL ALBUMIN (test code = 2201) 4.7 G/DL CALC GLOBULIN (test code = 2240) 2.2 G/DL CALC A/G RATIO (test code = 2234) 2.1 RATIO BILIRUBIN, TOTAL (test code = 2207) 0.3 MG/DL ALKALINE PHOSPHATASE (test code = 2204) 130 U/L AST (test code = 2218) 18 U/L ALT (test code = 2219) 27 U/L LIPID [id number] 00:00:00* Test Item Value Reference Range Interpretation Comme nts CHOLESTEROL (test code = 2210) 201 MG/DL TRIGLYCERIDES (test code = 2232) 128 MG/DL HDL CHOLESTEROL (test code = 2220) 67 MG/DL CALC LDL CHOL (test code = 2237) 110 MG/DL RISK RATIO LDL/HDL (test cod e = 2238) 1.64 RATIO LIPID [id number] 00:00:00* Test Item Value Reference Range Interpretation Comme nts CHOLESTEROL (test code = 2210) 201 MG/DL TRIGLYCERIDES (test code = 2232) 128 MG/DL HDL CHOLESTEROL (test code = 2220) 67 MG/DL CALC LDL CHOL (test code = 2237) 110 MG/DL RISK RATIO LDL/HDL (test cod e = 223) 1.64 RATIO HEMOGLOBIN [id number] 00:00:00* Test Item Value Reference Range Interpretation Comme nts HEMOGLOBIN A1c (test code = 10136) 5.7 % CULTURE, [id number] 00:00:00* Test Item Value Reference Range Interpretation Comme nts CULTURE, URINE (test code = 07075) SPECIMEN NUMBER: [id number] HEMOGLOBIN [id number] 00:00:00* Test Item Value Reference Range Interpretation Comme nts HEMOGLOBIN A1c (test code = 75899) 5.7 % CULTURE, [id number] 00:00:00* Test Item Value Reference Range Interpretation Comme nts CULTURE, URINE (test code = 74133) SPECIMEN NUMBER: [id number] HEMOGLOBIN [id number] 00:00:00* Test Item Value Reference Range Interpretation Comme nts HEMOGLOBIN A1c (test code = 76787) 5.7 % COMPREHENSIVE METABOLIC [id number] 00:00:00* Test Item Value Reference Range Interpretation Comme nts GLUCOSE (test code = 7) 106 MG/DL BUN (test code = 2208) 14 MG/DL CREATININE (test code = 2214) 0.57 MG/DL eGFR AMER. (test cod e = 39943) 122 ML/MIN/1.73 eGFR NON- AMER. (test code = 93602) 105 ML/MIN/1.73 CALC BUN/CREAT (test code = 2235) 25 RATIO SODIUM (test code = 2231) 141 MEQ/L POTASSIUM (test code = 2228) 4.4 MEQ/L CHLORIDE (test code = 2215) 104 MEQ/L CARBON DIOXIDE (test code = 2206) 25 MEQ/L CALCIUM (test code = 2209) 9.8 MG/DL PROTEIN, TOTAL (test code = 2229) 6.9 G/DL ALBUMIN (test code = 2201) 4.7 G/DL CALC GLOBULIN (test code = 2240) 2.2 G/DL CALC A/G RATIO (test code = 2234) 2.1 RATIO BILIRUBIN, TOTAL (test code = 2207) 0.3 MG/DL ALKALINE PHOSPHATASE (test code = 2204) 130 U/L AST (test code = 2218) 18 U/L ALT (test code = 2219) 27 U/L COMPREHENSIVE METABOLIC [id number] 00:00:00* Test Item Value Reference Range Interpretation Comme nts GLUCOSE (test code = 2217) 106 MG/DL BUN (test code = 2208) 14 MG/DL CREATININE (test code = 2214) 0.57 MG/DL eGFR AMER. (test cod e = 92042) 122 ML/MIN/1.73 eGFR NON- AMER. (test code = 34967) 105 ML/MIN/1.73 CALC BUN/CREAT (test code = 2235) 25 RATIO SODIUM (test code = 2231) 141 MEQ/L POTASSIUM (test code = 2228) 4.4 MEQ/L CHLORIDE (test code = 2215) 104 MEQ/L CARBON DIOXIDE (test code = 2206) 25 MEQ/L CALCIUM (test code = 2209) 9.8 MG/DL PROTEIN, TOTAL (test code = 2229) 6.9 G/DL ALBUMIN (test code = 2201) 4.7 G/DL CALC GLOBULIN (test code = 2240) 2.2 G/DL CALC A/G RATIO (test code = 2234) 2.1 RATIO BILIRUBIN, TOTAL (test code = 2207) 0.3 MG/DL ALKALINE PHOSPHATASE (test code = 2204) 130 U/L AST (test code = 2218) 18 U/L ALT (test code = 2219) 27 U/L LIPID [id number] 00:00:00* Test Item Value Reference Range Interpretation Comme nts CHOLESTEROL (test code = 2210) 201 MG/DL TRIGLYCERIDES (test code = 2232) 128 MG/DL HDL CHOLESTEROL (test code = 2220) 67 MG/DL CALC LDL CHOL (test code = 2237) 110 MG/DL RISK RATIO LDL/HDL (test cod e = 2238) 1.64 RATIO LIPID [id number] 00:00:00* Test Item Value Reference Range Interpretation Comme nts CHOLESTEROL (test code = 2210) 201 MG/DL TRIGLYCERIDES (test code = 2232) 128 MG/DL HDL CHOLESTEROL (test code = 2220) 67 MG/DL CALC LDL CHOL (test code = 2237) 110 MG/DL RISK RATIO LDL/HDL (test cod e = 2238) 1.64 RATIO"
[2023-04-27 19:10] LABS: Specific Gravity 1.025 (1.005-1.030); Urine Bacteria None Seen /HPF (<20); Urine Bilirubin NEGATIVE (Negative); Urine Blood Negative (Negative); Urine Clarity Turbid (Clear); Urine Color Light-Yellow (Yellow); Urine Glucose NEGATIVE (Negative); Urine Mucus 1+ /HPF (None Seen); Urine Protein NEGATIVE (Negative); Urine RBC <5 /HPF (None Seen); Urine Urobilinogen Normal (Normal); Urine pH 6.5 (5.0-7.0)
[2023-04-27 19:15] LABS: Absolute Eosinophils 0.1 K/uL (0-0.5); Absolute Lymphocytes (CBC) 2.3 K/uL (0.7-4.9); Basophils % 0.5 % (0-1.3); Eosinophils % 1.3 % (0-4.4); Hematocrit 41.4 % (36.0-45.0); Hemoglobin 14.1 g/dL (12.0-15.0); Lymphocytes % 27.9 % (15.3-44.8); MCV 88.1 fL (80-100); MPV 8.1 fL (7.6-11.3); Platelets 249 thou/uL (152-406); RBC Red Blood Cell Count 4.71 M/uL (3.86-4.86)
[2023-04-27 19:33] LABS: Albumin 3.9 g/dL (3.4-5.0); Anion Gap 8.6 mEq/L (5.0-15.0); Bilirubin Total 0.4 mg/dL (0.2-1.0); Globulin 4.1 g/dL (2.3-3.5); Potassium 3.6 mEq/L (3.5-5.1)
--- NOTE | 2023-04-27 21:10 | RAD REPORT ---
EXAM DESCRIPTION: CT - Abdomen Pelvis W Contrast - 04/27/2023 8:49 pm CLINICAL HISTORY: Abdominal pain COMPARISON: 2021 TECHNIQUE: Computed axial tomography of the abdomen pelvis was obtained. 100 cc Isovue-300 was admin istered intravenously. Oral contrast was not requested which limits evaluation of bowel and appendix All CT scans are performed using dose optimization technique as appropriate and may include automated exposure control or mA/KV adjustment according to patient size. FINDINGS: Mild fatty liver. Small hepatic cysts. Subcentimeter low-density area posterior spleen. Pancreas and adrenals are unremarkable Parapelvic renal cysts bilaterally. Small left renal cortical cyst Normal appendix. No adnexal mass There is no evidence of diverticulitis. Small hiatal hernia IMPRESSION: Sub centimeter low-density splenic lesion nonspecific but most likely benign. Follow up splenic ultrasound in 3 months recommended to assess stability. Mild fatty liver
--- NOTE | 2023-04-27 21:19 | ER ---
Nurse's Notes [facility] Name: Mamie Donovan Age: 58 yrs Sex: Female : 1965 Arrival Date: 04/27/2023 Time: 17:14 Bed DX4 Private MD: Diagnosis: Abdominal pain, Generalized;Diarrhea, unspecified Presentation: 04/26 18:06 Chief complaint:. Coronavirus screen: Vaccine status: Patient reports receiving the 2nd kd3 dose of the covid vaccine. Ebola Screen: No symptoms or risks identified at this time. Initial Sepsis Screen: Does the patient meet any 2 criteria? No. Patient's initial sepsis screen is negative. Does the patient have a suspected source of infection? No. Patient's initial sepsis screen is negative. Risk Assessment: Do you want to hurt yourself or someone else? Patient reports no desire to harm self or others. 18:06 Method Of Arrival: Ambulatory kd3 18:06 Acuity: FÁTIMA 3 kd3 18:06 Chief complaint: Spouse and/or significant other states: 4 days ago she started kd3 complaining of stomach pain, especially when she eats. Sometimes she feels dizzy and has some nausea. She has been having some diarrhea as well. Onset of symptoms was April 23, 2023. Triage Assessment: 18:08 General: Appears in no apparent distress. Behavior is calm, cooperative. Pain: kd3 Complains of pain in abdomen. GI: Abdomen is non-distended. Historical: - PMHx: 18:08 diabetes mellitus; Hypercholesterolemia; Hypertension; kd3 - PSHx: 18:08 Ligation of fallopian tube; kd3 - Immunization history:: Adult Immunizations up to date. - Social history:: Smoking status: unknown. Screenin:30 [facility] ED Fall Risk Assessment (Adult) History of falling in the last 3 months, lg3 including since admission No falls in past 3 months (0 pts). Abuse screen: Denies threats or abuse. Denies injuries from another. Nutritional screening: No deficits noted. Tuberculosis screening: No symptoms or risk factors identified. Assessment: 21:30 General: Appears in no apparent distress. comfortable, Behavior is calm, cooperative. lg3 Pain: Complains of pain in umbilical area Pain currently is 2 out of 10 on a pain scale. Neuro: No deficits noted. [place] Agitation-Sedation Scale (RASS): 0 - Alert and Calm Level of Consciousness is awake, alert, obeys commands, Oriented to person, place, time, situation. Cardiovascular: No deficits noted. Denies chest pain, shortness of breath, Heart tones S1 S2 present Capillary refill < 3 seconds Clubbing of nail beds is absent JVD is absent Patient's skin is warm and dry. Respiratory: No deficits noted. Airway is patent Respiratory effort is even, unlabored, Respiratory pattern is regular, symmetrical, Breath sounds are clear bilaterally. GI: Abdomen is round non-distended, Bowel sounds present X 4 quads. Abd is soft X 4 quads Abdomen is tender to palpation in umbilical area, right upper quadrant and left upper quadrant Reports lower abdominal pain, upper abdominal pain, diarrhea, nausea. : No deficits noted. No signs and/or symptoms were reported regarding the genitourinary system. EENT: No deficits noted. No signs and/or symptoms were reported regarding the EENT system. Derm: No deficits noted. No signs and/or symptoms reported regarding the dermatologic system. Skin is intact, is healthy with good turgor, Skin is dry, Skin is normal, Skin temperature is warm. Musculoskeletal: No deficits noted. No signs and/or symptoms reported regarding the musculoskeletal system. Circulation, motion, and sensation intact. Range of motion: intact in all extremities. Vital Signs: 18:05 Pulse 88; Resp 16; Temp 98.6(O); Pulse Ox 98% ; Weight 78.02 kg; kd3 18:06 BP 116 / 83; kd3 21:30 BP 126 / 79; Pulse 81; Resp 16 S; Temp 97.9(TE); Pulse Ox 99% on R/A; lg3 ED Course: 17:16 Patient arrived in ED. rg4 17:21 [facility] sb4 17:21 Jose Guillen MD is Attending Physician. sb4 18:06 Triage completed. kd3 18:08 Arm band placed on left wrist. kd3 18:49 Urinalysis w/ reflexes Sent. as6 19:07 Inserted saline lock: 20 gauge in left antecubital area, using aseptic technique. Blood as6 collected. 20:51 CT Abd/Pelvis - IV Contrast Only In Process Unspecified. EDMS 21:18 Aubrey Powell MD is Referral Physician. sb4 21:30 Patient has correct armband on for positive identification. lg3 21:30 No provider procedures requiring assistance completed. IV discontinued, intact, lg3 bleeding controlled, No redness/swelling at site. Pressure dressing applied. Administered Medications: 19:21 Drug: NS 0.9% IV 1000 ml IV at 1 bolus Per protocol; 1000 mL bolus Route: IV; Rate: 1 as6 bolus; Site: left antecubital; 21:18 Follow up: Response: No adverse reaction; IV Status: Completed infusion; IV Intake: kd3 1000ml 19:21 Drug: TORadol - Ketorolac IVP 15 mg IVP once Route: IVP; Site: left antecubital; as6 21:18 Follow up: Response: No adverse reaction kd3 19:21 Drug: Ondansetron IVP 4 mg IVP once; over 2 minutes Route: IVP; Site: left antecubital; as6 21:18 Follow up: Response: No adverse reaction kd3 Medication: 21:30 VIS not applicable for this client. lg3 Intake: 21:18 IV: 1000ml; Total: 1000ml. kd3 Outcome: 21:19 Discharge ordered by . sb4 21:30 Discharged to home ambulatory, with significant other, lg3 21:30 Condition: stable 21:30 Discharge instructions given to patient, Instructed on discharge instructions, follow up and referral plans. Demonstrated understanding of instructions, follow-up care, 21:45 Patient left the ED. lg3 Signatures: Dispatcher [employer] Keena Kramer rg4 Yee March RN RN lg3 Jair Jean Baptiste RN RN as6 Radha Bailey RN RN [email or web address] Nadine Peraza, PA-Alexandra PA-C sb4
--- NOTE | 2023-04-27 21:19 | EDPHYS ---
Physician Documentation [facility] Name: Mamie Donovan Age: 58 yrs Sex: Female : 1965 Arrival Date: 04/27/2023 Time: 17:14 Bed DX4 Private MD: ED Physician Jose Guillen HPI: 04/26 18:11 This 58 yrs old Female presents to ER via Ambulatory with complaints of sb4 Abdominal Pain, Nausea, Diarrhea. 18:11 The patient presents with abdominal pain in the periumbilical area. Onset: The sb4 symptoms/episode began/occurred 4 day(s) ago. The symptoms do not radiate. Associated signs and symptoms:. Associated signs and symptoms: Pertinent positives: diarrhea, dysuria, nausea, Pertinent negatives: blood in stools, fever, vomiting. Modifying factors: The symptoms are alleviated by nothing, the symptoms are aggravated by food, pressure, touching the area. The patient has not experienced similar symptoms in the past. The patient has not recently seen a physician. Historical: - PMHx: 18:08 diabetes mellitus; Hypercholesterolemia; Hypertension; kd3 - PSHx: 18:08 Ligation of fallopian tube; kd3 - Immunization history:: Adult Immunizations up to date. - Social history:: Smoking status: unknown. ROS: 18:11 Constitutional: Negative for fever, chills, and weight loss, sb4 18:11 Abdomen/GI: Positive for abdominal pain, nausea, diarrhea, 18:11 All other systems are negative, Exam: 18:11 Constitutional: This is a well developed, well nourished patient who is awake, alert, sb4 and in no acute distress. Head/Face: Normocephalic, atraumatic. Eyes: Extra-ocular motions intact. Periorbital areas with no swelling, redness, or edema. ENT: Mucous membranes moist. Cardiovascular: Regular rate and rhythm with a normal S1 and S2. Respiratory: Lungs have equal breath sounds bilaterally, clear to auscultation and percussion. No rales, rhonchi or wheezes noted. No increased work of breathing, no retractions or nasal flaring. Skin: Warm, dry with normal turgor. Normal color with no rashes, no lesions, and no evidence of cellulitis. MS/ Extremity: Pulses equal, no cyanosis. Neurovascular intact. Full, normal range of motion. Neuro: Awake and alert, GCS 15, oriented to person, place, time, and situation. Motor strength 5/5 in all extremities. Sensory grossly intact. 18:11 Abdomen/GI: Inspection: abdomen appears normal, Bowel sounds: normal, Palpation: soft, moderate abdominal tenderness, in the umbilical area and suprapubic area, involuntary guarding, Vital Signs: 18:05 Pulse 88; Resp 16; Temp 98.6(O); Pulse Ox 98% ; Weight 78.02 kg; kd3 18:06 BP 116 / 83; kd3 21:30 BP 126 / 79; Pulse 81; Resp 16 S; Temp 97.9(TE); Pulse Ox 99% on R/A; lg3 MDM: 17:43 Patient medically screened. sb4 18:11 Differential diagnosis: appendicitis, bowel obstruction, non-specific abd pain, sb4 Peritonitis, urinary tract infection. 21:18 Data reviewed: vital signs, nurses notes, lab test result(s), radiologic studies, and sb4 as a result, I will discharge patient. 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 04/26 18:10 Order name: CBC with Diff; Complete Time: 19:33 sb4 04/26 18:10 Order name: CMP; Complete Time: 19:35 sb4 04/26 18:10 Order name: Lipase; Complete Time: 19:35 sb4 04/26 18:10 Order name: Urinalysis w/ reflexes; Complete Time: 19:18 sb4 04/26 21:12 Order name: Glucose, Ancillary Testing; Complete Time: 21:14 EDMS 04/26 18:10 Order name: CT Abd/Pelvis - IV Contrast Only; Complete Time: 21:14 sb4 04/26 18:10 Order name: IV Saline Lock; Complete Time: 19:07 sb4 04/26 18:10 Order name: Labs collected and sent; Complete Time: 19:07 sb4 Administered Medications: 19:21 Drug: NS 0.9% IV 1000 ml IV at 1 bolus Per protocol; 1000 mL bolus Route: IV; Rate: 1 as6 bolus; Site: left antecubital; 21:18 Follow up: Response: No adverse reaction; IV Status: Completed infusion; IV Intake: kd3 1000ml 19:21 Drug: TORadol - Ketorolac IVP 15 mg IVP once Route: IVP; Site: left antecubital; as6 21:18 Follow up: Response: No adverse reaction kd3 19:21 Drug: Ondansetron IVP 4 mg IVP once; over 2 minutes Route: IVP; Site: left antecubital; as6 21:18 Follow up: Response: No adverse reaction kd3 Disposition Summary: 04/27/23 21:19 Discharge Ordered Notes: Location: Home sb4 Problem: new sb4 Symptoms: have improved sb4 Condition: Stable sb4 Diagnosis - Abdominal pain, Generalized sb4 - Diarrhea, unspecified sb4 Followup: sb4 - With: Aubrey Powell MD - When: As needed - Reason: Further diagnostic work-up, Recheck today's complaints, Re-evaluation by your physician Discharge Instructions: - Discharge Summary Sheet sb4 - Food Choices to Help Relieve Diarrhea, Adult sb4 - Abdominal Pain, Adult, [id number] sb4 Forms: - Thank You Letter sb4 - Patient Portal Instructions sb4 - Leadership Thank You Letter sb4 Addendum: 04/29/2023 07:59 I was immediately available for consultation during this patient's visit. I did not e c2 personally see the patient or discuss the patient with the JARED. . Signatures: Dispatcher [employer] Jair Cadena RN RN as6 Radha Bailey RN RN kd3 Nadine Peraza, PAChema PA-C sb4 Jose Guillen MD MD ec2
[2023-04-27 22:23] VITALS: BP 126/79; TEMP 97.9; O2SAT 99
== END ==
LOC: ER 17:14
DX: R10.84 Generalized abdominal pain (principal); R19.7 Diarrhea, unspecified
CPT/HCPCS: 36415; 74177; 80053; 81001; 82947; 83690; 85025; 96361; 96374; 96375; 99284; J2405; J7030; Q9967

== ENCOUNTER 2024-07-10 21:14 | Emergency (ER) | payer SELFPAY ==
--- OUTSIDE RECORDS SUMMARY | 2024-07-10 21:28 | XMS REPORT | Continuity of Care Document ---
Author Name Unknown Address [address] [facility] [address] [place] [address] [facility] Address [address] [facility] 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 Role Phone PCP, PATIENT DOES NOT HAVE A Primary Care Physic lily Unavailable YANIRA SWAN Attending Clinician Unavailable Yanira Swan NP Attending Clinician IRVING BOWLES Attending Clinician Unavailable Irving Ingram Attending Clinician YANIRA SWAN Admitting Clinician Unavailable IRVING BOWLES Admitting Clinician Unavailable Payers Payer Name Policy Type Policy Number Effective Date Expirati on Date Source MEDICAID ALIEN PENDING PENDING 2021 00:00:00 Problems Condition Name Condition Details Condition Category Status Onset Date Resolution Date Last Treatment Date Treating Clinician Comments Source Urinary tract infection with hematuria, site unspecifie d Urinary tract infection with hematuria, site unspecifie d Disease Active 2023-02 0- 00:00: 00 [facility] RLQ abdominal pain RLQ abdominal pain Disease Active 2023-02 0- 00:00: 00 [facility] Epigastric pain Epigastric pain Disease Active 2023-02 0- 00:00: 00 [facility] No known active problems No known active problems Disease [facility] Allergies, Adverse Reactions, Alerts Allergy Name Allergy Type Status Severity Reaction(s) Onset Date Inactive Date Treating Clinician Comments Source none (Not Checked) Propensi ty to adverse reaction to drug Active 2023-02 00:00: 00 Russell Montgomery NO KNOWN ALLERGIE S Drug Class Active [facility] Social History Social Habit Start Date Stop Date Quantity Comments Source [facility] to SARS-CoV-2 (event) 2021-09-09 00:00:00 2021-09-19 11:56:00 Not sure [facility] Sex assigned at 1965 00:00:00 1965 00:00:00 [facility] Smoking Status Start Date Stop Date Source Tobacco smoking consumption unknown [facility] Medications Ordered Medication Name Filled Medication Name Start Date Stop Date Current Medication? Ordering Clinician Indication Dosage Frequency Signature (SIG) Comments Components Source metformin 500 mg tablet 05-21 00:00: 00 Yes mg Russell Montgomery lisinopril 10 mg tablet 05-21 00:00: 00 Yes 1mg Russell Montgomery pravastatin 40 mg tablet 05-21 00:00: 00 Yes 1mg Russell Montgomery omeprazole 20 mg capsule,del ayed release 05-21 00:00: 00 Yes 1mg Russell Montgomery Cipro HC 0.2 %-1 % ear drops,suspe nsion 04-02 00:00: 00 Yes 3% Russell Montgomery cetirizine 5 mg tablet 04-02 00:00: 00 Yes 1mg Russell Montgomery ibuprofen 800 mg tablet 02-21 00:00: 00 Yes 1mg Russell Montgomery amoxicillin 875 mg-natalie davis clavulanate 125 mg tablet 02-21 00:00: 00 Yes 1mg Russell Montgomery metformin 500 mg tablet 2023-02 00:00: 00 Yes mg Russell Montgomery lisinopril 10 mg tablet 2023-02 00:00: 00 Yes 1mg Russell Montgomery pravastatin 40 mg tablet 2023-02 00:00: 00 Yes 1mg Russell Montgomery omeprazole 20 mg capsule,del ayed release 2023-02 00:00: 00 Yes 1mg Russell Montgomery lisinopril 10 mg tablet 2023-02 00:00: 00 Yes 1mg Russell Montgomery trazodone 100 mg tablet 2023-02-14 00:00: 00 Yes 51mg Russell Montgomery lisinopril 10 mg tablet 2023-02 00:00: 00 Yes 1mg Russell Montgomery pravastatin 40 mg tablet 2023-0230 00:00: 00 Yes 1mg Russell Montgomery cefTRIAXone (ROCEPHIN) 1,000 mg in water for injection, sterile 10 mL IV Push 2023-02 00:00: 00 12-07 00:05 :00 No 1000mg 1,000 mg, Intravenou s, ONCE, 1 dose, On Thu12/07/23 at 1900, 10 mL, Reason for Anti-Infec tive: Documented Infection, Documented Infection Site: Urine, Duration of Therapy: Once (ED) [facility] iopamidol (ISOVUE 370-500 mL) injection 80 mL 2023-02 23:57: 00 12-06 23:57 :00 No [id number] 80mL 80 mL, Intravenou s, ONCE, 1 dose, On Thu12/07/23 at 1915, Routine [facility] pantoprazol e (PROTONIX) injection 40 mg 2023-02 23:15: 00 12-06 23:10 :00 No 40mg 40 mg, Slow IV Push, ONCE, 1 dose, On Thu12/07/23 at 1815 [facility] sodium chloride (NS) injection 5 mL 2023-02 22:50: 01 Yes 5mL 5 mL, Intravenou s, PRN, Starting on Thu12/07/23 at 1750, Until Discontinu ed, Routine, IV line flushing [facility] metformin 500 mg tablet 2023-02 00:00: 00 Yes mg Russell Montgomery pantoprazol e 40 mg EC tablet 2023-02 00:00: 00 01-06 05:59 :00 No [id number] 40mg Take 1 tablet by mouth daily for 30 days. [facility] cefdinir 300 mg capsule 2023-02 00:00: 00 12-17 04:59 :00 No [id number] 300mg Take 1 capsule by mouth every 12 (twelve) hours for 10 days. [facility] metformin 500 mg tablet 09-17 00:00: 00 Yes 1mg Russell Montgomery lisinopril 10 mg tablet 09-17 00:00: 00 Yes 1mg Russell Montgomery pravastatin 40 mg tablet 09-17 00:00: 00 Yes 1mg Russell Montgomery trazodone 100 mg tablet 09-17 00:00: 00 Yes 51mg Russell Montgomery trazodone 100 mg tablet 08-26 00:00: 00 Yes 51mg Russell Montgomery metformin 500 mg tablet 08-05 00:00: 00 Yes 1mg Russell Montgomery lisinopril 10 mg tablet 08-05 00:00: 00 Yes 1mg Russell Montgomery cetirizine 5 mg tablet 08-05 00:00: 00 Yes 1mg Russell Montgomery trazodone 100 mg tablet 07-22 00:00: 00 Yes 51mg Russell Montgomery Macrobid 100 mg capsule 07-22 00:00: 00 Yes 1mg Russell Montgomery TAKE 1 TABLET BY MOUTH DAILY 04-19 00:00: 00 Yes 10 Russell Montgomery TAKE 1 TABLET DAILY WITH FOOD. 04-19 00:00: 00 Yes 500 Russell Montgomery TAKE 1 TABLET DAILY IN THE EVENING. 04-19 00:00: 00 Yes 40 Russell Montgomery metformin 500 mg tablet 04-16 00:00: 00 Yes 1mg Russell Montgomery trazodone 50 mg tablet 04-16 00:00: 00 Yes 15mg Russell Montgomery TAKE 1 AND 1/2 TABLETS AT BEDTIME. 2022-02 00:00: 05-26 00:00 :00 No 50 Russell F Ulises TAKE 1 TABLET BY MOUTH DAILY 2022-02 0-04 00:00: 00 Yes 10 Russell F Ulises TAKE 1 TABLET DAILY WITH FOOD. 2022-02 0-04 00:00: 00 Yes 500 Russell F Ulises TAKE 1 TABLET DAILY IN THE EVENING. 2022-02 0-04 00:00: 00 Yes 40 Russell F Ulises TAKE 1 TABLET BY MOUTH THREE TIMES DAILY FOR PAIN 10-27 00:00: 00 Yes Russell F Ulises TAKE 1 TABLET BY MOUTH EVERY 6 HOURS NEEDED FOR NAUSEA 10-27 00:00: 00 Yes Russell F Ulises TAKE 1 CAPSULE TWICE DAILY. 10-18 00:00: 00 05-26 00:00 :00 No 100 Russell F Ulises TAKE 1 AND 1/2 TABLETS AT BEDTIME. 10-18 00:00: 00 05-26 00:00 :00 No 50 Russell F Ulises TAKE 1 AND 1/2 TABLETS AT BEDTIME. 6-15 00:00: 00 05-26 00:00 :00 No 50 Russell F Ulises TAKE 1 TABLET TWICE DAILY WITH FOOD. 2-06 00:00: 00 05-26 00:00 :00 No 500 Russell F Ulises TAKE 1 TABLET BY MOUTH DAILY 2-06 00:00: 00 05-26 00:00 :00 No 10 Russell F Ulises TAKE 1 TABLET DAILY IN THE EVENING. 2-06 00:00: 00 05-26 00:00 :00 No 40 Russell F Ulises TAKE 1 TABLET AT BEDTIME NEEDED. 2-06 00:00: 00 05-26 00:00 :00 No 50 Russell F Ulises TAKE 1 TABLET AT BEDTIME NEEDED. 1-04 00:00: 00 05-26 00:00 :00 No 50 Russell F Ulises TAKE 1 TABLET TWICE DAILY WITH FOOD. 2021-02 1-18 00:00: 00 05-26 00:00 :00 No 500 Russell F Ulises TAKE 1 TABLET DAILY IN THE EVENING. 2021-02 1-07 00:00: 00 2024- 04-10 00:00 :00 No 40 Russell F Ulises TAKE 1 TABLET BY MOUTH DAILY 2021-02 00:00: 00 05-26 00:00 :00 No 10 Russell Montgomery TAKE 1 TABLET BY MOUTH EVERY 12 HOURS WITH FOOD 1 016 00:00: 00 Yes Russell Montgomery NaCl 0.9% (NS) bolus infusion 1,000 mL 09-19 20:15: 00 09-19 20:47 :00 No 1000mL at 999 mL/hr, 1,000 mL, IV Infusion, ONCE, 1 dose, On Thu09/19/21 at 1515, STAT [facility] Dose Unknown 2021-0 8- 00:00: 00 Yes Russell Montgomery Dose Unknown 2021-0 - 00:00: 00 No Dose Unknown 2021-0 8- 00:00: 00 No Dose Unknown 2021-0 8- 00:00: 00 No Dose Unknown 2021-0 7-20 00:00: 00 Yes Russell Montgomery Dose Unknown 2021-0 7-20 00:00: 00 No Dose Unknown 2021-0 7-20 00:00: 00 No Dose Unknown 2021-0 7-20 00:00: 00 No Dose Unknown 2-0 7-18 00:00: 00 Yes Russell Montgomery Dose Unknown 2021-0 7-18 00:00: 00 No Dose Unknown 2-0 7-18 00:00: 00 No Dose Unknown 2-0 7-18 00:00: 00 No Dose Unknown 2-0 7-16 00:00: 00 Yes Russell Montgomery metformin 500 mg tablet 2021-0 7-16 00:00: 00 Yes 1mg Russell Montgomery pravastatin 40 mg tablet 2021-0 7-16 00:00: 00 Yes 1mg Russell Montgomery Dose Unknown 2021-0 7-16 00:00: 00 Yes Russell Montgomery Dose Unknown 2-0 7-16 00:00: 00 No metformin 500 mg tablet 2-0 7-16 00:00: 00 No 1mg pravastatin 40 mg tablet 2-0 7-16 00:00: 00 No 1mg Dose Unknown 2-0 7-16 00:00: 00 No Dose Unknown 2022-0 7-16 00:00: 00 No metformin 500 mg tablet 2-0 7-16 00:00: 00 No 1mg pravastatin 40 mg tablet 2-0 7-16 00:00: 00 No 1mg Dose Unknown 2-0 7-16 00:00: 00 No lisinopril 10 mg tablet 2-0 7-16 00:00: 00 No 1mg metformin 500 mg tablet 2-0 7-16 00:00: 00 No 1mg pravastatin 40 mg tablet 2-0 7-16 00:00: 00 No 1mg Dose Unknown 2-0 7-16 00:00: 00 No metformin 500 mg tablet 2-0 7-16 00:00: 00 No 1mg pravastatin 40 mg tablet 2-0 7-16 00:00: 00 No 1mg Dose Unknown 2021-0 7-16 00:00: 00 No Dose Unknown 2-0 7-16 00:00: 00 No Dose Unknown 2-0 5-17 00:00: 00 Yes Russell Montgomery Dose Unknown 2021-0 5-17 00:00: 00 No Dose Unknown 2-0 5-17 00:00: 00 No trazodone 50 mg tablet 2021-0 5-17 00:00: 00 No 12mg Dose Unknown 2-0 5-17 00:00: 00 No Dose Unknown 2-0 4-26 00:00: 00 Yes Russell Montgomery Dose Unknown 2021-0 4-26 00:00: 00 No Dose Unknown 2-0 4-26 00:00: 00 No Dose Unknown 2-0 4-26 00:00: 00 No Dose Unknown 2-0 4-26 00:00: 00 No metformin 500 mg tablet 2-0 4-23 00:00: 00 No 1mg trazodone 50 mg tablet 2-0 4-23 00:00: 00 No 1mg pravastatin 40 mg tablet 2-0 4-23 00:00: 00 No 1mg Dose Unknown 2-0 4-23 00:00: 00 No metformin 500 mg tablet 2-0 4-23 00:00: 00 No 1mg trazodone 50 mg tablet 2-0 4-23 00:00: 00 No 1mg pravastatin 40 mg tablet 2022-0 4-23 00:00: 00 No 1mg lisinopril 10 mg tablet 0 06-08 00:00: 00 No 1mg metformin 500 mg tablet 06-08 00:00: 00 No 1mg trazodone 50 mg tablet 06-08 00:00: 00 No 1mg pravastatin 40 mg tablet 06-08 00:00: 00 No 1mg Dose Unknown 06-08 00:00: 00 No metformin 500 mg tablet 06-08 00:00: 00 No 1mg trazodone 50 mg tablet 06-08 00:00: 00 No 1mg pravastatin 40 mg tablet 06-08 00:00: 00 No 1mg Dose Unknown 06-08 00:00: 00 Yes Russell Montgomery metformin 500 mg tablet 06-08 00:00: 00 Yes 1mg Russell Montgomery trazodone 50 mg tablet 06-08 00:00: 00 Yes 1mg Russell Montgomery pravastatin 40 mg tablet 06-08 00:00: 00 Yes 1mg Russell Montgomery Dose Unknown 06-08 00:00: 00 No lisinopril 10 mg tablet 0 3 00:00: 00 No 1mg metformin 500 mg tablet 0 3 00:00: 00 No 1mg Dose Unknown 0 3 00:00: 00 No lisinopril 10 mg tablet 0 3 00:00: 00 No 1mg metformin 500 mg tablet 0 3 00:00: 00 No 1mg Dose Unknown 0 3 00:00: 00 No lisinopril 10 mg tablet 0 3 00:00: 00 No 1mg metformin 500 mg tablet 0 3 00:00: 00 No 1mg Dose Unknown 0 3 00:00: 00 No lisinopril 10 mg tablet 0 3 00:00: 00 No 1mg metformin 500 mg tablet 0 3 00:00: 00 No 1mg Dose Unknown 0 3 00:00: 00 No lisinopril 10 mg tablet 0 3 00:00: 00 Yes 1mg Russell Montgomery metformin 500 mg tablet 0 3 00:00: 00 Yes 1mg Russell Montgomery Dose Unknown 0 3 00:00: 00 Yes Russell Montgomery TAKE ONE (1) TABLET(S) BY MOUTH THREE TIMES A DAY NEEDED FOR MUSCLE SPASMS. 0 24 00:00: 00 Yes Russell Montgomery TAKE ONE (1) TABLET(S) BY MOUTH EVERY SIX HOURS NEEDED FOR PAIN CONTROL. TAKE WITH FOOD. 0 24 00:00: 00 Yes Russell Montgomery nitrofurant oin monohydrate /macrocryst als 100 mg capsule 2021-0 314 00:00: 00 No 1mg nitrofurant oin monohydrate /macrocryst als 100 mg capsule 0 314 00:00: 00 No 1mg nitrofurant oin monohydrate /macrocryst als 100 mg capsule 2021-0 314 00:00: 00 No 1mg nitrofurant oin monohydrate /macrocryst als 100 mg capsule 2021-0 314 00:00: 00 No 1mg nitrofurant oin monohydrate /macrocryst als 100 mg capsule 0 314 00:00: 00 Yes 1mg Russell Montgomery Dose Unknown 2021-0 3 00:00: 00 No Dose Unknown 2021-0 3-09 00:00: 00 No Dose Unknown 2021-0 3-09 00:00: 00 No Dose Unknown 2-0 3- 00:00: 00 No Dose Unknown 2-0 3 00:00: 00 Yes Russell Montgomery Dose Unknown 2021-0 3-08 00:00: 00 No Dose Unknown 2022-0 3-08 00:00: 00 No Dose Unknown 2-0 3-08 00:00: 00 No Dose Unknown 2-0 3-08 00:00: 00 No Dose Unknown 2022-0 3-08 00:00: 00 Yes Russell Montgomery Dose Unknown 2021-0 3- 00:00: 00 No Dose Unknown 2021-0 3- 00:00: 00 No Dose Unknown 2022-0 3-01 [...] 3- 00:00: 00 No Dose Unknown 2022-0 3-01 00:00: 00 No Dose Unknown 2022-0 3- 00:00: 00 No Dose Unknown 2022-0 3- 00:00: 00 Yes Russell Montgomery Dose Unknown 2022-0 3- 00:00: 00 Yes Russell Montgomery Dose Unknown 2022-0 3- 00:00: 00 Yes Russell Montgomery Dose Unknown 2022-0 3- 00:00: 00 Yes Russell Montgomery nitrofurant oin monohydrate /macrocryst als 100 mg capsule 2-0 2- 00:00: 00 No 1mg Dose Unknown 202-0 2- 00:00: 00 No nitrofurant oin monohydrate [...] 100 mg capsule 2022-0 2- 00:00: 00 Yes 1mg Russell Montgomery Dose Unknown 2020-02 00:00: 00 No metformin [...] 00 No Dose Unknown 2020-02 00:00: 00 Yes Russell Montgomery metformin 500 mg tablet 2020-02 00:00: 00 Yes 1mg Russell Montgomery Dose Unknown 2020-02 00:00: 00 Yes Russell Montgomery metformin 500 mg tablet 06-17 00:00: 00 [...] metformin 500 mg tablet 06-17 00:00: 00 Yes 1mg Russell Montgomery trazodone 50 mg tablet 06-17 00:00: 00 Yes 1mg Russell Montgomery Dose Unknown 06-15 00:00: 00 No metformin [...] No 1mg Dose Unknown 06-15 00:00: 00 Yes Russell Montgomery metformin 500 mg tablet 06-15 00:00: 00 Yes 1mg Russell Morris Ulises trazodone 50 mg tablet 06-15 00:00: 00 Yes 1mg Russell Montgomery Macrobid 100 mg capsule 06-15 00:00: 00 Yes 1mg Russell Morris Ulises amoxicillin 500 mg capsule 06-15 00:00: 00 Yes 1mg Russell Montgomery Augmentin 875 mg-125 mg tablet 04-16 00:00: 00 No 1mg Augmentin 875 mg-125 mg tablet 0 3- 00:00: 00 No 1mg Augmentin 875 mg-125 mg tablet 0 3- 00:00: 00 No 1mg Augmentin 875 mg-125 mg tablet 0 3- 00:00: 00 No 1mg Augmentin 875 mg-125 mg tablet 0 3 00:00: 00 Yes 1mg Russell Montgomery lisinopril 10 mg tablet 2 00:00: 00 [...] lisinopril 10 mg tablet 04-14 00:00: 00 Yes 1mg Russell Montgomery metformin 500 mg tablet 04-14 00:00: 00 Yes 1mg Russell Montgomery Dose Unknown 04-14 00:00: 00 Yes Russell Montgomery trazodone 50 mg tablet 04-14 00:00: 00 Yes 1mg Russell Montgomery metformin 500 mg tablet 1- 00:00: 00 No 1mg metformin 500 mg tablet - 00:00: 00 No 1mg metformin 500 mg tablet 02-21 00:00: 00 No 1mg metformin 500 mg tablet 02-21 00:00: 00 No 1mg metformin 500 mg tablet 02-21 00:00: 00 Yes 1mg Russell Montgomery lisinopril 10 mg tablet 2019-02 00:00: 00 [...] lisinopril 10 mg tablet 2019-02 00:00: 00 Yes 1mg Russell Montgomery trazodone 50 mg tablet 2019-02 00:00: 00 Yes 1mg Russell Montgomery omeprazole 20 mg capsule,del ayed release 2019-02 2 00:00: 00 No 1mg omeprazole 20 mg capsule,del ayed release 2019-02 2 00:00: 00 No 1mg omeprazole 20 mg capsule,del ayed release 2019-02 2 00:00: 00 No 1mg omeprazole 20 mg capsule,del ayed release 2019-02 2- 00:00: 00 No 1mg omeprazole 20 mg capsule,del ayed release 2019-02 2 00:00: 00 Yes 1mg Russell Montgomery triamcinolo ne acetonide 0.025 % topical cream 2019-02 0 00:00: 00 No 1% prednisone 20 mg [...] 0.025 % topical cream 2019-02 00:00: 00 Yes 1% Russell Montgomery prednisone 20 mg tablet 2019-02 00:00: 00 Yes 2mg Russell Montgomery lisinopril 10 mg tablet 10-18 00:00: 00 [...] lisinopril 10 mg tablet 10-18 00:00: 00 Yes 1mg Russell Montgomery trazodone 50 mg tablet 10-18 00:00: 00 Yes 1mg Russell Morris Ulises lisinopril 10 mg tablet 10-17 00:00: 00 No 1mg trazodone 50 mg tablet 10-17 00:00: 00 No 1mg lisinopril 10 mg tablet 10-17 00:00: 00 No 1mg trazodone 50 mg tablet 10-17 00:00: 00 No 1mg lisinopril 10 mg tablet 10-17 00:00: 00 No 1mg trazodone 50 mg tablet 0 9- 00:00: 00 No 1mg lisinopril 10 mg tablet 0 9- 00:00: 00 No 1mg trazodone 50 mg tablet 10-17 00:00: 00 No 1mg lisinopril 10 mg tablet 10-17 00:00: 00 Yes 1mg Russell Montgomery trazodone 50 mg tablet 0 9 00:00: 00 Yes 1mg Russell Montgomery ProAir HFA 90 mcg/actuati on aerosol inhaler 0 8- 00:00: 00 No 2mcg/ac tuation ProAir HFA 90 mcg/actuati on aerosol inhaler 0 8- 00:00: 00 No 2mcg/ac tuation ProAir HFA 90 mcg/actuati on aerosol inhaler 0 8 00:00: 00 No 2mcg/ac tuation ProAir HFA 90 mcg/actuati on aerosol inhaler 0 8- 00:00: 00 No 2mcg/ac tuation ProAir HFA 90 mcg/actuati on aerosol inhaler 0 8-12 00:00: 00 Yes 2mcg/ac tujaya Montgomery amoxicillin 875 mg-potassiu m clavulanate 125 mg tablet 8-05 00:00: 00 No 1mg omeprazole 40 mg capsule,del ayed release 8-05 00:00: 00 No 1mg benzonatate 200 [...] 00 No 1mg benzonatate 200 mg capsule 09-20 00:00: 00 No 1mg amoxicillin 875 mg-potassiu m clavulanate 125 mg tablet 09-20 00:00: 00 No 1mg omeprazole 40 mg capsule,del ayed release 09-20 00:00: 00 No 1mg benzonatate 200 mg capsule 09-20 00:00: 00 No 1mg amoxicillin 875 mg-potassiu m clavulanate 125 mg tablet 09-20 00:00: 00 Yes 1mg Russell Montgomery omeprazole 40 mg capsule,del ayed release 09-20 00:00: 00 Yes 1mg Russell Montgomery benzonatate 200 mg capsule 09-20 00:00: 00 Yes 1mg Russell Montgomery lisinopril 10 mg tablet 07-24 00:00: 00 No 1mg lisinopril 10 mg tablet 07-24 00:00: 00 No 1mg trazodone 50 mg tablet 07-24 00:00: 00 No 1mg diclofenac sodium 25 mg tablet,afsaneh yed release 07-24 00:00: 00 No 1mg trazodone 50 mg tablet 07-24 00:00: 00 No 1mg diclofenac sodium 25 mg tablet,afsaneh yed release 07-24 00:00: 00 No 1mg lisinopril 10 mg tablet 07-24 00:00: 00 No 1mg trazodone 50 mg tablet 07-24 00:00: 00 No 1mg diclofenac sodium 25 mg tablet,afsaneh yed release 07-24 00:00: 00 No 1mg lisinopril 10 mg tablet 07-24 00:00: 00 No 1mg trazodone 50 mg tablet 07-24 00:00: 00 No 1mg diclofenac sodium 25 mg tablet,afsaneh yed release 07-24 00:00: 00 No 1mg lisinopril 10 mg tablet 07-24 00:00: 00 Yes 1mg Russell F Ulises trazodone 50 mg tablet 07-24 00:00: 00 Yes 1mg Russell F Ulises diclofenac sodium 25 mg tablet,afsaneh yed release 07-24 00:00: 00 Yes 1mg Russell Montgomery lisinopril 10 mg tablet 05-25 00:00: 00 No 1mg naproxen 250 mg tablet 05-25 00:00: 00 No 1mg trazodone 50 mg tablet 05-25 00:00: 00 No 1mg lisinopril 10 mg tablet 05-25 00:00: 00 No 1mg naproxen 250 mg tablet 05-25 00:00: 00 No 1mg trazodone 50 mg tablet 05-25 00:00: 00 No 1mg lisinopril 10 mg tablet 05-25 00:00: 00 No 1mg naproxen 250 mg tablet 05-25 00:00: 00 No 1mg trazodone 50 mg tablet 05-25 00:00: 00 No 1mg lisinopril 10 mg tablet 05-25 00:00: 00 No 1mg naproxen 250 mg tablet 0 05-25 00:00: 00 No 1mg trazodone 50 mg tablet 05-25 00:00: 00 No 1mg lisinopril 10 mg tablet 05-25 00:00: 00 Yes 1mg Russell Montgomery naproxen 250 mg tablet 05-25 00:00: 00 Yes 1mg Russell Montgomery trazodone 50 mg tablet 05-25 00:00: 00 Yes 1mg Russell Montgomery lisinopril 10 mg tablet 05-23 00:00: 00 No 1mg naproxen 250 mg tablet 05-23 00:00: 00 No 1mg trazodone 50 mg tablet 05-23 00:00: 00 No 1mg lisinopril 10 mg tablet 05-23 00:00: 00 No 1mg naproxen 250 mg tablet 05-23 00:00: 00 No 1mg trazodone 50 mg tablet 05-23 00:00: 00 No 1mg lisinopril 10 mg tablet 05-23 00:00: 00 No 1mg naproxen 250 mg tablet 05-23 00:00: 00 No 1mg trazodone 50 mg tablet 0 05-23 00:00: 00 No 1mg lisinopril 10 mg tablet 0 05-23 00:00: 00 No 1mg naproxen 250 mg tablet 0 05-23 00:00: 00 No 1mg trazodone 50 mg tablet 0 05-23 00:00: 00 No 1mg lisinopril 10 mg tablet 0 05-23 00:00: 00 Yes 1mg Russell Montgomery naproxen 250 mg tablet 0 05-23 00:00: 00 Yes 1mg Russell Montgomery trazodone 50 mg tablet 0 05-23 00:00: 00 Yes 1mg Russell Montgomery lisinopril 10 mg tablet 0 -05 00:00: 00 No 1mg lisinopril 10 mg tablet 0 3 00:00: 00 No 1mg lisinopril 10 mg tablet 0 3-05 00:00: 00 No 1mg lisinopril 10 mg tablet 0 3-05 00:00: 00 No 1mg lisinopril 10 mg tablet 0 3-05 00:00: 00 Yes 1mg Russell Montgomery trazodone 50 mg tablet 0 1-03 00:00: 00 No 1mg trazodone 50 mg tablet 0 1-03 00:00: 00 No 1mg trazodone 50 mg tablet 0 1-03 00:00: 00 No 1mg trazodone 50 mg tablet 0 1- 00:00: 00 No 1mg trazodone 50 mg tablet 0 1-03 00:00: 00 Yes 1mg Russell Montgomery dexamethaso ne 4 mg tablet 10-14 00:00: [...] ne 4 mg tablet 10-14 00:00: 00 Yes mg Russell F Ulises orphenadrin e citrate ER 100 mg tablet,exte nded release 10-14 00:00: 00 Yes 1mg Russell F Ulises orphenadrin e citrate ER 100 mg tablet,exte nded release 10-14 00:00: 00 Yes 1mg Russell F Ulises diclofenac sodium 50 mg tablet,afsaneh yed release 10-14 00:00: 00 Yes 1mg Russell Montgomery diclofenac sodium 25 mg tablet,afsaneh yed release 10-14 00:00: 00 Yes 1mg Russell Montgomery trazodone 50 mg tablet 09-23 00:00: 00 [...] lisinopril 10 mg tablet 09-23 00:00: 00 Yes 1mg Russell Montgomery naproxen 250 mg tablet 09-23 00:00: 00 Yes 1mg Russell Montgomery trazodone 50 mg tablet 09-23 00:00: 00 Yes 1mg Russell Montgomery lisinopril 10 mg tablet 09-08 00:00: 00 [...] lisinopril 10 mg tablet 09-08 00:00: 00 Yes 1mg Russell Montgomery naproxen 250 mg tablet 09-08 00:00: 00 Yes 1mg Russell Montgomery Pepcid 20 mg tablet 09-08 00:00: 00 Yes 1mg Russell Montgomery Zofran 4 mg tablet 09-08 00:00: 00 Yes 1mg Russell Montgomery trazodone 50 mg tablet 09-08 00:00: 00 Yes 1mg Russell Montgomery traMADOL (ULTRAM) 50 mg tablet 07-18 00:00: 00 Yes [id number] 50mg Take 1 tablet by mouth every 6 (six) hours as needed for Pain (scale 7-10). [facility] lisinopril (PRINIVIL,Z ESTRIL) 10 mg tablet 10-22 14:39: 59 Yes 10mg Take 10 mg by mouth daily. [facility] Immunizations Ordered Immunization Name Filled Immunization Name Date Status Comments Source Tdap Tdap 2024-02-22 00:00:00 Completed [facility] COVID-19 Vaccine 2021-01-11 00:00:00 Completed [facility] COVID-19 Vaccine 2021-01-11 00:00:00 Completed [facility] COVID-19 Vaccine 2021-01-11 00:00:00 Completed [facility] COVID-19 Vaccine 2021-01-11 00:00:00 Completed [facility] COVID-19 Vaccine 2021-01-11 00:00:00 Completed [facility] COVID-19 Vaccine [facility] COVID-19 Vaccine 2021-01-11 00:00:00 Completed Russell Montgomery [facility] COVID-19 Vaccine [facility] COVID-19 Vaccine 2021-01-11 00:00:00 Completed Russell Montgomery SARS-COV-2 COVID-19 LINA/J&J VACCINE 2020-05-12 00:00:00 Completed [facility] SARS-COV-2 COVID-19 LINA/J&J VACCINE 2020-05-12 00:00:00 Completed [facility] Td 2014-10-22 00:00:00 Completed [facility] TD, NOS 2014-10-22 00:00:00 Completed Vital Signs Vital Name Observation Time Observation Value Comments S ource Systolic blood pressure 2023-12-08 00:56:00 109 mm[Hg] [facility] Diastolic blood pressure 2023-12-08 00:56:00 81 mm[Hg] [facility] Heart rate 2023-12-08 00:56:00 84 /min [facility] Body temperature 2023-12-08 00:56:00 37.17 Rachel [facility] Respiratory rate 2023-12-08 00:56:00 16 /min [facility] Oxygen saturation in Arterial blood by Pulse oximetry 2023-12-08 00:56:00 97 /min [facility] Body height 2023-12-07 22:45:00 162.6 cm [facility] Body weight 2023-12-07 22:45:00 78.019 kg [facility] BMI 2023-12-07 22:45:00 29.52 kg/m2 [facility] Heart rate 2021-09-19 19:30:00 78 /min [facility] Respiratory rate 2021-09-19 19:30:00 13 /min [facility] Oxygen saturation in Arterial blood by Pulse oximetry 2021-09-19 19:30:00 97 /min [facility] Systolic blood pressure 2021-09-19 19:14:00 128 mm[Hg] [facility] Diastolic blood pressure 2021-09-19 19:14:00 81 mm[Hg] [facility] Body temperature 2021-09-19 16:36:00 36.72 Rachel [facility] Body height 2021-09-19 16:36:00 165.1 cm [facility] Body weight 2021-09-19 16:36:00 76.204 kg [facility] BMI 2021-09-19 16:36:00 27.96 kg/m2 [facility] BP Systolic 2024-05-21 10:26:00 114 mm[Hg] Step hen F Ulises BP Diastolic 2024-05-21 10:26:00 75 mm[Hg] Nabeel phen F Ulises Weight Measured 2024-05-21 10:26:00 181.00 pounds Russell F Ulises Height Measured 2024-05-21 10:26:00 64.00 inches Russell F Ulises Body Temperature 2024-05-21 10:26:00 97.50 degrees Russell F Ulises Heart Rate 2024-05-21 10:26:00 81.00 /min Ylnette en F Ulises Respiratory Rate 2024-05-21 10:26:00 Russlel F Ulises BP Systolic 2024-04-02 13:15:00 114 mm[Hg] Step hen F Ulises BP Diastolic 2024-04-02 13:15:00 75 mm[Hg] Nabeel phen F Ulises Weight Measured 2024-04-02 13:15:00 179.20 pounds Russell F Ulises Height Measured 2024-04-02 13:15:00 6.00 inches Russell F Ulises Body Temperature 2024-04-02 13:15:00 98.80 degrees Russell F Ulises Heart Rate 2024-04-02 13:15:00 98.00 /min Lynette en F Ulises Respiratory Rate 2024-04-02 13:15:00 18.00 /min Russell F Ulises BP Systolic 2024-02-22 14:01:00 120 mm[Hg] Step hen F Ulises BP Diastolic 2024-02-22 14:01:00 76 mm[Hg] Nabeel phen F Ulises Weight Measured 2024-02-22 14:01:00 176.80 pounds Russell F Ulises Height Measured 2024-02-22 14:01:00 64.00 inches Russell F Ulises Body Temperature 2024-02-22 14:01:00 98.20 degrees Russell F Ulises Heart Rate 2024-02-22 14:01:00 86.00 /min Lynette en F Ulises Respiratory Rate 2024-02-22 14:01:00 18.00 /min Russell F Ulises BP Systolic 2024-01-09 14:17:00 108 mm[Hg] Step hen F Ulises BP Diastolic 2024-01-09 14:17:00 77 mm[Hg] Nabeel phen F Ulises Weight Measured 2024-01-09 14:17:00 179.40 pounds Russell F Ulises Height Measured 2024-01-09 14:17:00 64.00 inches Russell F Ulises Body Temperature 2024-01-09 14:17:00 97.90 degrees Russell F Ulises Heart Rate 2024-01-09 14:17:00 104.00 /min Step hen F Ulises Respiratory Rate 2024-01-09 14:17:00 16.00 /min Russell F Ulises BP Systolic 2023-09-18 10:26:00 116 mm[Hg] Step hen F Ulises BP Diastolic 2023-09-18 10:26:00 75 mm[Hg] Nabeel phen F Ulises Weight Measured 2023-09-18 10:26:00 179.00 pounds Russell F Ulises Height Measured 2023-09-18 10:26:00 64.00 inches Russell F Ulises Body Temperature 2023-09-18 10:26:00 97.90 degrees Russell F Ulises Heart Rate 2023-09-18 10:26:00 86.00 /min Lynette en F Ulises Respiratory Rate 2023-09-18 10:26:00 18.00 /min Russell F Ulises BP Systolic 2023-08-06 09:13:00 117 mm[Hg] Step hen F Luises BP Diastolic 2023-08-06 09:13:00 77 mm[Hg] Nabeel phen F Ulises Weight Measured 2023-08-06 09:13:00 181.40 pounds Russell F Ulises Height Measured 2023-08-06 09:13:00 64.00 inches Russell F Ulises Body Temperature 2023-08-06 09:13:00 98.20 degrees Russell F Ulises Heart Rate 2023-08-06 09:13:00 83.00 /min Lynette en F Ulises Respiratory Rate 2023-08-06 09:13:00 18.00 /min Russell F Ulises BP Systolic 2023-07-23 09:29:00 122 mm[Hg] Step hen F Ulises BP Diastolic 2023-07-23 09:29:00 78 mm[Hg] Nabeel phen F Ulises Weight Measured 2023-07-23 09:29:00 179.00 pounds Russell F Ulises Height Measured 2023-07-23 09:29:00 64.00 inches Russell F Ulises Body Temperature 2023-07-23 09:29:00 98.20 degrees Russell F Ulises Heart Rate 2023-07-23 09:29:00 100.00 /min Step hen F Ulises Respiratory Rate 2023-07-23 09:29:00 18.00 /min Russell F Ulises BP Systolic 2022-10-30 10:57:00 122 mm[Hg] Step hen F Ulises BP Diastolic 2022-10-30 10:57:00 82 mm[Hg] Nabeel phen F Ulises Weight Measured 2022-10-30 10:57:00 173.80 pounds Russell F Ulises Height Measured 2022-10-30 10:57:00 64.00 inches Russell F Ulises Body Temperature 2022-10-30 10:57:00 98.40 degrees Russell F Ulises Heart Rate 2022-10-30 10:57:00 98.00 /min Lynette en F Ulises Respiratory Rate 2022-10-30 10:57:00 Russell F Ulises BP Systolic 2022-10-18 10:03:00 108 mm[Hg] Step hen F Ulises BP Diastolic 2022-10-18 10:03:00 75 mm[Hg] Nabeel phen F Ulises Weight Measured 2022-10-18 10:03:00 174.20 pounds Russell F Ulises Height Measured 2022-10-18 10:03:00 64.00 inches Russell F Ulises Body Temperature 2022-10-18 10:03:00 98.00 degrees Russell F Ulises Heart Rate 2022-10-18 10:03:00 74.00 /min Lynette en F Ulises Respiratory Rate 2022-10-18 10:03:00 Russell F Ulises BP Systolic 2022-05-16 10:34:00 128 mm[Hg] Step hen F Ulisse BP Diastolic 2022-05-16 10:34:00 83 mm[Hg] Nabeel phen F Ulises Weight Measured 2022-05-16 10:34:00 169.80 pounds Russell F Ulises Height Measured 2022-05-16 10:34:00 64.00 inches Russell F Ulises Body Temperature 2022-05-16 10:34:00 Russell F Ulises Heart Rate 2022-05-16 10:34:00 91.00 /min Lynette en F Ulises Respiratory Rate 2022-05-16 10:34:00 Russell F Ulises BP Systolic 2022-03-24 08:06:00 130 mm[Hg] Step hen F Ulises BP Diastolic 2022-03-24 08:06:00 91 mm[Hg] Nabeel phen F Ulises Weight Measured 2022-03-24 08:06:00 174.80 pounds Russell F Ulises Height Measured 2022-03-24 08:06:00 64.00 inches Russell F Ulises Body Temperature 2022-03-24 08:06:00 98.10 degrees Russell F Ulises Heart Rate 2022-03-24 08:06:00 83.00 /min Lynette en F Ulises Respiratory Rate 2022-03-24 08:06:00 18.00 /min Russell F Ulises BP Systolic 2021-12-23 15:12:00 129 mm[Hg] Step hen F Ulises BP Diastolic 2021-12-23 15:12:00 87 mm[Hg] Nabeel phen F Ulises Weight Measured 2021-12-23 15:12:00 171.20 pounds Russell F Ulises Height Measured 2021-12-23 15:12:00 64.00 inches Russell F Ulises Body Temperature 2021-12-23 15:12:00 97.40 degrees Russell F Ulises Heart Rate 2021-12-23 15:12:00 88.00 /min Lynette en F Ulises Respiratory Rate 2021-12-23 15:12:00 16.00 /min Russell F Ulises BP Systolic 2021-09-17 15:50:00 127 mm[Hg] Step hen F Ulises BP Diastolic 2021-09-17 15:50:00 73 mm[Hg] Nabeel phen F Ulises Weight Measured 2021-09-17 15:50:00 169.00 pounds Russell F Ulises Height Measured 2021-09-17 15:50:00 64.00 inches Russell F Ulises Body Temperature 2021-09-17 15:50:00 98.10 degrees Russell F Ulises Heart Rate 2021-09-17 15:50:00 104.00 /min Step hen F Ulises Respiratory Rate 2021-09-17 15:50:00 16.00 /min Russell F Ulises BP Systolic 2021-08-31 08:12:00 107 mm[Hg] Step hen F Ulises BP Diastolic 2021-08-31 08:12:00 73 mm[Hg] Nabeel phen F Ulises Weight Measured 2021-08-31 08:12:00 168.80 pounds Russell F Ulises Height Measured 2021-08-31 08:12:00 64.00 inches Russell F Ulises Body Temperature 2021-08-31 08:12:00 98.00 degrees Russell F Ulises Heart Rate 2021-08-31 08:12:00 87.00 /min Lynette en F Ulises Respiratory Rate 2021-08-31 08:12:00 Russell F Ulises BP Systolic 2021-06-08 09:29:00 124 mm[Hg] Step hen F Ulises BP Diastolic 2021-06-08 09:29:00 75 mm[Hg] Nabeel phen F Ulises Weight Measured 2021-06-08 09:29:00 173.00 pounds Russell F Ulises Height Measured 2021-06-08 09:29:00 64.00 inches Russell F Ulises Body Temperature 2021-06-08 09:29:00 98.00 degrees Russell F Ulises Heart Rate 2021-06-08 09:29:00 86.00 /min Lynette en F Ulises Respiratory Rate 2021-06-08 09:29:00 21.00 /min Russell Morris [place] BP Systolic 2021-04-13 09:20:00 120 mm[Hg] Step hen Morris Montgomery BP Diastolic 2021-04-13 09:20:00 82 mm[Hg] Nabeel Montgomery Weight Measured 2021-04-13 09:20:00 176.40 pounds Russell Morris Montgomery Height Measured 2021-04-13 09:20:00 64.00 inches Russell Morris Montgomery Body Temperature 2021-04-13 09:20:00 98.10 degrees Russell Morris Montgomery Heart Rate 2021-04-13 09:20:00 82.00 /min Lynette en Morris Montgomery Respiratory Rate 2021-04-13 09:20:00 Russell Morris Montgomery BP Systolic 2020-10-23 08:46:00 134 mm[Hg] BP [...] / Time Performed Performing Clinicia n Source LIPASE 2023-12-07 22:56:00 Yanira Swan [facility] COMP. METABOLIC PANEL (63841) 2023-12-07 22:56:00 Yanira Swan [facility] CBC WITH DIFF 2023-12-07 [facility]:56[facility] 2023-12-07 22:56:00 Yanira Swan [facility] XR CHEST 1 VW 2021-09-19 17:49:51 [facility]IN [facility] 2021[facility]09-19 [facility]74626[facility] 2021-09-19 17:15:00 Irving Bowles [facility] CBC WITH DIFF 2021-09-19 17:15:00 [facility] N-TERMINAL PRO-BNP 2021-09-19 17:15:00 Irving Bowles [facility] CONSENT/REFUSAL FOR DIAGNOSIS AND TREATMENT 2021-09-19 16:29:09 Doctor Unassigned, [place] [facility] Plan of Care Planned Activity Planned Date Details Comments Source Goal Plan of Care Note [code = 91738-1] Goal Plan of Care Note [code = 37340-0] Goal Plan of Care Note [code = 05014-9] Goal Plan of Care Note [code = 84067-2] Goal Plan of Care Note [code = 22217-1] Goal Plan of Care Note [code = 01521-4] Goal Plan of Care Note [code = 89277-4] Goal Plan of Care Note [code = 17227-7] Goal Plan of Care Note [code = 31078-6] Goal Plan of Care Note [code = 40398-0] Goal Plan of Care Note [code = 26224-3] Goal Plan of Care Note [code = 41637-4] Goal Plan of Care Note [code = 27432-1] Goal Plan of Care Note [code = 12433-1] Goal Plan of Care Note [code = 68651-5] Goal Plan of Care Note [code = 10238-4] Goal Plan of Care Note [code = 22675-9] Goal Plan of Care Note [code = 06825-4] Goal Plan of Care Note [code = 60773-2] Goal Plan of Care Note [code = 85061-1] Goal Plan of Care Note [code = 72451-9] Goal Plan of Care Note [code = 46354-2] Goal Plan of Care Note [code = 05887-0] Goal Plan of Care Note [code = 76064-3] Goal Plan of Care Note [code = 04407-7] Goal Plan of Care Note [code = 74873-4] Goal Plan of Care Note [code = 96417-0] Goal Plan of Care Note [code = 08197-8] Goal Plan of Care Note [code = 82732-4] Goal Plan of Care Note [code = 17535-3] Goal Plan of Care Note [code = 83766-3] Goal Plan of Care Note [code = 19012-3] Goal Plan of Care Note [code = 34935-4] Goal Plan of Care Note [code = 65356-9] Goal Plan of Care Note [code = 09353-9] Goal Plan of Care Note [code = 80497-2] Goal Plan of Care Note [code = 35722-2] Goal Plan of Care Note [code = 30213-4] Goal Plan of Care Note [code = 97858-9] Goal Plan of Care Note [code = 49464-4] Goal Plan of Care Note [code = 88096-2] Goal Plan of Care Note [code = 58617-9] Goal Plan of Care Note [code = 61110-6] Goal Plan of Care Note [code = 08041-0] Goal Plan of Care Note [code = 17284-4] Goal Plan of Care Note [code = 52558-3] Goal Plan of Care Note [code = 85108-5] Goal Plan of Care Note [code = 49638-6] Goal Plan of Care Note [code = 25237-8] Goal Plan of Care Note [code = 68583-8] Goal Plan of Care Note [code = 56508-6] Goal Plan of Care Note [code = 51823-0] Goal Plan of Care Note [code = 15470-0] Goal Plan of Care Note [code = 96495-0] Goal Plan of Care Note [code = 22768-6] Goal Plan of Care Note [code = 84143-0] Goal Plan of Care Note [code = 37302-3] Goal Plan of Care Note [code = 19021-1] Goal Plan of Care Note [code = 52527-5] Goal Plan of Care Note [code = 23244-9] Goal Plan of Care Note [code = 59729-2] Goal Plan of Care Note [code = 20463-6] Goal Plan of Care Note [code = 80142-5] Goal Plan of Care Note [code = 79486-4] Goal Plan of Care Note [code = 82346-3] Goal Plan of Care Note [code = 34015-9] Goal Plan of Care Note [code = 23058-5] Goal Plan of Care Note [code = 21993-4] Goal Plan of Care Note [code = 30094-8] Goal Plan of Care Note [code = 36987-9] Goal Plan of Care Note [code = 82563-6] Goal Plan of Care Note [code = 71920-3] Goal Plan of Care Note [code = 14241-8] Goal Plan of Care Note [code = 56783-8] Goal Plan of Care Note [code = 22691-5] Goal Plan of Care Note [code = 43130-4] Goal Plan of Care Note [code = 64564-2] Goal Plan of Care Note [code = 83872-6] Goal Plan of Care Note [code = 66932-3] Goal Plan of Care Note [code = 70401-9] Goal Plan of Care Note [code = 03149-8] Goal Plan of Care Note [code = 81478-3] Goal Plan of Care Note [code = 17954-4] Goal Plan of Care Note [code = 72268-9] Goal Plan of Care Note [code = 77867-8] Goal Plan of Care Note [code = 17262-6] Goal Plan of Care Note [code = 32406-1] Goal Plan of Care Note [code = 49359-5] Goal Plan of Care Note [code = 64918-5] Goal Plan of Care Note [code = 20923-0] Goal Plan of Care Note [code = 67586-1] Goal Plan of Care Note [code = 19564-1] Goal Plan of Care Note [code = 09994-4] Goal Plan of Care Note [code = 36025-6] Goal Plan of Care Note [code = 79897-2] Goal Plan of Care Note [code = 46366-9] Goal Plan of Care Note [code = 72048-3] Goal Plan of Care Note [code = 79433-6] Goal Plan of Care Note [code = 84864-6] Goal Plan of Care Note [code = 00752-4] Goal Plan of Care Note [code = 95637-5] Goal Plan of Care Note [code = 93194-0] Goal Plan of Care Note [code = 41205-7] Goal Plan of Care Note [code = 22606-1] Goal Plan of Care Note [code = 84972-0] Goal Plan of Care Note [code = 75149-7] Goal Plan of Care Note [code = 33749-9] Goal Plan of Care Note [code = 27493-9] Goal Plan of Care Note [code = 83528-3] Goal Plan of Care Note [code = 65475-6] Goal Plan of Care Note [code = 69695-6] Goal Plan of Care Note [code = 37155-6] Goal Plan of Care Note [code = 63051-0] Goal Plan of Care Note [code = 72302-4] Goal Plan of Care Note [code = 56818-7] Goal Plan of Care Note [code = 45837-8] Goal Plan of Care Note [code = 97995-5] Goal Plan of Care Note [code = 25364-4] Goal Plan of Care Note [code = 39876-2] Goal Plan of Care Note [code = 81778-9] Goal Plan of Care Note [code = 24724-1] Goal Plan of Care Note [code = 46010-4] Goal Plan of Care Note [code = 44992-0] Goal Plan of Care Note [code = 45072-8] Goal Plan of Care Note [code = 08005-4] Goal Plan of Care Note [code = 27370-5] Goal Plan of Care Note [code = 07547-9] Goal Plan of Care Note [code = 46725-9] Goal Plan of Care Note [code = 02134-0] Goal Plan of Care Note [code = 21096-8] Goal Plan of Care Note [code = 68817-2] Goal Plan of Care Note [code = 14084-8] Goal Plan of Care Note [code = 89525-2] Goal Plan of Care Note [code = 21622-1] Goal Plan of Care Note [code = 29694-0] Goal Plan of Care Note [code = 75615-9] Goal Plan of Care Note [code = 84935-5] Goal Plan of Care Note [code = 32968-7] Goal Plan of Care Note [code = 27922-5] Goal Plan of Care Note [code = 96379-1] Goal Plan of Care Note [code = 71438-5] Goal Plan of Care Note [code = 34267-4] Goal Plan of Care Note [code = 17411-2] Goal Plan of Care Note [code = 63561-0] Goal Plan of Care Note [code = 50831-4] Goal Plan of Care Note [code = 67102-1] Goal Plan of Care Note [code = 77725-6] Goal Plan of Care Note [code = 83276-6] Goal Plan of Care Note [code = 67437-6] Goal Plan of Care Note [code = 51892-4] Goal Plan of Care Note [code = 20480-2] Goal Plan of Care Note [code = 66056-1] Encounters Start Date/Time End Date/Time Encounter Type Admission Type Attending [facility] Care Department Encounter ID Source 2024-05-21 10:17:22 2024-05-21 10:17:22 Outpatient [facility] [id number] Russell Morris Ulises 2024-05-21 00:00:00 2024-05-21 00:00:00 Outpatient Visit [facility] [id number] Russell Morris Ulises 2024-05-20 11:10:38 2024-05-20 11:10:38 Outpatient [facility] [id number] Russell Montgomery 2024-04-02 13:03:02 2024-04-02 13:03:02 Outpatient [facility] [id number] Russell Morris Ulises 2024-04-02 00:00:00 2024-04-02 00:00:00 Outpatient Visit [facility] [id number] Russell Montgomery 2024-02-22 13:46:07 2024-02-22 13:46:07 Outpatient [facility] [id number] Russell Montgomery 2024-02-22 00:00:00 2024-02-22 00:00:00 Outpatient Visit [facility] [id number] Russell Montgomery 2024-01-09 14:16:32 2024-01-09 14:16:32 Outpatient [facility] [id number] Russell Caceres Ulises 2023-12-07 17:47:00 2023-12-07 19:59:00 Emergency X YANIRA SWAN [facility] [id number] [facility] 2023-12-07 17:47:00 2023-12-07 19:59:00 Emergency Yanira Swan [facility] [id number] [facility] 2023-09-18 10:19:37 2023-09-18 10:19:37 Outpatient [facility] [id number] Russell Caceres Ulises 2023-09-18 00:00:00 2023-09-18 00:00:00 Outpatient Visit [facility] [id number] Russell Montgomery 2023-08-06 00:00:00 2023-08-06 00:00:00 Outpatient Visit [facility] [id number] Russell Montgomery 2023-07-23 09:20:01 2023-07-23 09:20:01 Outpatient S[facility] [id number] Russell Montgomery 2023-07-23 00:00:00 2023-07-23 00:00:00 Outpatient Visit [facility] [id number] Russell Montgomery 2023-05-08 13:39:53 2023-05-08 13:39:53 Outpatient [facility] [id number] Russell Caceres Ulises 2023-04-17 14:21:25 2023-04-17 14:21:25 Outpatient [facility] [id number] Russell Caceres Ulises 2023-01-20 13:11:17 2023-01-20 13:11:17 Outpatient [facility] [id number] Russell Caceres Ulises 2022-10-30 10:52:11 2022-10-30 10:52:11 Outpatient [facility] [id number] Russell Caceres Ulises 2022-10-18 09:48:17 2022-10-18 09:48:17 Outpatient [facility] [id number] Russell Caceres Ulises 2022-05-16 10:28:29 2022-05-16 10:28:29 Outpatient [facility] [id number] Russell Caceres [place] 2022-05-05 08:13:11 2022-05-05 08:13:11 Outpatient [facility] [id number] Russell Caceres [place] 2022-05-03 12:14:32 2022-05-03 12:14:32 Outpatient [facility] [id number] Russell Caceres [place] 2022-03-24 07:56:49 2022-03-24 07:56:49 Outpatient [facility] [id number] Russell Caceres [place] 2022-03-10 09:28:46 2022-03-10 09:28:46 Outpatient [facility] [id number] Russell Caceres [place] 2022-01-07 09:40:07 2022-01-07 09:40:07 Outpatient [facility] [id number] Russell Caceres [place] 2022-01-03 16:16:27 2022-01-03 16:16:27 Outpatient [facility] [id number] Russell Caceres [place] 2022-01-03 00:00:00 2022-01-03 00:00:00 Outpatient Visit [id number] 2021-12-27 08:24:17 2021-12-27 08:24:17 Outpatient [facility] [id number] Russell Montgomery 2021-12-23 15:10:28 2021-12-23 15:10:28 Outpatient [facility] [id number] Russell Montgomery 2021-12-23 00:00:00 2021-12-23 00:00:00 Outpatient Visit [id number] 2021-10-31 00:00:00 2021-10-31 00:00:00 Outpatient Visit [id number] 2021-09-19 11:38:00 2021-09-19 15:52:00 Emergency X [facility]VING BOWLES [facility] ERT [id number] [facility] 2021-09-19 11:38:00 2021-09-19 15:52:00 Emergency Irving Bowles [facility] [id number] [id number] [facility] 2021-09-17 00:00:00 2021-09-17 00:00:00 Outpatient Visit [id number] 2021-08-31 00:00:00 2021-08-31 00:00:00 Outpatient Visit [id number] Results Test Description Test Time Test Comments Results Result Co mments Source [facility] Fezgg1951-09-[facility] 23:32:22* Test Item Value Reference Range Interpretation Comme nts LIPASE (test code = 5392450160) 38 U/L 0-220 Lab Interpretation (test cod e = 32401-3) Normal [facility] with [id number] 23:20:59* Test Item Value Reference Range Interpretation Comme nts WBC (test code = 6690-2) 4.96 4.30-11.10 RBC (test code = 789-8) 4.39 3.93-5.25 HGB (test code = 718-7) 13.2 g/dL 11.6-15.0 HCT (test code = 4544-3) 40.3 % 35.7-45.2 MCV (test code = 787-2) 91.8 fL 80.6-95.5 MCH (test code = 785-6) 30.1 pg 25.9-32.8 MCHC (test code = 786-4) 32.8 g/dL 31.6-35.1 RDW-SD (test code = 61306-0) 43.8 fL 39.0-49.9 RDW-CV (test code = 788-0) 12.9 % 12.0-15.5 PLT (test code = 777-3) 214 166-358 MPV (test code = 20231-4) 9.9 fL 9.5-12.9 NRBC/100 WBC (test code = 5349969796) 0.0 0.0-10.0 NRBC x10^3 (test code = 3709414361) See_Comment [Automated me ssage] The system which generated this result transmitted reference range: 10*3/?L. The reference range was not used to interpret this result as normal/abnormal. GRAN MAT (NEUT) % (test code = 770-8) 59.9 % IMM GRAN % (test code = 8002359594) 0.40 % LYMPH % (test code = 736-9) 27.2 % MONO % (test code = 5905-5) 10.9 % EOS % (test code = 713-8) 1.2 % BASO % (test code = 706-2) 0.4 % GRAN MAT x10^3(ANC) (test code = 8340897083) 2.97 10*3/uL 1.88-7.09 IMM GRAN x10^3 (test code = 5471214286) 0.00-0.06 LYMPH x10^3 (test code = 731-0) 1.35 10*3/uL 1.32-3.29 MONO x10^3 (test code = 742-7) 0.54 10*3/uL 0.33-0.92 EOS x10^3 (test code = 711-2) 0.06 10*3/uL 0.03-0.39 BASO x10^3 (test code = 704-7) 0.01-0.07 [facility] CenterCOMPRE[facility]ENSIVE METABOLIC [id number] 00:00:00* Test Item Value Reference Range Interpretation Comme nts GLUCOSE (test code = 2217) 98 MG/DL BUN (test code = 2208) 8 MG/DL CREATININE (test code = 2214) 0.60 MG/DL eGFR (2020 CKD-EPI) (test code = 33312) 104 ML/MIN/1.73 CALC BUN/CREAT (test code = 2235) 13 RATIO SODIUM (test code = 2231) 143 MEQ/L POTASSIUM (test code = 2228) 4.1 MEQ/L CHLORIDE (test code = 2215) 106 MEQ/L CARBON DIOXIDE (test code = 2206) 24 MEQ/L CALCIUM (test code = 2209) 9.9 MG/DL PROTEIN, TOTAL (test code = 2229) 6.7 G/DL ALBUMIN (test code = 2201) 4.6 G/DL CALC GLOBULIN (test code = 2240) 2.1 G/DL CALC A/G RATIO (test code = 2234) 2.2 RATIO BILIRUBIN, TOTAL (test code = 2207) 0.3 MG/DL ALKALINE PHOSPHATASE (test code = 2204) 142 U/L AST (test code = 2218) 21 U/L ALT (test code = 2219) 31 U/L Russell MontgomeryLIPID [id number] 00:00:00* Test Item Value Reference Range Interpretation Comme nts CHOLESTEROL (test code = 2210) 181 MG/DL TRIGLYCERIDES (test code = 2232) 139 MG/DL HDL CHOLESTEROL (test code = 2220) 59 MG/DL CALC LDL CHOL (test code = 2237) 98 MG/DL RISK RATIO LDL/HDL (test cod e = 2238) 1.66 RATIO Russell MontgomeryHEMOGLOBIN [id number] 00:00:00* Test Item Value Reference Range Interpretation Comme nts HEMOGLOBIN A1c (test code = 42347) 6.0 % Russell MontgomeryCOMPREHENSIVE METABOLIC [id number] 00:00:00* Test Item Value Reference Range Interpretation Comme nts GLUCOSE (test code = 2217) 98 MG/DL BUN (test code = 2208) 8 MG/DL CREATININE (test code = 2214) 0.60 MG/DL eGFR (2020 CKD-EPI) (test code = 62399) 104 ML/MIN/1.73 CALC BUN/CREAT (test code = 2235) 13 RATIO SODIUM (test code = 2231) 143 MEQ/L POTASSIUM (test code = 2228) 4.1 MEQ/L CHLORIDE (test code = 2215) 106 MEQ/L CARBON DIOXIDE (test code = 2206) 24 MEQ/L CALCIUM (test code = 2209) 9.9 MG/DL PROTEIN, TOTAL (test code = 2229) 6.7 G/DL ALBUMIN (test code = 2201) 4.6 G/DL CALC GLOBULIN (test code = 2240) 2.1 G/DL CALC A/G RATIO (test code = 2234) 2.2 RATIO BILIRUBIN, TOTAL (test code = 2207) 0.3 MG/DL ALKALINE PHOSPHATASE (test code = 2204) 142 U/L AST (test code = 2218) 21 U/L ALT (test code = 2219) 31 U/L Russell MontgomeryLIPID [id number] 00:00:00* Test Item Value Reference Range Interpretation Comme nts CHOLESTEROL (test code = 2210) 181 MG/DL TRIGLYCERIDES (test code = 2232) 139 MG/DL HDL CHOLESTEROL (test code = 2220) 59 MG/DL CALC LDL CHOL (test code = 2237) 98 MG/DL RISK RATIO LDL/HDL (test cod e = 2238) 1.66 RATIO Russell Caceres AustinHEMOGLOBIN [id number] 00:00:00* Test Item Value Reference Range Interpretation Comme nts HEMOGLOBIN A1c (test code = 54763) 6.0 % Russell MontgomeryCOMPREHENSIVE METABOLIC [id number] 00:00:00* Test Item Value Reference Range Interpretation Comme nts GLUCOSE (test code = 2217) 98 MG/DL BUN (test code = 2208) 8 MG/DL CREATININE (test code = 2214) 0.60 MG/DL eGFR (2020 CKD-EPI) (test code = 70884) 104 ML/MIN/1.73 CALC BUN/CREAT (test code = 2235) 13 RATIO SODIUM (test code = 2231) 143 MEQ/L POTASSIUM (test code = 2228) 4.1 MEQ/L CHLORIDE (test code = 2215) 106 MEQ/L CARBON DIOXIDE (test code = 2206) 24 MEQ/L CALCIUM (test code = 2209) 9.9 MG/DL PROTEIN, TOTAL (test code = 2229) 6.7 G/DL ALBUMIN (test code = 2201) 4.6 G/DL CALC GLOBULIN (test code = 2240) 2.1 G/DL CALC A/G RATIO (test code = 2234) 2.2 RATIO BILIRUBIN, TOTAL (test code = 2207) 0.3 MG/DL ALKALINE PHOSPHATASE (test code = 2204) 142 U/L AST (test code = 2218) 21 U/L ALT (test code = 2219) 31 U/L Russell Caceres AustinLIPID [id number] 00:00:00* Test Item Value Reference Range Interpretation Comme nts CHOLESTEROL (test code = 2210) 181 MG/DL TRIGLYCERIDES (test code = 2232) 139 MG/DL HDL CHOLESTEROL (test code = 2220) 59 MG/DL CALC LDL CHOL (test code = 2237) 98 MG/DL RISK RATIO LDL/HDL (test cod e = 2238) 1.66 RATIO Russell MontgomeryHEMOGLOBIN [id number] 00:00:00* Test Item Value Reference Range Interpretation Comme nts HEMOGLOBIN A1c (test code = 08856) 6.0 % Russell MontgomeryCOMPREHENSIVE METABOLIC [id number] 00:00:00* Test Item Value Reference Range Interpretation Comme nts GLUCOSE (test code = 2217) 98 MG/DL BUN (test code = 2208) 8 MG/DL CREATININE (test code = 2214) 0.60 MG/DL eGFR (2020 CKD-EPI) (test code = 90837) 104 ML/MIN/1.73 CALC BUN/CREAT (test code = 2235) 13 RATIO SODIUM (test code = 2231) 143 MEQ/L POTASSIUM (test code = 2228) 4.1 MEQ/L CHLORIDE (test code = 2215) 106 MEQ/L CARBON DIOXIDE (test code = 2206) 24 MEQ/L CALCIUM (test code = 2209) 9.9 MG/DL PROTEIN, TOTAL (test code = 2229) 6.7 G/DL ALBUMIN (test code = 2201) 4.6 G/DL CALC GLOBULIN (test code = 2240) 2.1 G/DL CALC A/G RATIO (test code = 2234) 2.2 RATIO BILIRUBIN, TOTAL (test code = 2207) 0.3 MG/DL ALKALINE PHOSPHATASE (test code = 2204) 142 U/L AST (test code = 2218) 21 U/L ALT (test code = 2219) 31 U/L Russell MontgomeryLIPID [id number] 00:00:00* Test Item Value Reference Range Interpretation Comme nts CHOLESTEROL (test code = 2210) 181 MG/DL TRIGLYCERIDES (test code = 2232) 139 MG/DL HDL CHOLESTEROL (test code = 2220) 59 MG/DL CALC LDL CHOL (test code = 2237) 98 MG/DL RISK RATIO LDL/HDL (test cod e = 2238) 1.66 RATIO Russell MontgomeryHEMOGLOBIN [id number] 00:00:00* Test Item Value Reference Range Interpretation Comme nts HEMOGLOBIN A1c (test code = 90377) 6.0 % Russell MontgomeryTOTAL BILE [id number] 11:38:43* Test Item Value Reference Range Interpretation Comme nts TOTAL BILE ACIDS (test code = 77551) 5 mcmol/L 0-10 Reference interv al applies to fasting specimens. TESTING PERFORMED AT [facility] [address], [address] [address] CLIA NO: [id number] UNLESS OTHERWISE INDICATED, ALL TESTING PERFORMED AT [facility] [address] [place] [address] SAFETY ENGINEER: CANDY STEWARD M.D. CLIA NUMBER [id number] [place] [place]. [id number] TOTAL BILE [id number] 00:00:00* Test Item Value Reference Range Interpretation Comme nts TOTAL BILE ACIDS (test code = 90318) 5 mcmol/L Russell F AustinTOTAL BILE [id number] 00:00:00* Test Item Value Reference Range Interpretation Comme nts TOTAL BILE ACIDS (test code = 71423) 5 mcmol/L Russell F AustinTOTAL BILE [id number] 00:00:00* Test Item Value Reference Range Interpretation Comme nts TOTAL BILE ACIDS (test code = 35441) 5 mcmol/L Russell F AustinTOTAL BILE [id number] 00:00:00* Test Item Value Reference Range Interpretation Comme nts TOTAL BILE ACIDS (test code = 38766) 5 mcmol/L Russell F AustinSEDIMENTATION [id number] 08:23:13* Test Item Value Reference Range Interpretation Comme nts SEDIMENTATION RATE (test cod e = 1017) 8 MM/HOUR 0-20 C-REACTIVE [id number] 03:13:02* Test Item Value Reference Range Interpretation Comme nts C-REACTIVE PROTEIN (test cod e = 3513) 0.4 MG/DL <0.5 HEPATIC FUNCTION [id number] 03:12:49* Test Item Value Reference Range Interpretation Comme nts PROTEIN, TOTAL (test code = 2229) 6.8 G/DL 6.1-8.3 ALBUMIN (test code = 2201) 4.6 G/DL 3.5-5.2 BILIRUBIN, TOTAL (test code = 2207) 0.3 MG/DL <=1.2 BILIRUBIN, DIRECT (test code = 2) 0.1 MG/DL 0.0-0.3 ALKALINE PHOSPHATASE (test c ode = 2204) 133 U/L 40-136 AST (test code = 2218) 20 U/L 9-40 ALT (test code = 2219) 25 U/L 5-40 CBC W/AUTO DIFF WITH [id number] 02:56:44* Test Item Value Reference Range Interpretation Comme nts WBC (test code = 1001) 6.2 K/UL 3.5-11.0 RBC (test code = 1002) 4.47 M/UL 3.80-5.40 HEMOGLOBIN (test code = 1003) 13.2 G/DL 11.5-15.5 HEMATOCRIT (test code = 1004) 40.1 % 34.0-45.0 MCV (test code = 1005) 89.7 fL 80.0-99.0 MCH (test code = 1006) 29.5 PG 25.0-33.0 MCHC (test code = 1007) 32.9 G/DL 31.0-36.0 RDW (test code = 1038) 12.8 % 11.5-15.0 NEUTROPHILS (test code = 1008) 49.4 % LYMPHOCYTES (test code = 1010) 37.2 % MONOCYTES (test code = 1011) 9.3 % EOSINOPHILS (test code = 1012) 3.1 % BASOPHILS (test code = 1013) 0.5 % IMMATURE GRANULOCYTES (test code = 1036) 0.5 % NUCLEATED RBCS (test code = 1065) 0.0 /100 WBC'S See_Comment [Automated [employer] ge] The system which generated this result transmitted reference range: 0.0. The reference range was not used to interpret this result as normal/abnormal. PLATELET COUNT (test code = 1015) 236 K/UL 130-400 ABSOLUTE NEUTROPHILS (test code = 1066) 3.07 K/UL 1.50-7.50 ABSOLUTE LYMPHOCYTES (test code = 1067) 2.31 K/UL 1.00-4.00 ABSOLUTE MONOCYTES (test code = 1068) 0.58 K/UL 0.20-1.00 ABSOLUTE EOSINOPHILS (test code = 1040) 0.19 K/UL 0.00-0.50 ABSOLUTE BASOPHILS (test code = 1069) 0.03 K/UL 0.00-0.20 ABS IMMATURE GRANULOCYTES (test code = 1020) 0.03 K/UL 0.00-0.10 ABS NUCLEATED RBCS (test code = 60409) 0.00 K/UL 0.00-0.11 SEDIMENTATION [id number] 00:00:00* Test Item Value Reference Range Interpretation Comme nts SEDIMENTATION RATE (test cod e = 1017) 8 MM/HOUR Russell MontgomeryC-REACTIVE [id number] 00:00:00* Test Item Value Reference Range Interpretation Comme nts C-REACTIVE PROTEIN (test cod e = 3513) 0.4 MG/DL Russell MontgomeryCBC W/AUTO [id number] 00:00:00* Test Item Value Reference Range Interpretation Comme nts WBC (test code = 1001) 6.2 K/UL RBC (test code = 1002) 4.47 M/UL HEMOGLOBIN (test code = 1003) 13.2 G/DL HEMATOCRIT (test code = 1004) 40.1 % MCV (test code = 1005) 89.7 fL MCH (test code = 1006) 29.5 PG MCHC (test code = 1007) 32.9 G/DL RDW (test code = 1038) 12.8 % NEUTROPHILS (test code = 1008) 49.4 % LYMPHOCYTES (test code = 1010) 37.2 % MONOCYTES (test code = 1011) 9.3 % EOSINOPHILS (test code = 1012) 3.1 % BASOPHILS (test code = 1013) 0.5 % IMMATURE GRANULOCYTES (test code = 1036) 0.5 % NUCLEATED RBCS (test code = 1065) 0.0 /100WBC'S PLATELET COUNT (test code = 1015) 236 K/UL ABSOLUTE NEUTROPHILS (test c ode = 1066) 3.07 K/UL ABSOLUTE LYMPHOCYTES (test c ode = 1067) 2.31 K/UL ABSOLUTE MONOCYTES (test cod e = 1068) 0.58 K/UL ABSOLUTE EOSINOPHILS (test c ode = 1040) 0.19 K/UL ABSOLUTE BASOPHILS (test cod e = 1069) 0.03 K/UL ABS IMMATURE GRANULOCYTES (t est code = 1020) 0.03 K/UL ABS NUCLEATED RBCS (test cod e = 44223) 0.00 K/UL Russell MontgomeryLIVER (HEPATIC) FUNCTION [id number] 00:00:00* Test Item Value Reference Range Interpretation Comme nts PROTEIN, TOTAL (test code = 2229) 6.8 G/DL ALBUMIN (test code = 2201) 4.6 G/DL BILIRUBIN, TOTAL (test code = 2207) 0.3 MG/DL BILIRUBIN, DIRECT (test code = 2021) 0.1 MG/DL ALKALINE PHOSPHATASE (test c ode = 2204) 133 U/L AST (test code = 2218) 20 U/L ALT (test code = 2219) 25 U/L Russell MontgomerySEDIMENTATION [id number] 00:00:00* Test Item Value Reference Range Interpretation Comme nts SEDIMENTATION RATE (test cod e = 1017) 8 MM/HOUR Russell MontgomeryC-REACTIVE [id number] 00:00:00* Test Item Value Reference Range Interpretation Comme nts C-REACTIVE PROTEIN (test cod e = 3513) 0.4 MG/DL Russell MontgomeryCBC W/AUTO [id number] 00:00:00* Test Item Value Reference Range Interpretation Comme nts WBC (test code = 1001) 6.2 K/UL RBC (test code = 1002) 4.47 M/UL HEMOGLOBIN (test code = 1003) 13.2 G/DL HEMATOCRIT (test code = 1004) 40.1 % MCV (test code = 1005) 89.7 fL MCH (test code = 1006) 29.5 PG MCHC (test code = 1007) 32.9 G/DL RDW (test code = 1038) 12.8 % NEUTROPHILS (test code = 1008) 49.4 % LYMPHOCYTES (test code = 1010) 37.2 % MONOCYTES (test code = 1011) 9.3 % EOSINOPHILS (test code = 1012) 3.1 % BASOPHILS (test code = 1013) 0.5 % IMMATURE GRANULOCYTES (test code = 1036) 0.5 % NUCLEATED RBCS (test code = 1065) 0.0 /100WBC'S PLATELET COUNT (test code = 1015) 236 K/UL ABSOLUTE NEUTROPHILS (test c ode = 1066) 3.07 K/UL ABSOLUTE LYMPHOCYTES (test c ode = 1067) 2.31 K/UL ABSOLUTE MONOCYTES (test cod e = 1068) 0.58 K/UL ABSOLUTE EOSINOPHILS (test c ode = 1040) 0.19 K/UL ABSOLUTE BASOPHILS (test cod e = 1069) 0.03 K/UL ABS IMMATURE GRANULOCYTES (t est code = 1020) 0.03 K/UL ABS NUCLEATED RBCS (test cod e = 53506) 0.00 K/UL Russell MontgomeryLIVER (HEPATIC) FUNCTION [id number] 00:00:00* Test Item Value Reference Range Interpretation Comme nts PROTEIN, TOTAL (test code = 2229) 6.8 G/DL ALBUMIN (test code = 2201) 4.6 G/DL BILIRUBIN, TOTAL (test code = 2207) 0.3 MG/DL BILIRUBIN, DIRECT (test code = 2021) 0.1 MG/DL ALKALINE PHOSPHATASE (test c ode = 2204) 133 U/L AST (test code = 2218) 20 U/L ALT (test code = 2219) 25 U/L Russell Caceres AustinSEDIMENTATION [id number] 00:00:00* Test Item Value Reference Range Interpretation Comme nts SEDIMENTATION RATE (test cod e = 1017) 8 MM/HOUR Russell MontgomeryC-REACTIVE [id number] 00:00:00* Test Item Value Reference Range Interpretation Comme nts C-REACTIVE PROTEIN (test cod e = 3513) 0.4 MG/DL Russell MontgomeryCBC W/AUTO [id number] 00:00:00* Test Item Value Reference Range Interpretation Comme nts WBC (test code = 1001) 6.2 K/UL RBC (test code = 1002) 4.47 M/UL HEMOGLOBIN (test code = 1003) 13.2 G/DL HEMATOCRIT (test code = 1004) 40.1 % MCV (test code = 1005) 89.7 fL MCH (test code = 1006) 29.5 PG MCHC (test code = 1007) 32.9 G/DL RDW (test code = 1038) 12.8 % NEUTROPHILS (test code = 1008) 49.4 % LYMPHOCYTES (test code = 1010) 37.2 % MONOCYTES (test code = 1011) 9.3 % EOSINOPHILS (test code = 1012) 3.1 % BASOPHILS (test code = 1013) 0.5 % IMMATURE GRANULOCYTES (test code = 1036) 0.5 % NUCLEATED RBCS (test code = 1065) 0.0 /100WBC'S PLATELET COUNT (test code = 1015) 236 K/UL ABSOLUTE NEUTROPHILS (test c ode = 1066) 3.07 K/UL ABSOLUTE LYMPHOCYTES (test c ode = 1067) 2.31 K/UL ABSOLUTE MONOCYTES (test cod e = 1068) 0.58 K/UL ABSOLUTE EOSINOPHILS (test c ode = 1040) 0.19 K/UL ABSOLUTE BASOPHILS (test cod e = 1069) 0.03 K/UL ABS IMMATURE GRANULOCYTES (t est code = 1020) 0.03 K/UL ABS NUCLEATED RBCS (test cod e = 23838) 0.00 K/UL Russell MontgomeryJIEVER (HEPATIC) FUNCTION [id number] 00:00:00* Test Item Value Reference Range Interpretation Comme nts PROTEIN, TOTAL (test code = 2229) 6.8 G/DL ALBUMIN (test code = 2201) 4.6 G/DL BILIRUBIN, TOTAL (test code = 2207) 0.3 MG/DL BILIRUBIN, DIRECT (test code = 2022) 0.1 MG/DL ALKALINE PHOSPHATASE (test c ode = 2204) 133 U/L AST (test code = 2218) 20 U/L ALT (test code = 2219) 25 U/L Russell MontgomerySEDIMENTATION [id number] 00:00:00* Test Item Value Reference Range Interpretation Comme nts SEDIMENTATION RATE (test cod e = 1017) 8 MM/HOUR Russell MontgomeryC-REACTIVE [id number] 00:00:00* Test Item Value Reference Range Interpretation Comme nts C-REACTIVE PROTEIN (test cod e = 3513) 0.4 MG/DL Russell MontgomeryCBC W/AUTO [id number] 00:00:00* Test Item Value Reference Range Interpretation Comme nts WBC (test code = 1001) 6.2 K/UL RBC (test code = 1002) 4.47 M/UL HEMOGLOBIN (test code = 1003) 13.2 G/DL HEMATOCRIT (test code = 1004) 40.1 % MCV (test code = 1005) 89.7 fL MCH (test code = 1006) 29.5 PG MCHC (test code = 1007) 32.9 G/DL RDW (test code = 1038) 12.8 % NEUTROPHILS (test code = 1008) 49.4 % LYMPHOCYTES (test code = 1010) 37.2 % MONOCYTES (test code = 1011) 9.3 % EOSINOPHILS (test code = 1012) 3.1 % BASOPHILS (test code = 1013) 0.5 % IMMATURE GRANULOCYTES (test code = 1036) 0.5 % NUCLEATED RBCS (test code = 1065) 0.0 /100WBC'S PLATELET COUNT (test code = 1015) 236 K/UL ABSOLUTE NEUTROPHILS (test c ode = 1066) 3.07 K/UL ABSOLUTE LYMPHOCYTES (test c ode = 1067) 2.31 K/UL ABSOLUTE MONOCYTES (test cod e = 1068) 0.58 K/UL ABSOLUTE EOSINOPHILS (test c ode = 1040) 0.19 K/UL ABSOLUTE BASOPHILS (test cod e = 1069) 0.03 K/UL ABS IMMATURE GRANULOCYTES (t est code = 1020) 0.03 K/UL ABS NUCLEATED RBCS (test cod e = 42257) 0.00 K/UL Russell MontgomeryJIEVER (HEPATIC) FUNCTION [id number] 00:00:00* Test Item Value Reference Range Interpretation Comme nts PROTEIN, TOTAL (test code = 2229) 6.8 G/DL ALBUMIN (test code = 2201) 4.6 G/DL BILIRUBIN, TOTAL (test code = 2207) 0.3 MG/DL BILIRUBIN, DIRECT (test code = 2022) 0.1 MG/DL ALKALINE PHOSPHATASE (test c ode = 2204) 133 U/L AST (test code = 2218) 20 U/L ALT (test code = 2219) 25 U/L Russell Gunderson, [id number] 00:00:00* Test Item Value Reference Range Interpretation Comme nts CULTURE, URINE (test code = 10302) SPECIMEN NUMBER: [id number] Russell Gunderson, [id number] 00:00:00* Test Item Value Reference Range Interpretation Comme nts CULTURE, URINE (test code = 11202) SPECIMEN NUMBER: [id number] Russell MontgomeryCULTWILLIAM, [id number] 00:00:00* Test Item Value Reference Range Interpretation Comme nts CULTURE, URINE (test code = 54466) SPECIMEN NUMBER: [id number] Russell WeeksLTWILLIAM, [id number] 00:00:00* Test Item Value Reference Range Interpretation Comme nts CULTURE, URINE (test code = 86270) SPECIMEN NUMBER: [id number] Russell WeeksLTWILLIAM, [id number] 00:00:00* Test Item Value Reference Range Interpretation Comme nts CULTURE, URINE (test code = 03105) SPECIMEN NUMBER: [id number] Russell Caceres AustinLIPID [id number] 00:00:00* Test Item Value Reference Range Interpretation Comme nts CHOLESTEROL (test code = 2210) 162 MG/DL TRIGLYCERIDES (test code = 2232) 171 MG/DL HDL CHOLESTEROL (test code = 2220) 65 MG/DL CALC LDL CHOL (test code = 2237) 72 MG/DL RISK RATIO LDL/HDL (test cod e = 2238) 1.11 RATIO Russell Caceres AustinHEMOGLOBIN [id number] 00:00:00* Test Item Value Reference Range Interpretation Comme nts HEMOGLOBIN A1c (test code = 02270) 5.8 % Russell Caceres AustinLIPID [id number] 00:00:00* Test Item Value Reference Range Interpretation Comme nts CHOLESTEROL (test code = 2210) 162 MG/DL TRIGLYCERIDES (test code = 2232) 171 MG/DL HDL CHOLESTEROL (test code = 2220) 65 MG/DL CALC LDL CHOL (test code = 2237) 72 MG/DL RISK RATIO LDL/HDL (test cod e = 2238) 1.11 RATIO Russell Caceres AustinHEMOGLOBIN [id number] 00:00:00* Test Item Value Reference Range Interpretation Comme nts HEMOGLOBIN A1c (test code = 38440) 5.8 % Russell Caceres AustinLIPID [id number] 00:00:00* Test Item Value Reference Range Interpretation Comme nts CHOLESTEROL (test code = 2210) 162 MG/DL TRIGLYCERIDES (test code = 2232) 171 MG/DL HDL CHOLESTEROL (test code = 2220) 65 MG/DL CALC LDL CHOL (test code = 2237) 72 MG/DL RISK RATIO LDL/HDL (test cod e = 2238) 1.11 RATIO Russell Caceres AustinHEMOGLOBIN [id number] 00:00:00* Test Item Value Reference Range Interpretation Comme nts HEMOGLOBIN A1c (test code = 93161) 5.8 % Russell Caceres AustinLIPID [id number] 00:00:00* Test Item Value Reference Range Interpretation Comme nts CHOLESTEROL (test code = 2210) 162 MG/DL TRIGLYCERIDES (test code = 2232) 171 MG/DL HDL CHOLESTEROL (test code = 2220) 65 MG/DL CALC LDL CHOL (test code = 2237) 72 MG/DL RISK RATIO LDL/HDL (test cod e = 2238) 1.11 RATIO Russell MontgomeryHEMOGLOBIN [id number] 00:00:00* Test Item Value Reference Range Interpretation Comme nts HEMOGLOBIN A1c (test code = 21390) 5.8 % Russell MontgomeryLIPID [id number] 00:00:00* Test Item Value Reference Range Interpretation Comme nts CHOLESTEROL (test code = 2210) 162 MG/DL TRIGLYCERIDES (test code = 2232) 171 MG/DL HDL CHOLESTEROL (test code = 2220) 65 MG/DL CALC LDL CHOL (test code = 2237) 72 MG/DL RISK RATIO LDL/HDL (test cod e = 2238) 1.11 RATIO Russell MontgomeryHEMOGLOBIN [id number] 00:00:00* Test Item Value Reference Range Interpretation Comme nts HEMOGLOBIN A1c (test code = 02656) 5.8 % Russell MontgomeryLIPID [id number] 00:00:00* Test Item Value Reference Range Interpretation Comme nts CHOLESTEROL (test code = 2210) 162 MG/DL TRIGLYCERIDES (test code = 2232) 171 MG/DL HDL CHOLESTEROL (test code = 2220) 65 MG/DL CALC LDL CHOL (test code = 2237) 72 MG/DL RISK RATIO LDL/HDL (test cod e = 2238) 1.11 RATIO Russell MontgomeryHEMOGLOBIN [id number] 00:00:00* Test Item Value Reference Range Interpretation Comme nts HEMOGLOBIN A1c (test code = 48221) 5.8 % Russell Gunderson, [id number] 08:30:26SPECIMEN NUMBER: [id number] CULTURE, URINE SPECIMEN NUMBER: [id number] SPECIMEN COMMENT: URINE SOURCE: URINE REPORT STATUS: FINAL FINAL REPORT: 10/20/2022 10-50,000 CFU/ML UROGENITAL VENECIA PRESENT NO COMMON PATHOGENS UNLESS OTHERWISE INDICATED, ALL TESTING PERFORMED AT [facility] [address] [place] [address] SAFETY ENGINEER: CANDY STEWARD M.D. CLIA NUMBER [id number] [place]. [id number], [id number] 00:00:00* Test Item Value Reference Range Interpretation Comme nts CULTURE, URINE (test code = 81891) SPECIMEN NUMBER: [id number] Russell Gunderson, [id number] 00:00:00* Test Item Value Reference Range Interpretation Comme nts CULTURE, URINE (test code = 00984) SPECIMEN NUMBER: [id number] Russell Gunderson, [id number] 00:00:00* Test Item Value Reference Range Interpretation Comme nts CULTURE, URINE (test code = 50012) SPECIMEN NUMBER: [id number] Russell Gunderson, [id number] 00:00:00* Test Item Value Reference Range Interpretation Comme nts CULTURE, URINE (test code = 62075) SPECIMEN NUMBER: [id number] Russell Gunderson, [id number] 00:00:00* Test Item Value Reference Range Interpretation Comme nts CULTURE, URINE (test code = 22342) SPECIMEN NUMBER: [id number] Russell Gunderson, [id number] 00:00:00* Test Item Value Reference Range Interpretation Comme nts CULTURE, URINE (test code = 47428) SPECIMEN NUMBER: [id number] Russell MontgomeryLIPID [id number] 00:00:00* Test Item Value Reference Range Interpretation Comme nts CHOLESTEROL (test code = 2210) 182 MG/DL TRIGLYCERIDES (test code = 2232) 155 MG/DL HDL CHOLESTEROL (test code = 2220) 70 MG/DL CALC LDL CHOL (test code = 2237) 87 MG/DL RISK RATIO LDL/HDL (test cod e = 2238) 1.24 RATIO Russell MontgomeryCOMPREHENSIVE METABOLIC [id number] 00:00:00* Test Item Value Reference Range Interpretation Comme nts GLUCOSE (test code = 2217) 102 MG/DL BUN (test code = 2208) 15 MG/DL CREATININE (test code = 2214) 0.58 MG/DL eGFR (2020 CKD-EPI) (test code = 29269) 105 ML/MIN/1.73 CALC BUN/CREAT (test code = 2235) 26 RATIO SODIUM (test code = 2231) 143 MEQ/L POTASSIUM (test code = 2228) 4.3 MEQ/L CHLORIDE (test code = 2215) 104 MEQ/L CARBON DIOXIDE (test code = 2206) 24 MEQ/L CALCIUM (test code = 2209) 9.7 MG/DL PROTEIN, TOTAL (test code = 2229) 7.1 G/DL ALBUMIN (test code = 2201) 4.8 G/DL CALC GLOBULIN (test code = 2240) 2.3 G/DL CALC A/G RATIO (test code = 2234) 2.1 RATIO BILIRUBIN, TOTAL (test code = 2207) 0.4 MG/DL ALKALINE PHOSPHATASE (test code = 2204) 128 U/L AST (test code = 2218) 20 U/L ALT (test code = 2219) 26 U/L Russell MontgomeryTSH, THIRD [id number] 00:00:00* Test Item Value Reference Range Interpretation Comme nts TSH, THIRD GENERATION (test code = 2821) 1.890 UIU/ML Russell MontgomeryLACTIC ACID, [id number] 00:00:00* Test Item Value Reference Range Interpretation Comme nts LACTIC ACID, PLASMA (test co de = 2056) 12.3 MG/DL Russell MontgomeryHEMOGLOBIN [id number] 00:00:00* Test Item Value Reference Range Interpretation Comme nts HEMOGLOBIN A1c (test code = 37983) 5.9 % Russell MontgomeryLIPID [id number] 00:00:00* Test Item Value Reference Range Interpretation Comme nts CHOLESTEROL (test code = 2210) 182 MG/DL TRIGLYCERIDES (test code = 2232) 155 MG/DL HDL CHOLESTEROL (test code = 2220) 70 MG/DL CALC LDL CHOL (test code = 2237) 87 MG/DL RISK RATIO LDL/HDL (test cod e = 2238) 1.24 RATIO Russell MontgomeryCOMPREHENSIVE METABOLIC [id number] 00:00:00* Test Item Value Reference Range Interpretation Comme nts GLUCOSE (test code = 2217) 102 MG/DL BUN (test code = 2208) 15 MG/DL CREATININE (test code = 2214) 0.58 MG/DL eGFR (2020 CKD-EPI) (test code = 48207) 105 ML/MIN/1.73 CALC BUN/CREAT (test code = 2235) 26 RATIO SODIUM (test code = 2231) 143 MEQ/L POTASSIUM (test code = 2228) 4.3 MEQ/L CHLORIDE (test code = 2215) 104 MEQ/L CARBON DIOXIDE (test code = 2206) 24 MEQ/L CALCIUM (test code = 2209) 9.7 MG/DL PROTEIN, TOTAL (test code = 2229) 7.1 G/DL ALBUMIN (test code = 2201) 4.8 G/DL CALC GLOBULIN (test code = 2240) 2.3 G/DL CALC A/G RATIO (test code = 2234) 2.1 RATIO BILIRUBIN, TOTAL (test code = 2207) 0.4 MG/DL ALKALINE PHOSPHATASE (test code = 2204) 128 U/L AST (test code = 2218) 20 U/L ALT (test code = 2219) 26 U/L Russell MontgomeryTSH, THIRD [id number] 00:00:00* Test Item Value Reference Range Interpretation Comme nts TSH, THIRD GENERATION (test code = 2821) 1.890 UIU/ML Russell MontgomeryLACTIC ACID, [id number] 00:00:00* Test Item Value Reference Range Interpretation Comme nts LACTIC ACID, PLASMA (test co de = 2056) 12.3 MG/DL Russell MontgomeryHEMOGLOBIN [id number] 00:00:00* Test Item Value Reference Range Interpretation Comme nts HEMOGLOBIN A1c (test code = 56678) 5.9 % Russell MontgomeryLIPID [id number] 00:00:00* Test Item Value Reference Range Interpretation Comme nts CHOLESTEROL (test code = 2210) 182 MG/DL TRIGLYCERIDES (test code = 2232) 155 MG/DL HDL CHOLESTEROL (test code = 2220) 70 MG/DL CALC LDL CHOL (test code = 2237) 87 MG/DL RISK RATIO LDL/HDL (test cod e = 2238) 1.24 RATIO Russell MontgomeryCOMPREHENSIVE METABOLIC [id number] 00:00:00* Test Item Value Reference Range Interpretation Comme nts GLUCOSE (test code = 2217) 102 MG/DL BUN (test code = 2208) 15 MG/DL CREATININE (test code = 2214) 0.58 MG/DL eGFR (2020 CKD-EPI) (test code = 83421) 105 ML/MIN/1.73 CALC BUN/CREAT (test code = 2235) 26 RATIO SODIUM (test code = 2231) 143 MEQ/L POTASSIUM (test code = 2228) 4.3 MEQ/L CHLORIDE (test code = 2215) 104 MEQ/L CARBON DIOXIDE (test code = 2206) 24 MEQ/L CALCIUM (test code = 2209) 9.7 MG/DL PROTEIN, TOTAL (test code = 2229) 7.1 G/DL ALBUMIN (test code = 2201) 4.8 G/DL CALC GLOBULIN (test code = 2240) 2.3 G/DL CALC A/G RATIO (test code = 2234) 2.1 RATIO BILIRUBIN, TOTAL (test code = 2207) 0.4 MG/DL ALKALINE PHOSPHATASE (test code = 2203) 128 U/L AST (test code = 221) 20 U/L ALT (test code = 221) 26 U/L Russell MontgomeryTSH, THIRD [id number] 00:00:00* Test Item Value Reference Range Interpretation Comme nts TSH, THIRD GENERATION (test code = 2820) 1.890 UIU/ML Russell MontgomeryLACTIC ACID, [id number] 00:00:00* Test Item Value Reference Range Interpretation Comme nts LACTIC ACID, PLASMA (test co de = 2056) 12.3 MG/DL Russell MontgomeryHEMOGLOBIN [id number] 00:00:00* Test Item Value Reference Range Interpretation Comme nts HEMOGLOBIN A1c (test code = 81316) 5.9 % Russell MontgomeryLIPID [id number] 00:00:00* Test Item Value Reference Range Interpretation Comme nts CHOLESTEROL (test code = 2210) 182 MG/DL TRIGLYCERIDES (test code = 2232) 155 MG/DL HDL CHOLESTEROL (test code = 2220) 70 MG/DL CALC LDL CHOL (test code = 2237) 87 MG/DL RISK RATIO LDL/HDL (test cod e = 2238) 1.24 RATIO Russell MontgomeryCOMPREHENSIVE METABOLIC [id number] 00:00:00* Test Item Value Reference Range Interpretation Comme nts GLUCOSE (test code = 2216) 102 MG/DL BUN (test code = 2208) 15 MG/DL CREATININE (test code = 2214) 0.58 MG/DL eGFR (2020 CKD-EPI) (test code = 36052) 105 ML/MIN/1.73 CALC BUN/CREAT (test code = 2235) 26 RATIO SODIUM (test code = 2231) 143 MEQ/L POTASSIUM (test code = 2228) 4.3 MEQ/L CHLORIDE (test code = 2215) 104 MEQ/L CARBON DIOXIDE (test code = 2206) 24 MEQ/L CALCIUM (test code = 2209) 9.7 MG/DL PROTEIN, TOTAL (test code = 2229) 7.1 G/DL ALBUMIN (test code = 2201) 4.8 G/DL CALC GLOBULIN (test code = 2240) 2.3 G/DL CALC A/G RATIO (test code = 2234) 2.1 RATIO BILIRUBIN, TOTAL (test code = 2207) 0.4 MG/DL ALKALINE PHOSPHATASE (test code = 220) 128 U/L AST (test code = 221) 20 U/L ALT (test code = 2219) 26 U/L Russell MontgomeryTSH, THIRD [id number] 00:00:00* Test Item Value Reference Range Interpretation Comme nts TSH, THIRD GENERATION (test code = 2821) 1.890 UIU/ML Russell MontgomeryLACTIC ACID, [id number] 00:00:00* Test Item Value Reference Range Interpretation Comme nts LACTIC ACID, PLASMA (test co de = 2056) 12.3 MG/DL Russell MontgomeryHEMOGLOBIN [id number] 00:00:00* Test Item Value Reference Range Interpretation Comme nts HEMOGLOBIN A1c (test code = 66553) 5.9 % Russell MontgomeryLIPID [id number] 00:00:00* Test Item Value Reference Range Interpretation Comme nts CHOLESTEROL (test code = 2210) 182 MG/DL TRIGLYCERIDES (test code = 2232) 155 MG/DL HDL CHOLESTEROL (test code = 2220) 70 MG/DL CALC LDL CHOL (test code = 2237) 87 MG/DL RISK RATIO LDL/HDL (test cod e = 2238) 1.24 RATIO Russell MontgomeryCOMPREHENSIVE METABOLIC [id number] 00:00:00* Test Item Value Reference Range Interpretation Comme nts GLUCOSE (test code = 7) 102 MG/DL BUN (test code = 2208) 15 MG/DL CREATININE (test code = 2214) 0.58 MG/DL eGFR (2020 CKD-EPI) (test code = 42806) 105 ML/MIN/1.73 CALC BUN/CREAT (test code = 2235) 26 RATIO SODIUM (test code = 2231) 143 MEQ/L POTASSIUM (test code = 2228) 4.3 MEQ/L CHLORIDE (test code = 2215) 104 MEQ/L CARBON DIOXIDE (test code = 2206) 24 MEQ/L CALCIUM (test code = 2209) 9.7 MG/DL PROTEIN, TOTAL (test code = 2229) 7.1 G/DL ALBUMIN (test code = 2201) 4.8 G/DL CALC GLOBULIN (test code = 2240) 2.3 G/DL CALC A/G RATIO (test code = 2234) 2.1 RATIO BILIRUBIN, TOTAL (test code = 7) 0.4 MG/DL ALKALINE PHOSPHATASE (test code = 2203) 128 U/L AST (test code = 221) 20 U/L ALT (test code = 221) 26 U/L Russell MontgomeryTSH, THIRD [id number] 00:00:00* Test Item Value Reference Range Interpretation Comme nts TSH, THIRD GENERATION (test code = 2821) 1.890 UIU/ML Russell MontgomeryLACTIC ACID, [id number] 00:00:00* Test Item Value Reference Range Interpretation Comme nts LACTIC ACID, PLASMA (test co de = 2056) 12.3 MG/DL Russell MontgomeryHEMOGLOBIN [id number] 00:00:00* Test Item Value Reference Range Interpretation Comme nts HEMOGLOBIN A1c (test code = 63496) 5.9 % Russell MontgomeryLIPID [id number] 00:00:00* Test Item Value Reference Range Interpretation Comme nts CHOLESTEROL (test code = 2210) 182 MG/DL TRIGLYCERIDES (test code = 2232) 155 MG/DL HDL CHOLESTEROL (test code = 2220) 70 MG/DL CALC LDL CHOL (test code = 2237) 87 MG/DL RISK RATIO LDL/HDL (test cod e = 2238) 1.24 RATIO Russell MontgomeryCOMPREHENSIVE METABOLIC [id number] 00:00:00* Test Item Value Reference Range Interpretation Comme nts GLUCOSE (test code = 2217) 102 MG/DL BUN (test code = 2208) 15 MG/DL CREATININE (test code = 2214) 0.58 MG/DL eGFR (2020 CKD-EPI) (test code = 79637) 105 ML/MIN/1.73 CALC BUN/CREAT (test code = 2235) 26 RATIO SODIUM (test code = 223) 143 MEQ/L POTASSIUM (test code = 2228) 4.3 MEQ/L CHLORIDE (test code = 2215) 104 MEQ/L CARBON DIOXIDE (test code = 2206) 24 MEQ/L CALCIUM (test code = 2209) 9.7 MG/DL PROTEIN, TOTAL (test code = 2228) 7.1 G/DL ALBUMIN (test code = 220) 4.8 G/DL CALC GLOBULIN (test code = 2240) 2.3 G/DL CALC A/G RATIO (test code = 2233) 2.1 RATIO BILIRUBIN, TOTAL (test code = 2206) 0.4 MG/DL ALKALINE PHOSPHATASE (test code = 2203) 128 U/L AST (test code = 2217) 20 U/L ALT (test code = 2218) 26 U/L Russell MontgomeryTSH, THIRD [id number] 00:00:00* Test Item Value Reference Range Interpretation Comme nts TSH, THIRD GENERATION (test code = 2821) 1.890 UIU/ML Russell MontgomeryLACTIC ACID, [id number] 00:00:00* Test Item Value Reference Range Interpretation Comme nts LACTIC ACID, PLASMA (test co de = 2056) 12.3 MG/DL Russell MontgomeryHEMOGLOBIN [id number] 00:00:00* Test Item Value Reference Range Interpretation Comme nts HEMOGLOBIN A1c (test code = 13746) 5.9 % Russell Caceres AustinLACTIC ACID, [id number] 13:45:31* Test Item Value Reference Range Interpretation Comme nts LACTIC ACID, PLASMA (test co de = 2056) 10.3 MG/DL 4.5-19.8 LACTIC ACID, [id number] 00:00:00* Test Item Value Reference Range Interpretation Comme nts LACTIC ACID, PLASMA (test co de = 2056) 10.3 MG/DL Russell Caceres AustinLACTIC ACID, [id number] 00:00:00* Test Item Value Reference Range Interpretation Comme nts LACTIC ACID, PLASMA (test co de = 2056) 10.3 MG/DL Russell F AustinLACTIC ACID, [id number] 00:00:00* Test Item Value Reference Range Interpretation Comme nts LACTIC ACID, PLASMA (test co de = 2056) 10.3 MG/DL Russell F AustinLACTIC ACID, [id number] 00:00:00* Test Item Value Reference Range Interpretation Comme nts LACTIC ACID, PLASMA (test co de = 2056) 10.3 MG/DL Russell F AustinLACTIC ACID, [id number] 00:00:00* Test Item Value Reference Range Interpretation Comme nts LACTIC ACID, PLASMA (test co de = 2056) 10.3 MG/DL Russell F AustinLACTIC ACID, [id number] 00:00:00* Test Item Value Reference Range Interpretation Comme nts LACTIC ACID, PLASMA (test co de = 2056) 10.3 MG/DL Russell F AustinLACTIC ACID, [id number] 00:00:00* Test Item Value Reference Range Interpretation Comme nts LACTIC ACID, PLASMA (test co de = 2056) 10.3 MG/DL LACTIC ACID, [id number] 00:00:00* Test Item Value Reference Range Interpretation Comme nts LACTIC ACID, PLASMA (test co de = 2056) 10.3 MG/DL LACTIC ACID, [id number] 00:00:00* Test Item Value Reference Range Interpretation Comme nts LACTIC ACID, PLASMA (test co de = 2056) 10.3 MG/DL CULTURE, [id number] 11:41:32SPECIMEN NUMBER: [id number] CULTURE, URINE SPECIMEN NUMBER: [id number] SPECIMEN COMMENT: URINE SOURCE: URINE REPORT STATUS: FINAL FINAL REPORT: 11/03/2021 >100,000 CFU/ML MIXED UROGENITAL FLORACULTURE, [id number] 00:00:00* Test Item Value Reference Range Interpretation Comme nts CULTURE, URINE (test code = 22630) SPECIMEN NUMBER: [id number] Russell Caceres AustinCULTURE, [id number] 00:00:00* Test Item Value Reference Range Interpretation Comme nts CULTURE, URINE (test code = 19938) SPECIMEN NUMBER: [id number] Russell Gunderson, [id number] 00:00:00* Test Item Value Reference Range Interpretation Comme nts CULTURE, URINE (test code = 34293) SPECIMEN NUMBER: [id number] Russell Gunderson, [id number] 00:00:00* Test Item Value Reference Range Interpretation Comme nts CULTURE, URINE (test code = 71873) SPECIMEN NUMBER: [id number] Russell Gunderson, [id number] 00:00:00* Test Item Value Reference Range Interpretation Comme nts CULTURE, URINE (test code = 82211) SPECIMEN NUMBER: [id number] Russell Gunderson, [id number] 00:00:00* Test Item Value Reference Range Interpretation Comme nts CULTURE, URINE (test code = 06140) SPECIMEN NUMBER: [id number] Russell Gunderson, [id number] 00:00:00* Test Item Value Reference Range Interpretation Comme nts CULTURE, URINE (test code = 47440) SPECIMEN NUMBER: [id number] CULTURE, [id number] 00:00:00* Test Item Value Reference Range Interpretation Comme nts CULTURE, URINE (test code = 78979) SPECIMEN NUMBER: [id number] CULTURE, [id number] 00:00:00* Test Item Value Reference Range Interpretation Comme nts CULTURE, URINE (test code = 21633) SPECIMEN NUMBER: [id number] HEMOGLOBIN [id number] 09:05:08* Test Item Value Reference Range Interpretation Comme nts HEMOGLOBIN A1c (test code = 29013) 5.8 % 4.2-5.6 H COMPREHENSIVE METABOLIC [id number] 03:50:21* Test Item Value Reference Range Interpretation Comme nts GLUCOSE (test code = 2217) 103 MG/DL 70-99 H BUN (test code = 2208) 12 MG/DL 6-20 CREATININE (test code = 2214) 0.46 MG/DL 0.60-1.30 L eGFR (2020 CKD-EPI) (test code = 40074) 112 ML/MIN/1.73 >60 CALC BUN/CREAT (test code = 2235) 26 RATIO 6-28 SODIUM (test code = 2231) 141 MEQ/L 133-146 POTASSIUM (test code = 2228) 4.4 MEQ/L 3.5-5.4 CHLORIDE (test code = 2215) 106 MEQ/L 95-107 CARBON DIOXIDE (test code = 2205) 22 MEQ/L 19-31 CALCIUM (test code = 2208) 9.7 MG/DL 8.5-10.5 PROTEIN, TOTAL (test code = 2228) 7.1 G/DL 6.1-8.3 ALBUMIN (test code = 2200) 4.7 G/DL 3.5-5.2 CALC GLOBULIN (test code = 2240) 2.4 G/DL 1.9-3.7 CALC A/G RATIO (test code = 223) 2.0 RATIO 1.0-2.6 BILIRUBIN, TOTAL (test code = 2206) 0.3 MG/DL See_Comment [Automated me ssage] The system which generated this result transmitted reference range: <=1.2. The reference range was not used to interpret this result as normal/abnormal. ALKALINE PHOSPHATASE (test code = 2203) 133 U/L 40-136 AST (test code = 2217) 24 U/L 9-40 ALT (test code = 221) 24 U/L 5-40 LIPID [id number] 03:50:21* Test Item Value Reference Range Interpretation Comme nts CHOLESTEROL (test code = 2210) 177 MG/DL <200 TRIGLYCERIDES (test code = 2232) 95 MG/DL <150 HDL CHOLESTEROL (test code = 2219) 70 MG/DL >39 CALC LDL CHOL (test code = 2236) 88 MG/DL <100 NOTE: CALCULATED LDL IS BASED ON CLEO-STONE METHOD WHICHINCLUDES ADJUSTABLE TRIGLYCERIDE:VLDL CHOLESTEROL RATIO.THIS FACTOR VARIES BY MEASURED TRIGLYCERIDE AND NON-HDLCHOLESTEROL CONCENTRATIONS WITH INCREASED CALCULATED LDL SEENIN HIGHER TRIGLYCERIDE OR LOWER NON-HDL SPECIMENS. FOR MOREINFORMATION, SEE CLIENT ANNOUNCEMENT AT [email or web address] RISK RATIO LDL/HDL (test code = 2238) 1.26 RATIO <3.22 URINALYSIS W/REFLEX [id number] 03:07:13* Test Item Value Reference Range Interpretation [...] code = 1510) 0.2 MG/DL See_Comment [Automated [employer] ge] The system which generated this result [...] /HPF 0-5 EPITHELIAL CELLS (test code = 08874) 0-5 /HPF 0-10 BACTERIA (test code = 1515) NONE SEEN NONE SEEN CASTS, HYALINE (test code = 1517) TRACE NONE-TRACE UNLESS OTHERWISE INDICATED, ALL TESTING [facility]FOR[facility] [address] [place] [address] SAFETY ENGINEER: DARSHANA PASTOR M.D. CLIA NUMBER [id number] [place] [place]. [id number] COMPREHENSIVE METABOLIC [id number] 00:00:00* Test Item Value Reference Range Interpretation Comme nts GLUCOSE (test code = 2217) 103 MG/DL BUN (test code = 2208) 12 MG/DL CREATININE (test code = 2214) 0.46 MG/DL eGFR (2020 CKD-EPI) (test code = 44041) 112 ML/MIN/1.73 CALC BUN/CREAT (test code = [...] ALT (test code = 2219) 24 U/L Russell MontgomeryHEMOGLOBIN [id number] 00:00:00* Test Item Value Reference Range Interpretation Comme nts HEMOGLOBIN A1c (test code = 19294) 5.8 % Russell MontgomeryLIPID [id number] 00:00:00* Test Item Value Reference Range Interpretation Comme nts CHOLESTEROL (test code = 2210) 177 MG/DL TRIGLYCERIDES (test code = 2232) 95 MG/DL HDL CHOLESTEROL (test code = 2220) 70 MG/DL CALC LDL CHOL (test code = 2237) 88 MG/DL RISK RATIO LDL/HDL (test cod e = 2238) 1.26 RATIO Russell Caceres AustinURINALYSIS W/REFLEX [id number] 00:00:00* Test Item Value Reference Range Interpretation [...] 0-2 /HPF EPITHELIAL CELLS (test code = 93819) 0-5 /HPF BACTERIA (test code = 1515) NONE SEEN CASTS, HYALINE (test code = 1517) TRACE Russell MontgomeryCOMPREHENSIVE METABOLIC [id number] 00:00:00* Test Item Value Reference Range Interpretation Comme nts GLUCOSE (test code = 2217) 103 MG/DL BUN (test code = 2208) 12 MG/DL CREATININE (test code = 2214) 0.46 MG/DL eGFR (2020 CKD-EPI) (test code = 05635) 112 ML/MIN/1.73 CALC BUN/CREAT (test code = 2235) 26 RATIO SODIUM (test code = 2231) 141 MEQ/L POTASSIUM (test code = 2228) 4.4 MEQ/L CHLORIDE (test code = 2215) 106 MEQ/L CARBON DIOXIDE (test code = 2206) 22 MEQ/L CALCIUM (test code = 2209) 9.7 MG/DL PROTEIN, TOTAL (test code = 2229) 7.1 G/DL ALBUMIN (test code = 220) 4.7 G/DL CALC GLOBULIN (test code = 2240) 2.4 G/DL CALC A/G RATIO (test code = 2234) 2.0 RATIO BILIRUBIN, TOTAL (test code = 2206) 0.3 MG/DL ALKALINE PHOSPHATASE (test code = 2203) 133 U/L AST (test code = 2218) 24 U/L ALT (test code = 2219) 24 U/L Russell MontgomeryHEMOGLOBIN [id number] 00:00:00* Test Item Value Reference Range Interpretation Comme nts HEMOGLOBIN A1c (test code = 27272) 5.8 % Russell MontgomeryLIPID [id number] 00:00:00* Test Item Value Reference Range Interpretation Comme nts CHOLESTEROL (test code = 2210) 177 MG/DL TRIGLYCERIDES (test code = 2232) 95 MG/DL HDL CHOLESTEROL (test code = 2220) 70 MG/DL CALC LDL CHOL (test code = 2237) 88 MG/DL RISK RATIO LDL/HDL (test cod e = 2238) 1.26 RATIO Russell Caceres AustinURINALYSIS W/REFLEX [id number] 00:00:00* Test Item Value Reference Range Interpretation [...] 0-2 /HPF EPITHELIAL CELLS (test code = 25802) 0-5 /HPF BACTERIA (test code = 1515) NONE SEEN CASTS, HYALINE (test code = 1517) TRACE Russell MontgomeryCOMPREHENSIVE METABOLIC [id number] 00:00:00* Test Item Value Reference Range Interpretation Comme nts GLUCOSE (test code = 2217) 103 MG/DL BUN (test code = 2208) 12 MG/DL CREATININE (test code = 2214) 0.46 MG/DL eGFR (2020 CKD-EPI) (test code = 03734) 112 ML/MIN/1.73 CALC BUN/CREAT (test code = [...] ALT (test code = 2219) 24 U/L Russell MontgomeryHEMOGLOBIN [id number] 00:00:00* Test Item Value Reference Range Interpretation Comme nts HEMOGLOBIN A1c (test code = 66459) 5.8 % Russell MontgomeryLIPID [id number] 00:00:00* Test Item Value Reference Range Interpretation Comme nts CHOLESTEROL (test code = 2210) 177 MG/DL TRIGLYCERIDES (test code = 2232) 95 MG/DL HDL CHOLESTEROL (test code = 2220) 70 MG/DL CALC LDL CHOL (test code = 2237) 88 MG/DL RISK RATIO LDL/HDL (test cod e = 2238) 1.26 RATIO Russell Caceres AustinURINALYSIS W/REFLEX [id number] 00:00:00* Test Item Value Reference Range Interpretation [...] 0-2 /HPF EPITHELIAL CELLS (test code = 21903) 0-5 /HPF BACTERIA (test code = 1515) NONE SEEN CASTS, HYALINE (test code = 1517) TRACE Russell MontgomeryCOMPREHENSIVE METABOLIC [id number] 00:00:00* Test Item Value Reference Range Interpretation Comme nts GLUCOSE (test code = 2217) 103 MG/DL BUN (test code = 2208) 12 MG/DL CREATININE (test code = 2214) 0.46 MG/DL eGFR (2020 CKD-EPI) (test code = 62869) 112 ML/MIN/1.73 CALC BUN/CREAT (test code = [...] ALT (test code = 2219) 24 U/L Russell MontgomeryHEMOGLOBIN [id number] 00:00:00* Test Item Value Reference Range Interpretation Comme nts HEMOGLOBIN A1c (test code = 61609) 5.8 % Russell MontgomeryLIPID [id number] 00:00:00* Test Item Value Reference Range Interpretation Comme nts CHOLESTEROL (test code = 2210) 177 MG/DL TRIGLYCERIDES (test code = 2232) 95 MG/DL HDL CHOLESTEROL (test code = 2220) 70 MG/DL CALC LDL CHOL (test code = 2237) 88 MG/DL RISK RATIO LDL/HDL (test cod e = 2238) 1.26 RATIO Russell Caceres AustinURINALYSIS W/REFLEX [id number] 00:00:00* Test Item Value Reference Range Interpretation [...] 0-2 /HPF EPITHELIAL CELLS (test code = 40194) 0-5 /HPF BACTERIA (test code = 1515) NONE SEEN CASTS, HYALINE (test code = 1517) TRACE Russell MontgomeryCOMPREHENSIVE METABOLIC [id number] 00:00:00* Test Item Value Reference Range Interpretation Comme nts GLUCOSE (test code = 2217) 103 MG/DL BUN (test code = 2208) 12 MG/DL CREATININE (test code = 2214) 0.46 MG/DL eGFR (2020 CKD-EPI) (test code = 66834) 112 ML/MIN/1.73 CALC BUN/CREAT (test code = [...] 0.3 MG/DL ALKALINE PHOSPHATASE (test code = 220) 133 U/L AST (test code = 2218) 24 U/L ALT (test code = 221) 24 U/L Russell MontgomeryHEMOGLOBIN [id number] 00:00:00* Test Item Value Reference Range Interpretation Comme nts HEMOGLOBIN A1c (test code = 42032) 5.8 % Russell MontgomeryLIPID [id number] 00:00:00* Test Item Value Reference Range Interpretation Comme nts CHOLESTEROL (test code = 2210) 177 MG/DL TRIGLYCERIDES (test code = 2232) 95 MG/DL HDL CHOLESTEROL (test code = 2220) 70 MG/DL CALC LDL CHOL (test code = 2237) 88 MG/DL RISK RATIO LDL/HDL (test cod e = 2238) 1.26 RATIO Russell MontgomeryURINALYSIS W/REFLEX [id number] 00:00:00* Test Item Value Reference Range Interpretation [...] 0-2 /HPF EPITHELIAL CELLS (test code = 96734) 0-5 /HPF BACTERIA (test code = 1515) NONE SEEN CASTS, HYALINE (test code = 1517) TRACE Russell MontgomeryCOMPREHENSIVE METABOLIC [id number] 00:00:00* Test Item Value Reference Range Interpretation Comme nts GLUCOSE (test code = 2217) 103 MG/DL BUN (test code = 2208) 12 MG/DL CREATININE (test code = 2214) 0.46 MG/DL eGFR (2020 CKD-EPI) (test code = 22294) 112 ML/MIN/1.73 CALC BUN/CREAT (test code = [...] ALT (test code = 2219) 24 U/L Russell MontgomeryHEMOGLOBIN [id number] 00:00:00* Test Item Value Reference Range Interpretation Comme nts HEMOGLOBIN A1c (test code = 44895) 5.8 % Russell MontgomeryLIPID [id number] 00:00:00* Test Item Value Reference Range Interpretation Comme nts CHOLESTEROL (test code = 2210) 177 MG/DL TRIGLYCERIDES (test code = 2232) 95 MG/DL HDL CHOLESTEROL (test code = 2220) 70 MG/DL CALC LDL CHOL (test code = 2237) 88 MG/DL RISK RATIO LDL/HDL (test cod e = 2238) 1.26 RATIO Russell Caceres AustinURINALYSIS W/REFLEX [id number] 00:00:00* Test Item Value Reference Range Interpretation [...] 0-2 /HPF EPITHELIAL CELLS (test code = 48472) 0-5 /HPF BACTERIA (test code = 1515) NONE SEEN CASTS, HYALINE (test code = 1517) TRACE Russell F AustinCOMPREHENSIVE METABOLIC [id number] 00:00:00* Test Item Value Reference Range Interpretation Comme nts GLUCOSE (test code = 2217) 103 MG/DL BUN (test code = 2208) 12 MG/DL CREATININE (test code = 2214) 0.46 MG/DL eGFR (2020 CKD-EPI) (test code = 97595) 112 ML/MIN/1.73 CALC BUN/CREAT (test code = [...] (test code = 2219) 24 U/L HEMOGLOBIN [id number] 00:00:00* Test Item Value Reference Range Interpretation Comme nts HEMOGLOBIN A1c (test code = 74414) 5.8 % LIPID [id number] 00:00:00* Test Item Value Reference Range Interpretation Comme nts CHOLESTEROL (test code = 2210) 177 MG/DL TRIGLYCERIDES (test code = 2232) 95 MG/DL HDL CHOLESTEROL (test code = 2220) 70 MG/DL CALC LDL CHOL (test code = 2237) 88 MG/DL RISK RATIO LDL/HDL (test cod e = 2238) 1.26 RATIO URINALYSIS W/REFLEX [id number] 00:00:00* Test Item Value Reference Range Interpretation [...] 0-2 /HPF EPITHELIAL CELLS (test code = 43508) 0-5 /HPF BACTERIA (test code = 1515) NONE SEEN CASTS, HYALINE (test code = 1517) TRACE COMPREHENSIVE METABOLIC [id number] 00:00:00* Test Item Value Reference Range Interpretation Comme nts GLUCOSE (test code = 2217) 103 MG/DL BUN (test code = 2208) 12 MG/DL CREATININE (test code = 2214) 0.46 MG/DL eGFR (2020 CKD-EPI) (test code = 25167) 112 ML/MIN/1.73 CALC BUN/CREAT (test code = [...] (test code = 2219) 24 U/L HEMOGLOBIN [id number] 00:00:00* Test Item Value Reference Range Interpretation Comme nts HEMOGLOBIN A1c (test code = 80053) 5.8 % LIPID [id number] 00:00:00* Test Item Value Reference Range Interpretation Comme nts CHOLESTEROL (test code = 2210) 177 MG/DL TRIGLYCERIDES (test code = 2232) 95 MG/DL HDL CHOLESTEROL (test code = 2220) 70 MG/DL CALC LDL CHOL (test code = 2237) 88 MG/DL RISK RATIO LDL/HDL (test cod e = 2238) 1.26 RATIO URINALYSIS W/REFLEX [id number] 00:00:00* Test Item Value Reference Range Interpretation [...] 0-2 /HPF EPITHELIAL CELLS (test code = 49955) 0-5 /HPF BACTERIA (test code = 1515) NONE SEEN CASTS, HYALINE (test code = 1517) TRACE COMPREHENSIVE METABOLIC [id number] 00:00:00* Test Item Value Reference Range Interpretation Comme nts GLUCOSE (test code = 2217) 103 MG/DL BUN (test code = 2208) 12 MG/DL CREATININE (test code = 2214) 0.46 MG/DL eGFR (2020 CKD-EPI) (test code = 95717) 112 ML/MIN/1.73 CALC BUN/CREAT (test code = [...] (test code = 2219) 24 U/L HEMOGLOBIN [id number] 00:00:00* Test Item Value Reference Range Interpretation Comme nts HEMOGLOBIN A1c (test code = 85457) 5.8 % LIPID [id number] 00:00:00* Test Item Value Reference Range Interpretation Comme nts CHOLESTEROL (test code = 2210) 177 MG/DL TRIGLYCERIDES (test code = 2232) 95 MG/DL HDL CHOLESTEROL (test code = 2220) 70 MG/DL CALC LDL CHOL (test code = 2237) 88 MG/DL RISK RATIO LDL/HDL (test cod e = 2238) 1.26 RATIO URINALYSIS W/REFLEX [id number] 00:00:00* Test Item Value Reference Range Interpretation [...] 0-2 /HPF EPITHELIAL CELLS (test code = 98464) 0-5 /HPF BACTERIA (test code = 1515) NONE SEEN CASTS, HYALINE (test code = 1517) TRACE TROPONIN [id number] 17:48:41* Test Item Value Reference Range Interpretation Comments TROPONIN I (test code = 2926250696) 0.000 ng/mL See_Comment [Automated message] The system which generated this result transmitted reference range: <=0.034. The reference range was not used to interpret this result as normal/abnormal. JARET (test code = JRAET) Reference (Normal) Range (defined by the 99th [...] of biotin. Lab Interpretation (test code = 91082-7) Normal [facility] [id number] 17:46:24* Test Item Value Reference Range Interpretation Comme nts NT-proBNP (test code = 8420787518) 38 pg/mL See_Comment [Automated message] The system which generated this result transmitted reference range: <=125. The reference range was not used to interpret this result as normal/abnormal. JARET (test code = JARET) Biotin has been reported to cause a negative bias, interpret results relative to patient's use of biotin. Lab Interpretation (test code = 63211-0) Normal [facility]OL[facility] PAN[facility] ([id number] 17:37:01* Test Item Value Reference Range Interpretation Comme nts NA (test code = 7060108466) 138 mmol/L 135-145 K (test code = 8412347269) 4.0 mmol/L 3.5-5 CL (test code = 4657281954) 104 mmol/L 98-108 CO2 TOTAL (test code = 0625444615) 24 mmol/L 23-31 AGAP (test code = 3660686335) 2-16 BUN (test code = 3733909095) 12 mg/dL 7-23 GLUCOSE (test code = 0179167180) 113 mg/dL 70-110 H CREATININE (test code = 2051921448) 0.42 mg/dL 0.5-1.04 L TOTAL BILI (test code = 0266729022) 0.5 mg/dL 0.1-1.1 CALCIUM (test code = 6653510100) 9.7 mg/dL 8.6-10.6 T PROTEIN (test code = 8616825373) 6.9 g/dL 6.3-8.2 ALBUMIN (test code = 9357042432) 4.4 g/dL 3.5-5 ALK PHOS (test code = 2525815277) 112 U/L 34-122 ALTv (test code = 1742-6) 37 U/L 5-35 H AST(SGOT) (test code = 3534095712) 34 U/L 13-40 eGFR (test code = 6609029753) mL/min/1.73m2 JARET (test code = JARET) Association [...] imaging tests). Lab Interpretation (test code = 89311-3) Abnormal [facility] WITH [id number] 17:26:52* Test Item Value Reference Range Interpretation Comme nts WBC (test code = 6690-2) See_Comment [Automated [employer]] The system which generated this result transmitted reference range: 4.30 - 11.10 10*3/?L. The reference range was not used to interpret this result as normal/abnormal. RBC (test code = 789-8) See_Comment [Automated [employer]] The system which generated this result [...] 33.6 g/dL 31.6-35.1 RDW-SD (test code = 88113-5) 41.9 fL 39-49.9 RDW-CV (test code = 788-0) 12.9 % 12-15.5 PLT (test code = 777-3) See_Comment [Automated [employer]] The system which generated this result transmitted reference range: 166 - 358 10*3/?L. The reference range was not used to interpret this result as normal/abnormal. MPV (test code = 11392-0) 10.3 fL 9.5-12.9 NRBC/100 WBC (test code = 2503393550) See_Comment [Automated [facility] ssage] The system which generated this result transmitted reference range: 0.0 - 10.0 /100 WBCs. The reference range was not used to interpret this result as normal/abnormal. NRBC x10^3 (test code = 3098633333) See_Comment [Automated me ssage] The system which generated this result transmitted reference range: 10*3/?L. The reference range was not used to interpret this result as normal/abnormal. GRAN MAT (NEUT) % (test code = 770-8) 61.8 % IMM GRAN % (test code = 2079207381) 0.30 % LYMPH % (test code = 736-9) 29.2 % MONO % (test code = 5905-5) 7.4 % EOS % (test code = 713-8) 1.0 % BASO % (test code = 706-2) 0.3 % GRAN MAT x10^3(ANC) (test code = 1662085431) 3.85 10*3/uL 1.88-7.09 IMM GRAN x10^3 (test code = 1734228998) 0-0.06 LYMPH x10^3 (test code = 731-0) 1.82 10*3/uL 1.32-3.29 MONO x10^3 (test code = 742-7) 0.46 10*3/uL 0.33-0.92 EOS x10^3 (test code = 711-2) 0.06 10*3/uL 0.03-0.39 BASO x10^3 (test code = 704-7) 0.01-0.07 [facility] [id number] 23:41:38* Test Item Value Reference Range Interpretation Comme nts GLUCOSE (test code = 2217) 99 MG/DL 70-99 BUN (test code = 2208) 13 MG/DL 6-20 CREATININE (test code = 2214) 0.58 MG/DL 0.60-1.30 L eGFR (2020 CKD-EPI) (test code = 35617) 106 ML/MIN/1.73 >60 CALC BUN/CREAT (test code = 2235) 22 RATIO 6-28 SODIUM (test code = 2231) 143 MEQ/L 133-146 POTASSIUM (test code = 2228) 4.8 MEQ/L 3.5-5.4 CHLORIDE (test code = 2215) 105 MEQ/L 95-107 CARBON DIOXIDE (test code = 220) 27 MEQ/L 19-31 CALCIUM (test code = 2208) 9.8 MG/DL 8.5-10.5 PROTEIN, TOTAL (test code = 2229) 7.1 G/DL 6.1-8.3 ALBUMIN (test code = 2201) 4.5 G/DL 3.5-5.2 CALC GLOBULIN (test code = 2240) 2.6 G/DL 1.9-3.7 CALC A/G RATIO (test code = 2234) 1.7 RATIO 1.0-2.6 BILIRUBIN, TOTAL (test code = 220) 0.4 MG/DL See_Comment [Automated me ssage] The system which generated this result transmitted reference range: <=1.2. The reference range was not used to interpret this result as normal/abnormal. ALKALINE PHOSPHATASE (test code = 2203) 128 U/L 40-136 AST (test code = 2217) 17 U/L 9-40 ALT (test code = 2218) 24 U/L 5-40 HEMOGLOBIN [id number] 04:01:43* Test Item Value Reference Range Interpretation Comme nts HEMOGLOBIN A1c (test code = 37729) 5.8 % 4.2-5.6 H UNLESS OTHERWISE INDICATED, ALL TESTING PERFORMED [facility] [address] [place] [address] SAFETY ENGINEER: DARSHANA PASTOR M.D. CLIA NUMBER [id number] [place] [place]. [id number] COMPREHENSIVE METABOLIC [id number] 00:00:00* Test Item Value Reference Range Interpretation Comme nts GLUCOSE (test code = 7) 99 MG/DL BUN (test code = 8) 13 MG/DL CREATININE (test code = 2214) 0.58 MG/DL eGFR (2020 CKD-EPI) (test code = 85421) 106 ML/MIN/1.73 CALC BUN/CREAT (test code = 2235) 22 RATIO SODIUM (test code = 2231) 143 MEQ/L POTASSIUM (test code = 2228) 4.8 MEQ/L CHLORIDE (test code = 2215) 105 MEQ/L CARBON DIOXIDE (test code = 6) 27 MEQ/L CALCIUM (test code = 2209) [...] ALT (test code = 2219) 24 U/L [facility] Caceres AustinHEMOGLOBIN [id number] 00:00:00* Test Item Value Reference Range Interpretation Comme nts HEMOGLOBIN A1c (test code = 54216) 5.8 % Russell Caceres AustinCOMPREHENSIVE METABOLIC [id number] 00:00:00* Test Item Value Reference Range Interpretation Comme nts GLUCOSE (test code = 2217) 99 MG/DL BUN (test code = 2208) 13 MG/DL CREATININE (test code = 2214) 0.58 MG/DL eGFR (2020 CKD-EPI) (test code = 01061) 106 ML/MIN/1.73 CALC BUN/CREAT (test code = [...] ALT (test code = 2219) 24 U/L Russell Caceres AustinHEMOGLOBIN [id number] 00:00:00* Test Item Value Reference Range Interpretation Comme nts HEMOGLOBIN A1c (test code = 54752) 5.8 % Russell Caceres AustinCOMPREHENSIVE METABOLIC [id number] 00:00:00* Test Item Value Reference Range Interpretation Comme nts GLUCOSE (test code = 2217) 99 MG/DL BUN (test code = 2208) 13 MG/DL CREATININE (test code = 2214) 0.58 MG/DL eGFR (2020 CKD-EPI) (test code = 81317) 106 ML/MIN/1.73 CALC BUN/CREAT (test code = [...] ALT (test code = 2219) 24 U/L Russell MontgomeryHEMOGLOBIN [id number] 00:00:00* Test Item Value Reference Range Interpretation Comme [facility] HEMOGLOBIN A1c (test code = 00159) 5.8 % Russell MontgomeryCOMPREHENSIVE METABOLIC [id number] 00:00:00* Test Item Value Reference Range Interpretation Comme nts GLUCOSE (test code = 2217) 99 MG/DL BUN (test code = 2208) 13 MG/DL CREATININE (test code = 2214) 0.58 MG/DL eGFR (2020 CKD-EPI) (test code = 21152) 106 ML/MIN/1.73 CALC BUN/CREAT (test code = [...] ALT (test code = 2219) 24 U/L Russell Caceres AustinHEMOGLOBIN [id number] 00:00:00* Test Item Value Reference Range Interpretation Comme nts HEMOGLOBIN A1c (test code = 71579) 5.8 % Russell Caceres AustinCOMPREHENSIVE METABOLIC [id number] 00:00:00* Test Item Value Reference Range Interpretation Comme nts GLUCOSE (test code = 2217) 99 MG/DL BUN (test code = 2208) 13 MG/DL CREATININE (test code = 2214) 0.58 MG/DL eGFR (2020 CKD-EPI) (test code = 95837) 106 ML/MIN/1.73 CALC BUN/CREAT (test code = [...] ALT (test code = 2219) 24 U/L Russell Caceres AustinHEMOGLOBIN [id number] 00:00:00* Test Item Value Reference Range Interpretation Comme nts HEMOGLOBIN A1c (test code = 65844) 5.8 % Russell Caceres AustinCOMPREHENSIVE METABOLIC [id number] 00:00:00* Test Item Value Reference Range Interpretation Comme nts GLUCOSE (test code = 2217) 99 MG/DL BUN (test code = 2208) 13 MG/DL CREATININE (test code = 2214) 0.58 MG/DL eGFR (2020 CKD-EPI) (test code = 07922) 106 ML/MIN/1.73 CALC BUN/CREAT (test code = [...] ALT (test code = 2219) 24 U/L Russell MontgomeryHEMOGLOBIN [id number] 00:00:00* Test Item Value Reference Range Interpretation Comme [facility] HEMOGLOBIN A1c (test code = 63386) 5.8 % Russell MontgomeryCOMPREHENSIVE METABOLIC [id number] 00:00:00* Test Item Value Reference Range Interpretation Comme nts GLUCOSE (test code = 2217) 99 MG/DL BUN (test code = 2208) 13 MG/DL CREATININE (test code = 2214) 0.58 MG/DL eGFR (2020 CKD-EPI) (test code = 70430) 106 ML/MIN/1.73 CALC BUN/CREAT (test code = [...] (test code = 2219) 24 U/L HEMOGLOBIN [id number] 00:00:00* Test Item Value Reference Range Interpretation Comme nts HEMOGLOBIN A1c (test code = 04306) 5.8 % COMPREHENSIVE METABOLIC [id number] 00:00:00* Test Item Value Reference Range Interpretation Comme nts GLUCOSE (test code = 2217) 99 MG/DL BUN (test code = 2208) 13 MG/DL CREATININE (test code = 2214) 0.58 MG/DL eGFR (2020 CKD-EPI) (test code = 30889) 106 ML/MIN/1.73 CALC BUN/CREAT (test code = [...] (test code = 2219) 24 U/L HEMOGLOBIN [id number] 00:00:00* Test Item Value Reference Range Interpretation Comme nts HEMOGLOBIN A1c (test code = 62625) 5.8 % COMPREHENSIVE METABOLIC [id number] 00:00:00* Test Item Value Reference Range Interpretation Comme nts GLUCOSE (test code = 2217) 99 MG/DL BUN (test code = 2208) 13 MG/DL CREATININE (test code = 2214) 0.58 MG/DL eGFR (2020 CKD-EPI) (test code = 05735) 106 ML/MIN/1.73 CALC BUN/CREAT (test code = [...] (test code = 2219) 24 U/L HEMOGLOBIN [id number] 00:00:00* Test Item Value Reference Range Interpretation Comme [facility] HEMOGLOBIN A1c (test code = 17026) 5.8 % COMPREHENSIVE METABOLIC [id number] 00:00:00* Test Item Value Reference Range Interpretation Comme nts GLUCOSE (test code = 2217) 99 MG/DL BUN (test code = 2208) 13 MG/DL CREATININE (test code = 2214) 0.58 MG/DL eGFR (2020 CKD-EPI) (test code = 74775) 106 ML/MIN/1.73 CALC BUN/CREAT (test code = [...] 2218) 17 U/L ALT (test code = 2218) 24 U/L HEMOGLOBIN [id number] 00:00:00* Test Item Value Reference Range Interpretation Comme nts HEMOGLOBIN A1c (test code = 91387) 5.8 % LIPID [id number] 01:25:50* Test Item Value Reference Range Interpretation Comme nts CHOLESTEROL (test code = 2210) 149 MG/DL <200 TRIGLYCERIDES (test code = 2232) 92 MG/DL <150 HDL CHOLESTEROL (test code = 0) 54 MG/DL >39 CALC LDL CHOL (test code = 2236) 77 MG/DL <100 NOTE: CALCULATED LDL IS BASED ON CLEO-STONE METHOD WHICHINCLUDES ADJUSTABLE TRIGLYCERIDE:VLDL CHOLESTEROL RATIO.THIS FACTOR VARIES BY MEASURED TRIGLYCERIDE AND NON-HDLCHOLESTEROL CONCENTRATIONS WITH INCREASED CALCULATED LDL SEENIN HIGHER TRIGLYCERIDE OR LOWER NON-HDL SPECIMENS. FOR MOREINFORMATION, SEE CLIENT ANNOUNCEMENT AT [email or web address] RISK RATIO LDL/HDL (test code = 2237) 1.43 RATIO <3.22 COMPREHENSIVE METABOLIC [id number] 01:25:50* Test Item Value Reference Range Interpretation Comme nts GLUCOSE (test code = 2216) 97 MG/DL 70-99 BUN (test code = 2207) 11 MG/DL 6-20 CREATININE (test code = 2214) 0.50 MG/DL 0.60-1.30 L eGFR (2020 CKD-EPI) (test code = 86192) 110 ML/MIN/1.73 >60 CALC BUN/CREAT (test code = 223) 22 RATIO 6-28 SODIUM (test code = 223) 143 MEQ/L 133-146 POTASSIUM (test code = 2228) 3.9 MEQ/L 3.5-5.4 CHLORIDE (test code = 2215) 105 MEQ/L 95-107 CARBON DIOXIDE (test code = 220) 24 MEQ/L 19-31 CALCIUM (test code = 2208) 9.9 MG/DL 8.5-10.5 PROTEIN, TOTAL (test code [...] H UNLESS OTHERWISE INDICATED, ALL TESTING PERFORMED [facility] [address] [place] [id number] SAFETY ENGINEER: DARSHANA PASTOR M.D. CLIA NUMBER [id number] [place]. [id number] LIPID [id number] 00:00:00* Test Item Value Reference Range Interpretation Comme nts CHOLESTEROL (test code = 2210) 149 MG/DL TRIGLYCERIDES (test code = 2232) 92 MG/DL HDL CHOLESTEROL (test code = 2220) 54 MG/DL CALC LDL CHOL (test code = 2237) 77 MG/DL RISK RATIO LDL/HDL (test cod e = 2238) 1.43 RATIO Russell MontgomeryCOMPREHENSIVE METABOLIC [id number] 00:00:00* Test Item Value Reference Range Interpretation Comme nts GLUCOSE (test code = 2217) 97 MG/DL BUN (test code = 2208) 11 MG/DL CREATININE (test code = 2214) 0.50 MG/DL eGFR (2020 CKD-EPI) (test code = 33991) 110 ML/MIN/1.73 CALC BUN/CREAT (test code = [...] ALT (test code = 2219) 61 U/L Russell MontgomeryLIPID [id number] 00:00:00* Test Item Value Reference Range Interpretation Comme nts CHOLESTEROL (test code = 2210) 149 MG/DL TRIGLYCERIDES (test code = 2232) 92 MG/DL HDL CHOLESTEROL (test code = 2220) 54 MG/DL CALC LDL CHOL (test code = 2237) 77 MG/DL RISK RATIO LDL/HDL (test cod e = 2238) 1.43 RATIO Russell MontgomeryCOMPREHENSIVE METABOLIC [id number] 00:00:00* Test Item Value Reference Range Interpretation Comme nts GLUCOSE (test code = 2217) 97 MG/DL BUN (test code = 2208) 11 MG/DL CREATININE (test code = 2214) 0.50 MG/DL eGFR (2020 CKD-EPI) (test code = 25712) 110 ML/MIN/1.73 CALC BUN/CREAT (test code = [...] ALT (test code = 2219) 61 U/L Russell MontgomeryLIPID [id number] 00:00:00* Test Item Value Reference Range Interpretation Comme nts CHOLESTEROL (test code = 2210) 149 MG/DL TRIGLYCERIDES (test code = 2232) 92 MG/DL HDL CHOLESTEROL (test code = 2220) 54 MG/DL CALC LDL CHOL (test code = 2237) 77 MG/DL RISK RATIO LDL/HDL (test cod e = 2238) 1.43 RATIO Russell MontgomeryCOMPREHENSIVE METABOLIC [id number] 00:00:00* Test Item Value Reference Range Interpretation Comme nts GLUCOSE (test code = 2217) 97 MG/DL BUN (test code = 2208) 11 MG/DL CREATININE (test code = 2214) 0.50 MG/DL eGFR (2020 CKD-EPI) (test code = 90033) 110 ML/MIN/1.73 CALC BUN/CREAT (test code = [...] ALT (test code = 2219) 61 U/L Russell Caceres AustinLIPID [id number] 00:00:00* Test Item Value Reference Range Interpretation Comme nts CHOLESTEROL (test code = 2210) 149 MG/DL TRIGLYCERIDES (test code = 2232) 92 MG/DL HDL CHOLESTEROL (test code = 2220) 54 MG/DL CALC LDL CHOL (test code = 2237) 77 MG/DL RISK RATIO LDL/HDL (test cod e = 2238) 1.43 RATIO Russell MontgomeryCOMPREHENSIVE METABOLIC [id number] 00:00:00* Test Item Value Reference Range Interpretation Comme nts GLUCOSE (test code = 2217) 97 MG/DL BUN (test code = 2208) 11 MG/DL CREATININE (test code = 2214) 0.50 MG/DL eGFR (2020 CKD-EPI) (test code = 22584) 110 ML/MIN/1.73 CALC BUN/CREAT (test code = [...] ALT (test code = 2219) 61 U/L Russell Caceres AustinLIPID [id number] 00:00:00* Test Item Value Reference Range Interpretation Comme nts CHOLESTEROL (test code = 2210) 149 MG/DL TRIGLYCERIDES (test code = 2232) 92 MG/DL HDL CHOLESTEROL (test code = 2220) 54 MG/DL CALC LDL CHOL (test code = 2237) 77 MG/DL RISK RATIO LDL/HDL (test cod e = 2238) 1.43 RATIO Russell MontgomeryCOMPREHENSIVE METABOLIC [id number] 00:00:00* Test Item Value Reference Range Interpretation Comme nts GLUCOSE (test code = 2217) 97 MG/DL BUN (test code = 2208) 11 MG/DL CREATININE (test code = 2214) 0.50 MG/DL eGFR (2020 CKD-EPI) (test code = 43060) 110 ML/MIN/1.73 CALC BUN/CREAT (test code = [...] ALT (test code = 2219) 61 U/L Russell Caceres AustinLIPID [id number] 00:00:00* Test Item Value Reference Range Interpretation Comme nts CHOLESTEROL (test code = 2210) 149 MG/DL TRIGLYCERIDES (test code = 2232) 92 MG/DL HDL CHOLESTEROL (test code = 2220) 54 MG/DL CALC LDL CHOL (test code = 2237) 77 MG/DL RISK RATIO LDL/HDL (test cod e = 2238) 1.43 RATIO Russell MontgomeryCOMPREHENSIVE METABOLIC [id number] 00:00:00* Test Item Value Reference Range Interpretation Comme nts GLUCOSE (test code = 2217) 97 MG/DL BUN (test code = 2208) 11 MG/DL CREATININE (test code = 2214) 0.50 MG/DL eGFR (2020 CKD-EPI) (test code = 69529) 110 ML/MIN/1.73 CALC BUN/CREAT (test code = [...] ALT (test code = 2219) 61 U/L Russell Caceres AustinLIPID [id number] 00:00:00* Test Item Value Reference Range Interpretation Comme nts CHOLESTEROL (test code = 2210) 149 MG/DL TRIGLYCERIDES (test code = 2232) 92 MG/DL HDL CHOLESTEROL (test code = 2220) 54 MG/DL CALC LDL CHOL (test code = 2237) 77 MG/DL RISK RATIO LDL/HDL (test cod e = 2238) 1.43 RATIO COMPREHENSIVE METABOLIC [id number] 00:00:00* Test Item Value Reference Range Interpretation Comme nts GLUCOSE (test code = 2217) 97 MG/DL BUN (test code = 2208) 11 MG/DL CREATININE (test code = 2214) 0.50 MG/DL eGFR (2020 CKD-EPI) (test code = 31570) 110 ML/MIN/1.73 CALC BUN/CREAT (test code = [...] (test code = 2219) 61 U/L LIPID [id number] 00:00:00* Test Item Value Reference Range Interpretation Comme nts CHOLESTEROL (test code = 2210) 149 MG/DL TRIGLYCERIDES (test code = 2232) 92 MG/DL HDL CHOLESTEROL (test code = 2220) 54 MG/DL CALC LDL CHOL (test code = 2237) 77 MG/DL RISK RATIO LDL/HDL (test cod e = 2238) 1.43 RATIO COMPREHENSIVE METABOLIC [id number] 00:00:00* Test Item Value Reference Range Interpretation Comme nts GLUCOSE (test code = 2217) 97 MG/DL BUN (test code = 2208) 11 MG/DL CREATININE (test code = 2214) 0.50 MG/DL eGFR (2020 CKD-EPI) (test code = 36806) 110 ML/MIN/1.73 CALC BUN/CREAT (test code = [...] (test code = 2219) 61 U/L LIPID [id number] 00:00:00* Test Item Value Reference Range Interpretation Comme nts CHOLESTEROL (test code = 2210) 149 MG/DL TRIGLYCERIDES (test code = 2232) 92 MG/DL HDL CHOLESTEROL (test code = 2220) 54 MG/DL CALC LDL CHOL (test code = 2237) 77 MG/DL RISK RATIO LDL/HDL (test cod e = 2238) 1.43 RATIO COMPREHENSIVE METABOLIC [id number] 00:00:00* Test Item Value Reference Range Interpretation Comme nts GLUCOSE (test code = 2217) 97 MG/DL BUN (test code = 2208) 11 MG/DL CREATININE (test code = 2214) 0.50 MG/DL eGFR (2020 CKD-EPI) (test code = 80988) 110 ML/MIN/1.73 CALC BUN/CREAT (test code = [...] (test code = 2219) 61 U/L LIPID [id number] 00:00:00* Test Item Value Reference Range Interpretation Comme nts CHOLESTEROL (test code = 2210) 149 MG/DL TRIGLYCERIDES (test code = 2232) 92 MG/DL HDL CHOLESTEROL (test code = 2220) 54 MG/DL CALC LDL CHOL (test code = 2237) 77 MG/DL RISK RATIO LDL/HDL (test cod e = 2238) 1.43 RATIO COMPREHENSIVE METABOLIC [id number] 00:00:00* Test Item Value Reference Range Interpretation Comme nts GLUCOSE (test code = 2217) 97 MG/DL BUN (test code = 2208) 11 MG/DL CREATININE (test code = 2214) 0.50 MG/DL eGFR (2020 CKD-EPI) (test code = 82764) 110 ML/MIN/1.73 CALC BUN/CREAT (test code = [...] (test code = 2219) 61 U/L LIPID [id number] 00:00:00* Test Item Value Reference Range Interpretation Comme nts CHOLESTEROL (test code = 2210) 149 MG/DL TRIGLYCERIDES (test code = 2232) 92 MG/DL HDL CHOLESTEROL (test code = 2220) 54 MG/DL CALC LDL CHOL (test code = 2237) 77 MG/DL RISK RATIO LDL/HDL (test cod e = 2238) 1.43 RATIO COMPREHENSIVE METABOLIC [id number] 00:00:00* Test Item Value Reference Range Interpretation Comme nts GLUCOSE (test code = 2217) 97 MG/DL BUN (test code = 2208) 11 MG/DL CREATININE (test code = 2214) 0.50 MG/DL eGFR (2020 CKD-EPI) (test code = 11005) 110 ML/MIN/1.73 CALC BUN/CREAT (test code = [...] (test code = 2219) 61 U/L HEMOGLOBIN [id number] 06:05:10* Test Item Value Reference Range Interpretation Comme nts HEMOGLOBIN A1c (test code = 68466) 5.8 % 4.2-5.6 H HEMOGLOBIN [id number] 00:00:00* Test Item Value Reference Range Interpretation Comme nts HEMOGLOBIN A1c (test code = 48905) 5.8 % Russell F AustinHEMOGLOBIN [id number] 00:00:00* Test Item Value Reference Range Interpretation Comme nts HEMOGLOBIN A1c (test code = 22786) 5.8 % Russell F AustinHEMOGLOBIN [id number] 00:00:00* Test Item Value Reference Range Interpretation Comme nts HEMOGLOBIN A1c (test code = 55033) 5.8 % Russell F AustinHEMOGLOBIN [id number] 00:00:00* Test Item Value Reference Range Interpretation Comme nts HEMOGLOBIN A1c (test code = 31429) 5.8 % Russell F AustinHEMOGLOBIN [id number] 00:00:00* Test Item Value Reference Range Interpretation Comme nts HEMOGLOBIN A1c (test code = 41158) 5.8 % Russell F AustinHEMOGLOBIN [id number] 00:00:00* Test Item Value Reference Range Interpretation Comme nts HEMOGLOBIN A1c (test code = 26837) 5.8 % Russell F AustinHEMOGLOBIN [id number] 00:00:00* Test Item Value Reference Range Interpretation Comme nts HEMOGLOBIN A1c (test code = 95437) 5.8 % HEMOGLOBIN [id number] 00:00:00* Test Item Value Reference Range Interpretation Comme nts HEMOGLOBIN A1c (test code = 99957) 5.8 % HEMOGLOBIN [id number] 00:00:00* Test Item Value Reference Range Interpretation Comme nts HEMOGLOBIN A1c (test code = 38975) 5.8 % HEMOGLOBIN [id number] 00:00:00* Test Item Value Reference Range Interpretation Comme nts HEMOGLOBIN A1c (test code = 61132) 5.8 % HEMOGLOBIN [id number] 00:00:00* Test Item Value Reference Range Interpretation Comme nts HEMOGLOBIN A1c (test code = 51332) 5.8 % COMPREHENSIVE METABOLIC [id number] 00:00:00* Test Item Value Reference Range Interpretation Comme nts GLUCOSE (test code = 2217) 101 MG/DL BUN (test code = 2208) 13 MG/DL CREATININE (test code = 2214) 0.50 MG/DL eGFR AMER. (test cod e = 18607) 126 ML/MIN/1.73 eGFR NON- AMER. (test code = 91080) 109 ML/MIN/1.73 CALC BUN/CREAT (test code = [...] ALT (test code = 2219) 33 U/L Russell MontgomeryLIPID [id number] 00:00:00* Test Item Value Reference Range Interpretation Comme nts CHOLESTEROL (test code = 2210) 194 MG/DL TRIGLYCERIDES (test code = 2232) 229 MG/DL HDL CHOLESTEROL (test code = 2220) 64 MG/DL CALC LDL CHOL (test code = 2237) 95 MG/DL RISK RATIO LDL/HDL (test cod e = 223) 1.48 RATIO Russell MontgomeryHEMOGLOBIN [id number] 00:00:00* Test Item Value Reference Range Interpretation Comme nts HEMOGLOBIN A1c (test code = 42908) 5.8 % Russell MontgomeryCOMPREHENSIVE METABOLIC [id number] 00:00:00* Test Item Value Reference Range Interpretation Comme nts GLUCOSE (test code = 2217) 101 MG/DL BUN (test code = 2208) 13 MG/DL CREATININE (test code = 2214) 0.50 MG/DL eGFR AMER. (test cod e = 88699) 126 ML/MIN/1.73 eGFR NON- AMER. (test code = 64563) 109 ML/MIN/1.73 CALC BUN/CREAT (test code = [...] ALT (test code = 2219) 33 U/L Russell MontgomeryLIPID [id number] 00:00:00* Test Item Value Reference Range Interpretation Comme nts CHOLESTEROL (test code = 2210) 194 MG/DL TRIGLYCERIDES (test code = 2232) 229 MG/DL HDL CHOLESTEROL (test code = 2220) 64 MG/DL CALC LDL CHOL (test code = 2237) 95 MG/DL RISK RATIO LDL/HDL (test cod e = 2238) 1.48 RATIO Russell MontgomeryHEMOGLOBIN [id number] 00:00:00* Test Item Value Reference Range Interpretation Comme nts HEMOGLOBIN A1c (test code = 17386) 5.8 % Russell MontgomeryCOMPREHENSIVE METABOLIC [id number] 00:00:00* Test Item Value Reference Range Interpretation Comme nts GLUCOSE (test code = 2217) 101 MG/DL BUN (test code = 2208) 13 MG/DL CREATININE (test code = 2214) 0.50 MG/DL eGFR AMER. (test cod e = 43449) 126 ML/MIN/1.73 eGFR NON- AMER. (test code = 09415) 109 ML/MIN/1.73 CALC BUN/CREAT (test code = [...] ALT (test code = 2219) 33 U/L Russell Caceres AustinLIPID [id number] 00:00:00* Test Item Value Reference Range Interpretation Comme nts CHOLESTEROL (test code = 2210) 194 MG/DL TRIGLYCERIDES (test code = 2232) 229 MG/DL HDL CHOLESTEROL (test code = 2220) 64 MG/DL CALC LDL CHOL (test code = 2237) 95 MG/DL RISK RATIO LDL/HDL (test cod e = 2238) 1.48 RATIO Russell MontgomeryHEMOGLOBIN [id number] 00:00:00* Test Item Value Reference Range Interpretation Comme nts HEMOGLOBIN A1c (test code = 15656) 5.8 % Russell MontgomeryCOMPREHENSIVE METABOLIC [id number] 00:00:00* Test Item Value Reference Range Interpretation Comme nts GLUCOSE (test code = 2217) 101 MG/DL BUN (test code = 2208) 13 MG/DL CREATININE (test code = 2214) 0.50 MG/DL eGFR AMER. (test cod e = 01323) 126 ML/MIN/1.73 eGFR NON- AMER. (test code = 57038) 109 ML/MIN/1.73 CALC BUN/CREAT (test code = [...] ALT (test code = 2219) 33 U/L Russell MontgomeryLIPID [id number] 00:00:00* Test Item Value Reference Range Interpretation Comme nts CHOLESTEROL (test code = 2210) 194 MG/DL TRIGLYCERIDES (test code = 2232) 229 MG/DL HDL CHOLESTEROL (test code = 2220) 64 MG/DL CALC LDL CHOL (test code = 2237) 95 MG/DL RISK RATIO LDL/HDL (test cod e = 2238) 1.48 RATIO Russell Caceres AustinHEMOGLOBIN [id number] 00:00:00* Test Item Value Reference Range Interpretation Comme nts HEMOGLOBIN A1c (test code = 02402) 5.8 % Russell MontgomeryCOMPREHENSIVE METABOLIC [id number] 00:00:00* Test Item Value Reference Range Interpretation Comme nts GLUCOSE (test code = 2217) 101 MG/DL BUN (test code = 2208) 13 MG/DL CREATININE (test code = 2214) 0.50 MG/DL eGFR AMER. (test cod e = 95552) 126 ML/MIN/1.73 eGFR NON- AMER. (test code = 70156) 109 ML/MIN/1.73 CALC BUN/CREAT (test code = [...] ALT (test code = 2219) 33 U/L Russell Caceres AustinLIPID [id number] 00:00:00* Test Item Value Reference Range Interpretation Comme nts CHOLESTEROL (test code = 2210) 194 MG/DL TRIGLYCERIDES (test code = 2232) 229 MG/DL HDL CHOLESTEROL (test code = 2220) 64 MG/DL CALC LDL CHOL (test code = 2237) 95 MG/DL RISK RATIO LDL/HDL (test cod e = 2238) 1.48 RATIO Russell MontgomeryHEMOGLOBIN [id number] 00:00:00* Test Item Value Reference Range Interpretation Comme nts HEMOGLOBIN A1c (test code = 58878) 5.8 % Russell Caceres AustinCOMPREHENSIVE METABOLIC [id number] 00:00:00* Test Item Value Reference Range Interpretation Comme nts GLUCOSE (test code = 2217) 101 MG/DL BUN (test code = 2208) 13 MG/DL CREATININE (test code = 2214) 0.50 MG/DL eGFR AMER. (test cod e = 95799) 126 ML/MIN/1.73 eGFR NON- AMER. (test code = 68850) 109 ML/MIN/1.73 CALC BUN/CREAT (test code = [...] ALT (test code = 2219) 33 U/L Russell MontgomeryLIPID [id number] 00:00:00* Test Item Value Reference Range Interpretation Comme nts CHOLESTEROL (test code = 2210) 194 MG/DL TRIGLYCERIDES (test code = 2232) 229 MG/DL HDL CHOLESTEROL (test code = 2220) 64 MG/DL CALC LDL CHOL (test code = 2237) 95 MG/DL RISK RATIO LDL/HDL (test cod e = 2238) 1.48 RATIO Russell MontgomeryHEMOGLOBIN [id number] 00:00:00* Test Item Value Reference Range Interpretation Comme nts HEMOGLOBIN A1c (test code = 33394) 5.8 % Russell MontgomeryCOMPREHENSIVE METABOLIC [id number] 00:00:00* Test Item Value Reference Range Interpretation Comme nts GLUCOSE (test code = 2217) 101 MG/DL BUN (test code = 2208) 13 MG/DL CREATININE (test code = 2214) 0.50 MG/DL eGFR AMER. (test cod e = 89200) 126 ML/MIN/1.73 eGFR NON- AMER. (test code = 39896) 109 ML/MIN/1.73 CALC BUN/CREAT (test code = [...] (test code = 2219) 33 U/L LIPID [id number] 00:00:00* Test Item Value Reference Range Interpretation Comme nts CHOLESTEROL (test code = 2210) 194 MG/DL TRIGLYCERIDES (test code = 2232) 229 MG/DL HDL CHOLESTEROL (test code = 2220) 64 MG/DL CALC LDL CHOL (test code = 2237) 95 MG/DL RISK RATIO LDL/HDL (test cod e = 2238) 1.48 RATIO HEMOGLOBIN [id number] 00:00:00* Test Item Value Reference Range Interpretation Comme nts HEMOGLOBIN A1c (test code = 74928) 5.8 % COMPREHENSIVE METABOLIC [id number] 00:00:00* Test Item Value Reference Range Interpretation Comme nts GLUCOSE (test code = 2217) 101 MG/DL BUN (test code = 2208) 13 MG/DL CREATININE (test code = 2214) 0.50 MG/DL eGFR AMER. (test cod e = 97100) 126 ML/MIN/1.73 eGFR NON- AMER. (test code = 77255) 109 ML/MIN/1.73 CALC BUN/CREAT (test code = [...] 0.4 MG/DL ALKALINE PHOSPHATASE (test code = 220) 139 U/L AST (test code = 2218) 23 U/L ALT (test code = 221) 33 U/L LIPID [id number] 00:00:00* Test Item Value Reference Range Interpretation Comme nts CHOLESTEROL (test code = 2210) 194 MG/DL TRIGLYCERIDES (test code = 2232) 229 MG/DL HDL CHOLESTEROL (test code = 0) 64 MG/DL CALC LDL CHOL (test code = 223) 95 MG/DL RISK RATIO LDL/HDL (test cod e = 2238) 1.48 RATIO HEMOGLOBIN [id number] 00:00:00* Test Item Value Reference Range Interpretation Comme nts HEMOGLOBIN A1c (test code = 88609) 5.8 % COMPREHENSIVE METABOLIC [id number] 00:00:00* Test Item Value Reference Range Interpretation Comme nts GLUCOSE (test code = 2217) 101 MG/DL BUN (test code = 8) 13 MG/DL CREATININE (test code = 2214) 0.50 MG/DL eGFR AMER. (test cod e = 21646) 126 ML/MIN/1.73 eGFR NON- AMER. (test code = 71376) 109 ML/MIN/1.73 CALC BUN/CREAT (test code = [...] (test code = 2219) 33 U/L LIPID [id number] 00:00:00* Test Item Value Reference Range Interpretation Comme nts CHOLESTEROL (test code = 2210) 194 MG/DL TRIGLYCERIDES (test code = 2232) 229 MG/DL HDL CHOLESTEROL (test code = 2220) 64 MG/DL CALC LDL CHOL (test code = 2237) 95 MG/DL RISK RATIO LDL/HDL (test cod e = 223) 1.48 RATIO HEMOGLOBIN [id number] 00:00:00* Test Item Value Reference Range Interpretation Comme nts HEMOGLOBIN A1c (test code = 07241) 5.8 % COMPREHENSIVE METABOLIC [id number] 00:00:00* Test Item Value Reference Range Interpretation Comme nts GLUCOSE (test code = 2217) 101 MG/DL BUN (test code = 2208) 13 MG/DL CREATININE (test code = 2214) 0.50 MG/DL eGFR AMER. (test cod e = 36052) 126 ML/MIN/1.73 eGFR NON- AMER. (test code = 33158) 109 ML/MIN/1.73 CALC BUN/CREAT (test code = [...] (test code = 2219) 33 U/L LIPID [id number] 00:00:00* Test Item Value Reference Range Interpretation Comme nts CHOLESTEROL (test code = 2210) 194 MG/DL TRIGLYCERIDES (test code = 2232) 229 MG/DL HDL CHOLESTEROL (test code = 2220) 64 MG/DL CALC LDL CHOL (test code = 2237) 95 MG/DL RISK RATIO LDL/HDL (test cod e = 2238) 1.48 RATIO HEMOGLOBIN [id number] 00:00:00* Test Item Value Reference Range Interpretation Comme nts HEMOGLOBIN A1c (test code = 93878) 5.8 % COMPREHENSIVE METABOLIC [id number] 00:00:00* Test Item Value Reference Range Interpretation Comme nts GLUCOSE (test code = 2217) 101 MG/DL BUN (test code = 2208) 13 MG/DL CREATININE (test code = 2214) 0.50 MG/DL eGFR AMER. (test cod e = 79364) 126 ML/MIN/1.73 eGFR NON- AMER. (test code = 42096) 109 ML/MIN/1.73 CALC BUN/CREAT (test code = [...] (test code = 2219) 33 U/L HEMOGLOBIN [id number] 00:00:00* Test Item Value Reference Range Interpretation Comme nts HEMOGLOBIN A1c (test code = 94333) 5.8 % LIPID [id number] 00:00:00* Test Item Value Reference Range Interpretation Comme nts CHOLESTEROL (test code = 2210) 194 MG/DL TRIGLYCERIDES (test code = 2232) 229 MG/DL HDL CHOLESTEROL (test code = 2220) 64 MG/DL CALC LDL CHOL (test code = 2237) 95 MG/DL RISK RATIO LDL/HDL (test cod e = 2238) 1.48 RATIO CULTURE, [id number] 00:00:00* Test Item Value Reference Range Interpretation Comme nts CULTURE, URINE (test code = 78316) SPECIMEN NUMBER: [id number] Russell WeeksLTWILLIAM, [id number] 00:00:00* Test Item Value Reference Range Interpretation Comme nts CULTURE, URINE (test code = 80163) SPECIMEN NUMBER: [id number] Russell WeeksLTWILLIAM, [id number] 00:00:00* Test Item Value Reference Range Interpretation Comme nts CULTURE, URINE (test code = 06027) SPECIMEN NUMBER: [id number] Russell Gunderson, [id number] 00:00:00* Test Item Value Reference Range Interpretation Comme nts CULTURE, URINE (test code = 66822) SPECIMEN NUMBER: [id number] Russell WeeksLTWILLIAM, [id number] 00:00:00* Test Item Value Reference Range Interpretation Comme nts CULTURE, URINE (test code = 40262) SPECIMEN NUMBER: [id number] Russell WeeksLTWILLIAM, [id number] 00:00:00* Test Item Value Reference Range Interpretation Comme nts CULTURE, URINE (test code = 46695) SPECIMEN NUMBER: [id number] Russell WeeksLTWILLIAM, [id number] 00:00:00* Test Item Value Reference Range Interpretation Comme nts CULTURE, URINE (test code = 23602) SPECIMEN NUMBER: [id number] CULTURE, [id number] 00:00:00* Test Item Value Reference Range Interpretation Comme nts CULTURE, URINE (test code = 23401) SPECIMEN NUMBER: [id number] CULTURE, [id number] 00:00:00* Test Item Value Reference Range Interpretation Comme nts CULTURE, URINE (test code = 19859) SPECIMEN NUMBER: [id number] CULTURE, [id number] 00:00:00* Test Item Value Reference Range Interpretation Comme nts CULTURE, URINE (test code = 81017) SPECIMEN NUMBER: [id number] CULTURE, [id number] 00:00:00* Test Item Value Reference Range Interpretation Comme nts CULTURE, URINE (test code = 57107) SPECIMEN NUMBER: [id number] HEMOGLOBIN [id number] 00:00:00* Test Item Value Reference Range Interpretation Comme nts HEMOGLOBIN A1c (test code = 95377) 5.7 % Russell Caceres AustinCOMPREHENSIVE METABOLIC [id number] 00:00:00* Test Item Value Reference Range Interpretation Comme nts GLUCOSE (test code = 2217) 91 MG/DL BUN (test code = 2208) 14 MG/DL CREATININE (test code = 2214) 0.50 MG/DL eGFR AMER. (test cod e = 71069) 126 ML/MIN/1.73 eGFR NON- AMER. (test code = 88699) 109 ML/MIN/1.73 CALC BUN/CREAT (test code = [...] ALT (test code = 2219) 28 U/L Russell Caceres AustinHEMOGLOBIN [id number] 00:00:00* Test Item Value Reference Range Interpretation Comme nts HEMOGLOBIN A1c (test code = 77384) 5.7 % Russell Caceres AustinCOMPREHENSIVE METABOLIC [id number] 00:00:00* Test Item Value Reference Range Interpretation Comme nts GLUCOSE (test code = 2217) 91 MG/DL BUN (test code = 2208) 14 MG/DL CREATININE (test code = 2214) 0.50 MG/DL eGFR AMER. (test cod e = 29909) 126 ML/MIN/1.73 eGFR NON- AMER. (test code = 60138) 109 ML/MIN/1.73 CALC BUN/CREAT (test code = [...] ALT (test code = 2219) 28 U/L Russell Caceres [place] [id number] 00:00:00* Test Item Value Reference Range Interpretation Comme [facility] HEMOGLOBIN A1c (test code = 80965) 5.7 % Russell MontgomeryCOMPREHENSIVE METABOLIC [id number] 00:00:00* Test Item Value Reference Range Interpretation Comme nts GLUCOSE (test code = 2217) 91 MG/DL BUN (test code = 2208) 14 MG/DL CREATININE (test code = 2214) 0.50 MG/DL eGFR AMER. (test cod e = 95795) 126 ML/MIN/1.73 eGFR NON- AMER. (test code = 62127) 109 ML/MIN/1.73 CALC BUN/CREAT (test code = [...] ALT (test code = 2219) 28 U/L Russell Caceres AustinHEMOGLOBIN [id number] 00:00:00* Test Item Value Reference Range Interpretation Comme nts HEMOGLOBIN A1c (test code = 52814) 5.7 % Russell Morris AustinCOMPREHENSIVE METABOLIC [id number] 00:00:00* Test Item Value Reference Range Interpretation Comme nts GLUCOSE (test code = 2217) 91 MG/DL BUN (test code = 2208) 14 MG/DL CREATININE (test code = 2214) 0.50 MG/DL eGFR AMER. (test cod e = 46791) 126 ML/MIN/1.73 eGFR NON- AMER. (test code = 24222) 109 ML/MIN/1.73 CALC BUN/CREAT (test code = [...] ALT (test code = 2219) 28 U/L Russell Caceres AustinHEMOGLOBIN [id number] 00:00:00* Test Item Value Reference Range Interpretation Comme nts HEMOGLOBIN A1c (test code = 16980) 5.7 % Russell F AustinCOMPREHENSIVE METABOLIC [id number] 00:00:00* Test Item Value Reference Range Interpretation Comme nts GLUCOSE (test code = 2217) 91 MG/DL BUN (test code = 2208) 14 MG/DL CREATININE (test code = 2214) 0.50 MG/DL eGFR AMER. (test cod e = 03126) 126 ML/MIN/1.73 eGFR NON- AMER. (test code = 16100) 109 ML/MIN/1.73 CALC BUN/CREAT (test code = [...] ALT (test code = 2219) 28 U/L Russell MontgomeryHEMOGLOBIN [id number] 00:00:00* Test Item Value Reference Range Interpretation Comme nts HEMOGLOBIN A1c (test code = 62360) 5.7 % Russell MontgomeryJEFFERSON [facility]ITALPREHENSIVE METABOLIC [id number] 00:00:00* Test Item Value Reference Range Interpretation Comme nts GLUCOSE (test code = 2217) 91 MG/DL BUN (test code = 2208) 14 MG/DL CREATININE (test code = 2214) 0.50 MG/DL eGFR AMER. (test cod e = 61459) 126 ML/MIN/1.73 eGFR NON- AMER. (test code = 57463) 109 ML/MIN/1.73 CALC BUN/CREAT (test code = [...] ALT (test code = 2219) 28 U/L Russell MontgomeryCOMPREHENSIVE METABOLIC [id number] 00:00:00* Test Item Value Reference Range Interpretation Comme nts GLUCOSE (test code = 2217) 91 MG/DL BUN (test code = 2208) 14 MG/DL CREATININE (test code = 2214) 0.50 MG/DL eGFR AMER. (test cod e = 78408) 126 ML/MIN/1.73 eGFR NON- AMER. (test code = 44330) 109 ML/MIN/1.73 CALC BUN/CREAT (test code = [...] (test code = 2219) 28 U/L HEMOGLOBIN [id number] 00:00:00* Test Item Value Reference Range Interpretation Comme nts HEMOGLOBIN A1c (test code = 35004) 5.7 % COMPREHENSIVE METABOLIC [id number] 00:00:00* Test Item Value Reference Range Interpretation Comme nts GLUCOSE (test code = 2217) 91 MG/DL BUN (test code = 2208) 14 MG/DL CREATININE (test code = 2214) 0.50 MG/DL eGFR AMER. (test cod e = 36073) 126 ML/MIN/1.73 eGFR NON- AMER. (test code = 42584) 109 ML/MIN/1.73 CALC BUN/CREAT (test code = [...] (test code = 2219) 28 U/L HEMOGLOBIN [id number] 00:00:00* Test Item Value Reference Range Interpretation Comme nts HEMOGLOBIN A1c (test code = 39797) 5.7 % COMPREHENSIVE METABOLIC [id number] 00:00:00* Test Item Value Reference Range Interpretation Comme nts GLUCOSE (test code = 2217) 91 MG/DL BUN (test code = 2208) 14 MG/DL CREATININE (test code = 2214) 0.50 MG/DL eGFR AMER. (test cod e = 65709) 126 ML/MIN/1.73 eGFR NON- AMER. (test code = 79520) 109 ML/MIN/1.73 CALC BUN/CREAT (test code = [...] (test code = 2219) 28 U/L HEMOGLOBIN [id number] 00:00:00* Test Item Value Reference Range Interpretation Comme nts HEMOGLOBIN A1c (test code = 57414) 5.7 % COMPREHENSIVE METABOLIC [id number] 00:00:00* Test Item Value Reference Range Interpretation Comme nts GLUCOSE (test code = 2217) 91 MG/DL BUN (test code = 2208) 14 MG/DL CREATININE (test code = 2214) 0.50 MG/DL eGFR AMER. (test cod e = 29323) 126 ML/MIN/1.73 eGFR NON- AMER. (test code = 78025) 109 ML/MIN/1.73 CALC BUN/CREAT (test code = [...] (test code = 2219) 28 U/L HEMOGLOBIN [id number] 00:00:00* Test Item Value Reference Range Interpretation Comme nts HEMOGLOBIN A1c (test code = 21223) 5.7 % COMPREHENSIVE METABOLIC [id number] 00:00:00* Test Item Value Reference Range Interpretation Comme nts GLUCOSE (test code = 2217) 91 MG/DL BUN (test code = 2208) 14 MG/DL CREATININE (test code = 2214) 0.50 MG/DL eGFR AMER. (test cod e = 46723) 126 ML/MIN/1.73 eGFR NON- AMER. (test code = 33499) 109 ML/MIN/1.73 CALC BUN/CREAT (test code = [...] (test code = 2219) 28 U/L HEMOGLOBIN [id number] 00:00:00* Test Item Value Reference Range Interpretation Comme [facility] HEMOGLOBIN A1c (test code = 35909) 5.7 % CBC W/AUTO [id number] 00:00:00* Test Item Value Reference Range Interpretation [...] COUNT (test code = 1015) 233 K/UL Russell Caceres AustinCBC W/AUTO [id number] 00:00:00* Test Item Value Reference Range Interpretation [...] COUNT (test code = 1015) 233 K/UL Russell Caceres AustinCBC W/AUTO [id number] 00:00:00* Test Item Value Reference Range Interpretation [...] COUNT (test code = 1015) 233 K/UL Russell Caceres AustinCBC W/AUTO [id number] 00:00:00* Test Item Value Reference Range Interpretation [...] COUNT (test code = 1015) 233 K/UL Russell Caceres IdeaOfferCBC W/AUTO [id number] 00:00:00* Test Item Value Reference Range Interpretation [...] COUNT (test code = 1015) 233 K/UL Russell Caceres AustinCBC W/AUTO [id number] 00:00:00* Test Item Value Reference Range Interpretation [...] COUNT (test code = 1015) 233 K/UL Russell MontgomeryC W/AUTO [id number] 00:00:00* Test Item Value Reference Range Interpretation [...] code = 1015) 233 K/UL CBC W/AUTO [id number] 00:00:00* Test Item Value Reference Range Interpretation [...] code = 1015) 233 K/UL CBC W/AUTO [id number] 00:00:00* Test Item Value Reference Range Interpretation [...] code = 1015) 233 K/UL CBC W/AUTO [id number] 00:00:00* Test Item Value Reference Range Interpretation [...] code = 1015) 233 K/UL CBC W/AUTO [id number] 00:00:00* Test Item Value Reference Range Interpretation [...] nts SARS-CoV-2 INTERPRETATION (t est code = 52672) NEGATIVE SOURCE (test code = 10562) NOT SPECIFIED Russell F [id number] (COVID-19) by RT-PCR (HIGH RISK)2020-03-22 00:00:00* Test Item Value Reference Range Interpretation Comme nts SARS-CoV-2 INTERPRETATION (t est code = 60151) NEGATIVE SOURCE (test code = 68234) NOT SPECIFIED Russell F [id number] (COVID-19) by RT-PCR (HIGH RISK)2020-03-22 00:00:00* Test Item Value Reference Range Interpretation Comme nts SARS-CoV-2 INTERPRETATION (t est code = 15068) NEGATIVE SOURCE (test code = 53886) NOT SPECIFIED Russell F EkasveNIIL-[id number]-7 (COVID-19) by RT-PCR (HIGH RISK)2020-03-22 00:00:00* Test Item Value Reference Range Interpretation Comme nts SARS-CoV-2 INTERPRETATION (t est code = 98585) NEGATIVE SOURCE (test code = 54319) NOT SPECIFIED Russell F [id number] (COVID-19) by RT-PCR (HIGH RISK)2020-03-22 00:00:00* Test Item Value Reference Range Interpretation Comme nts SARS-CoV-2 INTERPRETATION (t est code = 92143) NEGATIVE SOURCE (test code = 53728) NOT SPECIFIED Russell F [id number]-4 (COVID-19) by RT-PCR (HIGH RISK)2020-03-22 00:00:00* Test Item Value Reference Range Interpretation Comme nts SARS-CoV-2 INTERPRETATION (t est code = 66484) NEGATIVE SOURCE (test code = 30734) NOT SPECIFIED Russell F SovpabIAZQ-[id number]-9 (COVID-19) by RT-PCR (HIGH RISK)2020-03-22 00:00:00* Test Item Value Reference Range Interpretation Comme nts SARS-CoV-2 INTERPRETATION (t est code = 14887) NEGATIVE SOURCE (test code = 84355) NOT SPECIFIED SARS-CoV-2 (COVID-19) by RT-PCR (HIGH RISK)2020-03-22 00:00:00* Test Item Value Reference Range Interpretation Comme nts SARS-CoV-2 INTERPRETATION (t est code = 68525) NEGATIVE SOURCE (test code = 92493) NOT SPECIFIED SARS-CoV-2 (COVID-19) by RT-PCR (HIGH RISK)2020-03-22 00:00:00* Test Item Value Reference Range Interpretation Comme nts SARS-CoV-2 INTERPRETATION (t est code = 10486) NEGATIVE SOURCE (test code = 42426) NOT SPECIFIED SARS-CoV-2 (COVID-19) by RT-PCR (HIGH RISK)2020-03-22 00:00:00* Test Item Value Reference Range Interpretation Comme nts SARS-CoV-2 INTERPRETATION (t est code = 94409) NEGATIVE SOURCE (test code = 45577) NOT SPECIFIED SARS-CoV-2 (COVID-19) by RT-PCR (HIGH RISK)2020-03-22 00:00:00* Test Item Value Reference Range Interpretation Comme nts SARS-CoV-2 INTERPRETATION (t est code = 93186) NEGATIVE SOURCE (test code = 48509) NOT SPECIFIED HEMOGLOBIN [id number] 00:00:00* Test Item Value Reference Range Interpretation Comme nts HEMOGLOBIN A1c (test code = 11058) 6.0 % Russell F AustinH. PYLORI (BREATH)2020-02-07 00:00:00* Test Item Value Reference Range Interpretation Comme nts H. PYLORI (BREATH) (test cod e = 27857) NEGATIVE Russell F AustinHEMOGLOBIN [id number] 00:00:00* Test Item Value Reference Range Interpretation Comme nts HEMOGLOBIN A1c (test code = 37387) 6.0 % Russell F AustinH. PYLORI (BREATH)2020-02-07 00:00:00* Test Item Value Reference Range Interpretation Comme nts H. PYLORI (BREATH) (test cod e = 35968) NEGATIVE Russell F AustinHEMOGLOBIN [id number] 00:00:00* Test Item Value Reference Range Interpretation Comme nts HEMOGLOBIN A1c (test code = 84593) 6.0 % Russell Caceres AustinH. PYLORI (BREATH)2020-02-07 00:00:00* Test Item Value Reference Range Interpretation Comme nts H. PYLORI (BREATH) (test cod e = 13350) NEGATIVE Russell Caceres AustinHEMOGLOBIN [id number] 00:00:00* Test Item Value Reference Range Interpretation Comme nts HEMOGLOBIN A1c (test code = 61385) 6.0 % Russell Caceres AustinH. PYLORI (BREATH)2020-02-07 00:00:00* Test Item Value Reference Range Interpretation Comme nts H. PYLORI (BREATH) (test cod e = 38943) NEGATIVE Russell Caceres AustinHEMOGLOBIN [id number] 00:00:00* Test Item Value Reference Range Interpretation Comme nts HEMOGLOBIN A1c (test code = 40295) 6.0 % Russlel Caceres AustinH. PYLORI (BREATH)2020-02-07 00:00:00* Test Item Value Reference Range Interpretation Comme nts H. PYLORI (BREATH) (test cod e = 14926) NEGATIVE Russell Caceres AustinHEMOGLOBIN [id number] 00:00:00* Test Item Value Reference Range Interpretation Comme nts HEMOGLOBIN A1c (test code = 40529) 6.0 % Russell Caceres AustinH. PYLORI (BREATH)2020-02-07 00:00:00* Test Item Value Reference Range Interpretation Comme nts H. PYLORI (BREATH) (test cod e = 31692) NEGATIVE Russell Caceres AustinHEMOGLOBIN [id number] 00:00:00* Test Item Value Reference Range Interpretation Comme nts HEMOGLOBIN A1c (test code = 48876) 6.0 % H. PYLORI (BREATH)2020-02-07 00:00:00* Test Item Value Reference Range Interpretation Comme nts H. PYLORI (BREATH) (test cod e = 22499) NEGATIVE HEMOGLOBIN [id number] 00:00:00* Test Item Value Reference Range Interpretation Comme nts HEMOGLOBIN A1c (test code = 05504) 6.0 % H. PYLORI (BREATH)2020-02-07 00:00:00* Test Item Value Reference Range Interpretation Comme nts H. PYLORI (BREATH) (test cod e = 51372) NEGATIVE HEMOGLOBIN [id number] 00:00:00* Test Item Value Reference Range Interpretation Comme nts HEMOGLOBIN A1c (test code = 05328) 6.0 % H. PYLORI (BREATH)2020-02-07 00:00:00* Test Item Value Reference Range Interpretation Comme nts H. PYLORI (BREATH) (test cod e = 10447) NEGATIVE HEMOGLOBIN [id number] 00:00:00* Test Item Value Reference Range Interpretation Comme nts HEMOGLOBIN A1c (test code = 03009) 6.0 % H. PYLORI (BREATH)2020-02-07 00:00:00* Test Item Value Reference Range Interpretation Comme nts H. PYLORI (BREATH) (test cod e = 28643) NEGATIVE H. PYLORI (BREATH)2020-02-07 00:00:00* Test Item Value Reference Range Interpretation Comme nts H. PYLORI (BREATH) (test cod e = 64520) NEGATIVE HEMOGLOBIN [id number] 00:00:00* Test Item Value Reference Range Interpretation Comme nts HEMOGLOBIN A1c (test code = 18046) 6.0 % COMPREHENSIVE METABOLIC [id number] 00:00:00* Test Item Value Reference Range Interpretation Comme nts GLUCOSE (test code = 2217) 113 MG/DL BUN (test code = 2208) 18 MG/DL CREATININE (test code = 2214) 0.50 MG/DL eGFR AMER. (test cod e = 06825) 126 ML/MIN/1.73 eGFR NON- AMER. (test code = 35064) 109 ML/MIN/1.73 CALC BUN/CREAT (test code = [...] ALT (test code = 2219) 38 U/L Russell [id number] 00:00:00* Test Item Value Reference Range Interpretation Comme nts TSH, THIRD GENERATION (test code = 2821) 1.300 UIU/ML Russell MontgomeryCBC W/AUTO [id number] 00:00:00* Test Item Value Reference Range Interpretation [...] COUNT (test code = 1015) 242 K/UL Russell MontgomeryCOMPREHENSIVE METABOLIC [id number] 00:00:00* Test Item Value Reference Range Interpretation Comme nts GLUCOSE (test code = 2217) 113 MG/DL BUN (test code = 2208) 18 MG/DL CREATININE (test code = 2214) 0.50 MG/DL eGFR AMER. (test cod e = 38884) 126 ML/MIN/1.73 eGFR NON- AMER. (test code = 05770) 109 ML/MIN/1.73 CALC BUN/CREAT (test code = [...] ALT (test code = 2219) 38 U/L Russell [id number] 00:00:00* Test Item Value Reference Range Interpretation Comme nts TSH, THIRD GENERATION (test code = 2821) 1.300 UIU/ML Russell MontgomeryCBC W/AUTO [id number] 00:00:00* Test Item Value Reference Range Interpretation [...] COUNT (test code = 1015) 242 K/UL Russell MontgomeryCOMPREHENSIVE METABOLIC [id number] 00:00:00* Test Item Value Reference Range Interpretation Comme nts GLUCOSE (test code = 2217) 113 MG/DL BUN (test code = 2208) 18 MG/DL CREATININE (test code = 2214) 0.50 MG/DL eGFR AMER. (test cod e = 43935) 126 ML/MIN/1.73 eGFR NON- AMER. (test code = 13102) 109 ML/MIN/1.73 CALC BUN/CREAT (test code = [...] ALT (test code = 2219) 38 U/L Russell [id number] 00:00:00* Test Item Value Reference Range Interpretation Comme nts TSH, THIRD GENERATION (test code = 2821) 1.300 UIU/ML Russell MontgomeryCBC W/AUTO [id number] 00:00:00* Test Item Value Reference Range Interpretation [...] COUNT (test code = 1015) 242 K/UL Russell MontgomeryCOMPREHENSIVE METABOLIC [id number] 00:00:00* Test Item Value Reference Range Interpretation Comme nts GLUCOSE (test code = 2217) 113 MG/DL BUN (test code = 2208) 18 MG/DL CREATININE (test code = 2214) 0.50 MG/DL eGFR AMER. (test cod e = 02590) 126 ML/MIN/1.73 eGFR NON- AMER. (test code = 70572) 109 ML/MIN/1.73 CALC BUN/CREAT (test code = [...] ALT (test code = 2219) 38 U/L Russell Caceres [id number] 00:00:00* Test Item Value Reference Range Interpretation Comme nts TSH, THIRD GENERATION (test code = 2821) 1.300 UIU/ML Russell Caceres UlisesCBC W/AUTO [id number] 00:00:00* Test Item Value Reference Range Interpretation [...] COUNT (test code = 1015) 242 K/UL Russell Caceres UlisesCOMPREHENSIVE METABOLIC [id number] 00:00:00* Test Item Value Reference Range Interpretation Comme nts GLUCOSE (test code = 2217) 113 MG/DL BUN (test code = 2208) 18 MG/DL CREATININE (test code = 2214) 0.50 MG/DL eGFR AMER. (test cod e = ) 126 ML/MIN/1.73 eGFR NON- AMER. (test code = 67285) 109 ML/MIN/1.73 CALC BUN/CREAT (test code = 2235) 36 RATIO SODIUM (test code = 2231) 143 MEQ/L POTASSIUM (test code = 2228) 4.1 MEQ/L CHLORIDE (test code = 2215) 105 MEQ/L CARBON DIOXIDE (test code = 2206) 25 MEQ/L CALCIUM (test code = 2209) 9.8 MG/DL PROTEIN, TOTAL (test code = 222) 7.2 G/DL ALBUMIN (test code = 2201) 4.9 G/DL CALC GLOBULIN (test code = 2240) 2.3 G/DL CALC A/G RATIO (test code = 2234) 2.1 RATIO BILIRUBIN, TOTAL (test code = 2207) 0.3 MG/DL ALKALINE PHOSPHATASE (test code = 2204) 131 U/L AST (test code = 2218) 26 U/L ALT (test code = 2219) 38 U/L Russell [id number] 00:00:00* Test Item Value Reference Range Interpretation Comme nts TSH, THIRD GENERATION (test code = 2821) 1.300 UIU/ML Russell MontgomeryCBC W/AUTO [id number] 00:00:00* Test Item Value Reference Range Interpretation [...] COUNT (test code = 1015) 242 K/UL Russell MontgomeryCOMPREHENSIVE METABOLIC [id number] 00:00:00* Test Item Value Reference Range Interpretation Comme nts GLUCOSE (test code = 2217) 113 MG/DL BUN (test code = 2208) 18 MG/DL CREATININE (test code = 2214) 0.50 MG/DL eGFR AMER. (test cod e = 12738) 126 ML/MIN/1.73 eGFR NON- AMER. (test code = 68345) 109 ML/MIN/1.73 CALC BUN/CREAT (test code = [...] ALT (test code = 2219) 38 U/L Russell [id number] 00:00:00* Test Item Value Reference Range Interpretation Comme nts TSH, THIRD GENERATION (test code = 2821) 1.300 UIU/ML Russell MontgomeryCBC W/AUTO [id number] 00:00:00* Test Item Value Reference Range Interpretation [...] COUNT (test code = 1015) 242 K/UL [facility] [id number] 00:00:00* Test Item Value Reference Range Interpretation [...] code = 1015) 242 K/UL COMPREHENSIVE METABOLIC [id number] 00:00:00* Test Item Value Reference Range Interpretation Comme nts GLUCOSE (test code = 2217) 113 MG/DL BUN (test code = 2208) 18 MG/DL CREATININE (test code = 2214) 0.50 MG/DL eGFR AMER. (test cod e = 16790) 126 ML/MIN/1.73 eGFR NON- AMER. (test code = 22734) 109 ML/MIN/1.73 CALC BUN/CREAT (test code = [...] ALT (test code = 2219) 38 U/L [id number] 00:00:00* Test Item Value Reference Range Interpretation Comme nts TSH, THIRD GENERATION (test code = 2821) 1.300 UIU/ML CBC W/AUTO [id number] 00:00:00* Test Item Value Reference Range Interpretation [...] code = 1015) 242 K/UL COMPREHENSIVE METABOLIC [id number] 00:00:00* Test Item Value Reference Range Interpretation Comme nts GLUCOSE (test code = 2217) 113 MG/DL BUN (test code = 2208) 18 MG/DL CREATININE (test code = 2214) 0.50 MG/DL eGFR AMER. (test cod e = 52863) 126 ML/MIN/1.73 eGFR NON- AMER. (test code = 68550) 109 ML/MIN/1.73 CALC BUN/CREAT (test code = [...] ALT (test code = 2219) 38 U/L [id number] 00:00:00* Test Item Value Reference Range Interpretation Comme nts TSH, THIRD GENERATION (test code = 2821) 1.300 UIU/ML CBC W/AUTO [id number] 00:00:00* Test Item Value Reference Range Interpretation [...] code = 1015) 242 K/UL COMPREHENSIVE METABOLIC [id number] 00:00:00* Test Item Value Reference Range Interpretation Comme nts GLUCOSE (test code = 2217) 113 MG/DL BUN (test code = 2208) 18 MG/DL CREATININE (test code = 2214) 0.50 MG/DL eGFR AMER. (test cod e = 40208) 126 ML/MIN/1.73 eGFR NON- AMER. (test code = 26168) 109 ML/MIN/1.73 CALC BUN/CREAT (test code = [...] ALT (test code = 2219) 38 U/L [id number] 00:00:00* Test Item Value Reference Range Interpretation Comme nts TSH, THIRD GENERATION (test code = 2821) 1.300 UIU/ML CBC W/AUTO [id number] 00:00:00* Test Item Value Reference Range Interpretation [...] code = 1015) 242 K/UL COMPREHENSIVE METABOLIC [id number] 00:00:00* Test Item Value Reference Range Interpretation Comme nts GLUCOSE (test code = 2217) 113 MG/DL BUN (test code = 2208) 18 MG/DL CREATININE (test code = 2214) 0.50 MG/DL eGFR AMER. (test cod e = 66653) 126 ML/MIN/1.73 eGFR NON- AMER. (test code = 62331) 109 ML/MIN/1.73 CALC BUN/CREAT (test code = [...] ALT (test code = 2219) 38 U/L [id number] 00:00:00* Test Item Value Reference Range Interpretation Comme nts TSH, THIRD GENERATION (test code = 2821) 1.300 UIU/ML CBC W/AUTO [id number] 00:00:00* Test Item Value Reference Range Interpretation [...] code = 1015) 242 K/UL COMPREHENSIVE METABOLIC [id number] 00:00:00* Test Item Value Reference Range Interpretation Comme nts GLUCOSE (test code = 2217) 113 MG/DL BUN (test code = 2208) 18 MG/DL CREATININE (test code = 2214) 0.50 MG/DL eGFR AMER. (test cod e = 18418) 126 ML/MIN/1.73 eGFR NON- AMER. (test code = 76149) 109 ML/MIN/1.73 CALC BUN/CREAT (test code = [...] ALT (test code = 2219) 38 U/L [id number] 00:00:00* Test Item Value Reference Range Interpretation Comme nts TSH, THIRD GENERATION (test code = 2821) 1.300 UIU/ML SARS-CoV-2 (COVID-19) by RT-PCR (HIGH RISK)2019-11-04 00:00:00* Test Item Value Reference Range Interpretation Comme nts SARS-CoV-2 INTERPRETATION (t est code = 78538) NEGATIVE SOURCE (test code = 74918) NOT SPECIFIED Russell Caceres EwkbjdIACW-[id number]-2 (COVID-19) by RT-PCR (HIGH RISK)2019-11-04 00:00:00* Test Item Value Reference Range Interpretation Comme nts SARS-CoV-2 INTERPRETATION (t est code = 72611) NEGATIVE SOURCE (test code = 10096) NOT SPECIFIED Russell Caceres BlrhzpIFTF-JrI-4 (COVID-19) by RT-PCR (HIGH RISK)2019-11-04 00:00:00* Test Item Value Reference Range Interpretation Comme nts SARS-CoV-2 INTERPRETATION (t est code = 17558) NEGATIVE SOURCE (test code = 53371) NOT SPECIFIED Russell Caceres QilaksXWLI-KbK-3 (COVID-19) by RT-PCR (HIGH RISK)2019-11-04 00:00:00* Test Item Value Reference Range Interpretation Comme nts SARS-CoV-2 INTERPRETATION (t est code = 76916) NEGATIVE SOURCE (test code = 97436) NOT SPECIFIED Russell Caceres UdjdvnHFGL-YwU-8 (COVID-19) by RT-PCR (HIGH RISK)2019-11-04 00:00:00* Test Item Value Reference Range Interpretation Comme nts SARS-CoV-2 INTERPRETATION (t est code = 37349) NEGATIVE SOURCE (test code = 81063) NOT SPECIFIED Russell Caceres KkskhyJTVH-GcO-9 (COVID-19) by RT-PCR (HIGH RISK)2019-11-04 00:00:00* Test Item Value Reference Range Interpretation Comme nts SARS-CoV-2 INTERPRETATION (t est code = 99183) NEGATIVE SOURCE (test code = 30772) NOT SPECIFIED Russell Caceres JydnlvMJMX-DwN-4 (COVID-19) by RT-PCR (HIGH RISK)2019-11-04 00:00:00* Test Item Value Reference Range Interpretation Comme nts SARS-CoV-2 INTERPRETATION (t est code = 65950) NEGATIVE SOURCE (test code = 28022) NOT SPECIFIED SARS-CoV-2 (COVID-19) by RT-PCR (HIGH RISK)2019-11-04 00:00:00* Test Item Value Reference Range Interpretation Comme nts SARS-CoV-2 INTERPRETATION (t est code = 20929) NEGATIVE SOURCE (test code = 32284) NOT SPECIFIED SARS-CoV-2 (COVID-19) by RT-PCR (HIGH RISK)2019-11-04 00:00:00* Test Item Value Reference Range Interpretation Comme nts SARS-CoV-2 INTERPRETATION (t est code = 79631) NEGATIVE SOURCE (test code = 80153) NOT SPECIFIED SARS-CoV-2 (COVID-19) by RT-PCR (HIGH RISK)2019-11-04 00:00:00* Test Item Value Reference Range Interpretation Comme nts SARS-CoV-2 INTERPRETATION (t est code = 52754) NEGATIVE SOURCE (test code = 23296) NOT SPECIFIED SARS-CoV-2 (COVID-19) by RT-PCR (HIGH RISK)2019-11-04 00:00:00* Test Item Value Reference Range Interpretation Comme nts SARS-CoV-2 INTERPRETATION (t est code = 29366) NEGATIVE SOURCE (test code = 96493) NOT SPECIFIED SARS-CoV-2 (COVID-19) by RT-PCR (HIGH RISK)2019-08-29 00:00:00* Test Item Value Reference Range Interpretation Comme nts SARS-CoV-2 INTERPRETATION (test code = 32398) POSITIVE SOURCE (test code = 79113) NASOPHARYNGEAL Russell F XeredvTHZK-WjG-4 (COVID-19) by RT-PCR (HIGH RISK)2019-08-29 00:00:00* Test Item Value Reference Range Interpretation Comme nts SARS-CoV-2 INTERPRETATION (test code = 80188) POSITIVE SOURCE (test code = 69062) NASOPHARYNGEAL Russell F EptarvJLLH-UeX-9 (COVID-19) by RT-PCR (HIGH RISK)2019-08-29 00:00:00* Test Item Value Reference Range Interpretation Comme nts SARS-CoV-2 INTERPRETATION (test code = 46157) POSITIVE SOURCE (test code = 34847) NASOPHARYNGEAL Russell F TierafQNON-HgH-6 (COVID-19) by RT-PCR (HIGH RISK)2019-08-29 00:00:00* Test Item Value Reference Range Interpretation Comme nts SARS-CoV-2 INTERPRETATION (test code = 26024) POSITIVE SOURCE (test code = 34952) NASOPHARYNGEAL Russell F HbgffgRQUX-PzB-1 (COVID-19) by RT-PCR (HIGH RISK)2019-08-29 00:00:00* Test Item Value Reference Range Interpretation Comme nts SARS-CoV-2 INTERPRETATION (test code = 30845) POSITIVE SOURCE (test code = 08057) NASOPHARYNGEAL Russell F GpejtbFSNW-VlZ-7 (COVID-19) by RT-PCR (HIGH RISK)2019-08-29 00:00:00* Test Item Value Reference Range Interpretation Comme nts SARS-CoV-2 INTERPRETATION (test code = 72615) POSITIVE SOURCE (test code = 04449) NASOPHARYNGEAL Russell F WssgfdSIEK-MzW-0 (COVID-19) by RT-PCR (HIGH RISK)2019-08-29 00:00:00* Test Item Value Reference Range Interpretation Comme nts SARS-CoV-2 INTERPRETATION (test code = 48834) POSITIVE SOURCE (test code = 81827) NASOPHARYNGEAL SARS-CoV-2 (COVID-19) by RT-PCR (HIGH RISK)2019-08-29 00:00:00* Test Item Value Reference Range Interpretation Comme nts SARS-CoV-2 INTERPRETATION (test code = 95427) POSITIVE SOURCE (test code = 92356) NASOPHARYNGEAL SARS-CoV-2 (COVID-19) by RT-PCR (HIGH RISK)2019-08-29 00:00:00* Test Item Value Reference Range Interpretation Comme nts SARS-CoV-2 INTERPRETATION (test code = 66544) POSITIVE SOURCE (test code = 78447) NASOPHARYNGEAL SARS-CoV-2 (COVID-19) by RT-PCR (HIGH RISK)2019-08-29 00:00:00* Test Item Value Reference Range Interpretation Comme nts SARS-CoV-2 INTERPRETATION (test code = 03188) POSITIVE SOURCE (test code = 01178) NASOPHARYNGEAL SARS-CoV-2 (COVID-19) by RT-PCR (HIGH RISK)2019-08-29 00:00:00* Test Item Value Reference Range Interpretation Comme nts SARS-CoV-2 INTERPRETATION (test code = 71306) POSITIVE SOURCE (test code = 09253) NASOPHARYNGEAL COMPREHENSIVE METABOLIC [id number] 00:00:00* Test Item Value Reference Range Interpretation Comme nts GLUCOSE (test code = 2217) 106 MG/DL BUN (test code = 2208) 14 MG/DL CREATININE (test code = 2214) 0.57 MG/DL eGFR AMER. (test cod e = 36738) 122 ML/MIN/1.73 eGFR NON- AMER. (test code = 81885) 105 ML/MIN/1.73 CALC BUN/CREAT (test code = [...] ALT (test code = 2219) 27 U/L Russell MontgomeryLIPID [id number] 00:00:00* Test Item Value Reference Range Interpretation Comme nts CHOLESTEROL (test code = 2210) 201 MG/DL TRIGLYCERIDES (test code = 2232) 128 MG/DL HDL CHOLESTEROL (test code = 2220) 67 MG/DL CALC LDL CHOL (test code = 2237) 110 MG/DL RISK RATIO LDL/HDL (test cod e = 2238) 1.64 RATIO Russell MontgomeryHEMOGLOBIN [id number] 00:00:00* Test Item Value Reference Range Interpretation Comme richie HEMOGLOBIN A1c (test code = 64159) 5.7 % Russell MontgomeryCULTURE, [id number] 00:00:00* Test Item Value Reference Range Interpretation Comme rcihie CULTURE, URINE (test code = 40043) SPECIMEN NUMBER: [id number] Russell MontgomeryCOMPREHENSIVE METABOLIC [id number] 00:00:00* Test Item Value Reference Range Interpretation Comme nts GLUCOSE (test code = 2217) 106 MG/DL BUN (test code = 2208) 14 MG/DL CREATININE (test code = 2214) 0.57 MG/DL eGFR AMER. (test cod e = 43018) 122 ML/MIN/1.73 eGFR NON- AMER. (test code = 16602) 105 ML/MIN/1.73 CALC BUN/CREAT (test code = [...] ALT (test code = 2219) 27 U/L Russell MontgomeryLIPID [id number] 00:00:00* Test Item Value Reference Range Interpretation Comme nts CHOLESTEROL (test code = 2210) 201 MG/DL TRIGLYCERIDES (test code = 2232) 128 MG/DL HDL CHOLESTEROL (test code = 2220) 67 MG/DL CALC LDL CHOL (test code = 2237) 110 MG/DL RISK RATIO LDL/HDL (test cod e = 2238) 1.64 RATIO Russell MontgomeryCULTURE, [id number] 00:00:00* Test Item Value Reference Range Interpretation Comme richie CULTURE, URINE (test code = 52221) SPECIMEN NUMBER: [id number] Russell MontgomeryHEMOGLOBIN [id number] 00:00:00* Test Item Value Reference Range Interpretation Comme richie HEMOGLOBIN A1c (test code = 26497) 5.7 % Russell MontgomeryCOMPREHENSIVE METABOLIC [id number] 00:00:00* Test Item Value Reference Range Interpretation Comme nts GLUCOSE (test code = 2217) 106 MG/DL BUN (test code = 2208) 14 MG/DL CREATININE (test code = 2214) 0.57 MG/DL eGFR AMER. (test cod e = 29810) 122 ML/MIN/1.73 eGFR NON- AMER. (test code = 12650) 105 ML/MIN/1.73 CALC BUN/CREAT (test code = [...] ALT (test code = 2219) 27 U/L Russell MontgomeryLIPID [id number] 00:00:00* Test Item Value Reference Range Interpretation Comme nts CHOLESTEROL (test code = 2210) 201 MG/DL TRIGLYCERIDES (test code = 2232) 128 MG/DL HDL CHOLESTEROL (test code = 2220) 67 MG/DL CALC LDL CHOL (test code = 2237) 110 MG/DL RISK RATIO LDL/HDL (test cod e = 2238) 1.64 RATIO Russell MontgomeryHEMOGLOBIN [id number] 00:00:00* Test Item Value Reference Range Interpretation Comme richie HEMOGLOBIN A1c (test code = 78870) 5.7 % Russell MontgomeryCULTURE, [id number] 00:00:00* Test Item Value Reference Range Interpretation Comme richie CULTURE, URINE (test code = 20313) SPECIMEN NUMBER: [id number] Russell MontgomeryCOMPREHENSIVE METABOLIC [id number] 00:00:00* Test Item Value Reference Range Interpretation Comme nts GLUCOSE (test code = 2217) 106 MG/DL BUN (test code = 220) 14 MG/DL CREATININE (test code = 2214) 0.57 MG/DL eGFR AMER. (test cod e = 92012) 122 ML/MIN/1.73 eGFR NON- AMER. (test code = 66469) 105 ML/MIN/1.73 CALC BUN/CREAT (test code = [...] ALT (test code = 2219) 27 U/L Russell MontgomeryLIPID [id number] 00:00:00* Test Item Value Reference Range Interpretation Comme nts CHOLESTEROL (test code = 2210) 201 MG/DL TRIGLYCERIDES (test code = 2232) 128 MG/DL HDL CHOLESTEROL (test code = 2220) 67 MG/DL CALC LDL CHOL (test code = 2237) 110 MG/DL RISK RATIO LDL/HDL (test cod e = 2238) 1.64 RATIO Russell MontgomeryHEMOGLOBIN [id number] 00:00:00* Test Item Value Reference Range Interpretation Comme nts HEMOGLOBIN A1c (test code = 39526) 5.7 % Russell MontgomeryCULTURE, [id number] 00:00:00* Test Item Value Reference Range Interpretation Comme nts CULTURE, URINE (test code = 65848) SPECIMEN NUMBER: [id number] Russell MontgomeryCOMPREHENSIVE METABOLIC [id number] 00:00:00* Test Item Value Reference Range Interpretation Comme nts GLUCOSE (test code = 2217) 106 MG/DL BUN (test code = 2208) 14 MG/DL CREATININE (test code = 2214) 0.57 MG/DL eGFR AMER. (test cod e = 36479) 122 ML/MIN/1.73 eGFR NON- AMER. (test code = 47714) 105 ML/MIN/1.73 CALC BUN/CREAT (test code = [...] ALT (test code = 2219) 27 U/L Russell MontgomeryLIPID [id number] 00:00:00* Test Item Value Reference Range Interpretation Comme nts CHOLESTEROL (test code = 2210) 201 MG/DL TRIGLYCERIDES (test code = 2232) 128 MG/DL HDL CHOLESTEROL (test code = 2220) 67 MG/DL CALC LDL CHOL (test code = 2237) 110 MG/DL RISK RATIO LDL/HDL (test cod e = 2238) 1.64 RATIO Russell MontgomeryHEMOGLOBIN [id number] 00:00:00* Test Item Value Reference Range Interpretation Comme nts HEMOGLOBIN A1c (test code = 80796) 5.7 % Russell MontgomeryCULTURE, [id number] 00:00:00* Test Item Value Reference Range Interpretation Comme nts CULTURE, URINE (test code = 17051) SPECIMEN NUMBER: [id number] Russell MontgomeryCOMPREHENSIVE METABOLIC [id number] 00:00:00* Test Item Value Reference Range Interpretation Comme nts GLUCOSE (test code = 2217) 106 MG/DL BUN (test code = 2208) 14 MG/DL CREATININE (test code = 2214) 0.57 MG/DL eGFR AMER. (test cod e = 60287) 122 ML/MIN/1.73 eGFR NON- AMER. (test code = 98342) 105 ML/MIN/1.73 CALC BUN/CREAT (test code = [...] ALT (test code = 2219) 27 U/L Russell MontgomeryLIPID [id number] 00:00:00* Test Item Value Reference Range Interpretation Comme nts CHOLESTEROL (test code = 2210) 201 MG/DL TRIGLYCERIDES (test code = 2232) 128 MG/DL HDL CHOLESTEROL (test code = 2220) 67 MG/DL CALC LDL CHOL (test code = 2237) 110 MG/DL RISK RATIO LDL/HDL (test cod e = 2238) 1.64 RATIO Russell Caceres AustinCULTURE, [id number] 00:00:00* Test Item Value Reference Range Interpretation Comme nts CULTURE, URINE (test code = 01854) SPECIMEN NUMBER: [id number] Russell Caceres [place]HEMOGLOBIN [id number] 00:00:00* Test Item Value Reference Range Interpretation Comme nts HEMOGLOBIN A1c (test code = 24100) 5.7 % Russell Caceres AustinHEMOGLOBIN [id number] 00:00:00* Test Item Value Reference Range Interpretation Comme nts HEMOGLOBIN A1c (test code = 13335) 5.7 % CULTURE, [id number] 00:00:00* Test Item Value Reference Range Interpretation Comme nts CULTURE, URINE (test code = 42814) SPECIMEN NUMBER: [id number] COMPREHENSIVE METABOLIC [id number] 00:00:00* Test Item Value Reference Range Interpretation Comme nts GLUCOSE (test code = 2217) 106 MG/DL BUN (test code = 2208) 14 MG/DL CREATININE (test code = 2214) 0.57 MG/DL eGFR AMER. (test cod e = 64789) 122 ML/MIN/1.73 eGFR NON- AMER. (test code = 07524) 105 ML/MIN/1.73 CALC BUN/CREAT (test code = [...] 2218) 18 U/L ALT (test code = 221) 27 U/L LIPID [id number] 00:00:00* Test Item Value Reference Range Interpretation Comme nts CHOLESTEROL (test code = 2210) 201 MG/DL TRIGLYCERIDES (test code = 2232) 128 MG/DL HDL CHOLESTEROL (test code = 2220) 67 MG/DL CALC LDL CHOL (test code = 223) 110 MG/DL RISK RATIO LDL/HDL (test cod e = 223) 1.64 RATIO HEMOGLOBIN [id number] 00:00:00* Test Item Value Reference Range Interpretation Comme nts HEMOGLOBIN A1c (test code = 60334) 5.7 % CULTURE, [id number] 00:00:00* Test Item Value Reference Range Interpretation Comme nts CULTURE, URINE (test code = 18474) SPECIMEN NUMBER: [id number] COMPREHENSIVE METABOLIC [id number] 00:00:00* Test Item Value Reference Range Interpretation Comme nts GLUCOSE (test code = 2216) 106 MG/DL BUN (test code = 2207) 14 MG/DL CREATININE (test code = 2214) 0.57 MG/DL eGFR AMER. (test cod e = 93492) 122 ML/MIN/1.73 eGFR NON- AMER. (test code = 12352) 105 ML/MIN/1.73 CALC BUN/CREAT (test code = [...] (test code = 2219) 27 U/L LIPID [id number] 00:00:00* Test Item Value Reference Range Interpretation Comme nts CHOLESTEROL (test code = 2210) 201 MG/DL TRIGLYCERIDES (test code = 2232) 128 MG/DL HDL CHOLESTEROL (test code = 2220) 67 MG/DL CALC LDL CHOL (test code = 2237) 110 MG/DL RISK RATIO LDL/HDL (test cod e = 2238) 1.64 RATIO HEMOGLOBIN [id number] 00:00:00* Test Item Value Reference Range Interpretation Comme nts HEMOGLOBIN A1c (test code = 62234) 5.7 % CULTURE, [id number] 00:00:00* Test Item Value Reference Range Interpretation Comme nts CULTURE, URINE (test code = 60401) SPECIMEN NUMBER: [id number] COMPREHENSIVE METABOLIC [id number] 00:00:00* Test Item Value Reference Range Interpretation Comme nts GLUCOSE (test code = 2217) 106 MG/DL BUN (test code = 2208) 14 MG/DL CREATININE (test code = 2214) 0.57 MG/DL eGFR AMER. (test cod e = 75053) 122 ML/MIN/1.73 eGFR NON- AMER. (test code = 92960) 105 ML/MIN/1.73 CALC BUN/CREAT (test code = [...] (test code = 2219) 27 U/L LIPID [id number] 00:00:00* Test Item Value Reference Range Interpretation Comme nts CHOLESTEROL (test code = 2210) 201 MG/DL TRIGLYCERIDES (test code = 2232) 128 MG/DL HDL CHOLESTEROL (test code = 2220) 67 MG/DL CALC LDL CHOL (test code = 2237) 110 MG/DL RISK RATIO LDL/HDL (test cod e = 2238) 1.64 RATIO HEMOGLOBIN [id number] 00:00:00* Test Item Value Reference Range Interpretation Comme nts HEMOGLOBIN A1c (test code = 55666) 5.7 % CULTURE, [id number] 00:00:00* Test Item Value Reference Range Interpretation Comme nts CULTURE, URINE (test code = 25102) SPECIMEN NUMBER: [id number] COMPREHENSIVE METABOLIC [id number] 00:00:00* Test Item Value Reference Range Interpretation Comme nts GLUCOSE (test code = 2217) 106 MG/DL BUN (test code = 2208) 14 MG/DL CREATININE (test code = 2214) 0.57 MG/DL eGFR AMER. (test cod e = 73301) 122 ML/MIN/1.73 eGFR NON- AMER. (test code = 00383) 105 ML/MIN/1.73 CALC BUN/CREAT (test code = [...] (test code = 2219) 27 U/L LIPID [id number] 00:00:00* Test Item Value Reference Range Interpretation Comme nts CHOLESTEROL (test code = 2210) 201 MG/DL TRIGLYCERIDES (test code = 2232) 128 MG/DL HDL CHOLESTEROL (test code = 2220) 67 MG/DL CALC LDL CHOL (test code = 2237) 110 MG/DL RISK RATIO LDL/HDL (test cod e = 223) 1.64 RATIO HEMOGLOBIN [id number] 00:00:00* Test Item Value Reference Range Interpretation Comme nts HEMOGLOBIN A1c (test code = 29209) 5.7 % CULTURE, [id number] 00:00:00* Test Item Value Reference Range Interpretation Comme nts CULTURE, URINE (test code = 24872) SPECIMEN NUMBER: [id number] COMPREHENSIVE METABOLIC [id number] 00:00:00* Test Item Value Reference Range Interpretation Comme nts GLUCOSE (test code = 2217) 106 MG/DL BUN (test code = 220) 14 MG/DL CREATININE (test code = 2214) 0.57 MG/DL eGFR AMER. (test cod e = 92226) 122 ML/MIN/1.73 eGFR NON- AMER. (test code = 04232) 105 ML/MIN/1.73 CALC BUN/CREAT (test code = [...] (test code = 2219) 27 U/L LIPID [id number] 00:00:00* Test Item Value Reference Range Interpretation Comme nts CHOLESTEROL (test code = 2210) 201 MG/DL TRIGLYCERIDES (test code = 2232) 128 MG/DL HDL CHOLESTEROL (test code = 2220) 67 MG/DL CALC LDL CHOL (test code = 2237) 110 MG/DL RISK RATIO LDL/HDL (test cod e = 2238) 1.64 RATIO Notes Date/Time Note Provider Source Russell Ly [facility]2025-02-15 00:00:00 Russell Anderson [facility]2025 00:00:00 [facility]2024-10-21 19:59:21 Pt given printed and verbal discharge instructions regarding UTI, gastritis, encouraged hydration, 2 Prescription sent with patient Discussed antibiotic therapy and to take until all completed unless adverse reaction occurs - if occurs, discontinue medication and follow up with pcp/seek medical attention Pt verbalized understanding of instructions, pt awake alert oriented, resp reg unlabored, skin w/d, color appropriate for race, moves all ext well,pt encouraged to follow up with pcp Advised to seek medical attention for new/prolonged/worsening of symptoms No adverse reaction to meds given in ER noted upon discharge PIV d'cd, dressing to site, catheter in tact. Awake, alert oriented, resp reg unlabored, skin w/d, pt leaving ambulatory without assist, in no apparent distress, [id number] 17:42:21 Pt arrives ambulatory to ED c/o epigastric pain, nausea, and constipation x1 week . She states that the pain worsens when she eats. [facility] Quinones [id number] 00:00:00 [facility]2024-06-20 00:00:00 [facility]2024-06-06 00:00:00 [facility]"
[2024-07-10 23:31] LABS: Specific Gravity > 1.030 (1.005-1.030); Sqamous Epithelial <5 /HPF (None Seen); Urine Bacteria <20 /HPF (<20); Urine Bilirubin NEGATIVE (Negative); Urine Blood 1+ (Negative); Urine Clarity Clear (Clear); Urine Color Light-Yellow (Yellow); Urine Culture Reflex Order NOT NEEDED; Urine Glucose NEGATIVE (Negative); Urine Ketones NEGATIVE (Negative); Urine Microscopic Reflex YN ORDER UMIC; Urine Mucus 2+ /HPF (None Seen); Urine Nitrite NEGATIVE (Negative); Urine Protein NEGATIVE (Negative); Urine RBC <5 /HPF (None Seen); Urine Urobilinogen Normal (Normal); Urine pH 5.5 (5.0-7.0)
--- NOTE | 2024-07-10 23:49 | ER ---
Nurse's Notes [facility] Name: Mamie Donovan Age: 59 yrs Sex: Female : 1965 Arrival Date: 07/10/2024 Time: 21:14 Bed DX4 Private MD: Diagnosis: UTI/ Urinary tract infection, site not specified;Torticollis Presentation: 07/10 21:26 Chief complaint: Patient states: woke up today with a stiff neck, pain is 8/10 when she me1 tries to turn her head. Also c/o burning with urination, frequency and only able to void a small amount when she urinates- symptoms started a week ago. Coronavirus screen: Vaccine status: Patient reports receiving the 2nd dose of the covid vaccine. Ebola Screen: No symptoms or risks identified at this time. Initial Sepsis Screen: Does the patient meet any 2 criteria? HR > 90 bpm. No. Patient's initial sepsis screen is negative. Does the patient have a suspected source of infection? No. Patient's initial sepsis screen is negative. Risk Assessment: Do you want to hurt yourself or someone else? Patient reports no desire to harm self or others. Onset of symptoms was July 03, 2024. 21:26 Method Of Arrival: Ambulatory [facility] 21:26 Acuity: FÁTIMA 3 me1 Triage Assessment: 21:30 General: Appears uncomfortable, Behavior is calm, cooperative. Pain: Complains of pain ha1 in right posterior aspect of neck Pain currently is 7 out of 10 on a pain scale. Quality of pain is described as aching. Neuro: Level of Consciousness is awake, alert, obeys commands, Oriented to person, place, time, situation. Cardiovascular: Patient's skin is warm and dry. Respiratory: Airway is patent Respiratory effort is even, unlabored, Respiratory pattern is regular, symmetrical. Historical: - Allergies: 21:29 No Known Allergies; me1 - PMHx: 21:29 diabetes mellitus; Hypercholesterolemia; Hypertension; me1 - PSHx: 21:29 Ligation of fallopian tube; me1 - Immunization history:: Adult Immunizations up to date. - Infectious Disease History:: Denies. - Social history:: Smoking status: Patient denies any tobacco usage or history of. Screenin/26 00:22 [facility] ED Fall Risk Assessment (Adult) History of falling in the last 3 months, ha1 including since admission No falls in past 3 months (0 pts) Confusion or Disorientation No (0 pts) Intoxicated or Sedated No (0 pts) Impaired Gait No (0 pts) Mobility Assist Device Used No (0 pt) Altered Elimination No (0 pt) Score/Fall Risk Level 0 - 2 = Low Risk Oriented to surroundings, Maintained a safe environment, Educated pt \T\ family on fall prevention, incl call for assistance when getting out of bed, Hourly rounding (assess needs \T\ fall precautionary measures) done. Abuse screen: Denies threats or abuse. Denies injuries from another. Nutritional screening: No deficits noted. Tuberculosis screening: No symptoms or risk factors identified. Assessment: 00:21 Reassessment: Patient and/or family updated on plan of care and expected duration. Pain ha1 level reassessed. Patient is alert, oriented x 3, equal unlabored respirations, skin warm/dry/pink. Patient denies pain at this time. Patient states feeling better. Patient states symptoms have improved. Vital Signs: 07/10 21:26 BP 127 / 85; Pulse 95; Resp 16; Temp 98.5; Pulse Ox 96% ; Weight 81.19 kg; Height 5 ft. me1 5 in. ; Pain 8/10; 21:26 Body Mass Index 29.79 (81.19 kg, 165.1 cm) me1 21:26 Pain Scale: Adult me1 ED Course: 21:17 Patient arrived in ED. im 21:29 Triage completed. me1 21:29 Arm band placed on Patient placed in waiting room. me1 21:32 Nadine Peraza PA-C is PHCP. sb4 21:32 Tavo Marino MD is Attending Physician. sb4 22:00 Patient has correct armband on for positive identification. Bed in low position. Call ha1 light in reach. Side rails up X 1. Adult w/ patient. 23:00 No provider procedures requiring assistance completed. ha1 23:00 Patient did not have IV access during this emergency room visit. ha1 23:49 Cesar Ruelas DO is Referral Physician. sb4 Administered Medications: 07/11 00:00 Drug: Ketorolac IM 30 mg IM once Route: IM; Site: left deltoid; ha1 00:20 Follow up: Response: No adverse reaction; Pain is decreased ha1 00:00 Drug: Cyclobenzaprine PO 10 mg PO once Route: PO; ha1 00:20 Follow up: Response: No adverse reaction; Marked relief of symptoms ha1 00:00 Drug: Lidoderm Topical Patch 5 % (700 mg/patch) 1 patches Topical once; leave on for 12 ha1 hours; cover most painful area; may cut into smaller pieces Route: Topical; Site: affected area; 00:20 Follow up: Response: No adverse reaction ha1 Medication: 00:22 VIS not applicable for this client. ha1 Outcome: 07/10 23:49 Discharge ordered by MD. ricks 07/11 00:21 Discharged to home ambulatory, with family, ha1 Condition: stable Discharge instructions given to patient, family, Instructed on discharge instructions, follow up and referral plans. medication usage, Demonstrated understanding of instructions, follow-up care, medications, Prescriptions given X 3, 00:23 Patient left the ED. ha1 Signatures: Peggy Palma RN RN ha1 Nadine Peraza PA-C PAChema sb4 Debby Dejesus Michelle RN RN me1
--- NOTE | 2024-07-10 23:49 | EDPHYS ---
Physician Documentation [facility] Name: Mamie Donovan Age: 59 yrs Sex: Female : 1965 Arrival Date: 07/10/2024 Time: 21:14 Bed DX4 Private MD: ED Physician Tavo Marino HPI: 07/10 23:51 This 59 yrs old Female presents to ER via Ambulatory with complaints of Stiff sb4 Neck. 23:51 Patient reports right sided neck pain that began upon waking this morning. States she sb4 feels that it is stiff and it is painful to turn her neck to the left or right. Denies any injury to the area. Additionally, she reports some burning with urination, small amounts, and like she is not fully emptying her bladder. Endorses nausea, denies any vomiting, fever, or chills. Denies any flank pain. has not taken any medications for the pain. Historical: - Allergies: 21:29 No Known Allergies; me1 - PMHx: 21:29 diabetes mellitus; Hypercholesterolemia; Hypertension; me1 - PSHx: 21:29 Ligation of fallopian tube; me1 - Immunization history:: Adult Immunizations up to date. - Infectious Disease History:: Denies. - Social history:: Smoking status: Patient denies any tobacco usage or history of. ROS: 23:51 Constitutional: Negative for fever, chills, and weight loss, sb4 23:51 Neck: Positive for pain with movement, stiffness, of the right posterior aspect of neck, 23:51 : Positive for urinary symptoms, small amounts, burning with urination, 23:51 All other systems are negative, Exam: 23:51 Constitutional: This is a well developed, well nourished patient who is awake, alert, sb4 and in no acute distress. Head/Face: Normocephalic, atraumatic. Eyes: Extra-ocular motions intact. Periorbital areas with no swelling, redness, or edema. ENT: Mucous membranes moist. Respiratory: No increased work of breathing, no retractions or nasal flaring. Abdomen/GI: Soft, non-tender, no distension. Skin: Warm, dry with normal turgor. Normal color with no rashes, no lesions, and no evidence of cellulitis. 23:51 Neck: ROM/movement: pain, that is mild, with rotation to the left, with rotation to the right, Meningeal signs: are not present, nuchal rigidity, is not appreciated, Vital Signs: 21:26 BP 127 / 85; Pulse 95; Resp 16; Temp 98.5; Pulse Ox 96% ; Weight 81.19 kg; Height 5 ft. me1 5 in. ; Pain 8/10; 21:26 Body Mass Index 29.79 (81.19 kg, 165.1 cm) me1 21:26 Pain Scale: Adult me1 MDM: 21:32 Medical Screening Exam initiated sb4 23:54 Differential diagnosis: torticollis, muscle spasm, UTI. Data reviewed: vital signs, sb4 nurses notes, lab test result(s), and as a result, I will discharge patient. Care significantly affected by the following chronic conditions: Diabetes, Hypertension. Counseling: I had a detailed discussion with the patient and/or guardian regarding the historical points, exam findings, and any diagnostic results supporting the discharge/admit diagnosis, lab results, the need for outpatient follow up, for definitive care, to return to the emergency department if symptoms worsen or persist or if there are any questions or concerns that arise at home. 07/10 21:33 Order name: UA Rfx Rigo Cult if indicated; Complete Time: 23:37 sb4 Administered Medications: 07/11 00:00 Drug: Ketorolac IM 30 mg IM once Route: IM; Site: left deltoid; ha1 00:20 Follow up: Response: No adverse reaction; Pain is decreased ha1 00:00 Drug: Cyclobenzaprine PO 10 mg PO once Route: PO; ha1 00:20 Follow up: Response: No adverse reaction; Marked relief of symptoms ha1 00:00 Drug: Lidoderm Topical Patch 5 % (700 mg/patch) 1 patches Topical once; leave on for 12 ha1 hours; cover most painful area; may cut into smaller pieces Route: Topical; Site: affected area; 00:20 Follow up: Response: No adverse reaction ha1 Disposition: 20:13 Co-signature as Attending Physician, Tavo Marino MD I agree with the assessment sp4 and plan of care. I reviewed the patient's care provided by the Advanced Practice Provider and agree with the diagnosis and treatment plan. Disposition Summary: 07/10/24 23:49 Discharge Ordered Notes: Location: Home sb4 Problem: new sb4 Symptoms: have improved sb4 Condition: Stable sb4 Diagnosis - UTI/ Urinary tract infection, site not specified sb4 - Torticollis sb4 Followup: sb4 - With: Cesar Ruelas DO - When: 1 week - Reason: Recheck today's complaints, Continuance of care, Re-evaluation by your physician Discharge Instructions: - Discharge Summary Sheet sb4 - Acute Torticollis, Adult sb4 - Urinary Tract Infection, Adult, [id number] sb4 Forms: - Patient Portal Instructions sb4 - Leadership Thank You Letter sb4 Prescriptions: - Ibuprofen 800 mg Oral Tablet - take 1 tablet ORAL route every 8 hours As needed take with food; 30 tablet; sb4 Refills: 0, Product Selection Permitted - Cyclobenzaprine 10 mg Oral Tablet - take 1 tablet ORAL route every 8 hours As needed; 30 tablet; Refills: 0, sb4 Product Selection Permitted - Macrobid 100 mg Oral Capsule - take 1 capsule ORAL route every 12 hours for 7 days; 14 capsule; Refills: 0, sb4 Product Selection Permitted Signatures: Dispatcher [employer] [facility] Peggy Palma RN RN ha1 Nadine Peraza PA-C PA-C sb4 Tavo Marino MD MD sp4 Flavia Hartman RN RN me1 Corrections: (The following items were deleted from the chart) 07/10 21:34 21:34 UA Rfx Rigo Cult if indicated+U.LAB.BRZ ordered. [facility] EDVA 23:54 23:51 Patient reports right sided neck pain that began upon waking this morning. States sb4 she feels that it is stiff and it is painful to turn her neck to the left or right. Denies any injury to the area. Additionally, she reports some burning with urination, small amounts, and like she is not fully emptying her bladder. Endorses nausea, denies any vomiting, fever, or chills. Denies any flank pain. sb4
[2024-07-11] MEDS ORDERED: KETOROLAC 30 MG/ML INJ ONE (00:13)
[2024-07-11] MEDS ORDERED: CYCLOBENZAPRINE 10 MG TAB ONE (00:13)
[2024-07-11] MEDS ORDERED: LIDOCAINE 4% PATCH ONE (00:13)
[2024-07-11 01:17] VITALS: BP 127/85; TEMP 98.5; O2SAT 96
== END 2024-07-11 00:23 | disposition home or self-care (01) ==
LOC: ER 21:14
DX: N39.0 Urinary tract infection, site not specified (principal); M43.6 Torticollis
CPT/HCPCS: 81001; 96372; 99284; J2003